=== PATIENT | female | born 1965 | race Two or more races ===

== ENCOUNTER 2020-09-11 08:49 | Outpatient (REF) | payer OTHER, SELFPAY ==
--- NOTE | 2020-09-11 | MM_ITS ---
EXAMINATION: MM SCREENING DIGITAL BREAST TOMOSYNTHESIS, BILATERAL CLINICAL INFORMATION: Screening. Asymptomatic. The lifetime risk of breast cancer based on the Tyrer-Cuzick Model is 7%. COMPARISON: Mammography: 02/10/2019, outside exam 04/12/2016 ([facility], [place]). TECHNIQUE: Digital breast tomosynthesis is performed in both the craniocaudal and mediolateral oblique views along with computer-aided detection (CAD). Synthesized 2D images are generated from the tomosynthesis. FINDINGS: There are scattered areas of fibroglandular density (ACR BI-RADS breast composition Category b). There are no significant masses, abnormal calcifications, or other abnormalities. The axilla and skin contours are unremarkable. No significant changes. IMPRESSION: No mammographic evidence of malignancy. ASSESSMENT: BI-RADS 1: Negative RECOMMENDATION: Routine annual mammography screening. This patient's information was entered into a reminder system with a target due date for their next mammogram.
== END 2020-09-11 08:50 | disposition home or self-care (01) ==
LOC: HO.MAMMO 08:49
PROVIDERS: Visit Provider Internal Medicine
DX: Z12.31 Encounter for screening mammogram for malignant neoplasm of breast (principal)
CPT/HCPCS: 77063; 77067

== ENCOUNTER 2020-11-06 10:36 | Outpatient (REF) | payer OTHER, SELFPAY ==
[2020-11-06 11:26] LABS: Alanine Aminotransferase 23 U/L (0-31); Anion Gap 11 (12-20); Aspartate Amino Transferase 25 U/L (5-31); Blood Urea Nitrogen 15 mg/dL (9-16); Calcium 9.8 mg/dL (8.4-10.2); Carbon Dioxide 29 mmol/L (22-29); Chloride 105 mmol/L (96-108); Cholesterol 184 mg/dL; Estimated Glomerular Filt Rate > 60; Glucose Fasting 88 mg/dL (60-99); HDL Cholesterol 39 mg/dL; LDL Cholesterol Calculated 108 mg/dl; Potassium 4.2 mmol/l (3.3-5.1); Sodium 141 mmol/L (135-145); Triglycerides 186 mg/dL
[2020-11-08 17:08] LABS: Calcium, Ionized 5.3 mg/dL (4.8-5.6)
== END 2020-11-06 10:37 | disposition home or self-care (01) ==
LOC: HO.LAB 10:36
PROVIDERS: PCP Internal Medicine; Visit Provider Internal Medicine
DX: E78.2 Mixed hyperlipidemia (principal); I10 Essential (primary) hypertension
CPT/HCPCS: 80048; 80061; 82330; 84450; 84460

== ENCOUNTER 2020-11-23 11:03 | Outpatient (REF) | payer OTHER, SELFPAY ==
--- NOTE | 2020-11-23 11:09 | XR_ITS ---
EXAMINATION: XR CHEST CLINICAL INFORMATION: Chest pain. COMPARISON: None TECHNIQUE: 2 views of the chest were obtained. FINDINGS: No significant abnormality is noted involving the heart, lungs, mediastinum, bony thorax or soft tissues. XR/XR chest 2V IMPRESSION: Unremarkable chest examination.
== END 2020-11-23 11:04 | disposition home or self-care (01) ==
LOC: HO.HMGCX 11:03
PROVIDERS: Visit Provider Nurse Practitioner Family
DX: R07.89 Other chest pain (principal)
CPT/HCPCS: 71046

== ENCOUNTER 2021-02-03 16:00 | Emergency (ER) | payer OTHER, SELFPAY ==
[2021-02-03 16:16] VITALS: BP 165/75; PULSE 73; RESP 18; TEMP 36.1; O2SAT 99; BMI 29.0
== END 2021-02-03 19:30 | disposition left against medical advice (07) ==
PROVIDERS: Emergency Provider Emergency Medicine
DX: K62.5 Hemorrhage of anus and rectum (principal)
CPT/HCPCS: 99282

== ENCOUNTER 2021-05-04 06:06 | Outpatient (REF) | payer OTHER, SELFPAY ==
[2021-05-04 12:15] LABS: Alanine Aminotransferase 20 U/L (0-31); Anion Gap 12 (12-20); Aspartate Amino Transferase 26 U/L (5-31); Blood Urea Nitrogen 13 mg/dL (9-16); Calcium 9.7 mg/dL (8.4-10.2); Carbon Dioxide 27 mmol/L (22-29); Chloride 106 mmol/L (96-108); Cholesterol 182 mg/dL; Estimated Glomerular Filt Rate > 60; Glucose Fasting 105 mg/dL (60-99); HDL Cholesterol 40 mg/dL; LDL Cholesterol Calculated 94 mg/dl; Potassium 4.3 mmol/L (3.3-5.1); Sodium 141 mmol/L (135-145); Triglycerides 244 mg/dL
== END 2021-05-04 06:07 | disposition home or self-care (01) ==
LOC: HO.HMGCLDS 06:06
PROVIDERS: PCP Internal Medicine; Visit Provider Internal Medicine
DX: E78.2 Mixed hyperlipidemia (principal); I10 Essential (primary) hypertension
CPT/HCPCS: 36415; 80048; 80061; 84450; 84460

== ENCOUNTER 2021-09-09 12:46 | Emergency (ER) | payer OTHER, SELFPAY ==
[2021-09-09 13:08] VITALS: BP 181/99; PULSE 63; RESP 18; TEMP 36.8; O2SAT 98; BMI 30.8
[2021-09-09 14:04] LABS: Carbon Monoxide POC 1.4 %
[2021-09-09 14:04] LABS: Carbon Monoxide Refer to POC result
--- NOTE | 2021-09-09 14:27 | ED.GENADULT ---
HPI - General Adult General Chief complaint: General Medical Stated complaint: exposure to carbon monoxide Time Seen by Provider: 09/09/21 13:54 Source: patient Mode of arrival: ambulatory History of Present Illness HPI narrative: 55-year-old female with a past medical history of carpal tunnel, hypertension, GERD, migraines, hyperlipidemia presenting to the ED complaining of exposure to carbon monoxide last night at home. There was a leak from a gas stove, fire department and gas company were at patient's home to check and was confirmed. Patient reports mild headache. Denies SOB, cough, fatigue/malaise, weakness. Patient is not a smoker Onset (ago): day(s) Related Data Home Medications Medication Instructions Recorded Confirmed ascorbic acid (vitamin C) 500 mg mg PO 11/08/20 11/08/20 capsule cholecalciferol (vitamin D3) 25 25 mcg PO DAILY 11/08/20 11/08/20 mcg (1,000 unit) capsule omega-3 fatty acids 1,000 mg 1,000 mg PO DAILY 11/08/20 11/08/20 capsule (Fish Oil Concentrate) oxybutynin chloride 5 mg 5 mg PO DAILY 11/08/20 11/08/20 tablet,extended release 24 hr zinc 50 mg tablet 50 mg PO DAILY 11/08/20 11/08/20 phenazopyridine 200 mg tablet 200 mg PO Q8H PRN 07/12/21 07/12/21 Previous Rx's Medication Instructions Recorded cetirizine 10 mg tablet 10 mg PO BEDTIME PRN #30 tab 09/20/20 lidocaine 5 % topical patch 1 patch TOPICAL DAILY #15 ea 11/23/20 diclofenac sodium 1 % topical gel 2 g TRANSDERMAL BID PRN #100 g 12/13/20 valacyclovir 500 mg tablet 500 mg PO DAILY #30 tab 06/24/21 lisinopril 10 mg tablet 10 mg PO DAILY #30 tab 06/27/21 rosuvastatin 5 mg tablet 5 mg PO DAILY #30 tab 07/12/21 pantoprazole 40 mg tablet,delayed 40 mg PO DAILY #30 tab 07/26/21 release Allergies Allergy/AdvReac Type Severity Reaction Status Date / Time ibuprofen AdvReac Unknown stomach Verified 09/09/21 13:08 upset Review of Systems Review of Systems: Constitutional: No Fever, No Chills, No Night Sweats, No Fatigue, No Malaise ENT/Mouth: No Ear Pain, No Nasal Congestion, No Sinus Pain, No Hoarseness, No sore throat, No Swallowing Difficulty Eyes: No Eye Pain, No Swelling, No Redness Cardiovascular: No Chest Pain, No SOB, No Palpitations Respiratory: No Cough, No Wheezing, +CO2 exposure, No Dyspnea Gastrointestinal: No Nausea, No Vomiting, No Diarrhea, No Abdominal pain Genitourinary:No Dysuria, No Urinary Frequency, No Hematuria Musculoskeletal: No joint pain, No Myalgias, No Joint Swelling Skin: No Skin Lesions, No rash Neuro: No Weakness, No Numbness, No Loss of Consciousness, No Dizziness, + Headache Yes all other systems are reviewed and are negative [facility] Past Medical History Attestation statement: The following information was validated with the patient. Medical History (Updated 09/09/21 @ 14:29 by KATERYNA Jeong) Carpal tunnel syndrome Essential hypertension GERD (gastroesophageal reflux disease) Impaired fasting glucose Migraine Mixed dyslipidemia Normal Pap smear Plantar fasciitis Stress incontinence of urine Surgical History Hx of cholecystectomy Family History Family History (Updated 07/12/21 @ 09:13 by Elinor Carrillo CMA) Father Bone cancer Mother History of hernia repair HTN (hypertension) Diabetes mellitus Brother Diabetes mellitus HTN (hypertension) Substance use disorder Maternal Grandfather Unknown family medical history Maternal Grandmother Unknown family medical history Paternal Grandfather Unknown family medical history Paternal Grandmother Unknown family medical history Sister No problems noted. Sister No problems noted. Daughter No problems noted. Daughter No problems noted. Son No problems noted. Brother No problems noted. Brother No problems noted. Brother No problems noted. Brother No problems noted. Social History Social History Housing: Apartment Alcohol intake: current Patient Tobacco Use Status: Former Tobacco user Years Smoked: 2 yrs e-Cigarette/Vaping Use: Never Used Second Hand Smoke Exposure: No Advance Directives: No Patient : No service: No Current occupational status: employed Physical Exam Vital Signs: Vital Signs: Last Vital Signs Temp 98.2 F 09/09/21 13:08 Pulse 63 09/09/21 13:08 Resp 18 09/09/21 13:08 BP 181/99 H 09/09/21 13:08 Pulse Ox 98 09/09/21 13:08 Body Mass Index 30.8 Const: General: cooperative and healthy appearing Orientation/consciousness: patient oriented x3 Limitations: no limitations HENMT: Head: Yes normal to inspection Ears: hearing grossly normal bilaterally General nose exam: Normal external nose present Face and sinus: Yes normal facial exam Eyes: General: appearance normal, both eyes and all related structures EOM: EOMs intact bilaterally Neck: Neck: Yes normal visual inspection Resp: Effort & Inspection: normal respiratory effort Auscultation: clear to auscultation bilaterally, no rales, no rhonchi and no wheezes Cardio: Rate: regular rate Heart sounds: S1 normal heart sound present and S2 normal heart sound present Skin: Rashes: no rashes Wounds: no wounds Neuro: General: patient oriented x3 Gait exam (Neuro): Normal gait present Extrem: General: Yes normal to inspection Course Course Course Narrative: -1428--carboxyhemoglobin negative Medical Decision Making [facility] Narrative Medical decision making narrative: 55-year-old female with a past medical history of carpal tunnel, hypertension, GERD, migraines, hyperlipidemia presenting to the ED complaining of exposure to carbon monoxide last night at home. On exam VSS, an 80/well-appearing, rule out carbon monoxide poisoning Plan: Will obtain, carboxyhemoglobin Lab Data Labs: Lab Results 09/09/21 Range/Units 13:59 Carboxyhemoglobin % 1.4 % Discharge Plan Discharge Clinical Impression: Accidental exposure to carbon monoxide Patient Disposition: Home, Self-Care Instructions: Carbon Monoxide Poisoning (ED) Additional Instructions: Your carbon monoxide level in the blood was normal It is important for you to ensure that your no longer be exposed to carbon monoxide If he develops any increasing fatigue, headaches, shortness of breath please return to the ED Please follow-up with your doctor Prescriptions: No Action cetirizine 10 mg tablet 10 mg PO BEDTIME PRN (Reason: for congestion) Qty: 30 RF: 2 diclofenac sodium 1 % gel 2 g transdermal BID PRN (Reason: for pain) Qty: 100 RF: 2 valacyclovir 500 mg tablet 500 mg PO DAILY Qty: 30 RF: 5 lisinopril 10 mg tablet 10 mg PO DAILY Qty: 30 RF: 5 pantoprazole 40 mg tablet,delayed release (DR/EC) 40 mg PO DAILY Qty: 30 RF: 2 phenazopyridine 200 mg tablet 200 mg PO Q8H PRNRF: 0 rosuvastatin 5 mg tablet 5 mg PO DAILY Qty: 30 RF: 5 oxybutynin chloride 5 mg tablet extended release 24hr 5 mg PO DAILY RF: 0 omega-3 fatty acids [Fish Oil Concentrate] 1,000 mg capsule 1,000 mg PO DAILY RF: 0 cholecalciferol (vitamin D3) 25 mcg (1,000 unit) capsule 25 mcg PO DAILY RF: 0 ascorbic acid (vitamin C) 500 mg capsule PO RF: 0 zinc 50 mg tablet 50 mg PO DAILY RF: 0 lidocaine 5 % adhesive patch,medicated 1 patch topical DAILY Qty: 15 RF: 0 Referrals: Felicitas Burkett MD [Primary Care Provider] - 2 days
== END 2021-09-09 14:44 | disposition home or self-care (01) ==
PROVIDERS: Emergency Provider Emergency Medicine Emergency Medical Services; PCP Internal Medicine
DX: T58.91XA Toxic effect of carbon monoxide from unspecified source, accidental (unintentional), initial encounter (principal); Y92.9 Unspecified place or not applicable; Z79.899 Other long term (current) drug therapy
CPT/HCPCS: 36415; 99283

== ENCOUNTER 2021-09-19 13:31 | Outpatient (REF) | payer OTHER, SELFPAY ==
--- NOTE | ~2021-09-19 | MM_ITS ---
EXAMINATION: MM SCREENING DIGITAL BREAST TOMOSYNTHESIS, BILATERAL CLINICAL INFORMATION: Screening. Asymptomatic. The lifetime risk of breast cancer based on the Tyrer-Cuzick Model is 8%. COMPARISON: Mammography: 09/11/2020, 02/10/2019, 04/12/2016 TECHNIQUE: Digital breast tomosynthesis is performed in both the craniocaudal and mediolateral oblique views along with computer-aided detection (CAD). Synthesized 2D images are generated from the tomosynthesis. FINDINGS: There are scattered areas of fibroglandular density (ACR BI-RADS breast composition Category b). There are no significant masses, abnormal calcifications, or other abnormalities. Parenchymal pattern is similar to prior exam. No developing density. No significant changes. MM/MM tomosynthesis screening BI IMPRESSION: No mammographic evidence of malignancy. ASSESSMENT: BI-RADS 1: Negative RECOMMENDATION: Routine annual mammography screening. This patient's information was entered into a reminder system with a target due date for their next mammogram.
== END 2021-09-19 13:32 | disposition home or self-care (01) ==
LOC: HO.MAMMO 13:31
PROVIDERS: Visit Provider Internal Medicine
DX: Z12.31 Encounter for screening mammogram for malignant neoplasm of breast (principal)
CPT/HCPCS: 77063; 77067

== ENCOUNTER 2022-01-17 13:51 | Outpatient (REF) | payer OTHER, SELFPAY ==
[2022-01-19 23:41] LABS: HPV mRNA E6/E7 rflx Not Detected (Not Detected)
== END 2022-01-17 13:52 | disposition home or self-care (01) ==
LOC: HO.LNP 13:51
PROVIDERS: Visit Provider Internal Medicine
DX: Z12.4 Encounter for screening for malignant neoplasm of cervix (principal); Z11.51 Encounter for screening for human papillomavirus (HPV)
CPT/HCPCS: 87624; 88142

== ENCOUNTER 2022-01-23 09:58 | Outpatient (REF) | payer OTHER, SELFPAY ==
[2022-01-23 11:47] LABS: Estimated Average Glucose 117 mg/dL; Hemoglobin A1c % 5.7 %
[2022-01-23 12:18] LABS: Vitamin D 25-OH Total 24.7 ng/mL (>30)
[2022-01-23 12:27] LABS: Alanine Aminotransferase 25 U/L (0-31); Anion Gap 11 (12-20); Aspartate Amino Transferase 26 U/L (5-31); Blood Urea Nitrogen 15 mg/dL (9-16); Calcium 9.9 mg/dL (8.4-10.2); Carbon Dioxide 28 mmol/L (22-29); Chloride 106 mmol/L (96-108); Cholesterol 176 mg/dL; Estimated Glomerular Filt Rate > 60; Glucose Fasting 98 mg/dL (60-99); HDL Cholesterol 37 mg/dL; LDL Cholesterol Calculated 88 mg/dl; Potassium 4.1 mmol/L (3.3-5.1); Sodium 141 mmol/L (135-145); Triglycerides 257 mg/dL
== END 2022-01-23 09:59 | disposition home or self-care (01) ==
LOC: HO.LAB 09:58
PROVIDERS: PCP Internal Medicine; Visit Provider Internal Medicine
DX: Z00.01 Encounter for general adult medical examination with abnormal findings (principal); E78.2 Mixed hyperlipidemia; I10 Essential (primary) hypertension; R73.01 Impaired fasting glucose; Z78.0 Asymptomatic menopausal state
CPT/HCPCS: 36415; 80048; 80061; 82306; 83036; 84450; 84460

== ENCOUNTER 2022-07-25 09:25 | Outpatient (REF) | payer OTHER, SELFPAY ==
[2022-07-25 12:35] LABS: Vitamin D 25-OH Total 42.5 ng/mL (>30)
[2022-07-25 12:46] LABS: Alanine Aminotransferase 26 U/L (0-31); Aspartate Amino Transferase 26 U/L (5-31); Cholesterol 197 mg/dL; HDL Cholesterol 42 mg/dL; LDL Cholesterol Calculated 98 mg/dl; Triglycerides 285 mg/dL
== END 2022-07-25 09:26 | disposition home or self-care (01) ==
LOC: HO.HMGCLDS 09:25
PROVIDERS: PCP Internal Medicine; Visit Provider Internal Medicine
DX: E55.9 Vitamin D deficiency, unspecified (principal); E78.2 Mixed hyperlipidemia
CPT/HCPCS: 36415; 80061; 82306; 84450; 84460

== ENCOUNTER 2022-08-01 07:48 | Outpatient (REF) | payer OTHER, SELFPAY ==
[2022-08-01 12:20] LABS: C Reactive Protein 0.32 mg/dL (< or = 0.50)
[2022-08-02 14:46] LABS: Immunoglobulin A 364 mg/dL (47-310)
[2022-08-03 08:17] LABS: Transglutaminase IgA <1.0 U/mL
== END 2022-08-01 07:49 | disposition home or self-care (01) ==
LOC: HO.HMGCLDS 07:48
PROVIDERS: PCP Internal Medicine; Referring Provider Internal Medicine; Visit Provider Internal Medicine
DX: R10.13 Epigastric pain (principal); R14.0 Abdominal distension (gaseous); R19.7 Diarrhea, unspecified
CPT/HCPCS: 36415; 82784; 86140; 86364; 99202

== ENCOUNTER 2022-08-14 13:06 | Outpatient (REF) | payer OTHER, SELFPAY | END 2022-08-14 13:07 | disposition home or self-care (01) | LOC: HO.LNP 13:06 | PROVIDERS: Visit Provider Internal Medicine | DX: R10.13 Epigastric pain (principal) | CPT/HCPCS: 87338 ==

== ENCOUNTER 2022-09-26 12:30 | Outpatient (REF) | payer OTHER, SELFPAY ==
--- NOTE | ~2022-09-26 | MM_ITS ---
EXAMINATION: MM SCREENING DIGITAL BREAST TOMOSYNTHESIS, BILATERAL CLINICAL INFORMATION: Screening. Asymptomatic. The lifetime risk of breast cancer based on the Tyrer-Cuzick Model is 3.6%. COMPARISON: Mammography: September 19, 2021 and studies dating back to April 25, 2012 TECHNIQUE: Digital breast tomosynthesis is performed in both the craniocaudal and mediolateral oblique views along with computer-aided detection (CAD). Synthesized 2D images are generated from the tomosynthesis. FINDINGS: There are scattered areas of fibroglandular density (ACR BI-RADS breast composition Category b). There are no significant masses, abnormal calcifications, or other abnormalities. MM/MM tomosynthesis screening BI IMPRESSION: No significant changes ASSESSMENT: BI-RADS 1: Negative RECOMMENDATION: Routine annual mammography screening. This patient's information was entered into a reminder system with a target due date for their next mammogram.
== END 2022-09-26 12:31 | disposition home or self-care (01) ==
LOC: HO.MAMMO 12:30
PROVIDERS: PCP Internal Medicine; Visit Provider Internal Medicine
DX: Z12.31 Encounter for screening mammogram for malignant neoplasm of breast (principal)
CPT/HCPCS: 77063; 77067

== ENCOUNTER 2022-12-12 10:51 | Outpatient (REF) | payer OTHER, SELFPAY ==
--- NOTE | ~2022-12-12 | XR_ITS ---
EXAMINATION: XR THORACIC SPINE CLINICAL INFORMATION: Thoracic spinal pain. COMPARISON: None TECHNIQUE: 3 views of the thoracic spine were obtained. FINDINGS: No fracture or bone destruction is seen, and the vertebral alignment is unremarkable. Mild multilevel disc degenerative change. No abnormality of the paraspinal soft tissues is appreciated. Status post cholecystectomy. XR/XR thoracic spine 3V IMPRESSION: Unremarkable examination.
== END 2022-12-12 10:52 | disposition home or self-care (01) ==
LOC: HO.HMGCX 10:51
PROVIDERS: PCP Internal Medicine; Visit Provider Internal Medicine
DX: M54.6 Pain in thoracic spine (principal); G89.29 Other chronic pain
CPT/HCPCS: 72072

== ENCOUNTER 2023-01-04 13:43 | Outpatient (RCR) | payer OTHER, SELFPAY ==
--- NOTE | 2023-01-08 12:47 | MHC.PT.EP ---
[facility] [place] Office [place] Office [place] Office [address] [phone] F: [phone] F: [phone] F: [phone] F: [phone] Physical Therapy Plan of Care Date of Evaluation: Date of Surgery: Diagnosis: thoracic pain Assessment: Patient is a 57 y.o. female who is referred to PT by Dr. Felicitas Burkett MD with Dx of thoracic pain. PT diagnosis is chronic thoracic pain from sprain/strain and poor postures. Patient impairments include pain, limited ROM, weakness. Patient current functional limitations are working, prolonged standing to clean dishes or cook, at times bathing with overhead reaching.Patient will benefit from skilled PT to address aforementioned impairments and functional limitations to meet established goals. Frequency and Duration: The patient will be seen 2x/week for 4 weeks Short Term Goals: 2 weeks Patient demonstrates consistency and independence with HEP to self manage symptoms. Patient presents with improved mid trap strength 4/5 to be able to sit without slouched posture. [place] Attendant Goals: 4 weeks Patient presents with incrased bilateral shoulder abduction 5/5 to be able to perform push/pull work tasks. Patient presents with full, painfree R AROM shoulder flexion 180 to reach overhead with bathing Treatment Plan: Modalities to reduce pain, spasms and effusion. Manual therapy to restore motion and function. Therapeutic exercise to improve strength and flexibility. Neuromuscular re-education for posture and balance. Therapeutic activities to return to functional activities of daily living. Electronically signed by: Kei Cartagena, PT, DPT Please sign and return to therapist. Thank you for your referral.
--- NOTE | 2023-02-22 17:49 | MHC.PT.DC ---
[facility] [place] Office [place] Office [place] Office [address] [phone] F: [phone] F: [phone] F: [phone] F: [phone] Physical Therapy Discharge Report Diagnosis: thoracic pain Date of Surgery: Date of Evaluation: 01/04/23 Date of Discharge: 02/22/23 Treatments to Date: 1 Cancellations to Date: No Shows to Date: 3 Discharge Status: Visit Non-compliance Discharge Summary: Patient did not show to any FUP appointments after initial evaluation. She is therefore discharged from PT at this time. Electronically signed by: Kei Cartagena, PT, DPT Please sign and return to therapist. Thank you for your referral.
== END 2023-02-22 17:49 | disposition home or self-care (01) ==
LOC: HO.PT 13:43
PROVIDERS: PCP Internal Medicine; Visit Provider Internal Medicine
DX: M54.6 Pain in thoracic spine (principal)
CPT/HCPCS: 97110; 97161

== ENCOUNTER 2023-07-02 10:09 | Outpatient (AMB) | payer SELFPAY ==
--- NOTE | 2023-07-02 11:11 | AM.OFFWIN_ITS ---
Intake Vital Signs 07/02/23 11:19 Height 5 ft 3 in BP 150/80 H Blood Pressure Location Lt brachial Position Sitting Pulse 84 Pulse Source Pulse Oximeter Temp 96.9 F Temp Source Temporal Artery Scan Pulse Oximetry (%) 99 Oxygen Delivery Method Room Air Intake Visit Reasons: EP big toe right foot swollen [phone] Intake Note: Pt is here c/o right big toe being swollen. Pt states she stepped on glass over the weekend and lost a lot of blood. Patient Tobacco Use Status: Former Tobacco user Allergies ibuprofen Adverse Reaction (Unknown, Verified 07/02/23 12:03) stomach upset Medication List - Last Reconciled 07/02/23 by Noble Negrete MD ascorbic acid (vitamin C) mg PO lisinopril 10 mg PO DAILY omega-3 fatty acids (Fish Oil Concentrate) 1,000 mg PO DAILY oxybutynin chloride ER 5 mg PO DAILY valacyclovir 500 mg PO DAILY Do you need a note to return to daycare/school/sports/work: No HPI EP big toe right foot swollen [phone] HPI Details 57-year-old female presents to the office for a sick visit. Patient is complaining of pain over the right great toe. Pain symptoms started a few days ago. Throbbing in nature. No similar symptoms of pain before. No fall or injury. [facility] Medical History (Updated 07/02/23 @ 11:55 by Noble Negrete MD) Annual visit for general adult medical examination with abnormal findings Carpal tunnel syndrome Cervical cancer screening Chronic thoracic back pain Epigastric abdominal pain Essential hypertension GERD (gastroesophageal reflux disease) Impaired fasting glucose Migraine Mixed dyslipidemia Muscle strain of upper back Normal Pap smear Plantar fasciitis Postprandial abdominal bloating Recurrent cold sores Stress incontinence of urine Vitamin D deficiency Surgical History Hx of cholecystectomy Family History Father Bone cancer Mother History of hernia repair HTN (hypertension) Diabetes mellitus Brother Diabetes mellitus HTN (hypertension) Substance use disorder Maternal Grandfather Unknown family medical history Maternal Grandmother Unknown family medical history Paternal Grandfather Unknown family medical history Paternal Grandmother Unknown family medical history Sister No problems noted. Sister No problems noted. Daughter No problems noted. Daughter No problems noted. Son No problems noted. Brother No problems noted. Brother No problems noted. Brother No problems noted. Brother No problems noted. Social History Housing: Apartment Alcohol intake: current Patient Tobacco Use Status: Former Tobacco user Years Smoked: 2 yrs e-Cigarette/Vaping Use: Never Used Second Hand Smoke Exposure: No service: No Current occupational status: employed Cognitive needs: No Hearing needs: No Vision needs: Yes (Glasses) Physical Exam Vital Signs: Last Vital Signs Temp 96.9 F 07/02/23 11:19 Pulse 84 07/02/23 11:19 BP 150/80 H 07/02/23 11:19 Pulse Ox 99 07/02/23 11:19 Oxygen Delivery Method Room Air 07/02/23 11:19 Extrem Other: Right foot: Great toe is slightly swollen. Pain on flexion and extension of t he toe. Assessment & Plan Assessment & Plan (1) Contusion of foot, right: Code(s): S90.31XA - Contusion of right foot, initial encounter Plan: X-ray images were personally reviewed by me. Most likely patient has gout. Treated empirically with prednisone. If symptoms do not improve to follow-up here. Orders: Orders XR foot RT min 3V 07/02/23 S90.31XA - Contusion of right foot, initial encounter Medications: New prednisone 60 mg (3 x 20 mg) PO DAILY 9 tabs 0RF Coding Level of Care Code Est Pt Level 4 (33429) Diagnoses Contusion of foot, right S90.31XA
[2023-07-02 11:19] VITALS: BP 150/80; PULSE 84; TEMP 36.1; O2SAT 99
== END 2023-07-02 13:38 | disposition home or self-care (01) ==
PROVIDERS: PCP Internal Medicine; Visit Provider Internal Medicine
DX: S90.31XA Contusion of right foot, initial encounter (principal)
CPT/HCPCS: 99214

== ENCOUNTER 2023-07-02 11:57 | Outpatient (REF) | payer OTHER, SELFPAY ==
--- NOTE | ~2023-07-02 | XR_ITS ---
EXAMINATION: XR FOOT, RIGHT CLINICAL INFORMATION: Right foot contusion. COMPARISON: None available. TECHNIQUE: AP, lateral, and oblique views of the right foot. FINDINGS: There is no acute fracture or dislocation. A coarse calcification is seen along the lateral margin of the first interphalangeal joint. The remainder the digits are intact. Tarsal bones are normally aligned. Small plantar and retrocalcaneal spurs are noted. The soft tissues are unremarkable. XR/XR foot RT min 3V IMPRESSION: 1. Coarse calcification along the lateral margin of the first interphalangeal joint does not appear acute and could be degenerative in nature or secondary to old injury. No acute fracture. 2. Small degenerative calcaneal spurs.
== END 2023-07-02 11:58 | disposition home or self-care (01) ==
LOC: HO.HMGCX 11:57
PROVIDERS: PCP Internal Medicine; Visit Provider Internal Medicine
DX: S90.31XA Contusion of right foot, initial encounter (principal)
CPT/HCPCS: 73630

== ENCOUNTER 2023-07-03 12:56 | Emergency (ER) | payer OTHER, SELFPAY ==
[2023-07-03 13:08] VITALS: BP 220/96; PULSE 98; RESP 16; TEMP 36.7; O2SAT 98; BMI 30.1
--- NOTE | 2023-07-03 13:10 | ED_ITS ---
HPI - Extremity Injury (Lower) General Chief Complaint: Extremity Problem Stated Complaint: R Toe Pain No Injury Time Seen by Provider: 07/03/23 15:40 Source: patient Mode of arrival: ambulatory Limitations: no limitations History of Present Illness HPI Narrative: 57 yo female presents to the ER for evaluation of right great toe pain, redness, and swelling for the last 6 days. She stepped on a piece of glass a week ago and sustained a cut to her middle toe but not the great toe. Pain in the great toe started 2 days later. Seen at Urgent Care yesterday, had negative x-rays and was started on prednisone. She reports no improvement with prednisone. She reports limited ROM of the toe and pain with walking. MD complaint: foot injury Onset (ago): week(s) (1) Injury: Right: toes Severity: severe Severity scale (1-10): 9 Relieving factors: immobilization and rest Exacerbating factors: weight bearing, movement and palpation Associated symptoms: able to partially bear weight Other symptoms: none Treatments prior to arrival: other (prednisone) Related Data Home Medications Medication Instructions Recorded Confirmed ascorbic acid (vitamin C) 500 mg mg PO 11/08/20 07/02/23 capsule omega-3 fatty acids 1,000 mg 1,000 mg PO DAILY 11/08/20 07/02/23 capsule (Fish Oil Concentrate) oxybutynin chloride 5 mg 5 mg PO DAILY 11/08/20 07/02/23 tablet,extended release 24 hr Previous Rx's Medication Instructions Recorded valacyclovir 500 mg tablet 500 mg PO DAILY #30 tabs 07/18/22 lisinopril 10 mg tablet 10 mg PO DAILY #90 tabs 10/04/22 prednisone 20 mg tablet 60 mg PO DAILY #9 tabs 07/02/23 amoxicillin 875 mg-potassium 1 tab PO BID #20 tabs 07/03/23 clavulanate 125 mg tablet tramadol 50 mg tablet 50 mg PO BID PRN severe pain 07/03/23 (scale score 7-10) #5 tabs Allergies Allergy/AdvReac Type Severity Reaction Status Date / Time ibuprofen AdvReac Unknown stomach Verified 07/02/23 12:03 upset Review of Systems Review of Systems: Yes all other systems are reviewed and are negative PMFSH Past Medical History Medical History (Updated 07/03/23 @ 15:41 by KATERYNA Avalos) Annual visit for general adult medical examination with abnormal findings Carpal tunnel syndrome Cervical cancer screening Chronic thoracic back pain Epigastric abdominal pain Essential hypertension GERD (gastroesophageal reflux disease) Impaired fasting glucose Migraine Mixed dyslipidemia Muscle strain of upper back Normal Pap smear Plantar fasciitis Postprandial abdominal bloating Recurrent cold sores Stress incontinence of urine Vitamin D deficiency Surgical History Hx of cholecystectomy Family History Family History Father Bone cancer Mother History of hernia repair HTN (hypertension) Diabetes mellitus Brother Diabetes mellitus HTN (hypertension) Substance use disorder Maternal Grandfather Unknown family medical history Maternal Grandmother Unknown family medical history Paternal Grandfather Unknown family medical history Paternal Grandmother Unknown family medical history Sister No problems noted. Sister No problems noted. Daughter No problems noted. Daughter No problems noted. Son No problems noted. Brother No problems noted. Brother No problems noted. Brother No problems noted. Brother No problems noted. Social History Social History Housing: Apartment Alcohol intake: current Patient Tobacco Use Status: Former Tobacco user Years Smoked: 2 yrs e-Cigarette/Vaping Use: Never Used Second Hand Smoke Exposure: No Advance Directives: No Advance Directives Information Provided: No service: No Current occupational status: employed Cognitive needs: No Hearing needs: No Vision needs: Yes (Glasses) Physical Exam Vital Signs: Vital Signs: Last Vital Signs Temp 98.9 F 07/03/23 16:07 Pulse 86 07/03/23 16:07 Resp 16 07/03/23 16:07 BP 196/93 H 07/03/23 16:07 Pulse Ox 98 07/03/23 16:07 O2 Del Method Room Air 07/03/23 16:07 BMI result Body Mass Index 30.1 Appearance: Alert. Oriented X3. No acute distress. HEENT: normal inspection CVS: Normal heart rate and rhythm. Pulses normal. Respiratory: No respiratory distress. Skin: Skin warm and dry. Normal skin color. Normal skin turgor. No rashes. Extremities: right great toe with redness, swelling and tenderness of the plantar aspect, limited ROM due to pain. no MCP tenderness. no overlying er ythema of anterior surface or of the foot. cap refill <3 sec. Neuro: Oriented X 3. No motor deficit. No sensory deficit. Medications Administered Discontinued Medications Generic Name Dose Route Start Last Admin Trade Name Abdirahman PRN Reason Stop Dose Admin Lisinopril 10 mg 07/03/23 13:12 07/03/23 15:30 Lisinopril 10 Mg Tablet PO 07/03/23 13:13 10 mg ONCE ONE Administration Protocol Medical Decision Making Medical Decision Making MDM Narrative: 57 yo female presenting for great toe pain for the last week or so after she stepped on glass. No FB or fracture on outpatient x-rays yesterday. Exam revealing for plantar aspect swelling, redness and tenderness. no palpable areas of fluctuance, no drainage. low suspicion for septic joint as it is more soft tissue that is warm and tender than the joint itself. Pt found to have BP 220/96 on arrival. did not take her lisinopril yet today. She is asymptomatic. Lisinopril given here with mild improvement in BP 196/93 shortly after administration. patient would like to go home. She remained symptom free. advised to monitor BP closely at home, adhere to medications and present back to the ER for new or worsening symptoms. Differential Diagnosis Differential Diagnoses: The differential diagnosis associated with the presentation includes cellulitis, abscess, retained FB, gout, septic joint Admission/Observation Consideration of admission/observation: Escalation of care including admission/observation considered poorly controlled BP, considered observation for HTN urgency External Record Review External record reviewed: Prior outpatient labs Tests considered The following testing was considered but not selected: labs considered Prescription Management I considered prescription management with: Pain Medication and Antibiotic Chronic Conditions Patient?s care impacted by: Hypertension Critical Care Time Critical Care Time Critical Care Time: No Discharge Plan Discharge Clinical Impression: Cellulitis of great toe Patient Disposition: Home, Self-Care Instructions: Cellulitis (DC) Additional Instructions: Take the prescribed antibiotics as directed, complete the entire course and do not miss any doses Soak your toe in warm soapy water or warm water with epsom salts 3 times per day Elevate the foot/toe when possible Take Tylenol 975 mg every 6-8 hours for pain Take the prescribed Tramadol as needed for severe pain only Follow up with your primary care doctor to ensure resolution Your blood pressure was very elevated in the ER today Make sure to take your meds every day as directed and monitor your BP at home If you develop new or worsening symptoms call 911 or come back to the ER for further evaluation. Prescriptions: New amoxicillin-pot clavulanate 875-125 mg tablet 1 tab PO BID Qty: 20 0RF tramadol 50 mg tablet 50 mg PO BID PRN (Reason: severe pain (scale score 7-10)) Qty: 5 0RF No Action lisinopril 10 mg tablet 10 mg PO DAILY Qty: 90 3RF oxybutynin chloride 5 mg tablet extended release 24hr 5 mg PO DAILY omega-3 fatty acids [Fish Oil Concentrate] 1,000 mg capsule 1,000 mg PO DAILY ascorbic acid (vitamin C) 500 mg capsule PO valacyclovir 500 mg tablet 500 mg PO DAILY Qty: 30 5RF prednisone 20 mg tablet 60 mg PO DAILY Qty: 9 0RF Stand Alone Forms: Work/School Release Interventions: ED Discharge Assessment Last Done: 07/03/23 16:12 Discharge Date/Time: 07/03/23 16:12
--- NOTE | 2023-07-03 15:28 | PC.NURSE ---
Pt brought back from waiting room, agreeable to take BP med, stating she forgot hers this morning
[2023-07-03 15:29] VITALS: BP 210/104; PULSE 95; O2SAT 96
[2023-07-03] MEDS: lisinopriL 10 MG TABLET PO (15:30)
--- NOTE | 2023-07-03 15:31 | PC.NURSE ---
pt medicated per MAR vitals updated
[2023-07-03 16:07] VITALS: BP 196/93; PULSE 86; RESP 16; TEMP 37.2; O2SAT 98
== END 2023-07-03 16:12 | disposition home or self-care (01) ==
PROVIDERS: Emergency Provider Emergency Medicine Emergency Medical Services; PCP Internal Medicine
DX: L03.031 Cellulitis of right toe (principal); Z79.899 Other long term (current) drug therapy
CPT/HCPCS: 99283; 99284

== ENCOUNTER 2023-07-07 11:20 | Emergency (ER) | payer OTHER, SELFPAY ==
--- NOTE | 2023-07-07 11:29 | ED_ITS ---
HPI - General Adult General Chief complaint: Extremity Problem Stated complaint: cut bottom of foot, swollen toe Time Seen by Provider: 07/07/23 12:37 Source: patient and old records reviewed Mode of arrival: ambulatory Limitations: no limitations History of Present Illness HPI narrative: 49-year-old female with a history of GERD, HTN who presents to the ER for evaluation of ongoing right great toe pain for the last several days. She was seen here for the same on 07/03 - diagnosed with cellulitis and started on Augmentin. Prior to that she was seen in the Urgent Care, had normal x-rays (stepped on glass prior), and was started on prednisone for possible gout. Patient reports she initially had some improvement with abx but after going to work yesterday and being on her feet all day the redness, pain and swelling worsened last night. No fevers at home. MD complaint: right great toe pain, swelling, redness Onset (ago): day(s) Location: right and lower extremity Radiation: proximal Severity: moderate Severity scale (1-10): 6 Quality: aching Pain Consistency: constant Relieving factors: rest Exacerbating factors: movement Associated symptoms: denies other symptoms Related Data Home Medications Medication Instructions Recorded Confirmed ascorbic acid (vitamin C) 500 mg mg PO 11/08/20 07/02/23 capsule omega-3 fatty acids 1,000 mg 1,000 mg PO DAILY 11/08/20 07/02/23 capsule (Fish Oil Concentrate) oxybutynin chloride 5 mg 5 mg PO DAILY 11/08/20 07/02/23 tablet,extended release 24 hr Previous Rx's Medication Instructions Recorded valacyclovir 500 mg tablet 500 mg PO DAILY #30 tabs 07/18/22 lisinopril 10 mg tablet 10 mg PO DAILY #90 tabs 10/04/22 prednisone 20 mg tablet 60 mg PO DAILY #9 tabs 07/02/23 amoxicillin 875 mg-potassium 1 tab PO BID #20 tabs 07/03/23 clavulanate 125 mg tablet tramadol 50 mg tablet 50 mg PO BID PRN severe pain 07/03/23 (scale score 7-10) #5 tabs cephalexin 500 mg capsule 500 mg PO QID 7 days #28 caps 07/07/23 doxycycline hyclate 100 mg tablet 100 mg PO BID #14 tabs 07/07/23 tramadol 50 mg tablet 50 mg PO Q8H PRN pain #8 tabs 07/07/23 Allergies Allergy/AdvReac Type Severity Reaction Status Date / Time ibuprofen AdvReac Unknown stomach Verified 07/07/23 11:30 upset Review of Systems Review of Systems: Yes all other systems are reviewed and are negative [facility] Past Medical History Medical History (Updated 07/08/23 @ 00:07 by Harsha Roche) Annual visit for general adult medical examination with abnormal findings Carpal tunnel syndrome Cervical cancer screening Chronic thoracic back pain Epigastric abdominal pain Essential hypertension GERD (gastroesophageal reflux disease) Impaired fasting glucose Migraine Mixed dyslipidemia Muscle strain of upper back Normal Pap smear Plantar fasciitis Postprandial abdominal bloating Recurrent cold sores Stress incontinence of urine Vitamin D deficiency Surgical History Hx of cholecystectomy Family History Family History Father Bone cancer Mother History of hernia repair HTN (hypertension) Diabetes mellitus Brother Diabetes mellitus HTN (hypertension) Substance use disorder Maternal Grandfather Unknown family medical history Maternal Grandmother Unknown family medical history Paternal Grandfather Unknown family medical history Paternal Grandmother Unknown family medical history Sister No problems noted. Sister No problems noted. Daughter No problems noted. Daughter No problems noted. Son No problems noted. Brother No problems noted. Brother No problems noted. Brother No problems noted. Brother No problems noted. Social History Social History Housing: Apartment Alcohol intake: current Patient Tobacco Use Status: Former Tobacco user Years Smoked: 2 yrs e-Cigarette/Vaping Use: Never Used Second Hand Smoke Exposure: No Advance Directives: No Advance Directives Information Provided: Yes service: No Current occupational status: employed Cognitive needs: No Hearing needs: No Vision needs: Yes (Glasses) Physical Exam ED Vital Signs: Vital Signs - 24 hr 07/07/23 11:30 07/07/23 12:00 Temperature 97.1 F 98.7 F Pulse Rate 90 74 Respiratory Rate 16 16 Blood Pressure 188/89 H 182/91 H Pulse Oximetry 98 100 Oxygen Delivery Method Room Air Room Air BMI result Body Mass Index 30.1 Appearance: Alert. Oriented X3. No acute distress. HEENT: normal inspection CVS: Normal heart rate and rhythm. Pulses normal. Respiratory: No respiratory distress. Skin: Skin warm and dry. Normal skin color. Normal skin turgor. No rashes. Extremities: Mild erythema, swelling, tenderness of the right great toe extending to the distal foot with associated tenderness. No significant tenderness with range of motion of the toe. Foot is warm and well perfused with 2+ DP and PT pulse. No induration or areas of fluctuance Neuro: Oriented X 3. No motor deficit. No sensory deficit. Course Course Course Narrative: 57-year-old female presents for evaluation pain to her right great toe. Patient reports that she suffered a laceration to the bottom of her right foot 2 weeks ago. She reports pain and swelling to the right great toe today. Significant erythema. There is mild edema. She was seen here 4 days ago and diagnosed with cellulitis of the right great toe. Patient had an x-ray 5 days ago that did not show any obvious foreign body Medical Decision Making Medical Decision Making MDM Narrative: 57-year-old female presents to the ER for evaluation of ongoing right foot and right great toe pain after stepping on glass 2 weeks ago. Seen at urgent care where x-rays were performed. Showed no foreign body. She has been on Augmentin for 4 days for possible cellulitis. She reported initial improvement with Augmentin however after going back to work and being on her feet all day yesterday she developed worsening pain and redness. Her vital signs are stable on arrival today. No tachycardia or fever. She appears well. She is not diabetic. On examination she has some redness and swelling of great toe. No induration or areas of fluctuance to suggest an abscess. No significant range of motion limitations to suggest a septic joint. She is able to ambulate. Will plan to broaden her antibiotics today to doxycycline and Keflex. Will start tramadol for pain control. She was advised to stay off of the foot, elevated when possible. She was instructed to observe the redness and swelling, follow-up with her primary care doctor and come back to the ER if anything were to get worse. Will hold off on labs today as management would not change. Patient is not septic. She is stable for discharge home with close outpatient follow Differential Diagnosis Differential Diagnoses: The differential diagnosis associated with the presentation includes Cellulitis, abscess, septic joint, gout, trauma External Record Review External record reviewed: Outpatient record Tests considered The following testing was considered but not selected: Imaging of the foot was considered however this was ready performed as an outpatient Lab workup was considered however this would not exchange operator Prescription Management I considered prescription management with: Pain Medication and Antibiotic Chronic Conditions Patient?s care impacted by: Hypertension Critical Care Time Critical Care Time Critical Care Time: No Discharge Plan Discharge Clinical Impression: Cellulitis Patient Disposition: Home, Self-Care Instructions: Cellulitis (DC) Additional Instructions: Take the prescribed antibiotics as directed, complete the entire course and do not miss any doses Use warm soaks 3 times per day Elevate your foot when possible Follow up with your doctor this week If you develop new or worsening symptoms call 911 or come back to the ER for further evaluation. Prescriptions: New doxycycline hyclate 100 mg tablet 100 mg PO BID Qty: 14 0RF cephalexin 500 mg capsule 500 mg PO QID 7 Days Qty: 28 0RF tramadol 50 mg tablet 50 mg PO Q8H PRN (Reason: pain) Qty: 8 0RF No Action lisinopril 10 mg tablet 10 mg PO DAILY Qty: 90 3RF amoxicillin-pot clavulanate 875-125 mg tablet 1 tab PO BID Qty: 20 0RF tramadol 50 mg tablet 50 mg PO BID PRN (Reason: severe pain (scale score 7-10)) Qty: 5 0RF oxybutynin chloride 5 mg tablet extended release 24hr 5 mg PO DAILY omega-3 fatty acids [Fish Oil Concentrate] 1,000 mg capsule 1,000 mg PO DAILY ascorbic acid (vitamin C) 500 mg capsule PO valacyclovir 500 mg tablet 500 mg PO DAILY Qty: 30 5RF prednisone 20 mg tablet 60 mg PO DAILY Qty: 9 0RF Referrals: Felicitas Burkett MD [Primary Care Provider] - Interventions: ED Discharge Assessment Last Done: 07/07/23 14:49 Discharge Date/Time: 07/07/23 14:50
[2023-07-07 11:30] VITALS: BP 188/89; PULSE 90; RESP 16; TEMP 36.2; O2SAT 98; BMI 30.1
[2023-07-07 12:00] VITALS: BP 182/91; PULSE 74; RESP 16; TEMP 37.1; O2SAT 100
--- NOTE | 2023-07-07 13:28 | MHC.EDTECH ---
Brought patient a warm blanket.
== END 2023-07-07 14:50 | disposition home or self-care (01) ==
PROVIDERS: Emergency Provider Emergency Medicine Emergency Medical Services; PCP Internal Medicine
DX: L03.031 Cellulitis of right toe (principal)
CPT/HCPCS: 99283

== ENCOUNTER 2023-09-05 09:42 | Outpatient (AMB) | payer OTHER, SELFPAY ==
[2023-09-05 09:50] VITALS: BP 130/70; PULSE 76; O2SAT 99; BMI 30.6
--- NOTE | 2023-09-05 09:50 | MHC.PC.OV ---
Vital Signs 09/05/23 09:50 Height 5 ft 3 in Weight 173 lb BMI 30.6 BP 130/70 Blood Pressure Location Rt brachial Position Sitting Pulse 76 Pulse Source Pulse Oximeter Pulse Oximetry (%) 99 Intake Visit Reasons: ED f/u Lt foot cellulitis, rescheduled from 07/12 Intake Note: patient id here today for ED f/u lt foot cellulitis Allergies ibuprofen Adverse Reaction (Unknown, Verified 09/05/23 10:16) stomach upset Medication List - Last Reconciled 09/05/23 by Felicitas Burkett MD ascorbic acid (vitamin C) mg PO lisinopril 10 mg PO DAILY omega-3 fatty acids (Fish Oil Concentrate) 1,000 mg PO DAILY oxybutynin chloride ER 5 mg PO DAILY valacyclovir 500 mg PO DAILY Tobacco use date assessed: 09/05/23 Dental Screening Dental Screen Date: 09/05/23 Did you have a dental visit in the last 12 months?: No Did you have a dental problem in the last 6 months where you did not have access to dental care?: No Was dental information given to patient?: Yes HPI ED f/u Lt foot cellulitis, rescheduled from 07/12 HPI Details 57-year-old lady with hypertension currently stable controlled on lisinopril, here today for follow-up after an ER visit last June 2023 complaining of pain swelling and redness in right foot started at is of her right big toe and extended over the dorsal aspect right foot. She was prescribed 2 antibiotics and placed on prednisone, which afforded improvement of symptoms. Patient however still complaining of intermittent episodes of pain at the base of her right big toe whenever she walks for prolonged periods of time. [facility] Medical History Chronic thoracic back pain Recurrent cold sores Vitamin D deficiency Postprandial abdominal bloating Epigastric abdominal pain Cervical cancer screening Annual visit for general adult medical examination with abnormal findings Muscle strain of upper back Impaired fasting glucose GERD (gastroesophageal reflux disease) Normal Pap smear Stress incontinence of urine Essential hypertension Carpal tunnel syndrome Plantar fasciitis Migraine Mixed dyslipidemia Surgical History Hx of cholecystectomy Family History Father Bone cancer Mother History of hernia repair HTN (hypertension) Diabetes mellitus Brother Diabetes mellitus HTN (hypertension) Substance use disorder Maternal Grandfather Unknown family medical history Maternal Grandmother Unknown family medical history Paternal Grandfather Unknown family medical history Paternal Grandmother Unknown family medical history Sister No problems noted. Sister No problems noted. Daughter No problems noted. Daughter No problems noted. Son No problems noted. Brother No problems noted. Brother No problems noted. Brother No problems noted. Brother No problems noted. Social History Housing: Apartment Alcohol intake: current Patient Tobacco Use Status: Former Tobacco user Years Smoked: 2 yrs e-Cigarette/Vaping Use: Never Used Second Hand Smoke Exposure: No service: No Current occupational status: employed Cognitive needs: No Hearing needs: No Vision needs: Yes (Glasses) Questionnaire Thrive Questionnaire Date Thrive assessed: 12/12/22 AUDIT C Alcohol Use Questionnaire (AUDIT-C) 1. How often do you have a drink containing alcohol?: Never Total Score: 0 DUY-7 AMB Questionnaire DUY-7 Date DUY - 7 assessed: 12/12/22 Source: Developed by Drs. Luis Fung, Elen Menon, Conrado Iyer and colleagues, with an educational rao from [employer]. Review of Systems Const All systems reviewed & are unremarkable except as noted in HPI and below Physical exam (Primary Care) Vital Signs: Last Vital Signs Pulse 76 09/05/23 09:50 BP 130/70 09/05/23 09:50 Pulse Ox 99 09/05/23 09:50 BMI result Body Mass Index 30.6 Tobacco/Smoking Status: Tobacco use Status Tobacco use date assessed 09/05/23 09/05/23 09:52 Patient Tobacco Use Status Former Tobacco user 09/05/23 09:52 e-Cigarette/Vaping Use Never Used 09/05/23 09:52 Thrive Assessment: Date of Thrive Assessment Date Thrive assessed 12/12/22 09/05/23 09:52 Const General: comfortable and no acute distress Nutritional Appearance: obese Orientation/consciousness: patient oriented x3 Skin General skin exam: no rashes or lesions noted Neuro General: patient oriented x3 Extrem Other: No gross bone deformity or joint swelling seen, mild pes planus noted bilateral Assessment and Plan Assessment & Plan (1) Soft tissue swelling of joint of toe: Code(s): M25.476 - Effusion, unspecified foot Plan: Will check for hyperuricemia, possible gout. Uric acid level ordered Orders: Orders Uric Acid Today M25.476 - Effusion, unspecified foot Coding Level of Care Code Est Pt Level 3 (31915) Diagnoses Soft tissue swelling of joint of toe M25.476
== END 2023-09-05 10:19 | disposition home or self-care (01) ==
PROVIDERS: PCP Internal Medicine; Visit Provider Internal Medicine
DX: M25.474 Effusion, right foot (principal)
CPT/HCPCS: 99213

== ENCOUNTER 2023-09-05 10:20 | Outpatient (REF) | payer OTHER, SELFPAY | END 2023-09-05 10:21 | disposition home or self-care (01) | LOC: HO.HMGCLDS 10:20 | PROVIDERS: PCP Internal Medicine; Visit Provider Internal Medicine | DX: M25.476 Effusion, unspecified foot (principal) | CPT/HCPCS: 36415; 84550 ==

== ENCOUNTER 2023-10-02 12:52 | Outpatient (REF) | payer OTHER, SELFPAY ==
--- NOTE | ~2023-10-02 | MM_ITS ---
EXAMINATION: MM SCREENING DIGITAL BREAST TOMOSYNTHESIS, BILATERAL CLINICAL INFORMATION: Screening. Asymptomatic. COMPARISON: Mammography: This study is compared with prior exams dating back to 2016. TECHNIQUE: Digital breast tomosynthesis is performed in both the craniocaudal and mediolateral oblique views along with computer-aided detection (CAD). Synthesized 2D images are generated from the tomosynthesis. FINDINGS: There are scattered areas of fibroglandular density (ACR BI-RADS breast composition Category b). There are no significant masses, abnormal calcifications, or other abnormalities. MM/MM tomosynthesis screening BI IMPRESSION: No mammographic evidence of malignancy. ASSESSMENT: BI-RADS BI-RADS 1 - Negative RECOMMENDATION: Routine annual mammography screening. 1 year F/U This examination should not preclude the clinical evaluation of a suspicious palpable abnormality. This patient's information was entered into a reminder system with a target due date for their next mammogram.
== END 2023-10-02 12:53 | disposition home or self-care (01) ==
LOC: HO.MAMMO 12:52
PROVIDERS: PCP Internal Medicine; Visit Provider Internal Medicine
DX: Z12.31 Encounter for screening mammogram for malignant neoplasm of breast (principal)
CPT/HCPCS: 77063; 77067

== ENCOUNTER → 2023-10-02 13:00 | Outpatient (BNV) | payer OTHER, SELFPAY | PROVIDERS: PCP Internal Medicine; Visit Provider Radiology Diagnostic Radiology | DX: Z12.31 Encounter for screening mammogram for malignant neoplasm of breast (principal) | CPT/HCPCS: 77063; 77067 ==

== ENCOUNTER 2023-12-25 08:11 | Outpatient (REF) | payer OTHER, SELFPAY ==
[2023-12-25 10:55] LABS: Alanine Aminotransferase 29 U/L (0-31); Anion Gap 10 (12-20); Aspartate Amino Transferase 27 U/L (5-31); Blood Urea Nitrogen 13 mg/dL (9-16); Calcium 9.9 mg/dL (8.4-10.2); Carbon Dioxide 28 mmol/L (22-29); Chloride 106 mmol/L (96-108); Cholesterol 258 mg/dL (<200); Estimated Glomerular Filt Rate > 60; Glucose Fasting 97 mg/dL (60-99); HDL Cholesterol 43 mg/dL (>40); LDL Cholesterol Calculated 146 mg/dL (<100); Potassium 3.7 mmol/L (3.3-5.1); Sodium 140 mmol/L (135-145); Triglycerides 346 mg/dL (<150)
== END 2023-12-25 08:12 | disposition home or self-care (01) ==
LOC: HO.HMGCLDS 08:11
PROVIDERS: PCP Internal Medicine; Visit Provider Internal Medicine
DX: E55.9 Vitamin D deficiency, unspecified (principal); R73.01 Impaired fasting glucose; I10 Essential (primary) hypertension; E78.2 Mixed hyperlipidemia
CPT/HCPCS: 36415; 80048; 80061; 82306; 84450; 84460

== ENCOUNTER 2024-02-13 08:27 | Outpatient (AMB) | payer OTHER, SELFPAY ==
[2024-02-13 08:41] VITALS: BP 130/80; PULSE 73; TEMP 36.6; O2SAT 98; BMI 31.2
--- NOTE | 2024-02-13 08:41 | AM.OFFWIN_ITS ---
Intake Vital Signs 02/13/24 08:41 Height 5 ft 3 in Weight 176 lb BMI 31.2 BP 130/80 Blood Pressure Location Lt brachial Position Sitting Pulse 73 Pulse Source Pulse Oximeter Temp 97.8 F Temp Source Temporal Artery Scan Pulse Oximetry (%) 98 Oxygen Delivery Method Room Air Intake Visit Reasons: EP cervical pain Intake Note: pt is here today for cervical pain started sunday Patient Tobacco Use Status: Former Tobacco user Allergies ibuprofen Adverse Reaction (Unknown, Verified 02/13/24 08:43) stomach upset Do you need a note to return to daycare/school/sports/work: Yes HPI HPI Comments History of Present Illness Details 58 y/o female patient who presents to [facility] in clinic with c/o right sided neck pain since Sunday. She works in the [employer] department ([employer]) and she does lots of heavy lifting. Denies any trauma to the neck. She has not taken any OTC pain relief. [facility] Medical History Chronic thoracic back pain Recurrent cold sores Vitamin D deficiency Postprandial abdominal bloating Epigastric abdominal pain Cervical cancer screening Annual visit for general adult medical examination with abnormal findings Muscle strain of upper back Impaired fasting glucose GERD (gastroesophageal reflux disease) Normal Pap smear Stress incontinence of urine Essential hypertension Carpal tunnel syndrome Plantar fasciitis Migraine Mixed dyslipidemia Surgical History Hx of cholecystectomy Family History Father Bone cancer Mother History of hernia repair HTN (hypertension) Diabetes mellitus Brother Diabetes mellitus HTN (hypertension) Substance use disorder Maternal Grandfather Unknown family medical history Maternal Grandmother Unknown family medical history Paternal Grandfather Unknown family medical history Paternal Grandmother Unknown family medical history Sister No problems noted. Sister No problems noted. Daughter No problems noted. Daughter No problems noted. Son No problems noted. Brother No problems noted. Brother No problems noted. Brother No problems noted. Brother No problems noted. Social History Housing: Apartment Alcohol intake: current Patient Tobacco Use Status: Former Tobacco user Years Smoked: 2 yrs e-Cigarette/Vaping Use: Never Used Second Hand Smoke Exposure: No service: No Current occupational status: employed Cognitive needs: No Hearing needs: No Vision needs: Yes (Glasses) Review of Systems Const All systems reviewed & are unremarkable except as noted in HPI and below Physical Exam Const General: comfortable and no acute distress Orientation/consciousness: patient oriented x3 Neck Neck: Yes normal visual inspection, Yes full ROM, Yes no lymphadenopathy, Yes trachea midline, Yes supple and Yes tender (Mild tenderness posterior Trapezius muscle) Neuro General: patient oriented x3 and moves all extremities Gait exam (Neuro): Normal gait present Motor exam (neuro): 5/5 motor strength present throughout Psych Speech and movement: Normal speech and movement present Assessment & Plan Assessment & Plan (1) Cervical strain, acute: Code(s): S16.1XXA - Strain of muscle, fascia and tendon at neck level, initial encounter Qualifiers: Encounter type: initial encounter Qualified Code(s): S16.1XXA - Strain of muscle, fascia and tendon at neck level, initial encounter Plan: - Ice Hot - Acetaminophen for pain relief - Rest - If not better Ref For PT Medications: New acetaminophen 1,000 mg (2 x 500 mg) PO Q6H PRN 30 caps 0RF fever S16.1XXA - Strain of muscle, fascia and tendon at neck level, initial encounter cyclobenzaprine 5 mg PO BEDTIME 14 tabs 0RF S16.1XXA - Strain of muscle, fascia and tendon at neck level, initial encounter Coding Level of Care Code Est Pt Level 3 (26264) Diagnoses Acute strain of neck muscle, initial encounter S16.1XXA Encounter type: initial encounter Time Spent (min) 15
== END 2024-02-13 09:58 | disposition home or self-care (01) ==
PROVIDERS: PCP Internal Medicine; Visit Provider Nurse Practitioner Family
DX: S16.1XXA Strain of muscle, fascia and tendon at neck level, initial encounter (principal)
CPT/HCPCS: 99213

== ENCOUNTER 2024-08-28 13:29 | Outpatient (AMB) | payer OTHER, SELFPAY ==
--- NOTE | 2024-08-28 13:44 | AM.OFFWIN_ITS ---
Intake Vital Signs 08/28/24 13:45 Height 5 ft 3 in Weight 172 lb BMI 30.5 BP 150/80 H Blood Pressure Location Rt brachial Position Sitting Pulse 73 Pulse Source Pulse Oximeter Pulse Oximetry (%) 98 Oxygen Delivery Method Room Air Intake Visit Reasons: EP-headaches, nose bleeding Intake Note: Patient here for worsening headache that has been present for about a month and has been having left nostril bleed. Patient Tobacco Use Status: Former Tobacco user Allergies ibuprofen Adverse Reaction (Unknown, Verified 08/28/24 13:46) stomach upset Do you need a note to return to daycare/school/sports/work: No HPI HPI Comments History of Present Illness Details Patient is a 58-year-old female complaining of months of headaches that she has not discussed with her primary care doctor. She states he has headaches there in the right side front of her head, she denies it being the worst headache of her life, any visual changes or hearing changes, nausea, vomiting, light sensitivity or sound sensitivity. She states she has been trying a 1000 mg of Tylenol with no improvement in her headaches. She is also complaining of left nostril bleeding on and off over the last week or so. She denies being on a blood thinner, she states she does not use a humidifier or any saline nasal sprays. [facility] Medical History Chronic thoracic back pain Recurrent cold sores Vitamin D deficiency Postprandial abdominal bloating Epigastric abdominal pain Cervical cancer screening Annual visit for general adult medical examination with abnormal findings Muscle strain of upper back Impaired fasting glucose GERD (gastroesophageal reflux disease) Normal Pap smear Stress incontinence of urine Essential hypertension Carpal tunnel syndrome Plantar fasciitis Migraine Mixed dyslipidemia Surgical History Hx of cholecystectomy Family History Father Bone cancer Mother History of hernia repair HTN (hypertension) Diabetes mellitus Brother Diabetes mellitus HTN (hypertension) Substance use disorder Maternal Grandfather Unknown family medical history Maternal Grandmother Unknown family medical history Paternal Grandfather Unknown family medical history Paternal Grandmother Unknown family medical history Sister No problems noted. Sister No problems noted. Daughter No problems noted. Daughter No problems noted. Son No problems noted. Brother No problems noted. Brother No problems noted. Brother No problems noted. Brother No problems noted. Social History Housing: Apartment Alcohol intake: current Patient Tobacco Use Status: Former Tobacco user Years Smoked: 2 yrs e-Cigarette/Vaping Use: Never Used Second Hand Smoke Exposure: No service: No Current occupational status: employed Cognitive needs: No Hearing needs: No Vision needs: Yes (Glasses) Review of Systems Const All systems reviewed & are unremarkable except as noted in HPI and below Physical Exam Vital Signs: Last Vital Signs Pulse 73 08/28/24 13:45 BP 150/80 H 08/28/24 13:45 Pulse Ox 98 08/28/24 13:45 Oxygen Delivery Method Room Air 08/28/24 13:45 BMI result Body Mass Index 30.5 Const General: cooperative, healthy appearing, comfortable, no acute distress and well developed Orientation/consciousness: patient oriented x3 Limitations: no limitations HEENT Head: Yes normal to inspection Ears: hearing grossly normal bilaterally General nose exam: Normal external nose present Face and sinus: Yes normal facial exam Eyes General: appearance normal, both eyes and all related structures Neck Neck: Yes normal visual inspection and Yes full ROM Resp Effort & Inspection: normal respiratory effort and able to speak in complete sentences Skin General skin exam: no rashes or lesions noted Neuro General: patient oriented x3 Extrem General: Yes normal to inspection Assessment & Plan Assessment & Plan (1) Frequent headaches: Code(s): R51.9 - Headache, unspecified Plan: Recommended she add ibuprofen to her regimen for her headaches as well as staying well hydrated and using caffeine. If no improvement in her symptoms, she should follow up with her primary care doctor. Gave her red flag warning signs and when to go to the emergency department for a CT scan. (2) Left-sided nosebleed: Code(s): R04.0 - Epistaxis Plan: Recommended she use a saline nasal spray or humidifier when she sleeps. Likely secondary to dry air. Plan See above Coding Level of Care Code Est Pt Level 3 (06578) Diagnoses Frequent headaches R51.9 Left-sided nosebleed R04.0
[2024-08-28 13:45] VITALS: BP 150/80; PULSE 73; O2SAT 98; BMI 30.5
== END 2024-08-28 14:37 | disposition home or self-care (01) ==
PROVIDERS: PCP Internal Medicine; Visit Provider Physician Assistant
DX: R51.9 Headache, unspecified (principal); R04.0 Epistaxis

== ENCOUNTER → 2024-08-28 13:29 | Outpatient (BNVA) | payer OTHER, SELFPAY | PROVIDERS: PCP Internal Medicine | DX: R51.9 Headache, unspecified (principal); R04.0 Epistaxis | CPT/HCPCS: 99212 ==

== ENCOUNTER 2024-10-07 10:01 | Outpatient (REF) | payer OTHER, SELFPAY ==
--- NOTE | ~2024-10-07 | MM_ITS ---
EXAMINATION: MM SCREENING DIGITAL BREAST TOMOSYNTHESIS, BILATERAL CLINICAL INFORMATION: Screening. Asymptomatic. COMPARISON: Mammography: Comparison is made with available priors TECHNIQUE: Digital breast mammography with tomosynthesis is performed in both the craniocaudal and mediolateral oblique views along with computer-aided detection (CAD). FINDINGS: There are scattered areas of fibroglandular density (ACR BI-RADS breast composition Category b). There are no significant masses, abnormal calcifications, or other abnormalities. MM/MM tomosynthesis screening BI IMPRESSION: No mammographic evidence of malignancy. ASSESSMENT: BI-RADS BI-RADS 1 - Negative RECOMMENDATION: Routine annual mammography screening. 1 year F/U This examination should not preclude the clinical evaluation of a suspicious palpable abnormality. This patient's information was entered into a reminder system with a target due date for their next mammogram. Electronically signed by: Tamia Guerrero DO 10/15/2024 12:28 PM [facility]
== END 2024-10-07 10:02 | disposition home or self-care (01) ==
LOC: HO.MAMMO 10:01
PROVIDERS: PCP Internal Medicine; Visit Provider Internal Medicine
DX: Z12.31 Encounter for screening mammogram for malignant neoplasm of breast (principal)
CPT/HCPCS: 77063; 77067

== ENCOUNTER → 2024-10-07 10:15 | Outpatient (BNV) | payer OTHER, SELFPAY | PROVIDERS: PCP Internal Medicine; Visit Provider Internal Medicine | DX: Z12.31 Encounter for screening mammogram for malignant neoplasm of breast (principal) | CPT/HCPCS: 77063; 77067 ==

== ENCOUNTER 2024-10-27 13:35 | Emergency (ER) | payer OTHER, SELFPAY ==
--- NOTE | ~2024-10-27 | CT_ITS ---
EXAMINATION: CT HEAD WITHOUT CONTRAST CLINICAL INFORMATION: Headache. Lungs remain COMPARISON: None available. TECHNIQUE: Contiguous axial imaging was performed from the skull base to vertex without intravenous administration of contrast. This CT examination was performed using dose optimization techniques as appropriate, variously including the following: *Automated exposure control *Adjustment of mA and/or kV according to patient size (this includes techniques or standardized protocols for targeted exams where dose is matched to indication/reason for exam; i.e. extremities or head) *Use of iterative reconstruction technique DLP: 6 mGy-cm FINDINGS: There is no mass hemorrhage or cerebral edema. The ventricles and basilar cisterns and sulci are proportionately. Baltazar-white differentiation is normal. No extra-axial fluid collections. Soft tissue scalp normal. Bone/calvarium normal. Sinuses and mastoid air cells clear. CT/CT head/brain wo IV con IMPRESSION: No acute intracranial pathology. Electronically signed by: George Araujo MD 10/27/2024 05:28 PM [facility]
[2024-10-27 13:48] VITALS: BP 182/83; PULSE 70; RESP 16; TEMP 36.4; O2SAT 99; BMI 30.9
--- NOTE | 2024-10-27 13:51 | ECG_ITS ---
Test Reason : HTN AND UMANA Blood Pressure : / mmHG Vent. Rate : 065 BPM Atrial Rate : 065 BPM P-R Int : 136 ms QRS Dur : 094 ms QT Int : 388 ms P-R-T Axes : 051 -09 046 degrees QTc Int : 403 ms Normal sinus rhythm Moderate voltage criteria for LVH, may be normal variant ( R in aVL , Jono product ) Borderline ECG No previous ECGs available Referred By: Chris Aldana Electronically Signed By:Chad Juan
--- NOTE | 2024-10-27 13:53 | ED_ITS ---
HPI - General Adult General Chief complaint: Headache Stated complaint: headache Time Seen by Provider: 10/28/24 01:07 Source: patient and family Mode of arrival: ambulatory Limitations: no limitations History of Present Illness ED Provider: Dr. Haley Zamora HPI narrative: Patient comes to the emergency room complaining of headache that started 1-1/2 months ago. Patient states that today the pain is about the same, constant, earlier today she had a nosebleed and high blood pressure and became scared. Patient denies taking any blood thinners. Patient takes 5 mg of lisinopril at home every day. At this time, patient complaining of mild headache and nausea. Related Data Home Medications ?Medication ?Instructions ?Recorded ?Confirmed ascorbic acid (vitamin C) 500 mg mg PO 11/08/20 09/05/23 capsule omega-3 fatty acids 1,000 mg 1,000 mg PO DAILY 11/08/20 09/05/23 capsule (Fish Oil Concentrate) oxybutynin chloride 5 mg 5 mg PO DAILY 11/08/20 09/05/23 tablet,extended release 24 hr Previous Rx's ?Medication ?Instructions ?Recorded valacyclovir 500 mg tablet 500 mg PO DAILY #30 tabs 11/09/23 acetaminophen 500 mg capsule 1,000 mg (2 x 500 mg) PO Q6H PRN 02/13/24 fever #30 caps cyclobenzaprine 5 mg tablet 5 mg PO BEDTIME #14 tabs 02/13/24 cetirizine 10 mg tablet 10 mg PO DAILY PRN allergy 10/06/24 symptoms #30 tabs lisinopril 10 mg tablet 10 mg PO DAILY #90 tabs 10/21/24 lisinopril 40 mg tablet 40 mg PO DAILY #90 tabs 10/28/24 Allergies Allergy/AdvReac Type Severity Reaction Status Date / Time ibuprofen AdvReac Unknown stomach Verified 10/27/24 13:49 upset Review of Systems 2 Review of Systems: Constitutional : No Weight loss, No Fever, No Chills, No Night Sweats, No Fatigue, No Malaise ENT/Mouth : complaining of nosebleed, No Hearing loss, No Ear Pain, No Nasal Congestion, No Sinus Pain, No Hoarseness, No sore throat, No Rhinorrhea, No Swallowing Difficulty Eyes: No Eye Pain, No Swelling, No Redness, No Foreign Body, No Discharge, No Vision Changes Cardiovascular : No Chest Pain, No SOB, No Dyspnea on Exertion, No Orthopnea, No Edema, No Palpitations Respiratory : No Cough, No Sputum, No Wheezing, No Smoke Exposure, No Dyspnea Gastrointestinal : No Nausea, No Vomiting, No Diarrhea, No Constipation, No abdominal Pain, No Hematochezia, No Melena Genitourinary : no irregular bleeding, No Dysuria, No Urinary Frequency, No Hematuria, No Urinary Incontinence, No Urgency, No Flank Pain, No Urinary Flow Changes, No Hesitancy Musculoskeletal : No joint pain, No Myalgias, No Joint Swelling Skin : No Skin Lesions, No rash Neuro : No Weakness, No Numbness, No Paresthesias, No Loss of Consciousness, No Dizziness, complaining of Headache Psych : No Anxiety/Panic, No Depression, No SI/HI/AH/VH, No Social Issues, Heme/Lymph: No Bruising, No Bleeding,No Lymphadenopathy Endocrine : No Polyuria, No Polydipsia, No Temperature Intolerance PMFSH Past Medical History Medical History Chronic thoracic back pain Recurrent cold sores Vitamin D deficiency Postprandial abdominal bloating Epigastric abdominal pain Cervical cancer screening Annual visit for general adult medical examination with abnormal findings Muscle strain of upper back Impaired fasting glucose GERD (gastroesophageal reflux disease) Normal Pap smear Stress incontinence of urine Essential hypertension Carpal tunnel syndrome Plantar fasciitis Migraine Mixed dyslipidemia Surgical History Hx of cholecystectomy Family History Family History Father Bone cancer Mother History of hernia repair HTN (hypertension) Diabetes mellitus Brother Diabetes mellitus HTN (hypertension) Substance use disorder Maternal Grandfather Unknown family medical history Maternal Grandmother Unknown family medical history Paternal Grandfather Unknown family medical history Paternal Grandmother Unknown family medical history Sister No problems noted. Sister No problems noted. Daughter No problems noted. Daughter No problems noted. Son No problems noted. Brother No problems noted. Brother No problems noted. Brother No problems noted. Brother No problems noted. Social History Social History Housing: Apartment Alcohol intake: current Alcohol intake frequency: does not drink Patient Tobacco Use Status: Former Tobacco user Years Smoked: 2 yrs Smoked in Last 30 Days: No e-Cigarette/Vaping Use: Never Used Second Hand Smoke Exposure: No Use of substances other than those prescribed or required for medical reasons: No Advance Directives: No Advance Directives Information Provided: Yes Do you have a plan to hurt others: No Plan service: No Current occupational status: employed Cognitive needs: No Hearing needs: No Vision needs: Yes (Glasses) Physical Exam ED Vital Signs: Vital Signs - 24 hr 10/27/24 21:48 10/27/24 23:09 10/28/24 01:17 Temperature 98.8 F 97.9 F Pulse Rate 63 63 Respiratory Rate 20 16 Blood Pressure 175/85 H 179/83 H 171/88 H Pulse Oximetry 98 100 Oxygen Delivery Method Room Air Room Air 10/28/24 01:40 10/28/24 02:12 10/28/24 02:45 Temperature 97.4 F 97.4 F Pulse Rate 58 59 Respiratory Rate 16 18 Blood Pressure 171/88 H 162/89 H 154/82 H Pulse Oximetry 98 99 Oxygen Delivery Method Room Air Room Air BMI result Body Mass Index 30.9 Const Other: Appearance: Alert. Oriented X3. No acute distress. well-appearing Eyes: Pupils equal, round and reactive to light. ENT: Pharynx normal. Neck: Normal inspection. Neck supple. No lymph nodes noted. No crepitus CVS: Normal heart rate and rhythm. Pulses normal. Normal S1 and S2 Respiratory: No respiratory distress. Breath sounds normal. No Wheezing. No rales Abdomen: Soft and nontender. No rigidity. No distention. Skin: Skin warm and dry. Normal skin color. Normal skin turgor. Extremities: No lower extremity edema. No Lacerations. No Rash Neuro: Oriented X 3. No motor deficit. No sensory deficit. Moving all extremities. No slurred speech. CN 2 through 12 grossly intact Psych: calm, cooperative, normal affect Course Course Course Narrative: RME: 58-year-old female presents to ED for multiple days of headache and last night having nosebleed with a headache. Patient denies any trauma, fever, chills, or night sweats. Patient states she took blood pressure med this morning. Labs EKG head CT ordered. Medications Administered Discontinued Medications Generic Name Dose Route Start Last Admin Trade Name Freq PRCleopatra Reason Stop Dose Admin Acetaminophen 975 mg 10/27/24 21:49 10/27/24 21:51 Acetaminophen 325 Mg Tablet PO 10/27/24 21:50 975 mg ONCE ONE Administration Famotidine 20 mg 10/27/24 23:10 10/27/24 23:14 Famotidine 20 Mg Tablet PO 10/27/24 23:11 20 mg ONCE ONE Administration Ketorolac Tromethamine 60 mg 10/27/24 23:09 10/27/24 23:14 Ketorolac Tromethamine 60 Mg/2 Ml Vial IM 10/27/24 23:10 60 mg ONCE ONE Administration Lisinopril 40 mg 10/28/24 01:17 10/28/24 01:40 Lisinopril 40 Mg Tablet PO 10/28/24 01:18 40 mg ONCE ONE Administration Protocol Metoclopramide HCl 5 mg 10/27/24 23:09 10/27/24 23:14 Metoclopramide Hcl 5 Mg Tablet PO 10/27/24 23:10 5 mg ONCE ONE Administration Medical Decision Making Medical Decision Making MDM Narrative: I reviewed patient's labs: Hematology, chemistry, PT INR within normal limits - unfortunately, patient has been in the waiting room for 10+ hours. At this time, 23:15, we do not have any beds available in the ED Patient was reassessed. States that the headache is still present despite taking p.o. acetaminophen. Patient agreeable to take IM ketorolac and p.o. Reglan. Patient's blood pressure remains in the 170s. Denies any blurred vision. Discussed with the patient that it is possible that once we address the headache, her blood pressure med started decreasing. At this time, we can not give her any medication for blood pressure since she is still out in the waiting room. - we will continue monitoring patient's blood pressure from triage - 01:15, patient is now in the main ED. Patient's blood pressure remains in the 170s, close to 180s. Patient states that her headache nearly resolved, has no nausea, no visual changes. - Patient was given p.o. lisinopril 40 mg. - patient's blood pressure improved to 162/89. Patient agreeable to increase her lisinopril to 40 mg daily, keep a log and follow-up with PCP Differential Diagnosis Differential Diagnoses: The differential diagnosis associated with the presentation includes ( chronic hypertension, hypertensive urgency, hypertensive emergency) Admission/Observation Consideration of admission/observation: Escalation of care including admission/observation considered Lab Data MDM Lab Attestation statement: I reviewed the patient's lab results. 10/27/24 14:19 10/27/24 14:19 Labs: Lab Results 10/27/24 Range/Units 14:19 WBC 7.3 (4.8-10.8) X10*3/uL RBC 5.00 (4.20-5.50) X10*6/uL Hgb 15.2 (12.0-16.0) g/dl Hct 44.4 (37.0-47.0) % MCV 88.8 (80.0-98.0) fL MCH 30.4 (27.0-33.0) pg MCHC 34.2 (31.0-35.0) g/dl RDW 13.3 (11.0-16.0) % Plt Count 291 (160-400) X10*3/uL MPV 9.0 L (9.4-12.3) fL Immature Gran % (Auto) 0.4 (0.0-0.4) % Neut % (Auto) 54.7 (45-73) % Lymph % (Auto) 30.7 (20-40) % Edmonson % (Auto) 9.8 (2-11) % Eos % (Auto) 3.7 (0-4) % Baso % (Auto) 0.7 (0-2) % Lymph # (Auto) 2.2 (1.2-4.9) X10*3/uL [place]on # (Auto) 0.7 (0.1-1.2) X10*3/uL Eos # (Auto) 0.3 (0.0-0.4) X10*3/uL Baso # (Auto) 0.1 (0.0-0.2) X10*3/uL Abs Immat Gran (auto) 0.03 (0.00-0.03) X10*3/uL Absolute Neuts (auto) 4.0 (2.0-8.3) x10*3/uL Absolute Nucleated RBC 0.000 (0.0-0.012) X10*3/uL Nucleated RBC % (auto) 0.0 (0.0-0.2) /100WBC PT 12.0 (10.9-12.4) SEC INR 1.0 (0.9-1.1) APTT 34.0 (26.0-36.8) SEC Sodium 138 (135-145) mmol/L Potassium 3.8 (3.3-5.1) mmol/L Chloride 105 (96-108) mmol/L Carbon Dioxide 28 (22-29) mmol/L Anion Gap 9 L (12-20) BUN 12 (9-16) mg/dL Creatinine 0.75 (0.5-1.4) mg/dL Estim Creat Clear Calc 83.5 Estimated GFR > 60 Random Glucose 87 (60-115) mg/dL Calcium 10.2 (8.4-10.2) mg/dL Total Bilirubin 0.4 (0.0-1.0) mg/dL AST 31 (5-31) U/L ALT 31 (0-31) U/L Alkaline Phosphatase 79 (39-117) U/L Troponin I High Sens 3.9 (<3.5-17.0) ng/L Total Protein 7.8 (6.5-8.0) g/dL Albumin 4.5 (3.5-5.0) g/dL Independent Interpretation I performed an independent interpretation of an: CT Scan Radiology Impression Discussion of test interpretation with radiology: I have reviewed the radiologist's reading. Radiologist Impression: There is no mass hemorrhage or cerebral edema. The ventricles and basilar cisterns and sulci are proportionately. Baltazar-white differentiation is normal. No extra-axial fluid collections. Soft tissue scalp normal. Bone/calvarium normal. Sinuses and mastoid air cells clear. CT/CT head/brain wo IV con IMPRESSION: No acute intracranial pathology. Independent Historian Clinical information obtained from an independent historian. History obtained from or confirmed by: Other ( daughter) Critical Care Time Critical Care Time Critical Care Time: Yes Total Critical Care Time: 60 Attestation: I have personally provided critical care time. Time includes review of lab data, radiology results, discussion with consultants, and monitoring for potential decompensation. Intervention performed as documented. Discharge Plan Discharge Clinical Impression: Hypertension, Headache Patient Disposition: Home, Self-Care Instructions: Acute Headache (ED), Chronic Hypertension (ED) Additional Instructions: Please follow-up with your primary care physician tomorrow. If you have any worsening or new symptoms, please return to the emergency room or call 911 Prescriptions: New lisinopril 40 mg tablet 40 mg PO DAILY Qty: 90 0RF No Action valacyclovir 500 mg tablet 500 mg PO DAILY Qty: 30 5RF cetirizine 10 mg tablet 10 mg PO DAILY PRN (Reason: allergy symptoms) Qty: 30 0RF lisinopril 10 mg tablet 10 mg PO DAILY Qty: 90 1RF oxybutynin chloride 5 mg tablet extended release 24hr 5 mg PO DAILY omega-3 fatty acids [Fish Oil Concentrate] 1,000 mg capsule 1,000 mg PO DAILY ascorbic acid (vitamin C) 500 mg capsule PO acetaminophen 500 mg capsule 1,000 mg PO Q6H PRN (Reason: fever) Qty: 30 0RF cyclobenzaprine 5 mg tablet 5 mg PO BEDTIME Qty: 14 0RF Interventions: ED Discharge Assessment Last Done: 10/28/24 02:45 Discharge Date/Time: 10/28/24 02:46 Print Language: Djiboutian
[2024-10-27 14:24] LABS: MANUAL DIFF FLAG NO
[2024-10-27 14:29] LABS: Basophils Absolute Auto 0.1 X10*3/uL (0.0-0.2); Basophils Percent Auto 0.7 % (0-2); Eosinophils Absolute Auto 0.3 X10*3/uL (0.0-0.4); Eosinophils Percent Auto 3.7 % (0-4); Hematocrit 44.4 % (37.0-47.0); Hemoglobin 15.2 g/dl (12.0-16.0); Imm Gran Abs Auto 0.03 X10*3/uL (0.00-0.03); Imm Gran Pct Auto 0.4 % (0.0-0.4); Lymphocytes Absolute Auto 2.2 X10*3/uL (1.2-4.9); Lymphocytes Percent Auto 30.7 % (20-40); Mean Corpuscular HGB Conc 34.2 g/dl (31.0-35.0); Mean Corpuscular Hemoglobin 30.4 pg (27.0-33.0); Mean Corpuscular Volume 88.8 fL (80.0-98.0); Monocytes Absolute Auto 0.7 X10*3/uL (0.1-1.2); Monocytes Percent Auto 9.8 % (2-11); Neutrophils Percent Auto 54.7 % (45-73); Platelet Count 291 X10*3/uL (160-400); Red Cell Distribution Width 13.3 % (11.0-16.0); White Blood Count 7.3 X10*3/uL (4.8-10.8)
[2024-10-27 14:48] LABS: Alanine Aminotransferase 31 U/L (0-31); Albumin Level 4.5 g/dL (3.5-5.0); Alkaline Phosphatase 79 U/L (39-117); Anion Gap 9 (12-20); Aspartate Amino Transferase 31 U/L (5-31); Bilirubin Total 0.4 mg/dL (0.0-1.0); Blood Urea Nitrogen 12 mg/dL (9-16); Calcium 10.2 mg/dL (8.4-10.2); Carbon Dioxide 28 mmol/L (22-29); Chloride 105 mmol/L (96-108); Creatinine Clr Calc Pharmacy 83.5; Estimated Glomerular Filt Rate > 60; Glucose Random 87 mg/dL (60-115); Potassium 3.8 mmol/L (3.3-5.1); Sodium 138 mmol/L (135-145); Total Protein 7.8 g/dL (6.5-8.0)
[2024-10-27 14:55] LABS: Troponin-I High Sensitivity 3.9 ng/L (<3.5-17.0)
[2024-10-27 21:48] VITALS: BP 175/85; PULSE 63; RESP 20; TEMP 37.1; O2SAT 98
[2024-10-27] MEDS: Acetaminophen 325 MG TABLET 975 MG PO (21:51)
[2024-10-27 23:09] VITALS: BP 179/83
[2024-10-27] MEDS: Ketorolac Tromethamine 60 MG/2 ML VIAL IM (23:14)
[2024-10-27] MEDS: Metoclopramide HCl 5 MG TABLET PO (23:14)
[2024-10-27] MEDS: Famotidine 20 MG TABLET PO (23:14)
--- NOTE | 2024-10-27 23:18 | PC.NURSE ---
pt called back into triage room, present, pt re assessed, pt medicated per jan.
[2024-10-28 01:17] VITALS: BP 171/88; PULSE 63; RESP 16; TEMP 36.6; O2SAT 100
[2024-10-28 01:40] VITALS: BP 171/88
[2024-10-28] MEDS: lisinopriL 40 MG TABLET PO (01:40)
--- NOTE | 2024-10-28 01:45 | PC.NURSE ---
Medicated per mar.
[2024-10-28 02:12] VITALS: BP 162/89; PULSE 58; RESP 16; TEMP 36.3; O2SAT 98
--- NOTE | 2024-10-28 02:44 | PC.NURSE ---
Bp improvement, reviewed discharge instruction with pt. pt verbalized understanding, no sign of distress upon discharge, pt had steady gait.
[2024-10-28 02:45] VITALS: BP 154/82; PULSE 59; RESP 18; TEMP 36.3; O2SAT 99
== END 2024-10-28 02:46 | disposition home or self-care (01) ==
PROVIDERS: Physician Assistant; Emergency Provider Emergency Medicine; PCP Internal Medicine
DX: R51.9 Headache, unspecified (principal); I10 Essential (primary) hypertension; Z79.899 Other long term (current) drug therapy; Z87.891 Personal history of nicotine dependence
CPT/HCPCS: 36415; 70450; 80053; 84484; 85025; 85610; 85730; 93005; 96372; 99284; 99285; J1885

== ENCOUNTER → 2024-10-27 13:51 | Outpatient (BNV) | payer OTHER, SELFPAY | PROVIDERS: Emergency Provider Emergency Medicine; PCP Internal Medicine; Visit Provider Internal Medicine Cardiovascular Disease | DX: I10 Essential (primary) hypertension (principal); R94.31 Abnormal electrocardiogram [ECG] [EKG]; R51.9 Headache, unspecified | CPT/HCPCS: 93010 ==

== ENCOUNTER 2024-11-03 10:27 | Outpatient (AMB) | payer OTHER, SELFPAY ==
--- NOTE | 2024-11-03 11:42 | A.OFFPC_ITS ---
Vital Signs 11/03/24 11:45 Height 5 ft 3 in Weight 176 lb BMI 31.2 BP 164/80 H Blood Pressure Location Rt brachial Position Sitting Pulse 72 Pulse Source Pulse Oximeter Pulse Oximetry (%) 98 Oxygen Delivery Method Room Air Intake Visit Reasons: HTN and H/A Intake Note: Pt is here today to f/u ER and elevated HTN Allergies ibuprofen Adverse Reaction (Unknown, Verified 11/03/24 12:03) stomach upset Medication List - Last Reconciled 11/03/24 by Felicitas Burkett MD acetaminophen 1,000 mg (2 x 500 mg) PO Q6H PRN ascorbic acid (vitamin C) mg PO cetirizine 10 mg PO DAILY PRN cyclobenzaprine 5 mg PO BEDTIME lisinopril 40 mg PO DAILY omega-3 fatty acids (Fish Oil Concentrate) 1,000 mg PO DAILY valacyclovir 500 mg PO DAILY Tobacco use date assessed: 11/03/24 Dental Screening Dental Screen Date: 11/03/24 Did you have a dental visit in the last 12 months?: No Did you have a dental problem in the last 6 months where you did not have access to dental care?: No Was dental information given to patient?: Patient declined HPI HTN and H/A HPI Details - The patient is a 58-year-old female pr esenting with hypertension management and reassessment. - The patient's blood pressure was previ ously sufficiently high to warrant an emergency room visit, seen and dose of lisinopril was increased to 40 mg daily - The patient describes a sensation of a rm pressure but denies current headaches or chest pain. - Recent travels to [place] coincide d with dietary changes, notably higher sodium intake, potentially contributing to elevated blood pressure. - Historical blood work in November 2023 indicated hypercholesterolemia. [facility] Medical History Chronic thoracic back pain Recurrent cold sores Vitamin D deficiency Postprandial abdominal bloating Epigastric abdominal pain Cervical cancer screening Annual visit for general adult medical examination with abnormal findings Muscle strain of upper back Impaired fasting glucose GERD (gastroesophageal reflux disease) Normal Pap smear Stress incontinence of urine Essential hypertension Carpal tunnel syndrome Plantar fasciitis Migraine Mixed dyslipidemia Surgical History Hx of cholecystectomy Family History Father Bone cancer Mother History of hernia repair HTN (hypertension) Diabetes mellitus Brother Diabetes mellitus HTN (hypertension) Substance use disorder Maternal Grandfather Unknown family medical history Maternal Grandmother Unknown family medical history Paternal Grandfather Unknown family medical history Paternal Grandmother Unknown family medical history Sister No problems noted. Sister No problems noted. Daughter No problems noted. Daughter No problems noted. Son No problems noted. Brother No problems noted. Brother No problems noted. Brother No problems noted. Brother No problems noted. Social History Housing: Apartment Alcohol intake: current Alcohol intake frequency: does not drink Patient Tobacco Use Status: Former Tobacco user Years Smoked: 2 yrs e-Cigarette/Vaping Use: Never Used Second Hand Smoke Exposure: No service: No Current occupational status: employed Cognitive needs: No Hearing needs: No Vision needs: Yes (Glasses) Questionnaire PHQ-9 Over the last 2 weeks, how often have you been bothered by any of the following problems? Depression Screening Interpretation: Negative Depression Screening Done: Yes Source: Developed by Drs. Luis Fung, Elen Menon, Conrado Iyer and colleagues, with an educational rao from [employer]. Thrive Questionnaire Date Thrive assessed: 11/03/24 I am a: Patient What is your living situation today?: I have a steady place to live Within the past 12 months, did the food you bought not last and you didn't have the money to get more?: Often true Within the past 12 months, did you worry whether your food would run out before you got money to buy more?: Often true Do you have trouble paying for medicines?: No Do you have trouble getting transportation to medical appointments?: No Do you have trouble paying your heating and electricity bill?: No Do you have trouble taking care of your child, family member or friend?: No Do you have trouble with day-to-day activities such as bathing, preparing meals, shopping, managing finances, etc.?: No Are you currently unemployed and looking for a job?: No Are you interested in more education?: No Please select the resources that you would like help with: None Currently or been in a relationship where the following occur: No concerns reported THRIVE Score: 2 DUY-7 AMB Questionnaire DUY-7 Date DUY - 7 assessed: 11/03/24 Source: Developed by Drs. Luis Fung, Elen Menon, Conrado Iyer and colleagues, with an educational rao from [employer]. DUY-7 Assessment Billing DUY-7 Assessment Tool: DUY-7 Assessment 01490 Review of Systems Const Denies body aches and Denies fever(s) Eyes Denies change in vision ENT Denies nasal congestion Card Denies chest pain, Denies lightheadedness and Denies dyspnea Resp Denies chest congestion, Denies cough, Denies dyspnea and Denies wheezing GI Denies change in bowel habits Denies urinary frequency, Denies dysuria and Denies urinary urgency Musc Reports no additional complaints Neuro Reports no additional complaints Endo Reports no additional complaints Arben/Lymph Reports no additional complaints Aller/Immun Denies wheezing Physical exam (Primary Care) Vital Signs: Last Vital Signs Pulse 72 11/03/24 11:45 BP 164/80 H 11/03/24 11:45 Pulse Ox 98 11/03/24 11:45 Oxygen Delivery Method Room Air 11/03/24 11:45 Care Plan Goal for BP management: Patient blood pressure is mildly elevated, likely due to pain. BMI result Body Mass Index 31.2 BMI Assessment/Plan discussion: High BMI High, discussed plan: lifestyle, weight reduction, dietary and physical activity Tobacco/Smoking Status: Tobacco use Status Tobacco use date assessed 11/03/24 11/03/24 11:50 Patient Tobacco Use Status Former Tobacco user 11/03/24 11:43 e-Cigarette/Vaping Use Never Used 11/03/24 11:43 Depression Screening Interpretation: Negative Thrive Assessment: Date of Thrive Assessment Date Thrive assessed 11/03/24 11/03/24 11:50 Currently or been in a relationship where the following occur: No concerns reported Const Other: Alert oriented x3, no acute cardiorespiratory distress noted ambulatory normal gait Nutritional Appearance: obese Orientation/consciousness: patient oriented x3 HENMT Mouth: Normal oral and palatal mucosa present, oropharynx normal and moist mucous membranes Neck Neck: Yes full ROM, Yes no lymphadenopathy and Yes supple Resp Effort & Inspection: normal respiratory effort Auscultation: clear to auscultation bilaterally Cardio Other: S1-S2 present regular rate and rhythm GI Palpation (GI): Soft to palpation, nontender, no guarding and no masses Skin General skin exam: no rashes or lesions noted Neuro General: patient oriented x3, gait normal, tone normal, moves all extremities, Normal light touch and pain sensation, no focal motor deficits and CN's II-XI intact bilaterally Extrem General: Yes full ROM, Yes no joint enlargement, Yes no clubbing, cyanosis or edema, Yes no calf tenderness and Yes normal gait Results Reviewed Results Reviewed: harman: Katherin Diallo Age/Sex: 58/F : 1965 Unit#: [id number] Attend Dr: Haley Zamora MD Re10/27/24 Status: DEP ER Location: [facility] Disch: SPEC : [id number] LANCE: 10/27/24 STATUS: COMP REQ : [id number] RECD: 10/27/24-[address]: Chris Aldana COMP: 10/27/24-1448 ENTERED: 10/27/24-[address]: Felicitas Burkett MD ORDERED: CMP Test Result Flag Reference Sodium 138 135-145 mmol/L Potassium 3.8 3.3-5.1 mmol/L CL 105 96-108 mmol/L CO2 28 22-29 mmol/L Gap 9 L 12-20 BUN 12 9-16 mg/dL Creat 0.75 0.5-1.4 mg/dL Estimated CrCl 83.5 Provided height and weight: 162.56 cm, 81.647 kg. eGFR (calculated from the MDRD study equation) and eCrCl (calculated from the Cockcroft-Gault equation) are based on different parameters and may not yield comparable results. If eCrCl result is absurd, please check patient's height/weight. eGFR > 60 Chronic Kidney Disease: Estimated GFR < 60 mL/min/1.73m2 Severe Kidney Disease: Estimated GFR < 15 mL/min/1.73m2 Glucose, Random 87 60-115 mg/dL CA 10.2 8.4-10.2 mg/dL Total Bili 0.4 0.0-1.0 mg/dL AST (GOT) 31 5-31 U/L ALT (GPT) 31 0-31 U/L Protein, Total 7.8 6.5-8.0 g/dL Alb 4.5 3.5-5.0 g/dL Alk Phos 79 39-117 U/L Coding Level of Care Code Est Pt Level 4 (84176) Complex EM visit Add On G2211 Diagnoses Mixed dyslipidemia E78.2 Essential hypertension I10 Additional Codes DUY-7 Assessment Billing - DUY-7 Assessment Tool: DUY-7 Assessment 46444 ([id number]) Assessment & Plan Assessment & Plan (1) Mixed dyslipidemia: Code(s): E78.2 - Mixed hyperlipidemia Category: Medical (2) Essential hypertension: Code(s): I10 - Essential (primary) hypertension Category: Medical Plan -blood pressure still not at goal, will add Amlodipine 5 mg at night in conjunction with Lisinopril 40 mg in the morning. - Follow-up for blood pressure check in two weeks to evaluate efficacy of the combined regimen and adjust accordingly. - Monitor for severe symptoms such as chest pain or intense headaches, advising immediate ER visit if they occur. - For Hypercholesterolemia, fasting lipid profile ordered; patient engagement in dietary modification and exercise recommended for long-term control. - Ensure continued normal function of the kidneys, liver, and governance of electrolytes through regular monitoring and patient compliance with medications/diet. Orders: Orders Lipid Panel 11/03/24 E55.9 - Vitamin D deficiency, unspecified, E78.2 - Mixed hyperlipidemia, I10 - Essential (primary) hypertension Alanine Aminotransferase 11/03/24 E55.9 - Vitamin D deficiency, unspecified, E78.2 - Mixed hyperlipidemia, I10 - Essential (primary) hypertension Aspartate Amino Transferase 11/03/24 E55.9 - Vitamin D deficiency, unspecified, E78.2 - Mixed hyperlipidemia, I10 - Essential (primary) hypertension Vitamin D 25-OH Total 11/03/24 E55.9 - Vitamin D deficiency, unspecified, E78.2 - Mixed hyperlipidemia, I10 - Essential (primary) hypertension Basic Metabolic Panel Fasting 11/03/24 E55.9 - Vitamin D deficiency, unspecifie d, E78.2 - Mixed hyperlipidemia, I10 - Essential (primary) hypertension Medications: New amlodipine 5 mg PO DAILY 30 tabs 1RF
[2024-11-03 11:45] VITALS: BP 164/80; PULSE 72; O2SAT 98; BMI 31.2
== END 2024-11-03 12:21 | disposition home or self-care (01) ==
PROVIDERS: PCP Internal Medicine; Visit Provider Internal Medicine
DX: E78.2 Mixed hyperlipidemia (principal); I10 Essential (primary) hypertension

== ENCOUNTER → 2024-11-03 10:27 | Outpatient (BNVA) | payer OTHER, SELFPAY | PROVIDERS: PCP Internal Medicine; Visit Provider Internal Medicine | DX: I10 Essential (primary) hypertension (principal); E78.2 Mixed hyperlipidemia | CPT/HCPCS: 96127; 99212 ==

== ENCOUNTER 2024-11-10 08:21 | Outpatient (REF) | payer OTHER, SELFPAY ==
[2024-11-10 10:44] LABS: Alanine Aminotransferase 29 U/L (0-31); Anion Gap 12 (12-20); Aspartate Amino Transferase 33 U/L (5-31); Blood Urea Nitrogen 14 mg/dL (9-16); Calcium 9.9 mg/dL (8.4-10.2); Carbon Dioxide 27 mmol/L (22-29); Chloride 106 mmol/L (96-108); Cholesterol 261 mg/dL (<200); Estimated Glomerular Filt Rate > 60; Glucose Fasting 100 mg/dL (60-99); HDL Cholesterol 41 mg/dL (>40); LDL Cholesterol Calculated 180 mg/dL (<100); Potassium 4.3 mmol/L (3.3-5.1); Sodium 141 mmol/L (135-145); Triglycerides 202 mg/dL (<150)
[2024-11-10 10:48] LABS: Vitamin D 25-OH Total 63.4 ng/mL (>30)
== END 2024-11-10 08:22 | disposition home or self-care (01) ==
LOC: HO.HMGCLDS 08:21
PROVIDERS: PCP Internal Medicine; Visit Provider Internal Medicine
DX: E55.9 Vitamin D deficiency, unspecified (principal); I10 Essential (primary) hypertension; E78.2 Mixed hyperlipidemia
CPT/HCPCS: 36415; 80048; 80061; 82306; 84450; 84460

== ENCOUNTER 2024-12-27 10:21 | Outpatient (AMB) | payer OTHER, SELFPAY ==
--- OUTSIDE RECORDS SUMMARY | 2024-12-27 10:24 | XMS_ITS | Data Portability ---
Author Organization [facility], , [facility] Address [address] [place] [address] Care Team Providers Care Crime Prevention Worker Name Role Phone SOFÍA BAKER Phys. Med. [facility] Rehab [phone] CARLA CHOPRA Primary Care Provider [phone] JANICE HOLLIDAY Primary Care Provider JUAN Hughes Urologist Assessment No assessment recorded. Plan of Treatment Reminders Order Date Submit Date Provider Last Modified By Organization Details Last Modified Time Details Appointments None recorded. Lab culture, urine 2016 017 [facility], [address] [place], [address], 7 22:01:03 Referral None recorded. Procedures None recorded. Surgeries None recorded. Imaging XR, thoracic spine - right sided mid back pain without trauma. r/o compressio n fracture, worsening arthritis 2016 017 [facility] (Imaging), [address] [place], [address], 7 15:07:55 bone density 2016 017 [facility] (Imaging), [address] [place], [address], 7 13:27:32 Medication Orders cyclobenza ashley 5 mg tablet 2016 017 [id number], [address] [place], [address], 7 09:08:42 tizanidine 4 mg tablet 2016 017 [id number], [address] [place], [address], 7 09:55:33 valacyclov ir 500 mg tablet 2016 017 [id number], [address] [place], [address], 7 08:49:26 Vitamin D3 25 mcg (1,000 unit) capsule 2016 017 [id number], [address] [place], [address], 7 08:49:25 famotidine 20 mg tablet 2016 017 [id number], [address] [place], [address], 7 08:49:25 Macrobid 100 mg capsule 2016 017 [id number], [address] [place], [address], 7 15:58:50 Patient TargetsNo targets recorded. Patient Instructions Encounter Date Encounter Id Patient Instructions Last Modified By Organization Details Last Modified Time 03/15/2017 [id number] Pt has appt already scheduled with PCP next month. [email or web address] Not available 03/15/2017 09:10:37 08/20/2017 [id number] -Push fluids -Make sure you're emptying your bladder when you need to go -Take medication twice daily for a week UNLESS we call you and tell you to stop taking it [email or web address] Not available 08/20/2017 15:58:47 10/05/2017 [id number] RX given for glasses Eyes are healthy and work well together. Return to office in 2 years or sooner as needed. [email or web address] Not available 10/05/2017 14:19:53 Reason for Referral None Reported. Results Created Date Observation Date Name Description Value Unit Range Abnormal Flag Note LastModifiedBy Organization Detail LastModifiedTime 08/20/20 17 08/20/2017 POC UA glu UA Negati ve Not Available [address], [address], 08/20/2017 15:58:07 08/20/20 17 08/20/2017 POC UA clarity UA Clear Not Available [address], [address], 08/20/2017 15:58:07 08/20/20 17 08/20/2017 POC UA uro UA 0.2000 Not Available [address], [address], 08/20/2017 15:58:07 08/20/20 17 08/20/2017 POC UA ket UA Negati ve Not Available [address], [address], 08/20/2017 15:58:07 08/20/20 17 08/20/2017 POC UA pro UA Negati ve Not Available [address], [address], 08/20/2017 15:58:07 08/20/20 17 08/20/2017 POC UA nit UA Negati ve Not Available [address], [address], 08/20/2017 15:58:07 08/20/20 17 08/20/2017 POC UA jesus UA Negati ve Not Available [address], [address], 08/20/2017 15:58:07 08/20/20 17 08/20/2017 POC UA pH UA 6.0000 Not Available [address], [address], 08/20/2017 15:58:07 08/20/20 17 08/20/2017 POC UA SG UA <=1.00 50 Not Available [address], [address], 08/20/2017 15:58:07 08/20/20 17 08/20/2017 POC UA color UA Yellow Not Available [address], [address], 08/20/2017 15:58:07 08/20/20 17 08/20/2017 POC UA blo UA Trace- lysed Not Available [address], [address], 08/20/2017 15:58:07 08/20/20 17 08/20/2017 POC UA kumar UA Negati ve Not Available [address], [address], 08/20/2017 15:58:07 08/20/20 17 08/21/2017 cultu re, urine culture, urine, routine CULTU RE, URINE , ROUTI NE MICRO NUMBE R: [id number] TEST STATU S: FINAL SPECI MEN SOURC E: URINE SPECI MEN QUALI TY: ADEQU ATE RESUL T: No Growt h Not Available [facility] [address] [place] [address] [address], [place], [address], 08/21/2017 22:01:03 03/15/20 17 03/15/2017 XR, thora cic spine OBSERV ATION: Thorac ic spine 3 views HISTOR Y: Worsen ing back pain, clinic al concer n compre ssion fractu re COMPAR LORRAINE: 2015 and 2014 Findin gs: Minera lizati on, the joint spaces , and alignm ent are normal . No signif icant degene rative change s or posttr aumati c abnorm alitie s are presen t. A few small margin al osteop hytes are seen not remark able for age there is no eviden ce of compre ssion fractu re. IMPRES JUSTINO: No signif icant radiog raphic abnorm alitie s. POS: [facility] Electr onical ly signed Readchemo jj Physic jack: Jermaine Diaz [email or web address] [facility] (Imaging) [address], [place], [address], 03/16/2017 16:34:43 05/20/20 17 05/17/2017 bone densi ty OBSERV ATION: Your patien t comple elton a bone minera l densit y test at our facili ty on 7. The indica tions were a family histor y of osteop orosis and postme nopaus e. There were no prior studie s availa ble for compar lorraine. e. There were no prior studie s availa ble for compar lorraine. Her AP lumbar spine T score averag e is -0.2. Degene rative change s may affect some of these readin gs. Her femora l neck T score mean is +0.5. At this time, your patien t has a normal bone minera l densit y. Her FRAX data shows a 10 year probab ility of major osteop orotic fractu re at 2.2%, and risk of hip fractu re at 0.0%. This is signif icantl y below the thresh old for consid eratio n of antire sorpti ve therap y. A repeat study at age 65 is likely reason able unless she develo ps other risk factor s. FRAX data shows a 10 year probab ility of major osteop orotic fractu re at 2.2%, and risk of hip fractu re at 0.0%. This is signif icantl y below the thresh old for consid eratio n of antire sorpti ve therap y. A repeat study at age 65 is likely reason able unless she develo ps other risk factor s. Electr onical ly signed Readin g Physic jack: Harsh Donovan MD [facility] (Imaging) [address], [place], [address], 06/06/2017 11:04:39 Result Notes None recorded. Problems Name Problem SNOMED Code Status Onset Date Resolution Date Notes Provider Name and Address Organization Details Recorded Time Mixed hyperlipid emia 134871853 Completed 200810/06/2016 Carla Chopra NP [address] [place] [address], [address] , [facility] 6 15:25:18 Urinary incontinen ce 045282669 Active 2008 KATERYNA Martin [address] [place] [address], [address] , [facility] 5 16:09:22 Carpal tunnel syndrome 66308862 Active 2008 KATERYNA Martin [address] [place] [address], [address] , [facility] 5 16:09:22 Gastroesop hageal reflux disease 623885719 Active 2008 KATERYNA Martin [address] [place] [address], [address] , [facility] 5 16:09:22 Lateral epicondyli tis 331703266 Completed 10/15/2013 KATERYNA Martin [address] [place] [address], [address] , [facility] 5 16:09:22 Lateral epicondyli tis 093377422 Completed 200603/03/2011 KATERYNA Martin [address] [place] [address], [address] , [facility] 5 16:09:22 Right lower quadrant pain 120533637 Completed 200703/03/2011 KATERYNA Martin [address] [place] [address], [address] , [facility] 5 16:09:22 Right upper quadrant pain 036170955 Completed 200703/03/2011 KATERYNA Martin [address] [place] [address], [address] , [facility] 5 16:09:22 Urinary tract infectious disease 88080704 Completed 200703/03/2011 KATERYNA Martin [address] [place] [address], [address] , [facility] 5 16:09:22 Benign essential hypertensi on 4264750 Active Carla Chopra NP [address] [place] [address], [address] , [facility] 6 06:15:28 Benign essential hypertensi on 0356441 Completed 200607/05/2012 KATERYNA Martin [address] [place] [address], [address] , [facility] 5 16:09:22 Other Completed 10/15/2013 KATERYNA Martin [address] [place] [address], [address] , [facility] 5 16:09:22 Plantar fasciitis 931854860 Active KATERYNA Martin [address] [place] [address], [address] , [facility] 5 16:09:22 Abdominal pain 16965060 Completed 200703/03/2011 KATERYNA Martin [address] [place] [address], [address] , [facility] 5 16:09:22 Mittelschm erz 21377079 Completed 200703/03/2011 KATERYNA Martin [address] [place] [address], [address] , [facility] 5 16:09:22 Low back pain 949028552 Active 2008 Sofía Baker , PT [address] [place], [address] , [facility] 5 15:19:28 Dysuria 51560357 Completed 200703/03/2011 KATERYNA Martin [address] [place] [address], [address] , [facility] 5 16:09:22 Pain in limb 13630622 Completed 200703/03/2011 KATERYNA Martin [address] [place] [address], [address] , [facility] 5 16:09:22 Malaise and fatigue 177851341 Completed 200703/03/2011 KATERYNA Martin [address] [place] [address], [address] , [facility] 5 16:09:22 External hordeolum 4688096 Completed 10/06/2016 Carla Chopra NP [address] [place], [address] , [facility] 6 15:25:27 Problem Notes None recorded. Procedures Surgical History Date Name Laterality Status Provider Name and Address Organization Details Recorded Time 08/20/20 17 POC Urinalysis Testing completed Chery Pack LPN [facility] 08/20/2017 15:41:16 11/10/20 16 POC Urinalysis Testing completed Tiff Guaman [facility] 11/10/2016 15:30:22 10/06/20 16 IUD Removal completed Carla Chopra NP [address] [place], [address], [facility] 10/06/2016 11:31:24 11/16/20 15 Refraction completed Demi Monge [facility] 11/16/2015 14:49:53 11/03/20 15 99974: PT Evaluation completed Soífa Baker, PT [address] [place], [address], [facility] 11/03/2015 15:19:30 03/24/20 14 Nebulizer Tx completed Brook Shetty LPN [facility] 03/24/2014 16:48:23 03/05/20 14 [address]64[address]: Therapeutic Exercise completed Sofía Baker, PT [address] [place], [address], [facility] 03/06/2014 07:26:23 12/30/19 14 Treatment and Advice completed Sofía Baker, PT [address] [place], [address], [facility] 12/30/2013 09:32:27 12/19/19 14 Treatment and Advice completed Sofía Baker, PT [address] [place], [address], [facility] 12/19/2013 14:07:27 12/12/19 14 Treatment and Advice completed Sofía Baker, PT [address] [place], [address], [facility] 12/12/2013 15:06:06 11/25/20 13 Treatment and Advice completed Sofía Baker, PT [address] [place], [address], [facility] 11/25/2013 07:25:48 10/17/20 13 Treatment and Advice completed Sofía Baker, PT [address] [place], [address], [facility] 10/17/2013 16:36:32 09/22/20 13 Treatment and Advice completed Sofía Baker, PT [address] [place], [address], [facility] 09/22/2013 11:05:52 09/18/20 13 Treatment and Advice completed Sofía Baker, PT [address] [place], [address], [facility] 09/18/2013 12:26:36 09/15/20 13 Treatment and Advice completed Sofía Baker, PT [address] [place], [address], [facility] 09/15/2013 12:05:17 03/26/20 13 Treatment and Advice completed Sofía Baker, PT [address] [place], [address], [facility] 03/26/2013 11:26:58 04/12/20 11 IUD Insertion completed Santhosh Copeland MD [address] [place], [address], [facility] 04/12/2011 17:43:17 04/12/20 11 IUD Removal completed Santhosh Copeland MD [address] [place], [address], [facility] 04/12/2011 17:43:17 08/05/20 09 Treatment and Advice completed Sofía Baker, PT [address] [place], [address], [facility] 08/05/2009 11:29:26 07/30/20 09 Treatment and Advice completed Sofía Baker, PT [address] [place], [address], [facility] 07/30/2009 12:05:14 04/05/20 09 Treatment and Advice completed Sofía Baker, PT [address] [place], [address], [facility] 04/05/2009 13:25:02 03/15/20 09 Treatment and Advice completed Sofía Baker, PT [address] [place], [address], [facility] 03/15/2009 14:33:48 03/10/20 09 Treatment and Advice completed Sofía Baker, PT [address] [place], [address], [facility] 03/10/2009 09:40:52 Cholecystectomy completed Not Available [facility] 10/12/2011 06:06:16 Imaging Results Imaging Date Name Status LastModified by Organiz ation Details LastModified Time 03/15/2017 XR, thoracic spine completed [address] (Imaging) [address], [place], [address], 03/16/2017 16:34:43 05/17/2017 bone density [facility] [address] [place], [address], 06/06/2017 11:04:39 Procedure Notes None recorded. Medical Equipment None Reported. Allergies Allergen ID Allergen Name Allergen Category Reaction Reaction Severity Criticality Documentation Date Start Date Code Code System Note Provider Name and Address Organization Details Recorded Time 47397 ibuprofen medicatio n nausea Not available Not available 01/23/2012 5640 RxNorm stoma ch upset Carla Chopra , MELINA [address] [facility] [place], [address], [facility] 5 15:46:47 Medications Name Sig Start Date Stop Date Status Note LastModified by Organization Details LastModified Time Prescripti on - Change 10/06 completed Not Available Not Available Not Available carisoprod ol 350 mg tablet Take 1 tablet 3 times a day by oral route as needed. 2008 active Not Available Not Available Not Avai lable cyclobenza ashley 10 mg tablet TK 1 T PO QHS 07/26 completed Not Available Not Available Not Available amoxicilli n 500 mg capsule TAKE ONE CAPSULE BY MOUTH EVERY 8 HOURS active Not Available Not Available No t Available lisinopril 20 mg-hydroch lorothiazi de 12.5 mg tablet TAKE 1 TABLET BY MOUTH EVERY DAY 04/12 completed Not Available Not Available Not Available ibuprofen 800 mg tablet Take 1 tablet 3 times a day by oral route for 14 days. 07/26 completed Not Available Not Available Not Available tizanidine 4 mg tablet TAKE 1 TABLET BY MOUTH EVERY 8 HOURS NEEDED active Not Available Not Available No t Available hydrocodon e 5 mg-acetami nophen 325 mg tablet Take 1-2 tablet(s ) EVERY 6 HOURS by oral route as needed for pain active Not Available Not Available No t Available ondansetro n HCl 4 mg tablet active Not Available Not Available Not Available Pyridium 200 mg tablet Take 1 tablet 3 times a day by oral route for 2 days. 11/28 completed Not Available Not Available Not Available Miconazole -3 200 mg vaginal suppositor y Insert 1 supposit ory every day by vaginal route for 3 days. 09/11 completed Not Available Not Available Not Available valacyclov ir 500 mg tablet TAKE 1 TABLET BY MOUTH EVERY DAY active Not Available Not Available No t Available sulfametho xazole 800 mg-trimeth oprim 160 mg tablet TAKE 1 TABLET BY MOUTH TWICE A DAY FOR 10 DAYS 11/10 completed Not Available Not Available Not Available meloxicam 7.5 mg tablet TAKE 1 TABLET BY MOUTH EVERY DAY 07/26 completed Not Available Not Available Not Available oxycodone- acetaminop hen 5 mg-325 mg tablet Take 2 tablets every 4-6 hours by oral route. active Not Available Not Available No t Available propranolo l 10 mg tablet Take 1 tablet(s ) every day as needed for elevated blood pressure . 07/26 completed Not Available Not Available Not Available propranolo l 40 mg tablet Take 1 tablet twice a day by oral route. 10/06 completed Not Available Not Available Not Available famotidine 20 mg tablet TAKE 1 TABLET TWICE A DAY FOR ACID REFLUX active Not Available Not Available No t Available phenazopyr idine 100 mg tablet active Not Available Not Available No t Available erythromyc in 5 mg/gram (0.5 %) eye ointment JIMBO TO OS QID FOR 5 DAYS active Not Available Not Available No t Available Cipro 500 mg tablet Take 1 tablet every 12 hours by oral route for 10 days. 06/14 completed Not Available Not Available Not Available lisinopril 10 mg tablet TAKE 1 TABLET(S ) EVERY DAY BY ORAL ROUTE FOR 90 DAYS. (THIS REPLACES 5 MG STRENGTH ) 07/26 completed dosing change Not Available Not Available Not Available omeprazole 20 mg capsule,de layed release Take 1 capsule every day by oral route in the morning. 11/28 completed takes one twice daily Not Available Not Available Not Available diclofenac sodium 75 mg tablet,del ayed release Take 1 tablet twice a day by oral route with meals for 10 days. 02/01 completed Not Available Not Available Not Available codeine 10 mg-guaifen esin 100 mg/5 mL oral liquid Take 10 mL every 4 hours by oral route as needed. 2014 active Not Available Not Available Not Avai lable lisinopril 5 mg tablet TAKE 1 TABLET BY MOUTH EVERY DAY active Not Available Not Available No t Available acyclovir 200 mg capsule take one 5 times daily for 10 days 07/26 completed Not Available Not Available Not Available hydrochlor othiazide 25 mg tablet TAKE 1 TABLET BY MOUTH EVERY DAY active Not Available Not Available No t Available gabapentin 100 mg capsule Take 3 capsules 3 times a day by oral route as needed. 07/26 completed Not Available Not Available Not Available Tylenol-Co deine #3 300 mg-30 mg tablet Take 1 tablet every 6 hours by oral route as needed. 2014 active 08/31/15 -ac Not Available Not Available Not Available lisinopril 10 mg-hydroch lorothiazi de 12.5 mg tablet TAKE 1 TABLET BY MOUTH EVERY DAY 2016 active pt aware needs office visit/o nly has one car @ the moment Not Available Not Available Not Available Cipro 250 mg tablet Take 1 tablet every 12 hours by oral route for 5 days. 11/28 completed Not Available Not Available Not Available loratadine 10 mg tablet TAKE 1 TABLET(S ) EVERY DAY BY ORAL ROUTE FOR 30 DAYS. 07/26 completed Not Available Not Available Not Available naproxen 500 mg tablet TAKE 1 TABLET(S ) TWICE A DAY BY ORAL ROUTE NEEDED. active Not Available Not Available No t Available oxycodone 5 mg tablet Take 1/2 - 1 tablet EVERY 8 HOURS by oral route as needed for pain active Not Available Not Available No t Available Vitamin D3 25 mcg (1,000 unit) capsule TAKE ONE CAPSULE EVERY DAY 2016 active Not Available Not Available Not Avai lable cyclobenza ashley 5 mg tablet Take 1 tablet 3 times a day by oral route as needed. 2016 active Not Available Not Available Not Avai lable Prilosec OTC 20 mg tablet,del ayed release TAKE 1 TABLET BY MOUTH EVERY DAY 06/26 completed Not Available Not Available Not Available nitrofuran toin monohydrat e/macrocry stals 100 mg capsule TAKE 1 CAPSULE( S) EVERY 12 HOURS BY ORAL ROUTE FOR 7 DAYS. active Not Available Not Available No t Available Pain Relief Extra Strength (acetamino phen) 500 mg tablet TAKE 1 TABLET (500MG) BY ORAL ROUTE EVERY 6 HOURS NEEDED active Not Available Not Available No t Available fenofibrat e 160 mg tablet Take 1 tablet every day by oral route for 30 days. active Not Available Not Available No t Available ProAir HFA 90 mcg/actuat ion aerosol inhaler INHALE 2 PUFFS EVERY 4 HOURS active Not Available Not Available No t Available loratadine 10 mg capsule 1 PO QD 2013 active Not Available Not Available Not Avai lable Aerochambe r Plus Flow-Vu USE DIRECTED WITH INHALER active Not Available Not Available No t Available Probiotic 20 billion cell capsule Take 1 capsule twice a day by oral route for 10 days. 11/28 completed Not Available Not Available Not Available Vitals Date Recorded Body height Body weight Body mass index (BMI) Provider Name and Address Organization Details Last Updated DateTime 03/15/2017 165.74 cm 42010.85 g 29.2 kg/m2 Desirae Ya MA [facility] 03/15/2017 08:37:44 Date Recorded Systolic blood pressure Diastolic blood pressure Provider Name and Address Organization Details Last Updated DateTime 03/15/2017 138 mm[Hg] 74 mm[Hg] Karin Vela NP [address] [place] [address], [address], [facility] 03/15/2017 08:54:38 Date Recorded Body height Body weight Body mass index (BMI) Systolic blood pressure Diastolic blood pressure Provider Name and Address Organization Details Last Updated DateTime 03/19/2017 165.74 cm 99182.44 g 29.4 kg/m2 128 mm[Hg] 80 mm[Hg] Tiff Guaman [facility] 7 09:45:44 Date Recorded Body height Body weight Body mass index (BMI) Heart rate Systolic blood pressure Diastolic blood pressure Provider Name and Address Organization Details Last Updated DateTime 7 165.74 cm 72796.2 5 g 29.3 kg/m2 66 /min 114 mm[Hg] 68 mm[Hg] Sonia Cobb MA [facility] 7 08:18:37 Date Recorded Body height Body mass index (BMI) Body weight Heart rate Systolic blood pressure Diastolic blood pressure Provider Name and Address Organization Details Last Updated DateTime 165.74 cm 29.4 kg/m2 35209.4 4 g 80 /min 120 mm[Hg] 80 mm[Hg] Chery Pack LPN [facility] 7 15:44:35 Social History Question Answer Notes LastModified by Organizat ion Details LastModified Time Tobacco Smoking Status Former Smoker quit @ age 18 occasional smoker. 1 yr 3 JACK Neil, [facility] 01/15/2013 13:58:47 Do You Have An Advance Directive? No [email or web address] Information not available 10/12/2011 What Is Your Level Of Alcohol Consumption? Occasional 1 Glass Of Wine Occasionally [email or web address] Information not available 04/21/2015 What Is Your Level Of Caffeine Consumption? None Decaf [email or web address] Information not available 02/02/2010 How Much Tobacco Do You Chew? None [email or web address] Information not available 10/12/2011 What Type Of Diet Are You Following? REGULAR [email or web address] Information not available 10/12/2011 Which Illicit Or Recreational Drugs Have You Used? 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 16+yearssincel mansi Information not available 08/18/2015 How Many Days In The Past Year Have You Had A Heavy Drinking Consumption (4+ Female, 5+ Male)? 0 [email or web address] Information not available 08/31/2015 Are There Any Guns Present In Your Home? No [email or web address] Information not available 10/12/2011 Live Alone Or With Others? With Others [email or web address] Information not available 10/12/2011 Does The Patient Have Difficulty Speaking Macedonian? No [email or web address] Information not available 10/12/2011 Does The Patient Have Difficulty Reading Macedonian? No [email or web address] Information not available 10/12/2011 Patient Has Health Care Proxy Signed And In Chart No [email or web address] Information not available 10/02/2014 Marital Status Re- nazia Anders n not available 09/24/2012 Mosquito Repellent Used Routinely Yes [email or web address] Information not available 10/12/2011 What Was The Date Of Your Most Recent Tobacco Screening? 08/20/2017 Information not available 06/18/2019 How Many Children Do You Have? 3 [email or web address] Information not available 10/12/2011 What Is Your Current Pack Years? [email or web address] Information not available 08/18/2015 Seat Belts Used Routinely Yes [email or web address] Information not available 10/12/2011 Smoke Alarm In Home Yes [email or web address] Information not available 10/12/2011 How Much Tobacco Do You Smoke? No [email or web address] Information not available 10/12/2011 General Stress Level Medium [email or web address] Information not available 10/06/2016 Do You Use Sunscreen Routinely? Yes [email or web address] Information not available 10/12/2011 Sex: Unknown Functional Status Question Answer Note LastModified by Organization D etails LastModified Time What is your exercise level? None [id number] Information n ot available 10/12/2011 Mental Status None recorded. Family History Nothing Reported Notes:Cardiovascular: Family history is remarkable for hypertension. Endocrine: Family history is remarkable for diabetes type 2. Medical History Condition Response Hyperlipidemia Y Kidney Stones Y Hypertension Y Gynecological HistoryNo gynecological history recorded. Obstetrics History GPAL:G 0 P 0 0 0 0 Immunizations Vaccine Type Date Status Note Provider Nam e and Address Organization Details Recorded Time Influenza, split virus, trivalent, preservative 2 completed Not Available [facility] 12/13/2019 02:18:31 influenza, seasonal, intradermal, preservative free 2 completed Not Available [facility] 12/13/2019 02:28:17 influenza, unspecified formulation 0 completed Not Available [facility] 10/11/2011 05:22:41 Influenza, split virus, trivalent, PF 3 completed Not Available [facility] 12/13/2019 02:27:10 Influenza, split virus, trivalent, preservative 4 completed Not Available [facility] 12/13/2019 02:36:27 Influenza, split virus, quadrivalent, PF 5 completed Not Available [facility] 12/13/2019 02:19:48 Influenza, split virus, trivalent, preservative 0 completed Not Available [facility] 12/13/2019 02:17:42 Novel [id number] 0 completed Not Available [facility] 12/13/2019 02:32:30 Influenza, split virus, quadrivalent, PF 6 completed Not Available [facility] 12/13/2019 02:33:42 Influenza, split virus, quadrivalent, PF 7 completed Not Available [facility] 12/13/2019 02:22:02 Tdap 1 completed Not Available [facility] 12/13/2019 02:15:39 Past Encounters Encounter ID Performer Location Encounter Start Date Encounter Closed Date Diagnosis/Indication Diagnosis SNOMED-CT Code Diagnosis ICD10 Code Diagnosis Note [id number] [facility], OFFICE [address] [place] [address] 10/24/2007 15:38:04 12/16/2008 02:02:29 [id number] [facility], OFFICE [address] [place] [address] 12/26/2007 14:44:03 12/16/2008 02:02:29 [id number] [facility] [address] [place] [address] 12/26/2007 15:29:44 12/26/2007 15:29:51 [id number] Radiology , DEC [address] [place] [address] 01/02/2008 10:54:15 01/03/2008 09:34:27 [id number] FP, DEC, OFFICE 70 JACK [id number] 6 04/30/2008 08:59:34 12/16/2008 02:02:29 [id number] Radiology , [facility] 70 JACK [id number] 6 04/30/2008 13:24:49 05/01/2008 09:23:22 [id number] LAB - [facility] 70 JACK [id number] 6 04/30/2008 09:44:23 04/30/2008 09:44:29 [id number] LAB - [facility] [address] [place] [address] 04/30/2008 00:00:00 12/16/2008 02:02:29 [id number] FP, [facility], OFFICE 70 JACK [id number] 6 06/08/2008 11:42:37 12/16/2008 02:02:29 [id number] FP, [facility], OFFICE [address] [place] [address] 09/07/2008 16:56:28 12/16/2008 02:02:29 [id number] LAB - [facility] JACK [id number] 6 09/08/2008 07:24:37 09/08/2008 07:24:44 [id number] FP, [facility], OFFICE 70 [facility] [address] 12/10/2008 08:55:51 12/16/2008 02:02:29 [id number] LAB - [facility] [address] [place] [address] 12/10/2008 09:28:55 12/10/2008 09:29:01 [id number] FP, [facility], OFFICE [address] [place] [address] 01/08/2009 15:45:36 01/11/2009 11:31:48 [id number] FP, [facility], OFFICE [address] [place] [address] 02/10/2009 14:10:43 02/12/2009 09:14:54 [id number] Radiology , [facility] [address] [place] [address] 02/19/2009 09:33:41 02/22/2009 15:31:21 [id number] [facility], OFFICE 70 JACK JIMENEZ146 6 03/04/2009 14:20:11 03/09/2009 08:39:36 [id number] Radiology , [facility] JACK [id number] 6 03/04/2009 14:47:16 03/08/2009 14:42:30 [id number] Physical Therapy, [facility] JACK Hawkins146 6 03/10/2009 08:59:23 03/11/2009 07:35:54 [id number] Physical [facility], [facility] JACK Hawkins146 6 03/15/2009 13:48:50 03/17/2009 08:30:03 [id number] Physical Therapy, [facility] JACK [id number] 6 03/19/2009 10:55:16 03/19/2009 14:42:57 [id number] Physical Therapy, [facility] JACK [id number] 6 03/26/2009 14:44:00 03/26/2009 16:03:19 [id number] Physical Therapy, [facility] JACK [id number] 6 04/05/2009 12:51:55 04/05/2009 15:07:57 [id number] Physical Therapy, [facility] JACK [id number] 6 04/21/2009 13:53:30 04/22/2009 08:42:55 [id number] [facility], OFFICE 70 JACK [id number] 6 07/16/2009 16:35:23 07/21/2009 13:55:02 [id number] Physical Therapy, [facility] JACK [id number] 6 07/26/2009 13:17:26 07/30/2009 09:10:41 [id number] Physical Therapy, [facility] JACK [id number] 6 07/30/2009 10:50:58 08/03/2009 10:31:54 [id number] Physical Therapy, [facility] JACK [id number] 6 08/05/2009 10:52:14 08/06/2009 09:34:36 [id number] Radiology , [facility] 70 [place] [address] 08/11/2009 11:29:04 08/16/2009 11:35:37 [id number] Physical [facility], [facility] 70 [facility] [address] 08/23/2009 12:49:34 08/23/2009 15:51:13 [id number] [facility], OFFICE 70 [facility] [place] [address] 09/17/2009 11:20:02 09/20/2009 10:25:51 [id number] Radiology , [address] [place] [address] 09/20/2009 10:08:11 09/22/2009 10:59:02 [id number] LAB - [facility] [place] [address] 02/10/2009 15:26:55 02/10/2009 15:27:26 [id number] LAB - [address] [place] [address] 09/09/2009 07:59:23 09/09/2009 08:00:02 [id number] LAB - [address] [place] [address] 09/17/2009 11:50:50 09/17/2009 11:51:11 [id number] [facility], OFFICE [address] [place] [address] 11/04/2009 11:24:54 11/05/2009 12:06:07 [id number] [facility], OFFICE [address] [facility] [place] [address] 11/22/2009 11:25:24 11/24/2009 14:08:20 [id number] [facility], OFFICE [address] [place] [address] 02/02/2010 10:46:29 02/04/2010 10:39:00 [id number] [facility], OFFICE [address] [place] [address] 07/28/2010 16:17:03 07/29/2010 10:10:58 [id number] [facility], OFFICE [address] [place] [address] 11/01/2010 16:15:36 11/02/2010 11:59:24 [id number] Physical Therapy, [facility] 70 [place] [address] 11/08/2010 13:53:01 11/08/2010 16:05:50 [id number] Physical Therapy, [facility] [place] [address] 11/22/2010 15:43:19 11/23/2010 08:50:23 [id number] FP, [facility], OFFICE 70 [facility] [place] [address] 12/15/2010 14:28:26 12/16/2010 13:00:08 [id number] FP, [facility], OFFICE 70 [place] [address] 02/09/2011 14:37:52 02/13/2011 14:42:40 [id number] , [facility], OFFICE 70 [facility] [place] [address] 02/13/2011 10:36:53 02/13/2011 17:33:22 [id number] Radiology , [facility] 70 [place] [address] 02/16/2011 16:25:28 02/17/2011 13:30:35 [id number] , [facility], OFFICE [address] [place] [address] 03/21/2011 13:45:34 03/23/2011 08:42:24 [id number] , [facility], OFFICE [address] [place] [address] 04/04/2011 09:42:37 04/07/2011 08:35:46 [id number] FP, [facility], OFFICE [address] [place] [address] 04/12/2011 13:46:14 04/14/2011 11:10:28 [id number] FP, DEC, [address] [place] [address] 04/21/2011 10:47:16 04/25/2011 08:32:56 [id number] FP, [facility], OFFICE [address] [place] [address] 06/27/2011 11:40:27 06/27/2011 16:23:49 [id number] Radiology , [facility] 70 [place] [address] 06/30/2011 14:58:35 07/10/2011 14:00:07 [id number] FP, DEC, OFF[address] [place] [address] 07/27/2011 13:18:23 07/27/2011 14:31:24 [id number] , [facility], OFFICE [address] [place] [address] 01/23/2012 16:01:40 01/23/2012 16:41:49 [id number] Physical [facility], [facility] 70 [place] [address] 01/30/2012 15:50:36 01/31/2012 07:53:16 [id number] Radiology , [facility] [address] [place] [address] 6 04/25/2012 13:00:54 04/26/2012 09:45:44 [id number] , [facility], OFFICE [address] [place] [address] 6 06/07/2012 09:26:43 06/07/2012 10:51:43 [id number] , [facility], OFFICE [address] [place] [address] 07/05/2012 11:15:57 07/05/2012 12:18:44 [id number] Amber Lou NP , [facility], OFFICE [address] [place] [address] 6 08/12/2012 13:42:01 08/12/2012 14:21:43 [id number] [facility]. RN , [facility], OFFICE [address] [place] [address] 09/03/2012 06:33:37 09/03/2012 16:06:16 [id number] Zafar Kelley MD , [facility], OFFICE [address] [place] [address] 10/04/2012 11:07:27 10/04/2012 12:14:27 [id number] Santhosh Copeland MD , [facility], OFFICE [address] [place] [address] 6 10/22/2012 14:51:43 10/22/2012 15:37:56 [id number] Julianna Panchal Physical Therapy, [address] [address] 10/29/2012 14:43:10 10/30/2012 12:26:47 [id number] Sue Fierro, OT Physical Therapy, [address] [address] 11/05/2012 16:01:44 11/06/2012 07:55:33 [id number] Sue Fierro, OT Physical Therapy, [facility] 70 [place] [address] 12/10/2012 15:30:52 12/10/2012 16:14:57 [id number] Carla Chopra, MELINA FP, [facility], OFFICE [address] [place] [address] 12/20/2012 11:50:24 12/20/2012 13:17:24 [id number] ZELDA Miranda-BC PARTH, [facility], OFFICE [address] [place] [address] 01/06/2013 16:01:37 01/07/2013 10:46:30 [id number] Liliane ALBA, [facility], OFFICE [address] [place] [address] 01/15/2013 13:46:17 01/15/2013 14:11:50 [id number] DHARA MirandaBC PARTH, [facility], OFFICE [address] [place] [address] 6 03/24/2013 13:39:47 03/24/2013 14:25:20 [id number] Sofía Baker , PT Physical Therapy, [address] [address] 03/26/2013 10:49:34 03/27/2013 15:19:00 [id number] ZELDA Miranda-BC PARTH, [facility], OFFICE [address] [place] [address] 6 04/08/2013 09:18:15 04/08/2013 14:15:03 [id number] ZELDA Miranda-BC PARTH, [facility], OFFICE [address] [place] [address] 6 05/06/2013 15:32:00 05/07/2013 10:24:47 [id number] Ruchi [place] [facility] -[address] [address] 06/24/2013 08:35:29 06/30/2013 12:09:37 [id number] Ruchi [facility] -[address] [address] 6 08/05/2013 15:38:47 08/06/2013 15:45:58 Mixed hyperlipidemia [id number] Karena Pearson FP, [facility], OFFICE [address] [place] [address] 08/06/2013 06:16:46 08/08/2013 12:08:54 Influenza vaccine needed [id number] , [facility], OFFICE [address] [place] [address] 09/03/2013 09:22:09 09/05/2013 13:23:35 Carpal tunnel syndrome [id number] pt with known carpal tunnel and now upper extremity arm pain since starting work. no focal findings on exam. likely mild tendonitis . will refer to OT for assessment /exercised . pt reports pain relief with acetaminop hen. [id number] Carla Chopra NP , [facility], OFFICE [address] [place] [address] 09/10/2013 11:45:26 09/10/2013 12:44:15 Acute low back pain [id number] pt with musculoske letal strain in setting of new job and lifting. no red flags. medicaiton s rest and PT referral given. pt given note for work for the rest of the week. [id number] Wander Hatch [facility], [address] [address] 09/15/2013 11:21:39 09/16/2013 09:36:44 Low back pain [id number] Wander Hatch Physical [facility], [address] [address] 09/18/2013 11:58:59 09/19/2013 07:56:44 Low back pain [id number] [id number] Wander Hatch [facility], OFFICE [address] [place] [address] 09/19/2013 11:50:45 09/19/2013 13:09:36 Acute low back pain 858835263 pt with musculoske letal strain in setting of new job and lifting. no red flags. continue with pt. will await clearance from pt for return to work. [id number] Wander Hatch Physical [facility], [address] [address] 09/22/2013 10:29:53 09/22/2013 11:54:37 Low back pain 835865531 [id number] Wander Hatch Physical [facility], [address] [address] 10/01/2013 10:46:59 10/01/2013 11:54:18 Low back pain 808346421 [id number] Quita Dawson, Ms, Rdn, Ldn, CDE [facility] -[address] [address] 10/08/2013 10:27:05 10/08/2013 11:13:23 Mixed hyperlipidemia 047093719 [id number] Wander Hatch Physical [facility], [address] [address] 10/08/2013 17:24:33 10/09/2013 07:25:18 Low back pain 458369909 [id number] Wander Hatch Physical [facility], [address] [address] 10/17/2013 15:52:07 10/20/2013 08:24:58 Low back pain 114641382 [id number] , [facility], OFFICE [address] [place] [address] 6 10/21/2013 10:39:31 10/21/2013 13:48:57 Benign essential hypertension 5175661 Blood pressure at goal with current regimen. Adult heal th examination 801983127 see Risk Assessment and Lifestyle Change Counseling section above. overall healthy 47 year old woman. hypertensi on at goal. Counseling [id number] Hypertriglyceridemia 550858914 discussed calculated risk. 10.04% risk with framingham calculator , 8% risk with AHA calculator . pt is motivated to focus on diet and exercise. will recheck in 6 months. [id number] Wander Hatch Physical [facility], [address] [address] 11/04/2013 07:00:11 11/04/2013 09:35:34 Low back pain 577259444 [id number] Wander Hatch Physical [facility], [address] [address] 11/11/2013 10:21:21 11/11/2013 11:28:42 Low back pain 148230790 [id number] Ruchi Ha [facility] -[address] [address] 11/12/2013 11:19:11 11/14/2013 15:14:18 Mixed hyperlipidemia [id number] Karena Pearson Physical Therapy, [address] [place] [address] 11/25/2013 06:53:03 11/25/2013 09:26:11 Low back pain 376655853 [id number] Carla Chopra NP FP, [facility], OFFICE [address] [place] [address] 12/02/2013 15:49:59 12/03/2013 08:50:23 Backache 326334182 tenderness right lower side. consistent with musclar spasm and sciatica. will trial muscle relaxor which pt has benefited from in the past. disucssed importance of continuing with PT. [id number] Sofía Baker PT Physical Therapy, [address] [address] 12/12/2013 14:02:51 12/12/2013 15:26:12 Low back pain 939532373 [id number] Karena Pearson Physical Therapy, [address] [address] 6 12/19/2013 13:20:11 12/22/2013 07:23:01 Low back pain 551839742 [id number] Sofía Baker PT Physical Therapy, [address] [address] 12/30/2013 09:04:17 12/30/2013 10:39:29 Low back pain [id number] [id number] JACK Núñez, [facility], OFFICE [address] [place] [address] 01/13/2014 10:27:45 01/13/2014 13:47:51 Benign essential hypertension 0510343 Blood pressure at goal . continue with current regimen. Hyperlipidemia 92887318 ASCVD risk < 5%. not in statin benefit group per guidelines . [id number] Sofía Baker PT Physical Therapy, [address] [address] 02/02/2014 15:39:27 02/04/2014 09:10:11 Low back pain 774271403 [id number] Sofía Baker , PT Physical Therapy, [address] [address] 02/13/2014 12:25:36 02/13/2014 13:09:48 Low back pain 546589750 [id number] Sofía Baker , PT Physical Therapy, [facility] [address] [place] [address] 03/05/2014 07:59:45 03/06/2014 07:29:53 Low back pain 111535288 [id number] Nikole Akhtar MA , [facility], OFFICE [address] [place] [address] 03/24/2014 16:16:21 03/30/2014 14:42:30 Acute upper respiratory infection 64146145 Educated patient that URI is a viral illness of the upper airways. It is not bacterial and does not benefit from antibiotic s. Average duration of URI is 7-10 days but in a recent trial, treatment at 7-10 days of illness with antibiotic s, intranasal steroids, or placebo did not alter natural history at 3 weeks. Recommende d symptomati c treatments including NSAIDS, semi-uprig ht sleep position, antihistam jessica at HS, limited course of nasal sympathomi metics and/or cough syrups, and nasal saline rinses with soft squeeze bottle or Neti pot. Return for fevers > 101 for 3 days, worsening sinus pain, or failure to resolve in 2-4 weeks. given wheeze and improvemen t with albuterol. rx for albuterol given for home. [id number] Aline Boyer , [facility], OFFICE [address] [place] [address] 05/18/2014 10:43:41 05/19/2014 09:09:52 Suprapubic pain 528770731 Patient with mild suprapubic tenderness . No clinical evidence of acute abdomen. Urine dipstick negative other than microscopi c hematuria. Spun urine negative for casts. Ample hydration recommende d. Denies VB. Denies BRBPR/orestes na. Will monitor for any worsening symptoms. Microscopic hematuria 945272065 Microscopi c hematuria. States she was previously told to have microscopi c hematuria as well. Never followed up for this. No known history of nephrolith iasis. Intermitte nt periods since her IUD insertion. [id number] JACK Narvaez, [facility], OFFICE [address] [place] [address] 06/01/2014 17:27:04 06/03/2014 11:37:33 Urinary tract infectious disease 69841862 Push fluids f/u if no improvemen t in 72 hours or for fever or back pain. discussed follow up with urology for persistent hematuria. pt verbalized willingnes s to follow up as instructed . Dysuria 04831803 Patient instructed to push fluids, follow-up for worsening symptoms, back pain or fever. Urine culture sent. [id number] JACK Narvaez, [facility], OFFICE [address] [place] [address] 06/04/2014 08:43:49 06/04/2014 12:44:31 Acute urinary tract infection 669622848 cannot r/o pyelo although exam is reassuring . treat with 10d cipro, probiotics , fluids ,rest. urology apt tomorrow - to ER with inc pain, inability to pass urine. Senna for constipati on. note: ER note said urine culture showed Bactrim resistance and they advised Augmentin - pt advised to take the Cipro instead -likely better tolerated - probiotics , rtc prn [id number] JACK Narvaez, [facility], OFFICE [address] [place] [address] 08/28/2014 07:58:31 08/28/2014 08:28:02 Influenza vaccine needed [id number] 106 Backache 242996094 Pt wi th flare of thoracic area back pain [id number] Nikole Akhtar MA , [facility], OFFICE [address] [place] [address] 09/08/2014 07:57:24 09/08/2014 08:45:48 Vaginitis 32996607 sx care reviewed suggest avoiding scented products rtc prn [id number] Naeem More MD , [facility], OFFICE [address] [place] [address] 10/02/2014 16:56:52 10/02/2014 17:32:57 Benign essential hypertension 9617935 [id number] JACK Aguilar, [facility], OFF[address] [place] [address] 10/16/2014 15:04:19 10/20/2014 09:05:14 Benign essential hypertension 9921189 Blood pressure NOT at goal. Med changes made RTC 1 month - sooner prn Gastroesop hageal reflux disease 086400780 stable with med [id number] Carla Chopra NP , [facility], OFFICE [address] [place] [address] 11/27/2014 09:57:11 11/30/2014 12:20:49 Backache 018645957 Patient presents to Urgent Care with acute on chronic right-side d mid-back pain. Likely due to myofascial /muscular origin. Previously had MRI and Physiatry evaluation . X-ray showed spondylosi s only. Previous MRI of T-spine showed mild anterior wedging of T7 and T8 (may be physiologi c). No evidence of compressio n fracture. Physiatry impression was muscle strain related to her repetitive bending and twisting activities . Supportive care recommende d with a considerat ion of facet injection if worsening pain. Also recommende d PT and topical pain creams. Reviewed rehabilita tive stretching exercises. Rx for Hydrocodon e/Acetamin ophen prescribed . UA without evidence for infection. Microscopi c hematuria likely due to her current period. [id number] Deborah Vallejo MA , [facility], OFFICE [address] [place] [address] 12/15/2014 08:18:40 12/15/2014 09:35:08 Cough 36408437 viral illness work release note sx and supportive care reviewed rtc prn sx persist or increase [id number] Karena cervantes [facility], OFFICE [address] [place] [address] 12/21/2014 07:40:38 12/23/2014 12:22:23 Cough 66365669 [id number] KATERYNA Martin , [facility], OFF[address] [place] [address] 03/22/2015 14:32:48 03/22/2015 15:20:17 External hordeolum 0938103 without site of pointing. Encourage warm compresses qid or more today and tomorrow. Expect poss. of drainage. F/u if not continuing to improve, if redness extends beyond this current area. [id number] [facility], OFFICE [address] [place] [address] 03/23/2015 14:32:41 03/23/2015 15:56:30 Adult health examination 551247997 see Risk Assessment and Lifestyle Change Counseling section above TC to container finisher group to see when IUD placed and date of last Pap Counseling 026752077 Backache [id number] ERGON OMICS , POSTURE, HEAT EXERCISES GIVEN [id number] Carla Lee MA , [facility], OFF[address] [place] [address] 04/21/2015 13:58:19 04/22/2015 11:56:33 Urinary tract infectious disease 02241460 pt presents with inconclusi ve UA, but symptoms feel like previous UTIs, will treat pending culture, risks of abx overuse reviewed. Push fluids f/u if no improvemen t in 72 hours or for fever or back pain. [id number] JACK Narvaez, [facility], OFFICE [address] [place] [address] 05/05/2015 08:09:09 05/06/2015 08:41:26 Urinary tract infectious disease 21780748 Urine dipstick findings suggestive of UTI. Will send out UCx. Antibiotic treatment. Strategies in preventing future UTI discussed including ample oral hydration, frequent voiding, post-coita l voiding and avoidance of douching. Patient with pain, not responding to Acetaminop hen. Requesting pain management . Will prescribe Oxycodone prn. Advised to use sparingly. Short-term use discussed. Advised to contact the clinic if worsening symptoms. [id number] Julia jaime MA , [facility], OFF[address] [place] [address] 06/15/2015 15:27:02 06/15/2015 15:53:37 Toothache 24111266 saline mouth rinses, codeine, rest work release note f/u with dentist [id number] Hazel Moore [facility], OFF[address] [place] [address] 08/18/2015 12:06:50 08/19/2015 09:49:15 Lifestyle 198659417 Screening mammography [id number] Labile ess ential hypertension 040943854 when pt is stressed, endorses elevated blood pressure readings with associated headache. no other cardiac symptoms and the symptoms resolve when situation passes. situation is occurring rarely (<1 x monthly) and bp is generally at goal. will trial propranolo l when symptoms occur. follow up with pcp after usage. [id number] Amara ALBA, [facility], OFF[address] [place] [address] 08/31/2015 12:15:05 09/01/2015 08:25:15 Influenza vaccine needed 0816693216 106 Z28.3 Backache 483463955 M54.9 tenderness right lower side. consistent with musclar spasm and sciatica. will trial muscle relaxer which pt has benefited from in the past. discussed importance of continuing with PT. [id number] KATERYNA Martin , [facility], OFFICE [address] [place] [address] 11/01/2015 15:52:37 11/01/2015 17:06:20 Low back pain 096824254 M54.5 Screening for malignant neoplasm of breast 388010648 Z12.39 [id number] Sofía Baker , PT Physical Therapy, [facility] 70 [place] [address] 11/03/2015 12:19:15 11/03/2015 15:28:11 Low back pain 318379917 M54.5 [id number] Ronal Plasencia, OD [facility], [facility] [address] [place] [address] 11/16/2015 14:10:37 11/16/2015 16:03:57 Ophthalmic examination and evaluation 87444306 Z01.00 Hypermetropia 98648004 H 52.03 Astigmatism 55559791 H52 .223 Presbyopia 86002849 H52. 4 [id number] Amara Pantoja , [facility], [address] [place] [address] 12/14/2015 11:51:01 12/15/2015 11:05:20 Right upper quadrant pain 686896419 R10.11 pt reports pain similar to gallstone pain previously , colicky, denies s/s of infection, denies urinary symptoms. pain persisting not worsening. labs and images as ordered below. [id number] Carla Chopra NP FP, [facility], [address] [place] [address] 03/24/2016 13:07:18 03/24/2016 14:01:29 Screening mammography 82877172 Z12.31 Mixed hyperlipidemia 267 742660 E78.2 due for labs-remin ded Benign ess ential hypertension 9091038 I10 Blood pressure at goal Backache 485426493 M54.9 ERGONOMICS , POSTURE, HEAT TRIAL OF MELOXICAM QD 2WK, CYCLOBENZA ASHLEY PRN RTC PRN [id number] Naeem More MD , [facility], [address] [place] [address] 06/26/2016 14:59:02 06/26/2016 16:15:37 Nonulcer dyspepsia 9079620 K30 [id number] Carla Chopra NP , [facility], [address] [place] [address] 07/26/2016 14:19:55 07/26/2016 15:25:14 Active or passive immunization 366693631 Z23 Benign ess ential hypertension 0148562 I10 Blood pressure at goalconsol idate med to single pill Gastroesop hageal reflux disease 012362587 K21.9 did not tolerate famotidine change to omeprazole , GERD precaution s Herpes simplex 41049490 B00.9 change to qd prophylaxi s dosing Migraine 27991962 G43.90 9 discussed optiosn for migraine prevention pt chooses to change propranolo l dosertc 2mos -call sooner with side effects or concerns [id number] Carla Chopra NP , [facility], [address] [place] [address] 10/06/2016 10:37:09 10/10/2016 09:01:55 Benign essential hypertension 2341910 I10 Blood pressure at goal Adult heal th examination 693517907 Z00.00 see Risk Assessment and Lifestyle Change Counseling section above Counseling 187405934 Z71 .9 Gastroesop hageal reflux disease 635603215 K21.9 stable Screening for malignant neoplasm of cervix 914982507 Z12.4 Low back pain 273699995 M54.5 [id number] RAMO Miranda , [facility], [address] [place] [address] 10/18/2016 16:26:59 10/23/2016 11:40:37 Vaginitis 54756801 N76.0 per report pt was treated for vaginal infection in ER, notes not available for review. mirena was removed 2 months ago. symptoms improving, tolerating abx. no s/e. abdominal exam reassuring . continue treatment per ER visit. [id number] RAMO Miranda , [facility], [address] [place] [address] 11/10/2016 15:02:20 11/14/2016 10:35:06 Urinary tract infectious disease 67969965 N39.0 pt recently treated for pyelo diagnosed clinically at ER.reports compliance with abx, 2 days ago reoccurren ce of bladder discomfort , fullness, frequency and similar pain, UA inconclusi ve, treat with cipro while culture pending. [id number] RAMO Miranda , [facility], [address] [place] [address] 2016 13:27:43 11/30/2016 12:39:29 Increased blood pressure 23894541 R03.0 pt with multiple reading of BP above goal, associated headache. no underlying etiology to explain elevation. ekg reassuring , increase lisinopril , cont to monitor bp outside of office, labs as ordered below. [id number] RAMO Miranda , [facility], [address] [place] [address] 03/05/2017 15:30:46 03/05/2017 15:54:52 Diarrhea 91065017 R19.7 1 day of non bloody diarrhea.n o fever or painsuppor tive measures reviewed.c all for worsening symptoms or failure. to improve [id number] Karin Vela NP , [facility], [address] [place] [address] 03/15/2017 08:22:24 03/15/2017 09:06:35 Thoracic back pain 392458482 M54.6 Right sided for 4 days without trauma. Negative exam. Old MRI and xrays reviewed. Inst to apply heat or ice PRN. Continue with naprosyn BID. [id number] RAMO Miranda , [facility], [address] [place] [address] 03/19/2017 09:37:18 03/20/2017 09:51:41 Spasm of back muscles 194151193 M62.830 paraspinal spasm, advised massage, water, continue tylenol and alleve.enc ouraged ROM but not weight bearingupd ate if pain does not improvewor k note for today - wed given. [id number] Carla Chopra NP , [facility], [address] [place] [address] 04/12/2017 07:57:14 04/13/2017 12:54:07 Benign essential hypertension 0250384 I10 Blood pressure at goal Osteopenia 810624711 M85 .9 Gastroesop hageal reflux disease 900870911 K21.9 stable Genital he rpes simplex 80771737 A60.9 Deficiency of vitamin D3 427614503 E55.9 Low back pain 758576352 M54.5 reviewed stretches for her to do daily. Aim for regular walks outside. PT if needed. [id number] Jennifer Alfonso CMA , [facility], [address] [place] [address] 08/20/2017 15:10:08 08/20/2017 16:25:02 Urinary tract infectious disease 75498706 N39.0 Patient instructed to push fluids, to follow up for persistent or worsening symptoms or fever or back pain. 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 4 Health Concerns Section Related Observation LastModified by Organization Detai ls LastModified Time None Recorded Concern Status LastModified by Organization Details LastModified Time None Recorded Advance Directives Directive N: Payers Encounter Date Sequence Insurance Name Policy Number Policy Spear Covered Member ID Spear Member ID Guarantor Name 03/15/2017 1 [place] Katherin Diallo [id number] Katherin Diallo 03/19/2017 1 [place] Katherin Diallo [id number] Katherin Diallo 04/12/2017 1 [place] Katherin Diallo [id number] Katherin Diallo 08/20/2017 1 [place] Katherin Diallo [id number] Katherin Diallo 10/05/2017 1 [place] Katherin Diallo [id number] Katherin Diallo Notes Date Note Type Note Provider Name and Address Organization Details Recorded Time 03/15/2017 text/html c/o right sided thoracic pain. No trauma or twisting. Worse to lie down on back, sit down, some different movements. No urinary symptoms. Going on for 4 days. No radicular symptoms. NO rash. Some increased pain on deep breathe. Initially pt denied ever having pain here before, but chart notes and testing say differently. 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 pt points to right side of shoulder, inbetween spineno unusual popping or clickingmassage helps. pt taking tylenol did not take alleve.still bothered pt. breath is painful. Janice Holliday, [facility] [address] [place], [address], [facility] 03/19/2017 10:03:34 04/12/2017 text/html Katherin reports ongoing back pain. WHen seen at [facility], it was recommended she have a BMD. SHe continues to work at strenuous job. Takes naproxen and flexeril as needed, not daily. No GI sx.BP in good control, nonsmoker. States takes meds as directed.Needs some med refills. Carla Chopra NP [address] [place], [address], [facility] 04/13/2017 07:30:47 08/20/2017 text/html a [facility] Dysuria ur inary symptomsReported bypatient.Duration:Sy mptoms began 1 days ago Severity:Symptoms are moderate Associated Symptoms:Burning on urination;Urinary frequency; Chills, no fever, some mild nausea Context:Symptoms similar to previous UTI's TIFFANIE Maharaj, [facility] 08/22/2017 09:26:52 10/05/2017 text/html Comprehensive Ey e ExamReported bypatient.Quality:2 year exam;blurred vision near with glasses Location:bilateral Context:currently wears glasses Modifying factors:wears glasses for distance and near Associated Symptoms:no redness; no itching; no floaters; no dryness C/O Blurry near vision Parker Luna, OD [address] [place] [address], [phone], [facility] 10/05/2017 14:20:18 OBGyn Episode No OBEpisode recorded.
--- NOTE | 2024-12-27 10:31 | AM.OFFWIN_ITS ---
Intake Vital Signs 12/27/24 10:32 Height 5 ft 3 in Weight 176 lb BMI 31.2 BP 120/72 Blood Pressure Location Lt brachial Position Sitting Pulse 78 Pulse Source Pulse Oximeter Temp 98.9 F Temp Source Oral Pulse Oximetry (%) 98 Oxygen Delivery Method Room Air Intake Visit Reasons: EP- Painful urination Intake Note: pt is here for dysuria Patient Tobacco Use Status: Former Tobacco user Allergies ibuprofen Adverse Reaction (Unknown, Verified 12/27/24 10:43) stomach upset Medication List - Last Reconciled 12/27/24 by BRANDON House[facility]- acetaminophen 1,000 mg (2 x 500 mg) PO Q6H PRN amlodipine 5 mg PO DAILY ascorbic acid (vitamin C) mg PO cetirizine 10 mg PO DAILY PRN lisinopril 40 mg PO DAILY omega-3 fatty acids (Fish Oil Concentrate) 1,000 mg PO DAILY valacyclovir 500 mg PO DAILY Do you need a note to return to daycare/school/sports/work: No HPI HPI Comments History of Present Illness Details History of Present Illness The patient is a 59-year-old female presenting with concerns of a urinary tract infection. She reports experiencing pain and burning during urination that began two days prior to the visit and has progressively worsened. The patient has a past history of urinary tract infections, with the last instance occurring many years ago. She denies any vaginal discharge, bleeding, or symptoms suggestive of a sexually transmitted disease. There is no accompanying back pain or vomiting noted. The patient attempted to alleviate her symptoms by taking cuwv-lqe-zevdyca medication resulting in orange discoloration of her urine. There are no noted inciting events, and the symptoms are currently persistent and bothersome. She has HTN and is well controlled on current meds. Physical Exam General: Awake, alert. No apparent distress Eyes: Sclera and conjunctiva clear bilaterally Cardiovascular: Regular rate and rhythm Respiratory: speaking in full sentences Back: No CVAT bilat Abd: soft, pressure over suprapubic area w/ palpation Results - Urinalysis: Presence of leukocytes and blood. Discussion Notes I explained to the patient that her symptoms and urinalysis findings are consistent with a urinary tract infection. We discussed the treatment options, and I recommended initiating antibiotic therapy with cephalexin, which is generally well-tolerated and effective for such infections. The patient has an allergy to ibuprofen, so care was taken in prescribing this antibiotic. I informed her that a urine culture will be done to ensure the antibiotic is effective against the specific bacteria, and she may be contacted to change her medication if necessary. We discussed preventative measures such as proper h ygiene and fluid intake. The patient is advised to await the results of the urine culture, and to maintain follow-up as necessary to monitor her response to the treatment and resolution of symptoms. Patient Instructions - Take cephalexin as directed: one table t twice a day for three days. - Continue taking nhqi-bhc-khxqpsl medic ation if it provides relief. - Increase fluid intake and consider dri nking cranberry juice. - Maintain proper hygiene by wiping fron t to back. - Expect a follow-up phone call if the u rine culture indicates a different antibiotic is needed. Plan - Prescribe and commence treatment with cephalexin for suspected urinary tract infection. - Obtain a urine culture to confirm the presence of specific bacteria and verify sensitivity to prescribed antibiotic. - Advise on continuing current safe self -care measures, including hydration and hygiene practices. - Monitor for any adverse reactions to t he new antibiotic given the history of medication allergy. Patient was informed and verbally consented to the use of an ambient scribe for clinic note documentation during this visit. [facility] (Updated 12/27/24 @ 10:47 by Monique Ford, [facility]) Annual visit for general adult medical examination with abnormal findings Carpal tunnel syndrome Cervical cancer screening Chronic thoracic back pain Epigastric abdominal pain Essential hypertension GERD (gastroesophageal reflux disease) Impaired fasting glucose Migraine Mixed dyslipidemia Muscle strain of upper back Normal Pap smear Plantar fasciitis Postprandial abdominal bloating Recurrent cold sores Stress incontinence of urine Vitamin D deficiency Surgical History Hx of cholecystectomy Family History Father Bone cancer Mother History of hernia repair HTN (hypertension) Diabetes mellitus Brother Diabetes mellitus HTN (hypertension) Substance use disorder Maternal Grandfather Unknown family medical history Maternal Grandmother Unknown family medical history Paternal Grandfather Unknown family medical history Paternal Grandmother Unknown family medical history Sister No problems noted. Sister No problems noted. Daughter No problems noted. Daughter No problems noted. Son No problems noted. Brother No problems noted. Brother No problems noted. Brother No problems noted. Brother No problems noted. Social History Housing: Apartment Alcohol intake: current Alcohol intake frequency: does not drink Patient Tobacco Use Status: Former Tobacco user Years Smoked: 2 yrs e-Cigarette/Vaping Use: Never Used Second Hand Smoke Exposure: No service: No Current occupational status: employed Cognitive needs: No Hearing needs: No Vision needs: Yes (Glasses) Physical Exam Vital Signs: Last Vital Signs Temp 98.9 F 12/27/24 10:32 Pulse 78 12/27/24 10:32 BP 120/72 12/27/24 10:32 Pulse Ox 98 12/27/24 10:32 Oxygen Delivery Method Room Air 12/27/24 10:32 BMI result Body Mass Index 31.2 Assessment & Plan Assessment & Plan (1) Dysuria: Code(s): R30.0 - Dysuria (2) UTI symptoms: Code(s): R39.9 - Unspecified symptoms and signs involving the genitourinary system (3) Essential hypertension: Code(s): I10 - Essential (primary) hypertension Plan . Orders: Orders AMB Urinalysis Automated Today Z13.9 - Encounter for screening, unspecified Urine Culture Today R30.0 - Dysuria, R39.9 - Unspecified symptoms and signs involving the genitourinary system Medications: New cephalexin 500 mg PO Q12H 6 caps 0RF 3 days Coding Level of Care Code Est Pt Level 4 (81764) Diagnoses Dysuria R30.0 UTI symptoms R39.9 Essential hypertension I10 Time Spent (min) 30
[2024-12-27 10:32] VITALS: BP 120/72; PULSE 78; TEMP 37.2; O2SAT 98; BMI 31.2
== END 2024-12-27 11:05 | disposition home or self-care (01) ==
PROVIDERS: PCP Internal Medicine; Visit Provider Nurse Practitioner Family
DX: R30.0 Dysuria (principal); R39.9 Unspecified symptoms and signs involving the genitourinary system; I10 Essential (primary) hypertension; Z13.9 Encounter for screening, unspecified

== ENCOUNTER 2024-12-27 10:21 | Outpatient (REF) | payer OTHER, SELFPAY | END 2024-12-27 10:22 | disposition home or self-care (01) | LOC: HO.LNP 10:21 | PROVIDERS: PCP Internal Medicine; Visit Provider Nurse Practitioner Family | DX: R30.0 Dysuria (principal); R39.9 Unspecified symptoms and signs involving the genitourinary system; I10 Essential (primary) hypertension | CPT/HCPCS: 81003; 87086; 87186; 99212 ==

== ENCOUNTER 2024-12-28 14:26 | Emergency (ER) | payer OTHER, SELFPAY ==
--- NOTE | ~2024-12-28 | CT_ITS ---
CLINICAL HISTORY: left shoulder pain CT left shoulder without contrast Comparison: None Findings: No fractures or dislocations. Mild degenerative change of the AC joint. No radiopaque foreign body. Normal visualized left chest. Impression: No acute findings This document has been electronically signed by: Akhil Krueger MD on 12/28/2024 16:23:12
[2024-12-28 14:51] VITALS: BP 188/92; PULSE 65; RESP 16; TEMP 36.7; O2SAT 100; BMI 29.7
--- NOTE | 2024-12-28 14:54 | ECG_ITS ---
Test Reason : SHOULDER PAIN Blood Pressure : */* mmHG Vent. Rate : 71 BPM Atrial Rate : 71 BPM P-R Int : 158 ms QRS Dur : 92 ms QT Int : 376 ms P-R-T Axes : 60 -6 66 degrees QTcB Int : 408 ms Normal sinus rhythm Moderate voltage criteria for LVH, may be normal variant ( R in aVL , Jono product ) Septal infarct , age undetermined Abnormal ECG When compared with ECG of 27-Oct-2024 14:05, No significant change was found Referred By: Chris Aldana Electronically Signed By: Chad Juan
--- NOTE | 2024-12-28 14:54 | ED.EXTPRO ---
HPI - Extremity Problem General Chief complaint: Extremity Injury, Upper Stated complaint: upper shoulder pain Time Seen by Provider: 12/28/24 19:18 Source: patient Mode of arrival: ambulatory Limitations: no limitations History of Present Illness ED Provider: Zafar Wilson DO HPI Narrative: 59-year-old female with past medical history of hypertension and current antibiotic for cystitis presents to the ED for atraumatic left shoulder pain that she locates focally over the junction of the sternum and left clavicle. She states the pain is specifically worsened with certain movements of her left shoulder. She is right-hand dominant. She denies numbness or weakness of her arm. She denies chest discomfort or difficulty breathing. She denies recent illnesses. She states the pain occurred shortly after eating breakfast at around 11:00 this morning with no clear etiology. She denies any surgeries to this shoulder in the past. She denies any recent falls. Related Data Home Medications ?Medication ?Instructions ?Recorded ?Confirmed ascorbic acid (vitamin C) 500 mg mg PO 11/08/20 12/27/24 capsule omega-3 fatty acids 1,000 mg 1,000 mg PO DAILY 11/08/20 12/27/24 capsule (Fish Oil Concentrate) Previous Rx's ?Medication ?Instructions ?Recorded acetaminophen 500 mg capsule 1,000 mg (2 x 500 mg) PO Q6H PRN 02/13/24 fever #30 caps lisinopril 40 mg tablet 40 mg PO DAILY #90 tabs 10/28/24 amlodipine 5 mg tablet 5 mg PO DAILY #30 tabs 11/03/24 valacyclovir 500 mg tablet 500 mg PO DAILY #30 tabs 11/14/24 cetirizine 10 mg tablet 10 mg PO DAILY PRN allergy 11/24/24 symptoms #30 tabs cephalexin 500 mg capsule 500 mg PO Q12H 3 days #6 caps 12/27/24 cyclobenzaprine 10 mg tablet 10 mg PO TID #30 tabs 12/28/24 Allergies Allergy/AdvReac Type Severity Reaction Status Date / Time ibuprofen AdvReac Unknown stomach Verified 12/28/24 14:53 upset Review of Systems Review of Systems: Yes all other systems are reviewed and are negative PMFSH Past Medical History Medical History (Updated 12/28/24 @ 19:40 by Zafar Wilson DO) Chronic thoracic back pain Recurrent cold sores Vitamin D deficiency Postprandial abdominal bloating Epigastric abdominal pain Cervical cancer screening Annual visit for general adult medical examination with abnormal findings Muscle strain of upper back Impaired fasting glucose GERD (gastroesophageal reflux disease) Normal Pap smear Stress incontinence of urine Essential hypertension Carpal tunnel syndrome Plantar fasciitis Migraine Mixed dyslipidemia Surgical History Hx of cholecystectomy Family History Family History Father Bone cancer Mother History of hernia repair HTN (hypertension) Diabetes mellitus Brother Diabetes mellitus HTN (hypertension) Substance use disorder Maternal Grandfather Unknown family medical history Maternal Grandmother Unknown family medical history Paternal Grandfather Unknown family medical history Paternal Grandmother Unknown family medical history Sister No problems noted. Sister No problems noted. Daughter No problems noted. Daughter No problems noted. Son No problems noted. Brother No problems noted. Brother No problems noted. Brother No problems noted. Brother No problems noted. Social History Social History Housing: Apartment Alcohol intake: current Alcohol intake frequency: does not drink Patient Tobacco Use Status: Former Tobacco user Years Smoked: 2 yrs e-Cigarette/Vaping Use: Never Used Second Hand Smoke Exposure: No Advance Directives: No Advance Directives Information Provided: No Do you have a plan to hurt others: No Plan service: No Current occupational status: employed Cognitive needs: No Hearing needs: No Vision needs: Yes (Glasses) Physical Exam Vital Signs: Vital Signs: Last Vital Signs Temp 98.1 F 12/28/24 19:54 Pulse 72 12/28/24 19:54 Resp 20 12/28/24 19:54 BP 137/71 12/28/24 19:54 Pulse Ox 98 12/28/24 19:54 O2 Del Method Room Air 12/28/24 19:54 BMI result Body Mass Index 29.7 Constitutional: ?In acute pain distress. Alert, oriented, speaking in full sentences HEENT: ?Normocephalic, atraumatic. Eyes: ?PERRL, EOMI Neck: ?Supple, nontender Chest: ?Focal tenderness over the junction of the left clavicle and sternum. Respiratory: no increased work of breathing Cardio: 2+ radial and DP pulses symmetrically Back: ?Normal range of motion, nontender Skin: ?No rash, no lesions Neuro: ?Alert and oriented to person, place and time, moves all 4 extremities, no focal deficits, 5/5 strength and full sensation intact of the bilateral upper extremities Extremities: ?No swelling or tenderness over the anterior or posterior left shoulder including the scapula and middle and distal 3rd of the clavicle., full active and passive range of motion of the left shoulder. No pain of the biceps tendon. No pain over the rotator cuff. There is tenderness focally over the proximal clavicle on the left side. Psych: ?Calm, alert and cooperative, appropriate behavior Course Course Course Narrative: RME: 59-year-old female presents to ED for left shoulder pain that began at 11:00 without any trauma. Patient states pain on range of motion. Positive for shoulder tenderness on palpation. EKG labs shoulder x-ray ordered. Medications Administered Discontinued Medications Generic Name Dose Route Start Last Admin Trade Name Freq PRN Reason Stop Dose Admin Acetaminophen 975 mg 12/28/24 19:30 12/28/24 19:41 Acetaminophen 325 Mg Tablet PO 12/28/24 19:31 975 mg ONCE ONE Administration Cyclobenzaprine HCl 10 mg 12/28/24 19:30 12/28/24 19:41 Cyclobenzaprine Hcl 10 Mg Tablet PO 12/28/24 19:31 10 mg ONCE ONE Administration Lidocaine 1 patch 12/28/24 19:30 12/28/24 19:39 Lidocaine 4 % Patch Adh..Patch TRANSDERMA 12/28/24 19:31 1 patch ONCE ONE Administration Protocol Medical Decision Making Medical Decision Making [facility] Narrative: Patient presenting with left atraumatic shoulder pain without neurovascular symptoms or concerning exam findings. I do not suspect ACS as the pain is specifically located over the junction of the left clavicle and sternum and the patient has no chest pain or dyspnea. Two troponins here unremarkable. Possible costochondritis. CT imaging of the left shoulder is unremarkable. The patient's pain will be addressed with acetaminophen, Lidoderm patch and cyclobenzaprine. She states she is unable to take NSAIDs due to stomach irritation. Patient reports significant improvement after medications and sling placement. We will provide referral for Orthopedic surgery if her symptoms do not improve, otherwise follow up with primary care provider. Admission/Observation Consideration of admission/observation: Escalation of care including admission/observation considered Lab Data MDM Lab Attestation statement: I reviewed the patient's lab results. CBC unremarkable. Coags unremarkable. BMP unremarkable. Chronic mild elevation of calcium. Grossly unremarkable liver function tests. 12/28/24 15:05 12/28/24 15:05 Labs: Lab Results 12/28/24 12/28/24 Range/Units 15:05 18:40 WBC 9.0 (4.8-10.8) X10*3/uL RBC 4.91 (4.20-5.50) X10*6/uL Hgb 14.7 (12.0-16.0) g/dl Hct 43.9 (37.0-47.0) % MCV 89.4 (80.0-98.0) fL MCH 29.9 (27.0-33.0) pg MCHC 33.5 (31.0-35.0) g/dl RDW 13.6 (11.0-16.0) % Plt Count 287 (160-400) X10*3/uL MPV 9.4 (9.4-12.3) fL Immature Gran % (Auto) 0.2 (0.0-0.4) % Neut % (Auto) 68.2 (45-73) % Lymph % (Auto) 21.8 (20-40) % Russell % (Auto) 8.0 (2-11) % Eos % (Auto) 1.4 (0-4) % Baso % (Auto) 0.4 (0-2) % Lymph # (Auto) 2.0 (1.2-4.9) X10*3/uL Russell # (Auto) 0.7 (0.1-1.2) X10*3/uL Eos # (Auto) 0.1 (0.0-0.4) X10*3/uL Baso # (Auto) 0.0 (0.0-0.2) X10*3/uL Abs Immat Gran (auto) 0.02 (0.00-0.03) X10*3/uL Absolute Neuts (auto) 6.1 (2.0-8.3) x10*3/uL Absolute Nucleated RBC 0.000 (0.0-0.012) X10*3/uL Nucleated RBC % (auto) 0.0 (0.0-0.2) /100WBC PT 12.0 (10.9-12.4) SEC INR 1.0 (0.9-1.1) APTT 28.2 (26.0-36.8) SEC Sodium 142 (135-145) mmol/L Potassium 4.6 (3.3-5.1) mmol/L Chloride 109 H (96-108) mmol/L Carbon Dioxide 23 (22-29) mmol/L Anion Gap 15 (12-20) BUN 10 (9-16) mg/dL Creatinine 0.66 (0.5-1.4) mg/dL Estim Creat Clear Calc 88.5 Estimated GFR > 60 Random Glucose 92 (60-115) mg/dL Calcium 10.5 H D (8.4-10.2) mg/dL Total Bilirubin 0.4 (0.0-1.0) mg/dL AST 34 H (5-31) U/L ALT 24 (0-31) U/L Alkaline Phosphatase 78 (39-117) U/L Troponin I High Sens < 2.7 2.8 (<3.5-17.0) ng/L Total Protein 8.7 H (6.5-8.0) g/dL Albumin 4.7 (3.5-5.0) g/dL Independent Interpretation I performed an independent interpretation of an: EKG Interpretation: Normal sinus rhythm at 71 beats per minute, borderline left axis deviation, unremarkable intervals, no diagnostic ST or T-wave abnormalities, criteria met for LVH, when compared to prior dated 10/27/2024 there are no significant changes. Radiology Impression Discussion of test interpretation with radiology: I have reviewed the radiologist's reading. Discharge Plan Discharge Clinical Impression: Clavicle pain Patient Disposition: Home, Self-Care Instructions: Shoulder Pain (ED) Additional Instructions: You were evaluated for left shoulder pain. On exam it appears that you have pain over the left collarbone. This might be an inflammatory reaction. Your electrocardiogram and CT imaging was unremarkable. Your labs are also unremarkable. We treated you with pain medications and a Lidoderm patch. We prescribed a course of the Lidoderm patch to take as needed for significant pain. Do not drive with this as it will make you drowsy. Please return if you have any difficulty moving your arm secondary to severe pain, fevers over 100.4 degrees F, or development of any other symptoms. Otherwise, you can use a sling at home as needed for comfort for the next 2 weeks but after that you should move your shoulder more often so you avoid frozen shoulder. Please follow-up with your primary care provider. You may have to see an orthopedic surgeon if your symptoms do not improve. Prescriptions: New cyclobenzaprine 10 mg tablet 10 mg PO TID Qty: 30 0RF No Action valacyclovir 500 mg tablet 500 mg PO DAILY Qty: 30 5RF cetirizine 10 mg tablet 10 mg PO DAILY PRN (Reason: allergy symptoms) Qty: 30 3RF lisinopril 40 mg tablet 40 mg PO DAILY Qty: 90 0RF omega-3 fatty acids [Fish Oil Concentrate] 1,000 mg capsule 1,000 mg PO DAILY ascorbic acid (vitamin C) 500 mg capsule PO acetaminophen 500 mg capsule 1,000 mg PO Q6H PRN (Reason: fever) Qty: 30 0RF amlodipine 5 mg tablet 5 mg PO DAILY Qty: 30 1RF cephalexin 500 mg capsule 500 mg PO Q12H 3 Days Qty: 6 0RF Referrals: Delroy Lacy MD [Physician] - (Atraumatic left clavicular pain, possible costochondritis, follow up if no improvement in a couple of weeks) Stand Alone Forms: Work/School Release Print Language: Bulgarian
[2024-12-28 15:08] LABS: MANUAL DIFF FLAG NO
[2024-12-28 15:11] LABS: Basophils Percent Auto 0.4 % (0-2); Eosinophils Absolute Auto 0.1 X10*3/uL (0.0-0.4); Eosinophils Percent Auto 1.4 % (0-4); Hematocrit 43.9 % (37.0-47.0); Hemoglobin 14.7 g/dl (12.0-16.0); Imm Gran Abs Auto 0.02 X10*3/uL (0.00-0.03); Imm Gran Pct Auto 0.2 % (0.0-0.4); Lymphocytes Percent Auto 21.8 % (20-40); Mean Corpuscular HGB Conc 33.5 g/dl (31.0-35.0); Mean Corpuscular Hemoglobin 29.9 pg (27.0-33.0); Mean Corpuscular Volume 89.4 fL (80.0-98.0); Mean Platelet Volume 9.4 fL (9.4-12.3); Monocytes Absolute Auto 0.7 X10*3/uL (0.1-1.2); Neutrophils Absolute Auto 6.1 x10*3/uL (2.0-8.3); Neutrophils Percent Auto 68.2 % (45-73); Platelet Count 287 X10*3/uL (160-400); Red Blood Count 4.91 X10*6/uL (4.20-5.50); Red Cell Distribution Width 13.6 % (11.0-16.0)
[2024-12-28 15:24] LABS: Partial Thromboplastin Time 28.2 SEC (26.0-36.8)
[2024-12-28 15:56] LABS: Troponin-I High Sensitivity < 2.7 ng/L (<3.5-17.0)
[2024-12-28 15:58] LABS: Alanine Aminotransferase 24 U/L (0-31); Albumin Level 4.7 g/dL (3.5-5.0); Anion Gap 15 (12-20); Aspartate Amino Transferase 34 U/L (5-31); Bilirubin Total 0.4 mg/dL (0.0-1.0); Blood Urea Nitrogen 10 mg/dL (9-16); Calcium 10.5 mg/dL (8.4-10.2); Carbon Dioxide 23 mmol/L (22-29); Chloride 109 mmol/L (96-108); Creatinine Clr Calc Pharmacy 88.5; Estimated Glomerular Filt Rate > 60; Glucose Random 92 mg/dL (60-115); Potassium 4.6 mmol/L (3.3-5.1); Sodium 142 mmol/L (135-145); Total Protein 8.7 g/dL (6.5-8.0)
[2024-12-28 16:51] LABS: Alkaline Phosphatase 78 U/L (39-117)
[2024-12-28 19:12] LABS: Troponin-I High Sensitivity 2.8 ng/L (<3.5-17.0)
[2024-12-28] MEDS: Lidocaine 4 % Patch ADH..PATCH 1 PATCH TRANSDERMA (19:39)
[2024-12-28] MEDS: Acetaminophen 325 MG TABLET 975 MG PO (19:41)
[2024-12-28] MEDS: Cyclobenzaprine HCl 10 MG TABLET PO (19:41)
[2024-12-28 19:54] VITALS: BP 137/71; PULSE 72; RESP 20; TEMP 36.7; O2SAT 98
[2024-12-28 20:50] VITALS: BP 137/71; PULSE 72; RESP 20; TEMP 36.7; O2SAT 98
== END 2024-12-28 20:50 | disposition home or self-care (01) ==
PROVIDERS: Physician Assistant; Emergency Provider Emergency Medicine; PCP Internal Medicine
DX: M25.512 Pain in left shoulder (principal); R94.31 Abnormal electrocardiogram [ECG] [EKG]; Z79.899 Other long term (current) drug therapy; Z87.891 Personal history of nicotine dependence
CPT/HCPCS: 36415; 73200; 80053; 84484; 85025; 85610; 85730; 93005; 99284

== ENCOUNTER → 2024-12-28 14:54 | Outpatient (BNV) | payer OTHER, SELFPAY | PROVIDERS: Emergency Provider Emergency Medicine; PCP Internal Medicine; Visit Provider Internal Medicine Cardiovascular Disease | DX: R94.31 Abnormal electrocardiogram [ECG] [EKG] (principal); M25.519 Pain in unspecified shoulder | CPT/HCPCS: 93010 ==

== ENCOUNTER → 2024-12-28 14:54 | Outpatient (BNV) | payer OTHER, SELFPAY | PROVIDERS: PCP Internal Medicine; Visit Provider Nuclear Medicine | DX: M25.512 Pain in left shoulder (principal) | CPT/HCPCS: 73200 ==

== ENCOUNTER 2025-01-05 11:10 | Outpatient (AMB) | payer OTHER, SELFPAY ==
[2025-01-05 11:26] VITALS: BP 120/72; PULSE 82; RESP 16; TEMP 36.8; O2SAT 98; BMI 29.9
--- NOTE | 2025-01-05 11:26 | A.OFFPC_ITS ---
Vital Signs 01/05/25 11:26 Height 5 ft 3 in Weight 169 lb BMI 29.9 BP 120/72 Blood Pressure Location Rt brachial Position Sitting Respiration 16 Pulse 82 Pulse Source Pulse Oximeter Temp 98.3 F Temp Source Oral Pulse Oximetry (%) 98 Oxygen Delivery Method Room Air Intake Visit Reasons: ED f/u Left shoulder pain Intake Note: Pt is here today to f/u ER [facility] for Lt shoulder pain, no improvement Allergies ibuprofen Adverse Reaction (Unknown, Verified 01/05/25 11:44) stomach upset Medication List - Last Reconciled 01/05/25 by Felicitas Burkett MD acetaminophen 1,000 mg (2 x 500 mg) PO Q6H PRN amlodipine 5 mg PO DAILY ascorbic acid (vitamin C) mg PO cetirizine 10 mg PO DAILY PRN cyclobenzaprine 10 mg PO TID lisinopril 40 mg PO DAILY omega-3 fatty acids (Fish Oil Concentrate) 1,000 mg PO DAILY valacyclovir 500 mg PO DAILY Tobacco use date assessed: 01/05/25 Dental Screening Dental Screen Date: 01/05/25 Did you have a dental visit in the last 12 months?: Yes Did you have a dental problem in the last 6 months where you did not have access to dental care?: No Was dental information given to patient?: Patient has dentist HPI ED f/u Left shoulder pain HPI Details 59 year old lady here today for follow-u p after recent ER visit complaining of left s atraumatic shoulder pain without neurovascular symptoms. - - Her symptoms began after engaging in w eekend activities such as cooking, which involved significant use of her right hand. - Pain was described as severe, localize d across the chest from the middle to the left side, without associated shortness of breath or palpitations. - Emergency room evaluation included an EKG and a CAT scan; all tests were normal, leading to a diagnosis of musculoskeletal pain due to muscle strain or ligament stretching. - Treatment provided included a sling fo r the shoulder, pain management with Tylenol, due to previous complications with Aleve and hypertension, and advice on using heat patches and muscle relaxant medication. - There was a discussion of possibly see ing an correctional treatment specialist if symptoms do not improve. Pain is specifically located over the junction of the left clavicle and sternum and the patient has no chest pain or dyspnea. Two troponins here unremarkable. Possible costochondritis. CT imaging of the left shoulder is unremarkable. The patient's pain will be addressed with acetaminophen, Lidoderm patch and cyclobenzaprine. She states she is unable to take NSAIDs due to stomach irritation. Patient reports significant improvement after medications and sling placement [facility] Medical History Chronic thoracic back pain Recurrent cold sores Vitamin D deficiency Postprandial abdominal bloating Epigastric abdominal pain Cervical cancer screening Annual visit for general adult medical examination with abnormal findings Muscle strain of upper back Impaired fasting glucose GERD (gastroesophageal reflux disease) Normal Pap smear Stress incontinence of urine Essential hypertension Carpal tunnel syndrome Plantar fasciitis Migraine Mixed dyslipidemia Surgical History Hx of cholecystectomy Family History Father Bone cancer Mother History of hernia repair HTN (hypertension) Diabetes mellitus Brother Diabetes mellitus HTN (hypertension) Substance use disorder Maternal Grandfather Unknown family medical history Maternal Grandmother Unknown family medical history Paternal Grandfather Unknown family medical history Paternal Grandmother Unknown family medical history Sister No problems noted. Sister No problems noted. Daughter No problems noted. Daughter No problems noted. Son No problems noted. Brother No problems noted. Brother No problems noted. Brother No problems noted. Brother No problems noted. Social History Housing: Apartment Alcohol intake: current Alcohol intake frequency: does not drink Patient Tobacco Use Status: Former Tobacco user Years Smoked: 2 yrs e-Cigarette/Vaping Use: Never Used Second Hand Smoke Exposure: No service: No Current occupational status: employed Cognitive needs: No Hearing needs: No Vision needs: Yes (Glasses) Questionnaire PHQ-9 Over the last 2 weeks, how often have you been bothered by any of the following problems? Depression Screening Interpretation: Negative Depression Screening Done: Yes Source: Developed by Drs. Luis Fung, Elen Menon, Conrado Iyer and colleagues, with an educational rao from [employer]. Thrive Questionnaire Date Thrive assessed: 01/05/25 Currently or been in a relationship where the following occur: No concerns reported THRIVE Score: 0 DUY-7 AMB Questionnaire DUY-7 Date DUY - 7 assessed: 11/03/24 Source: Developed by Drs. Luis Fung, Elen Menon, Conrado Iyer and colleagues, with an educational rao from [employer]. Review of Systems Const All systems reviewed & are unremarkable except as noted in HPI and below Physical exam (Primary Care) Vital Signs: Last Vital Signs Temp 98.3 F 01/05/25 11:26 Pulse 82 01/05/25 11:26 Resp 16 01/05/25 11:26 BP 120/72 01/05/25 11:26 Pulse Ox 98 01/05/25 11:26 Oxygen Delivery Method Room Air 01/05/25 11:26 BMI result Body Mass Index 29.9 BMI Assessment/Plan discussion: High BMI High, discussed plan: lifestyle, weight reduction, dietary and physical activity Tobacco/Smoking Status: Tobacco use Status Tobacco use date assessed 01/05/25 01/05/25 11:28 Patient Tobacco Use Status Former Tobacco user 01/05/25 11:28 e-Cigarette/Vaping Use Never Used 01/05/25 11:28 Depression Screening Interpretation: Negative Thrive Assessment: Date of Thrive Assessment Date Thrive assessed 01/05/25 01/05/25 11:28 Currently or been in a relationship where the following occur: No concerns reported Const Other: Alert oriented x3, no acute cardiorespiratory distress noted ambulatory normal gait Nutritional Appearance: obese Orientation/consciousness: patient oriented x3 Neck Neck: Yes full ROM, Yes no lymphadenopathy and Yes supple Resp Effort & Inspection: normal respiratory effort Auscultation: clear to auscultation bilaterally Cardio Other: S1-S2 present regular rate and rhythm Skin General skin exam: no rashes or lesions noted Neuro General: patient oriented x3, gait normal, tone normal, moves all extremities, Normal light touch and pain sensation, no focal motor deficits and CN's II-XI intact bilaterally Extrem General: Yes full ROM, Yes no joint enlargement, Yes no clubbing, cyanosis or edema, Yes no calf tenderness and Yes normal gait Coding Level of Care Code Est Pt Level 3 (19758) Diagnoses Sprain of left shoulder S43.402A Acute chest wall pain R07.89 Assessment & Plan Assessment & Plan (1) Sprain of left shoulder: Code(s): S43.402A - Unspecified sprain of left shoulder joint, initial encounter (2) Acute chest wall pain: Code(s): R07.89 - Other chest pain Plan Management of musculoskeletal chest pain includes continuous use of the sling, heat patches, and muscle relaxants, with Tylenol for pain management and careful use of Aleve due to hypertension. Follow-up involves adherence to advised rest rictions on physical activity. Referral to orthopedics is suggested if conservative measures fail. Work adjustments are also provided to facilitate gradual return to normal activities. Patient was informed and verbally consented to the use of an ambient scribe for clinic note documentation during this visit.
--- OUTSIDE RECORDS SUMMARY | 2025-01-05 12:22 | XMS_ITS | Data Portability ---
Author Organization KATERYNA Ace [facility] [address] Address [address] [place] [address] Assessment No assessment recorded. Plan of Treatment Reminders Order Date Submit Date Provider Last Modified By Organization Details Last Modified Time Details Appointments None recorded. Lab None recorded. Referral None recorded. Procedures None recorded. Surgeries None recorded. Imaging None recorded. Medication Orders prednisone 10 mg tablet 2022 023 [facility] #[id number], [address] [facility], [place], [address], 19:46:29 Patient TargetsNo targets recorded. Patient Instructions Encounter Date Encounter Id Patient Instructions Last Modified By Organization Details Last Modified Time 12/28/2022 [id number] meralgia paresthetica: care instructions [email or web address] Not available 12/28/2022 19:46:26 hip flexor strai n: rehab exercises [email or web address] Not available 12/28/2022 19:46:26 You have been diagnosed with a meralgia parethetica. Start Physical Therapy. You were prescribed Prednisone - Here is some general Information regarding this medication. 1. Make sure you take with Food 2. Do not take right before bedtime -this should be taken during the day because it may make you a little more wired. May keep you from sleeping. 3. Prednisone will increase glucose -so if you are a diabetic then you will need to monitor your glucose closely. Please d/c if glucose goes above 300. 4. Do not take this medication with Ibuprofen The following are my recommendation to help you with your discomfort. 1. Stretch in the AM and PM - especially when you first wake up. 2. Heating pad to the lower back. 3. No heavy lift and no sports until you are feeling a little better. 4. OK to take Tylenol to help supplement with the pain unless you have an allergy. 5. Stop Smoking if you smoke this can increased lower back pain - this has been proven in studies. If any of the following symptoms develop - you should be seen in the ER. 1. Numbness in your groin 2. Bowel or Bladder incontinence 3. Worsening Pain 4. Blood in urine or stool 5. Fever or vomiting. Thank you for using [facility], please call if you have any questions or concerns. [email or web address] Not available 12/28/2022 19:46:25 Reason for Referral None Reported. Problems Name Problem SNOMED Code Status Onset Date Resolution Date Notes Provider Name and Address Organization Details Recorded Time Essential hypertension 21059038 Active 2022 DALE scott [place] - [facility] 3 18:57:27 Problem Notes None recorded. Medical Equipment None Reported. Allergies No known drug allergies Medications Name Sig Start Date Stop Date Status Note LastModified by Organization Details LastModified Time prednisone 10 mg tablet 4 pills po qd x 3 days, 3 pills po qd x 3 days, 2 pills po qd x 2 days, 1 pills po qd x 2 days 023 active Not Available Not Available Not Avai lable Vitals Date Recorded Body height Body mass index (BMI) Body weight Body temperature Respiratory rate Heart rate Oxygen saturation Oxygen saturation in Arterial blood by Pulse oximetry Systolic blood pressure Diastolic blood pressure Provider Name and Address Organization Details Last Updated DateTime 3 162.56 cm 30.2 kg/m2 91162.2 6 g 97.6 [degF] 18 /min 74 /min 97 % 97 % 148 mm[Hg] 88 mm[Hg] DALE AVENDAÑO - [facility] 3 18:59:22 Social History Question Answer Notes LastModified by Viewexat ion Details LastModified Time Tobacco Smoking Status Never Smoker DALE scott [place] 12/28/2022 18:58:00 What Is Your Level Of Alcohol Consumption? None Information not available 12/28/2022 What Is Your Water Source? City Information not available 12/28/2022 What Is Your Heat Source? Gas Information not available 12/28/2022 Have You Had Direct Contact, Or Contact During Intimacy, With Monkeypox Rash, Scabs, Or Body Fluids From A Person With Monkeypox? No Information not available 12/28/2022 Do You Use Any Illicit Or Recreational Drugs? No Information not available 12/28/2022 Have You Recently Traveled Abroad? No Information not available 12/28/2022 Do You Or Have You Ever Used Any Other Forms Of Tobacco Or Nicotine? No Information not available 12/28/2022 Sex: Unknown Functional Status None recorded. Mental Status None recorded. Family History Relationship Description Onset Age of this Age Resolved Age Notes LastModified by Organization Details LastModified Time Father No current problems or disability Not available 18:57:53 Mother No current problems or disability Not available 18:57:53 Medical History No medical history recorded. Gynecological HistoryNo gynecological history recorded. Obstetrics History GPAL:G 0 P 0 0 0 0 Past Encounters Encounter ID Performer Location Encounter Start Date Encounter Closed Date Diagnosis/Indication Diagnosis SNOMED-CT Code Diagnosis ICD10 Code Diagnosis Note [id number] [facility] [address] [place] [id number] 03/29/2021 08:07:49 03/29/2021 09:01:21 [id number] [facility] [address] [place] [id number] 11/02/2019 14:08:05 11/02/2019 15:06:01 [id number] KATERYNA MOY [facility] [address] [place] [address] 12/28/2022 17:09:20 12/28/2022 19:48:45 Essential hypertension 53960356 I10 Blood pressure was mildly elevated- most likely due to the pain. follow up with your PCP if still elevated. Meralgia p aresthetica of right leg [id number] 57231 G57.11 Physical Therapy Advised - Script Written Health Concerns Section Related Observation LastModified by Organization Detai ls LastModified Time None Recorded Concern Status LastModified by Organization Details LastModified Time None Recorded Advance Directives Directive None Recorded Payers Encounter Date Sequence Insurance Name Policy Number Policy Spear Covered Member ID Spear Member ID Guarantor Name 11/02/2019 1 [facility] (HMO) BETZY Diallo [id number] Katherin Diaz 03/29/2021 1 [facility] (HMO) BETZY Diallo [id number] Katherin Diaz 12/28/2022 1 [facility] NET PLAN (MEDICAID HMO) BETZY Pandey Diallo [id number] Katherin Yoel Notes Date Note Type Note Provider Name and Address Organization Details Recorded Time 3 text/html Thigh / HipReported bypatient.source of patient informationInformation obtained from patient; Patient arrived at Urgent Care ambulatory Location:right; lateral; deep Quality:aching; sharp Severity:moderate Duration:1 weeks Timing:acute Alleviating Factors:NSAIDs Aggravating Factors:standing; walking; twisting Associated Symptoms:no weakness; no numbness; no tingling; no swelling; no redness; no warmth; no ecchymosis; no instabilityNotes:The patient reports pain in the lateral thigh and it shoots down the lateral side of the leg. Feels like sharp pain. It becomes severe and leg feels like it is aching. Denies claudication or swelling of the calf. The patient doesn't have any pain in the back. She has had PT in the past for what sounds like sciatica. No bowel or bladder incontinance. [facility] [place] [address] [place] - [facility] 12/28/2022 23:04:28 OBGyn Episode No OBEpisode recorded.
--- OUTSIDE RECORDS SUMMARY | 2025-01-05 12:23 | XMS_ITS | Data Portability ---
Author Organization [facility], , [facility] Address [address] [place] [address] Care Team Providers Care Citrix Consultant Name Role Phone SOFÍA BAKER Phys. [facility] [phone] CARLA CHOPRA Primary Care Provider IMANI HOLLIDAY Primary Care Provider JUAN Hughes Urologist Assessment No assessment recorded. Plan of Treatment Reminders Order Date Submit Date Provider Last Modified By Organization Details Last Modified Time Details Appointments None recorded. Lab culture, urine 2016 017 [facility], [address] [place], [address], 7 22:01:03 Referral None recorded. Procedures None recorded. Surgeries None recorded. Imaging XR, thoracic spine - right sided mid back pain without trauma. r/o compressio n fracture, worsening arthritis 2016 017 [facility] (Imaging), [address] [place], [address], 7 15:07:55 bone density 2016 017 [facility] (Imaging), [address] [place], [address], 7 13:27:32 Medication Orders cyclobenza elzbieta 5 mg tablet 2016 017 [id number], [address] [place], [address], 7 09:08:42 tizanidine 4 mg tablet 2016 017 [id number], [address] [place], [address], 7 09:55:33 valacyclov ir 500 mg tablet 2016 017 [facility], [address] [place], [address], 7 08:49:26 Vitamin D3 25 mcg (1,000 unit) capsule 2016 017 [facility], [address] [place], [address], 7 08:49:25 famotidine 20 mg tablet 2016 017 [facility], [address] [place], [address], 7 08:49:25 Macrobid 100 mg capsule 2016 017 [facility], [address] [place], [address], 7 15:58:50 Patient TargetsNo targets recorded. Patient Instructions Encounter Date Encounter Id Patient Instructions Last Modified By Organization Details Last Modified Time 03/15/2017 [id number] Pt has appt already scheduled with PCP next month. [email or web address] Not available 03/15/2017 09:10:37 08/20/2017 [id number] -Push fluids -Make sure you're emptying your bladder when you need to go -Take medication twice daily for a week UNLESS we call you and tell you to stop taking it [email or web address] Not available 08/20/2017 15:58:47 10/05/2017 [id number] RX given for glasses Eyes are healthy and work well together. Return to office in 2 years or sooner as needed. [email or web address] Not available 10/05/2017 14:19:53 Reason for Referral None Reported. Results Created Date Observation Date Name Description Value Unit Range Abnormal Flag Note LastModifiedBy Organization Detail LastModifiedTime 08/20/20 17 08/20/2017 POC UA glu UA Negati ve Not Available [address], [address], 08/20/2017 15:58:07 08/20/20 17 08/20/2017 POC UA clarity UA Clear Not Available [address], [address], 08/20/2017 15:58:07 08/20/20 17 08/20/2017 POC UA uro UA 0.2000 Not Available [address], [address], 08/20/2017 15:58:07 08/20/20 17 08/20/2017 POC UA ket UA Negati ve Not Available [address], [address], 08/20/2017 15:58:07 08/20/20 17 08/20/2017 POC UA pro UA Negati ve Not Available [address], [address], 08/20/2017 15:58:07 08/20/20 17 08/20/2017 POC UA nit UA Negati ve Not Available [address], [address], 08/20/2017 15:58:07 08/20/20 17 08/20/2017 POC UA jesus UA Negati ve Not Available [address], [address], 08/20/2017 15:58:07 08/20/20 17 08/20/2017 POC UA pH UA 6.0000 Not Available [address], [address], 08/20/2017 15:58:07 08/20/20 17 08/20/2017 POC UA SG UA <=1.00 50 Not Available [address], [address], 08/20/2017 15:58:07 08/20/20 17 08/20/2017 POC UA color UA Yellow Not Available [address], [address], 08/20/2017 15:58:07 08/20/20 17 08/20/2017 POC UA blo UA Trace- lysed Not Available [address], [address], 08/20/2017 15:58:07 08/20/20 17 08/20/2017 POC UA kumar UA Negati ve Not Available [address], [address], 08/20/2017 15:58:07 08/20/20 17 08/21/2017 cultu re, urine culture, urine, routine CULTU RE, URINE , ROUTI NE MICRO NUMBE R: [id number] TEST STATU S: FINAL SPECI MEN SOURC E: URINE SPECI MEN QUALI TY: ADEQU ATE RESUL T: No Growt h Not Available [facility] [address] [place] [address] [address], [place], [address], 08/21/2017 22:01:03 03/15/20 17 03/15/2017 XR, thora cic spine OBSERV ATION: Thorac ic spine 3 views HISTOR Y: Worsen ing back pain, clinic al concer n compre ssion fractu re COMPAR TAMI: 2015 and 2014 Findin gs: Minera lizati [...] Readchemo jj Physic jack: Jermaine Diaz [email or web address] [facility] (Imaging) [address], [place], [address], 03/16/2017 16:34:43 05/20/20 17 05/17/2017 bone densi ty OBSERV ATION: Your patien t comple elton a bone minera l densit y test at our facili ty on 7. The indica tions were a family histor y of osteop orosis and postme nopaus e. There were no prior studie s availa ble for compar tami. e. There were no prior studie s availa ble for compar tami. Her AP lumbar spine T score averag [...] Readin g Physic jack: Harsh Donovan MD [facility] (Imaging) [address], [place], [address], 06/06/2017 11:04:39 Result Notes None recorded. Problems Name Problem SNOMED Code Status Onset Date Resolution Date Notes Provider Name and Address Organization Details Recorded Time Mixed hyperlipid emia 021734802 Completed 200810/06/2016 Carla Chopra NP [address] [place] [address], [address] , [facility] 15:25:18 Urinary incontinen ce 139760013 Active 2008 KATERYNA Martin [address] [place] [address], [address] , [facility] 16:09:22 Carpal tunnel syndrome 18255786 Active 2008 KATERYNA Martin [address] [place] [address], [address] , [facility] 16:09:22 Gastroesop hageal reflux disease 840320883 Active 2008 KATERYNA Martin [address] [place] [address], [address] , [facility] 16:09:22 Lateral epicondyli tis 804184568 Completed 10/15/2013 KATERYNA Martin [address] [place] [address], [address] , [facility] 16:09:22 Lateral epicondyli tis 360765221 Completed 200603/03/2011 KATERYNA Martin [address] [place] [address], [address] , [facility] 16:09:22 Right lower quadrant pain 628172623 Completed 200703/03/2011 KATERYNA Martin [address] [place] [address], [address] , [facility] 16:09:22 Right upper quadrant pain 146051723 Completed 200703/03/2011 KATERYNA Martin [address] [place] [address], [address] , [facility] 16:09:22 Urinary tract infectious disease 88111745 Completed 200703/03/2011 KATERYNA Martin [address] [place] [address], [address] , [facility] 5 16:09:22 Benign essential hypertensi on 6887834 Active Carla Chopra NP [address] [place] [address], [address] , [facility] 6 06:15:28 Benign essential hypertensi on 1738308 Completed 200607/05/2012 KATERYNA Martin [address] [place] [address], [address] , [facility] 16:09:22 Other Completed 10/15/2013 KATERYNA Martin [address] [place] [address], [address] , [facility] 16:09:22 Plantar fasciitis 364809801 Active KATERYNA Martin [address] [place] [address], [address] , [facility] 16:09:22 Abdominal pain 00357743 Completed 200703/03/2011 KATERYNA Martin [address] [place] [address], [address] , [facility] 16:09:22 Mittelschm erz 63987930 Completed 200703/03/2011 KATERYNA Martin [address] [place] [address], [address] , [facility] 16:09:22 Low back pain 193558222 Active 2008 Sofía Baker , PT [address] [place], [address] , [facility] 15:19:28 Dysuria 90038557 Completed 200703/03/2011 KATERYNA Martin [address] [place] [address], [address] , [facility] 16:09:22 Pain in limb 33574825 Completed 200703/03/2011 KATERYNA Martin [address] [place] [address], [address] , [facility] 16:09:22 Malaise and fatigue 991482891 Completed 200703/03/2011 KATERYNA Martin [address] [place] [address], [address] , [facility] 16:09:22 External hordeolum 5433000 Completed 10/06/2016 Carla Chopra NP [address] [place], [address] , [facility] 15:25:27 Problem Notes None recorded. Procedures Surgical History Date Name Laterality Status Provider Name and Address Organization Details Recorded Time 08/20/20 17 POC Urinalysis Testing completed Chery Pack LPN [facility] 08/20/2017 15:41:16 11/10/20 16 POC Urinalysis Testing completed Tiff Guaman [facility] 11/10/2016 15:30:22 10/06/20 16 IUD Removal completed Carla Chopra NP [address] [place], [address], [facility] 10/06/2016 11:31:24 11/16/20 15 Refraction completed Demi Monge [facility] 11/16/2015 14:49:53 11/03/20 15 39140: PT Evaluation completed Sofía Baker, PT [address] [place], [address], [facility] 11/03/2015 15:19:30 03/24/20 14 Nebulizer Tx completed Brook Shetty LPN [facility] 03/24/2014 16:48:23 03/05/20 14 51947: Therapeutic Exercise completed Sofía Baker, PT [address] [place], [address], [facility] 03/06/2014 07:26:23 12/30/19 14 Treatment and Advice completed Sofía Baker, PT [address] [place], [address], [facility] 12/30/2013 09:32:27 12/19/19 14 Treatment and Advice completed Sofía Baker, PT [address] [place], [address], [facility] 12/19/2013 14:07:27 12/12/19 14 Treatment and Advice completed Sofía Bakre, PT [address] [place], [address], [facility] 12/12/2013 15:06:06 11/25/20 13 Treatment and Advice completed Sofía Baker, PT [address] [place], [address], [facility] 11/25/2013 07:25:48 10/17/20 13 Treatment and Advice completed Sofía Baker, PT [address] [place], [address], [facility] 10/17/2013 16:36:32 09/22/20 13 Treatment and Advice completed Sofía Baker, PT [address] [place], [address], [facility] 09/22/2013 11:05:52 09/18/20 13 Treatment and Advice completed Sofía Baker, PT [address] [place], [address], [facility] 09/18/2013 12:26:36 09/15/20 13 Treatment and Advice completed Sofía Baker, PT [address] [place], [address], [facility] 09/15/2013 12:05:17 03/26/20 13 Treatment and Advice completed Sofía Baker, PT [address] [place], [address], [facility] 03/26/2013 11:26:58 04/12/20 11 IUD Insertion completed Santhosh Copeland MD [address] [place], [address], [facility] 04/12/2011 17:43:17 04/12/20 11 IUD Removal completed Santhosh Copeland MD [address] [place], [address], [facility] 04/12/2011 17:43:17 08/05/20 09 Treatment and Advice completed Sofía Baker, PT [address] [place], [address], [facility] 08/05/2009 11:29:26 07/30/20 09 Treatment and Advice completed Sofía Baker, PT [address] [place], [address], [facility] 07/30/2009 12:05:14 04/05/20 09 Treatment and Advice completed Sofía Baker, PT [address] [place], [address], [facility] 04/05/2009 13:25:02 03/15/20 09 Treatment and Advice completed Sofía Baker, PT [address] [place], [address], [facility] 03/15/2009 14:33:48 03/10/20 09 Treatment and Advice completed Sofía Baker, PT [address] [place], [address], [facility] 03/10/2009 09:40:52 Cholecystectomy completed Not Available [facility] 10/12/2011 06:06:16 Imaging Results Imaging Date Name Status LastModified by Organiz ation Details LastModified Time 03/15/2017 XR, thoracic spine completed [address] (Imaging) [address], [place], [address], 03/16/2017 16:34:43 05/17/2017 bone density completed [facility] (Imaging) [address] [place], [address], 06/06/2017 11:04:39 Procedure Notes None recorded. Medical Equipment None Reported. Allergies Allergen ID Allergen Name Allergen Category Reaction Reaction Severity Criticality Documentation Date Start Date Code Code System Note Provider Name and Address Organization Details Recorded Time 48535 ibuprofen medicatio n nausea Not available Not available 01/23/2012 5640 RxNorm stoma ch upset Carla Chopra , MELINA [address] [place], [address], [facility] 15:46:47 Medications Name Sig Start Date Stop Date Status Note LastModified by Organization Details LastModified Time Prescripti on - Change 10/06 completed Not Available Not Available Not Available carisoprod ol 350 mg tablet Take 1 tablet 3 times a day by oral route as needed. 2008 active Not Available Not Available Not Avai lable cyclobenza elzbieta 10 mg tablet TK 1 T PO [...] Available Not Available Not Avai lable cyclobenza elzbieta 5 mg tablet Take 1 tablet 3 [...] Details Last Updated DateTime 03/15/2017 165.74 cm 95664.85 g 29.2 kg/m2 Desirae Ya MA [facility] 03/15/2017 08:37:44 Date Recorded Systolic blood pressure Diastolic blood pressure Provider Name and Address Organization Details Last Updated DateTime 03/15/2017 138 mm[Hg] 74 mm[Hg] Karin Vela NP [address] [place] [address], [address], [facility] 03/15/2017 08:54:38 Date Recorded Body height Body weight Body mass index (BMI) Systolic blood pressure Diastolic blood pressure Provider Name and Address Organization Details Last Updated DateTime 03/19/2017 165.74 cm 90126.44 g 29.4 kg/m2 128 mm[Hg] 80 mm[Hg] Tiff Guaman [facility] 7 09:45:44 Date Recorded Body height Body weight Body mass index (BMI) Heart rate Systolic blood pressure Diastolic blood pressure Provider Name and Address Organization Details Last Updated DateTime 7 165.74 cm 02985.2 5 g 29.3 kg/m2 66 /min 114 mm[Hg] 68 mm[Hg] Sonia Cobb MA [facility] 7 08:18:37 Date Recorded Body height Body mass index (BMI) Body weight Heart rate Systolic blood pressure Diastolic blood pressure Provider Name and Address Organization Details Last Updated DateTime 165.74 cm 29.4 kg/m2 46203.4 4 g 80 /min 120 mm[Hg] 80 mm[Hg] Chery Pack LPN [facility] 7 15:44:35 Social History Question Answer Notes LastModified by Organizat ion Details LastModified Time Tobacco Smoking Status Former Smoker quit @ age 18 occasional smoker. 1 yr 3 JACK Neil, [facility] 01/15/2013 13:58:47 Do You Have An Advance [...] Others [email or web address] Information not available 10/12/2011 Patient Has Health Care Proxy Signed And In Chart No lriel Information not available 10/02/2014 Marital Status Re- [facility] Informati n not available 09/24/2012 Mosquito Repellent Used Routinely Yes [email or web address] Information not available 10/12/2011 What Was The Date Of Your Most Recent Tobacco Screening? 08/20/2017 Information not available 06/18/2019 How Many Children Do You Have? 3 [email or web address] Information not available 10/12/2011 What Is Your Current Pack Years? [email or web address] Information not available 08/18/2015 Seat Belts Used [...] diabetes type 2. Medical History Condition Response Kidney Stones Y Hyperlipidemia Y Hypertension Y Gynecological HistoryNo gynecological history recorded. Obstetrics History GPAL:G 0 P 0 0 0 0 Immunizations Vaccine Type Date Status Note Provider Nam e and Address Organization Details Recorded Time Influenza, split virus, trivalent, preservative 2 completed Not Available [facility] 12/13/2019 02:18:31 influenza, seasonal, intradermal, preservative free 2 completed Not Available [facility] 12/13/2019 02:28:17 influenza, unspecified formulation 0 completed Not Available [facility] 10/11/2011 05:22:41 Influenza, split virus, trivalent, PF 3 completed Not Available [facility] 12/13/2019 02:27:10 Influenza, split virus, trivalent, preservative 4 completed Not Available [facility] 12/13/2019 02:36:27 Influenza, split virus, quadrivalent, PF 5 completed Not Available [facility] 12/13/2019 02:19:48 Influenza, split virus, trivalent, preservative 0 completed Not Available [facility] 12/13/2019 02:17:42 Novel [id number] 0 completed Not Available [facility] 12/13/2019 02:32:30 Influenza, split virus, quadrivalent, PF 6 completed Not Available [facility] 12/13/2019 02:33:42 Influenza, split virus, quadrivalent, PF 7 completed Not Available [facility] 12/13/2019 02:22:02 Tdap 1 completed Not Available [facility] 12/13/2019 02:15:39 Past Encounters Encounter ID Performer Location Encounter Start Date Encounter Closed Date Diagnosis/Indication Diagnosis SNOMED-CT Code Diagnosis ICD10 Code Diagnosis Note [id number] [facility], OFFICE [address] [place] [address] 10/24/2007 15:38:04 12/16/2008 02:02:29 [id number] [facility], OFFICE [address] [place] [address] 12/26/2007 14:44:03 12/16/2008 02:02:29 [id number] LAB - [facility] [address] [place] [address] 12/26/2007 15:29:44 12/26/2007 15:29:51 [id number] Radiology , [facility] [address] [place] [address] 01/02/2008 10:54:15 01/03/2008 09:34:27 [id number] [facility], OFFICE [address] [facility] [place] [address] 04/30/2008 08:59:34 12/16/2008 02:02:29 [id number] Radiology , [facility] [address] [id number] 04/30/2008 13:24:49 05/01/2008 09:23:22 [id number] LAB - [facility] [address] [id number] 04/30/2008 09:44:23 04/30/2008 09:44:29 [id number] LAB - [facility] [address] [place] [address] 04/30/2008 00:00:00 12/16/2008 02:02:29 [id number] [facility], OFFICE [address] [facility] [id number] 06/08/2008 11:42:37 12/16/2008 02:02:29 [id number] [facility], OFFICE [address] [facility] [place] [address] 09/07/2008 16:56:28 12/16/2008 02:02:29 [id number] LAB - [facility] 70 [facility] [place] [address] 09/08/2008 07:24:37 09/08/2008 07:24:44 [id number] [facility], OFFICE [address] [facility] [place] [address] 12/10/2008 08:55:51 12/16/2008 02:02:29 [id number] LAB - [facility] [address] [facility] [place] [address] 12/10/2008 09:28:55 12/10/2008 09:29:01 [id number] [facility], OFFICE [address] [facility] [place] [address] 01/08/2009 15:45:36 01/11/2009 11:31:48 [id number] [facility], OFFICE [address] [facility] [place] [address] 02/10/2009 14:10:43 02/12/2009 09:14:54 [id number] Radiology , [facility] [address] [place] [address] 02/19/2009 09:33:41 02/22/2009 15:31:21 [id number] [facility], OFFICE [address] [facility] [place] [address] 03/04/2009 14:20:11 03/09/2009 08:39:36 [id number] Radiology , [facility] JACK [id number] 03/04/2009 14:47:16 03/08/2009 14:42:30 [id number] Physical Therapy, [facility] JACK [id number] 03/10/2009 08:59:23 03/11/2009 07:35:54 [id number] Physical Therapy, [address] [id number] 03/15/2009 13:48:50 03/17/2009 08:30:03 [id number] Physical Therapy, [address] [id number] 03/19/2009 10:55:16 03/19/2009 14:42:57 [id number] Physical [facility], [address] [id number] 03/26/2009 14:44:00 03/26/2009 16:03:19 [id number] Physical [facility], [address] [place] [address] 04/05/2009 12:51:55 04/05/2009 15:07:57 [id number] Physical [facility], [address] [place] [address] 04/21/2009 13:53:30 04/22/2009 08:42:55 [id number] , [facility], [address] [place] [address] 07/16/2009 16:35:23 07/21/2009 13:55:02 [id number] Physical [facility], [address] [place] [address] 07/26/2009 13:17:26 07/30/2009 09:10:41 [id number] Physical [facility], [address] [place] [address] 07/30/2009 10:50:58 08/03/2009 10:31:54 [id number] Physical [facility], [address] [address] 08/05/2009 10:52:14 08/06/2009 09:34:36 [id number] Radiology , [address] [address] 08/11/2009 11:29:04 08/16/2009 11:35:37 [id number] Physical [facility], [facility] [place] [address] 08/23/2009 12:49:34 08/23/2009 15:51:13 [id number] [facility], OFFICE [address] [place] [address] 09/17/2009 11:20:02 09/20/2009 10:25:51 [id number] Radiology , [facility] [address] [place] [address] 09/20/2009 10:08:11 09/22/2009 10:59:02 [id number] LAB - [facility] [place] [address] 02/10/2009 15:26:55 02/10/2009 15:27:26 [id number] LAB - [facility] [place] [address] 09/09/2009 07:59:23 09/09/2009 08:00:02 [id number] LAB - [facility] [place] [address] 09/17/2009 11:50:50 09/17/2009 11:51:11 [id number] [facility], OFFICE [address] [place] [address] 11/04/2009 11:24:54 11/05/2009 12:06:07 [id number] [facility], OFFICE [address] [place] [address] 11/22/2009 11:25:24 11/24/2009 14:08:20 [id number] [facility], OFFICE [address] [place] [address] 02/02/2010 10:46:29 02/04/2010 10:39:00 [id number] [facility], OFFICE [address] [place] [address] 07/28/2010 16:17:03 07/29/2010 10:10:58 [id number] [facility], OFFICE [address] [place] [address] 11/01/2010 16:15:36 11/02/2010 11:59:24 [id number] Physical [facility], [address] [address] 11/08/2010 13:53:01 11/08/2010 16:05:50 [id number] Physical [facility], [address] [address] 11/22/2010 15:43:19 11/23/2010 08:50:23 [id number] FP, [facility], OFFICE [address] [facility] [id number] 12/15/2010 14:28:26 12/16/2010 13:00:08 [id number] FP, [facility], OFFICE [address] [facility] [address] [place], JACK Eric[address] 02/09/2011 14:37:52 02/13/2011 14:42:40 [id number] FP, [facility], OFFICE [address] [facility] [address] [place], JACK [id number] 02/13/2011 10:36:53 02/13/2011 17:33:22 [id number] Radiology , [facility] [address] [facility] JACK [id number] 02/16/2011 16:25:28 02/17/2011 13:30:35 [id number] FP, [facility], OFFICE [address] [facility] J[place] [id number] 03/21/2011 13:45:34 03/23/2011 08:42:24 [id number] FP, [facility], OFFICE 70 [facility] JACK [id number] 04/04/2011 09:42:37 04/07/2011 08:35:46 [id number] FP, [facility], OFFICE [address] [facility] J[place] [id number] 6 04/12/2011 13:46:14 04/14/2011 11:10:28 [id number] FP, [facility], OFFICE [address] [facility] JACK Eric26922-427 6 04/21/2011 10:47:16 04/25/2011 08:32:56 [id number] FP, [facility], OFFICE 70 [facility] JACK [address] 6 06/27/2011 11:40:27 06/27/2011 16:23:49 [id number] Radiology , [facility] 70 [facility] JACK Simon [address] 6 06/30/2011 14:58:35 07/10/2011 14:00:07 [id number] FP, [facility], OFFICE [address] [facility] JACK [id number] 6 07/27/2011 13:18:23 07/27/2011 14:31:24 [id number] FP, [facility], OFFICE 70 [facility] JACK [id number] 6 01/23/2012 16:01:40 01/23/2012 16:41:49 [id number] Physical [facility], [address] [address] 6 01/30/2012 15:50:36 01/31/2012 07:53:16 [id number] Radiology , [facility] [address] [place] [address] 6 04/25/2012 13:00:54 04/26/2012 09:45:44 [id number] , [facility], OFFICE [address] [place] [id number] 6 06/07/2012 09:26:43 06/07/2012 10:51:43 [id number] , [facility], OFFICE [address] [place] [id number] 6 07/05/2012 11:15:57 07/05/2012 12:18:44 [id number] Amber Lou NP , [facility], OFFICE [address] [place] [id number] 6 08/12/2012 13:42:01 08/12/2012 14:21:43 [id number] [facility] , [facility], OFFICE [address] [place] [address] 6 09/03/2012 06:33:37 09/03/2012 16:06:16 [id number] Zafar Kelley MD , [facility], OFFICE [address] [place] [address] 6 10/04/2012 11:07:27 10/04/2012 12:14:27 [id number] Santhosh Copeland MD , [facility], OFFICE [address] [place] [address] 6 10/22/2012 14:51:43 10/22/2012 15:37:56 [id number] Julianna Panchal Physical Therapy, [address] [address] 6 10/29/2012 14:43:10 10/30/2012 12:26:47 [id number] Sue Fierro, OT Physical Therapy, [address] [address] 6 11/05/2012 16:01:44 11/06/2012 07:55:33 [id number] Sue Fierro, OT Physical Therapy, [address] [address] 6 12/10/2012 15:30:52 12/10/2012 16:14:57 [id number] Carla Chopra NP , [facility], OFFICE [address] [place] [address] 6 12/20/2012 11:50:24 12/20/2012 13:17:24 [id number] Imani Summer Holliday, LACE FINISHER-BC FP, [facility], OFFICE [address] [place] [address] 01/06/2013 16:01:37 01/07/2013 10:46:30 [id number] Liliane Drummond , [facility], OFFICE [address] [place] [address] 6 01/15/2013 13:46:17 01/15/2013 14:11:50 [id number] ImaniZELDA Marie-BC , [facility], OFFICE [address] [place] [address] 6 03/24/2013 13:39:47 03/24/2013 14:25:20 [id number] Sofía Baker , PT Physical Therapy, [facility] [address] [place] [address] 6 03/26/2013 10:49:34 03/27/2013 15:19:00 [id number] Imani RosenthalBRANDON BirdP-BC , [facility], OFFICE [address] [place] [address] 6 04/08/2013 09:18:15 04/08/2013 14:15:03 [id number] Imani Wheelerkeisha Holliday LACE FINISHER-BC [place], [facility], OFFICE [address] [place] [address] 6 05/06/2013 15:32:00 05/07/2013 10:24:47 [id number] Ruchi [place] [facility] -[facility] [address] [place] [address] 6 06/24/2013 08:35:29 06/30/2013 12:09:37 [id number] Ruchi [place] [facility] -[facility] [address] [place] [address] 6 08/05/2013 15:38:47 08/06/2013 15:45:58 Mixed hyperlipidemia [id number] Karena Pearson , [facility], OFFICE [address] [place] [address] 6 08/06/2013 06:16:46 08/08/2013 12:08:54 Influenza vaccine needed [id number] [facility], OFFICE [address] [place] [address] 6 09/03/2013 09:22:09 09/05/2013 13:23:35 Carpal tunnel syndrome 72483970 pt with known carpal tunnel and now upper extremity arm pain since starting work. no focal findings on exam. likely mild tendonitis . will refer to OT for assessment /exercised . pt reports pain relief with acetaminop hen. [id number] Carla Chopra NP , [facility], OFFICE [address] [place] [address] 6 09/10/2013 11:45:26 09/10/2013 12:44:15 Acute low back pain 831043211 pt with musculoske letal strain in setting of new job and lifting. no red flags. medicaiton s rest and PT referral given. pt given note for work for the rest of the week. [id number] Wander Hatch [facility], [address] [address] 6 09/15/2013 11:21:39 09/16/2013 09:36:44 Low back pain 843204669 [id number] Wander Hatch Physical [facility], [address] [address] 6 09/18/2013 11:58:59 09/19/2013 07:56:44 Low back pain 622701957 [id number] Wander Hatch , [facility], OFFICE [address] [place] [address] 6 09/19/2013 11:50:45 09/19/2013 13:09:36 Acute low back pain 232220358 pt with musculoske letal strain in setting of new job and lifting. no red flags. continue with pt. will await clearance from pt for return to work. [id number] [facility], [address] [address] 6 09/22/2013 10:29:53 09/22/2013 11:54:37 Low back pain 312160443 [id number] Wander Hatch Physical [facility], [address] [address] 6 10/01/2013 10:46:59 10/01/2013 11:54:18 Low back pain 668342767 [id number] Quita Dawson, Ms, Rdn, Ldn, CDE Nutrition -[address] [address] 6 10/08/2013 10:27:05 10/08/2013 11:13:23 Mixed hyperlipidemia 331359561 [id number] Wander Holden Physical [facility], [address] [address] 6 10/08/2013 17:24:33 10/09/2013 07:25:18 Low back pain 095356931 [id number] Wander Hatch Physical [facility], [address] [address] 6 10/17/2013 15:52:07 10/20/2013 08:24:58 Low back pain 514525904 [id number] [place], [facility], OFFICE [address] [place] [address] 6 10/21/2013 10:39:31 10/21/2013 13:48:57 Benign essential hypertension 9226860 Blood pressure at goal with current regimen. Adult heal th examination 634592455 see Risk Assessment and Lifestyle Change Counseling section above. overall healthy 47 year old woman. hypertensi on at goal. Counseling [id number] Hypertriglyceridemia 145301952 discussed calculated risk. 10.04% risk with framingham calculator , 8% risk with AHA calculator . pt is motivated to focus on diet and exercise. will recheck in 6 months. [id number] Wander Hatch Physical [address] [address] 11/04/2013 07:00:11 11/04/2013 09:35:34 Low back pain 057489464 [id number] Wander Hatch Physical [facility], [address] [address] 6 11/11/2013 10:21:21 11/11/2013 11:28:42 Low back pain 464131574 [id number] Ruchi [place] Nutrition -[address] [address] 6 11/12/2013 11:19:11 11/14/2013 15:14:18 Mixed hyperlipidemia 710338286 [id number] Karena Pearson Physical [facility], [address] [address] 6 11/25/2013 06:53:03 11/25/2013 09:26:11 Low back pain 848913626 [id number] Carla Chopra NP FP, [facility], OFFICE [address] [place] [address] 6 12/02/2013 15:49:59 12/03/2013 08:50:23 Backache 127104342 tenderness right lower side. consistent with musclar spasm and sciatica. will trial muscle relaxor which pt has benefited from in the past. disucssed importance of continuing with PT. [id number] Sofía Baker PT Physical Therapy, [facility] [address] [place] [address] 6 12/12/2013 14:02:51 12/12/2013 15:26:12 Low back pain 834590233 [id number] Karena Pearson Physical [facility], [address] [address] 6 12/19/2013 13:20:11 12/22/2013 07:23:01 Low back pain 424676437 [id number] Sofía Baker PT Physical [facility], [address] [address] 6 12/30/2013 09:04:17 12/30/2013 10:39:29 Low back pain 916525930 [id number] Faye Perez MA , [facility], OFFICE [address] [place] [address] 01/13/2014 10:27:45 01/13/2014 13:47:51 Benign essential hypertension 4972635 Blood pressure at goal . continue with current regimen. Hyperlipidemia 11969546 ASCVD risk < 5%. not in statin benefit group per guidelines . [id number] Sofía Baker PT Physical [facility], [address] [address] 02/02/2014 15:39:27 02/04/2014 09:10:11 Low back pain 392419938 [id number] Sofía Baker PT Physical [facility], [address] [address] 6 02/13/2014 12:25:36 02/13/2014 13:09:48 Low back pain 618226740 [id number] Sofía Baker PT Physical Therapy, [address] [address] 6 03/05/2014 07:59:45 03/06/2014 07:29:53 Low back pain 109860954 [id number] Nikole Akhtar MA , [facility], OFFICE [address] [place] [address] 03/24/2014 16:16:21 03/30/2014 14:42:30 Acute upper respiratory infection 22689970 Educated patient that URI is a viral [...] albuterol. rx for albuterol given for home. [id number] Aline Boyer , [facility], OFFICE [address] [place] [address] 6 05/18/2014 10:43:41 05/19/2014 09:09:52 Suprapubic pain 442199456 Patient with mild suprapubic tenderness . No clinical evidence of acute abdomen. Urine dipstick negative other than microscopi c hematuria. Spun urine negative for casts. Ample hydration recommende d. Denies VB. Denies BRBPR/orestes na. Will monitor for any worsening symptoms. Microscopic hematuria 493285081 Microscopi c hematuria. States she was previously told to have microscopi c hematuria as well. Never followed up for this. No known history of nephrolith iasis. Intermitte nt periods since her IUD insertion. [id number] Sonia Cobb MA , [facility], OFF[address] [place] [address] 06/01/2014 17:27:04 06/03/2014 11:37:33 Urinary tract infectious disease 34235811 Push fluids f/u if no improvemen t in 72 hours or for fever or back pain. discussed follow up with urology for persistent hematuria. pt verbalized willingnes s to follow up as instructed . Dysuria 39617434 Patient instructed to push fluids, follow-up for worsening symptoms, back pain or fever. Urine culture sent. [id number] JACK Narvaez, [facility], OFFICE [address] [place] [address] 06/04/2014 08:43:49 06/04/2014 12:44:31 Acute urinary tract infection 101662574 cannot r/o pyelo although exam is reassuring . treat with 10d cipro, probiotics , fluids ,rest. urology apt tomorrow - to ER with inc pain, inability to pass urine. Senna for constipati on. note: ER note said urine culture showed Bactrim resistance and they advised Augmentin - pt advised to take the Cipro instead -likely better tolerated - probiotics , rtc prn [id number] JACK Narvaez, [facility], OFFICE [address] [place] [address] 6 08/28/2014 07:58:31 08/28/2014 08:28:02 Influenza vaccine needed [id number] 106 Backache 171679865 Pt wi th flare of thoracic area back pain [id number] Nikole Akhtar MA , [facility], OFF[address] [place] [address] 6 09/08/2014 07:57:24 09/08/2014 08:45:48 Vaginitis 83998742 sx care reviewed suggest avoiding scented products rtc prn [id number] Naeem More MD , [facility], OFF[address] [place] [address] 10/02/2014 16:56:52 10/02/2014 17:32:57 Benign essential hypertension 1327893 [id number] Nikole Akhtar MA , [facility], OFF[address] [place] [address] 6 10/16/2014 15:04:19 10/20/2014 09:05:14 Benign essential hypertension 6751437 Blood pressure NOT at goal. Med changes made RTC 1 month - sooner prn Gastroesop hageal reflux disease 358438271 stable with med [id number] Carla Chopra NP , [facility], OFF[address] [place] [address] 11/27/2014 09:57:11 11/30/2014 12:20:49 Backache 183235236 Patient presents to Urgent Care with acute [...] hematuria likely due to her current period. [id number] Deborah Vallejo MA , [facility], [address] [place] [address] 12/15/2014 08:18:40 12/15/2014 09:35:08 Cough 55739774 viral illness work release note sx and supportive care reviewed rtc prn sx persist or increase [id number] Karena cervantes [facility], OFFICE [address] [place] [address] 12/21/2014 07:40:38 12/23/2014 12:22:23 Cough 05088239 [id number] KATERYNA Martin , [facility], OFF[address] [place] [address] 6 03/22/2015 14:32:48 03/22/2015 15:20:17 External hordeolum 7820562 without site of pointing. Encourage warm compresses qid or more today and tomorrow. Expect poss. of drainage. F/u if not continuing to improve, if redness extends beyond this current area. [id number] [facility], OFFICE [address] [place] [address] 03/23/2015 14:32:41 03/23/2015 15:56:30 Adult health examination 417264165 see Risk Assessment and Lifestyle Change Counseling section above TC to policy writer typist group to see when IUD placed and date of last Pap Counseling 905470751 Backache 145988246 ERGON OMICS , POSTURE, HEAT EXERCISES GIVEN [id number] Carla Lee MA , [facility], [address] [place] [address] 04/21/2015 13:58:19 04/22/2015 11:56:33 Urinary tract infectious disease 45239668 pt presents with inconclusi ve UA, but symptoms feel like previous UTIs, will treat pending culture, risks of abx overuse reviewed. Push fluids f/u if no improvemen t in 72 hours or for fever or back pain. [id number] Sonia Cobb MA , [facility], [address] [place] [address] 05/05/2015 08:09:09 05/06/2015 08:41:26 Urinary tract infectious disease 11777497 Urine dipstick findings suggestive of UTI. Will send out UCx. Antibiotic treatment. Strategies in preventing future UTI discussed including ample oral hydration, frequent voiding, post-coita l voiding and avoidance of douching. Patient with pain, not responding to Acetaminop hen. Requesting pain management . Will prescribe Oxycodone prn. Advised to use sparingly. Short-term use discussed. Advised to contact the clinic if worsening symptoms. [id number] Julia jaime MA , [facility], [address] [place] [address] 06/15/2015 15:27:02 06/15/2015 15:53:37 Toothache 49604209 saline mouth rinses, codeine, rest work release note f/u with dentist [id number] Hazel ALBA, [facility], [address] [place] [address] 08/18/2015 12:06:50 08/19/2015 09:49:15 Lifestyle 629166407 Screening mammography 60158224 Labile ess ential hypertension 255997280 when pt is stressed, endorses elevated blood pressure readings with associated headache. no other cardiac symptoms and the symptoms resolve when situation passes. situation is occurring rarely (<1 x monthly) and bp is generally at goal. will trial propranolo l when symptoms occur. follow up with pcp after usage. [id number] Amara ALBA, [facility], [address] [place] [address] 08/31/2015 12:15:05 09/01/2015 08:25:15 Influenza vaccine needed 2072335963 106 Z28.3 Backache 800657231 M54.9 tenderness right lower side. consistent with musclar spasm and sciatica. will trial muscle relaxer which pt has benefited from in the past. discussed importance of continuing with PT. [id number] KATERYNA Martin , [facility], OFF[address] [place] [address] 11/01/2015 15:52:37 11/01/2015 17:06:20 Low back pain 639140126 M54.5 Screening for malignant neoplasm of breast 786107562 Z12.39 [id number] Sofía Baker , PT Physical Therapy, [facility] [address] [place] [address] 11/03/2015 12:19:15 11/03/2015 15:28:11 Low back pain 591125129 M54.5 [id number] Ronal Plasencia, OD [facility], [address] [address] 11/16/2015 14:10:37 11/16/2015 16:03:57 Ophthalmic examination and evaluation 96858102 Z01.00 Hypermetropia 29844104 H 52.03 Astigmatism 42529421 H52 .223 Presbyopia 72950489 H52. 4 [id number] mAara Pantoja , [facility], OFF[address] [place] [address] 12/14/2015 11:51:01 12/15/2015 11:05:20 Right upper quadrant pain 649747891 R10.11 pt reports pain similar to gallstone pain previously , colicky, denies s/s of infection, denies urinary symptoms. pain persisting not worsening. labs and images as ordered below. [id number] Carla Chopra NP , [facility], [address] [place] [address] 03/24/2016 13:07:18 03/24/2016 14:01:29 Screening mammography 41561204 Z12.31 Mixed hyperlipidemia 267 227121 E78.2 due for labs-remin ded Benign ess ential hypertension 2542485 I10 Blood pressure at goal Backache 846657420 M54.9 ERGONOMICS , POSTURE, HEAT TRIAL OF MELOXICAM QD 2WK, CYCLOBENZA ELZBIETA PRN RTC PRN [id number] Naeem More MD , [facility], OFF[address] [place] [address] 06/26/2016 14:59:02 06/26/2016 16:15:37 Nonulcer dyspepsia 1756491 K30 [id number] MELINA Bojorquez, [facility], [address] [place] [address] 07/26/2016 14:19:55 07/26/2016 15:25:14 Active or passive immunization 627345866 Z23 Benign ess ential hypertension 4677586 I10 Blood pressure at goalconsol idate med to single pill Gastroesop hageal reflux disease 542107341 K21.9 did not tolerate famotidine change to omeprazole , GERD precaution s Herpes simplex 75092752 B00.9 change to qd prophylaxi s dosing Migraine 18715155 G43.90 9 discussed optiosn for migraine prevention pt chooses to change propranolo l dosertc 2mos -call sooner with side effects or concerns [id number] MELINA Bojorquez, [facility], [address] [place] [address] 10/06/2016 10:37:09 10/10/2016 09:01:55 Benign essential hypertension 0451585 I10 Blood pressure at goal Adult heal th examination 895201471 Z00.00 see Risk Assessment and Lifestyle Change Counseling section above Counseling 230725593 Z71 .9 Gastroesop hageal reflux disease 739961362 K21.9 stable Screening for malignant neoplasm of cervix 247345927 Z12.4 Low back pain 644255236 M54.5 [id number] RAMO Miranda, [facility], [address] [place] [address] 10/18/2016 16:26:59 10/23/2016 11:40:37 Vaginitis 79028715 N76.0 per report pt was treated for vaginal infection in ER, notes not available for review. mirena was removed 2 months ago. symptoms improving, tolerating abx. no s/e. abdominal exam reassuring . continue treatment per ER visit. [id number] RAMO Miranda, [facility], [address] [place] [address] 11/10/2016 15:02:20 11/14/2016 10:35:06 Urinary tract infectious disease 89029516 N39.0 pt recently treated for pyelo diagnosed clinically at ER.reports compliance with abx, 2 days ago reoccurren ce of bladder discomfort , fullness, frequency and similar pain, UA inconclusi ve, treat with cipro while culture pending. [id number] RAMO Miranda , [facility], [address] [place] [address] 2016 13:27:43 11/30/2016 12:39:29 Increased blood pressure 69246715 R03.0 pt with multiple reading of BP above goal, associated headache. no underlying etiology to explain elevation. ekg reassuring , increase lisinopril , cont to monitor bp outside of office, labs as ordered below. [id number] RAMO Miranda, [facility], [address] [place] [address] 03/05/2017 15:30:46 03/05/2017 15:54:52 Diarrhea 62417415 R19.7 1 day of non bloody diarrhea.n o fever or painsuppor tive measures reviewed.c all for worsening symptoms or failure. to improve [id number] Karin Vela NP , [facility], [address] [place] [address] 03/15/2017 08:22:24 03/15/2017 09:06:35 Thoracic back pain 779877490 M54.6 Right sided for 4 days without trauma. Negative exam. Old MRI and xrays reviewed. Inst to apply heat or ice PRN. Continue with naprosyn BID. [id number] RAMO Miranda , [facility], [address] [place] [address] 03/19/2017 09:37:18 03/20/2017 09:51:41 Spasm of back muscles 370805890 M62.830 paraspinal spasm, advised massage, water, continue tylenol and alleve.enc ouraged ROM but not weight bearingupd ate if pain does not improvewor k note for today - wed given. [id number] MELINA Bojorquze, 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 Aim for regular walks outside. PT if needed. [id number] Jennifer Alfonso CMA , [facility], [address] [place] [address] 08/20/2017 15:10:08 08/20/2017 16:25:02 Urinary tract infectious disease 97043790 N39.0 Patient instructed to push fluids, to follow up for persistent or worsening symptoms or fever or back pain. Active or passive immunization 359014914 Z23 [id number] Parker Luna OD [facility], [facility] [address] [place] [address] 10/05/2017 13:08:20 10/05/2017 14:41:08 Regular astigmatism 18033606 H52.223 Presbyopia 44271063 H52. 4 Health Concerns Section Related Observation LastModified by Organization Detai ls LastModified Time None Recorded Concern Status LastModified by Organization Details LastModified Time None Recorded Advance Directives Directive N: Payers Encounter Date Sequence Insurance Name Policy Number Policy Spear Covered Member ID Spear Member ID Guarantor Name 03/15/2017 1 [place] Katherin Diallo [id number] Katherin Diallo 03/19/2017 1 [place] Katherin Diallo [id number] Katherin Diallo 04/12/2017 1 [place] Katherin Diallo [id number] Katherin Diallo 08/20/2017 1 [place] Katherin Diallo [id number] Katherin Diallo 10/05/2017 1 [place] Katherin Diallo [id number] Katherin Diallo Notes Date Note Type Note [...] a little bit of benefit.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 Lots of twisting motion Karin Vela, MELINA [address] [place], [address], [facility]/15/2017 09:12:16 03/19/2017 text/html pt presents with pain in lung bothers pt when breathes, cannot sleep,has to sleep sitting up. pt points to right side of shoulder, inbetween spineno unusual popping or clickingmassage helps. pt taking tylenol did not take alleve.still bothered pt. breath is painful. Imani Holliday, [facility] [address] [place], [address], [facility] [place] 03/19/2017 10:03:34 04/12/2017 text/html Katherin reports ongoing back pain. WHen seen at [facility], it was recommended she have a BMD. SHe continues to work at strenuous job. Takes naproxen and flexeril as needed, not daily. No GI sx.BP in good control, nonsmoker. States takes meds as directed.Needs some med refills. Carla Chopra NP [address] [place], [address], [facility] [place] 04/13/2017 07:30:47 08/20/2017 text/html a VMG Dysuria ur inary symptomsReported bypatient.Duration:Sy mptoms began 1 days ago Severity:Symptoms are moderate Associated Symptoms:Burning on urination;Urinary frequency; Chills, no fever, some mild nausea Context:Symptoms similar to previous UTI's TIFFANIE Maharaj, [facility] 08/22/2017 09:26:52 10/05/2017 text/html Comprehensive Ey e ExamReported bypatient.Quality:2 year exam;blurred vision near with glasses Location:bilateral Context:currently wears glasses Modifying factors:wears glasses for distance and near Associated Symptoms:no redness; no itching; no floaters; no dryness C/O Blurry near vision Parker Luna, OD [address] [place] [address], [phone], [facility] [place] 14:20:18 OBGyn Episode No OBEpisode recorded.
== END 2025-01-05 12:07 | disposition home or self-care (01) ==
PROVIDERS: PCP Internal Medicine; Visit Provider Internal Medicine
DX: S43.402A Unspecified sprain of left shoulder joint, initial encounter (principal); R07.89 Other chest pain

== ENCOUNTER → 2025-01-05 11:10 | Outpatient (BNVA) | payer OTHER, SELFPAY | PROVIDERS: PCP Internal Medicine; Visit Provider Internal Medicine | DX: R07.89 Other chest pain (principal); S43.402A Unspecified sprain of left shoulder joint, initial encounter | CPT/HCPCS: 99212 ==

== ENCOUNTER 2025-01-20 11:39 | Outpatient (AMB) | payer OTHER, SELFPAY ==
[2025-01-20 12:27] VITALS: BP 136/78; PULSE 68; RESP 15; TEMP 36.7; O2SAT 96; BMI 29.9
--- NOTE | 2025-01-20 12:28 | MHC.PC.OV ---
Vital Signs 01/20/25 12:27 Height 5 ft 3 in Weight 169 lb BMI 29.9 BP 136/78 Blood Pressure Location Lt brachial Position Sitting Respiration 15 Pulse 68 Pulse Source Pulse Oximeter Temp 98.0 F Temp Source Oral Pulse Oximetry (%) 96 Oxygen Delivery Method Room Air Comment Only taking lisinopril but not taking her amlodipine prescription Intake Visit Reasons: Hypertension Intake Note: Pt is here today for her f/u HTN Allergies ibuprofen Adverse Reaction (Unknown, Verified 01/20/25 12:25) stomach upset Medication List - Last Reconciled 01/20/25 by Felicitas Burkett MD acetaminophen 1,000 mg (2 x 500 mg) PO Q6H PRN ascorbic acid (vitamin C) mg PO cetirizine 10 mg PO DAILY PRN cyclobenzaprine 10 mg PO TID lisinopril 40 mg PO DAILY omega-3 fatty acids (Fish Oil Concentrate) 1,000 mg PO DAILY valacyclovir 500 mg PO DAILY Tobacco use date assessed: 01/20/25 Dental Screening Dental Screen Date: 01/20/25 Did you have a dental visit in the last 12 months?: Yes Did you have a dental problem in the last 6 months where you did not have access to dental care?: No Was dental information given to patient?: Patient has dentist HPI Hypertension HPI Details 59-year-old lady with past medical history for hypertension, and dyslipidemia, here today for follow-up. Patient states that she has only been taking lisinopril 40 mg daily, but has been out of her amlodipine now for almost a year. She also states that she has not been on rosuvastatin now for more than a year. Last fasting lipids showed markedly elevated lipid levels in 10/15/2024. Denies any chest pain but has been complaining of heaviness in the head and bounding pulses in her neck, worse when she is lying down. Denies any palpitations, no shortness of breath. No lightheadedness. She has been trying to follo a low-ashley diet , but has not been getting any regular exercise.. [facility] Medical History Chronic thoracic back pain Recurrent cold sores Vitamin D deficiency Postprandial abdominal bloating Epigastric abdominal pain Cervical cancer screening Annual visit for general adult medical examination with abnormal findings Muscle strain of upper back Impaired fasting glucose GERD (gastroesophageal reflux disease) Normal Pap smear Stress incontinence of urine Essential hypertension Carpal tunnel syndrome Plantar fasciitis Migraine Mixed dyslipidemia Surgical History Hx of cholecystectomy Family History Father Bone cancer Mother History of hernia repair HTN (hypertension) Diabetes mellitus Brother Diabetes mellitus HTN (hypertension) Substance use disorder Maternal Grandfather Unknown family medical history Maternal Grandmother Unknown family medical history Paternal Grandfather Unknown family medical history Paternal Grandmother Unknown family medical history Sister No problems noted. Sister No problems noted. Daughter No problems noted. Daughter No problems noted. Son No problems noted. Brother No problems noted. Brother No problems noted. Brother No problems noted. Brother No problems noted. Social History Housing: Apartment Alcohol intake: current Alcohol intake frequency: does not drink Patient Tobacco Use Status: Former Tobacco user Years Smoked: 2 yrs e-Cigarette/Vaping Use: Never Used Second Hand Smoke Exposure: No service: No Current occupational status: employed Cognitive needs: No Hearing needs: No Vision needs: Yes (Glasses) Questionnaire PHQ-9 Over the last 2 weeks, how often have you been bothered by any of the following problems? 1. Little interest or pleasure in doing things: not at all 2. Feeling down, depressed, or hopeless: not at all 3. Trouble falling or staying asleep, or sleeping too much: not at all 4. Feeling tired or having little energy: not at all 5. Poor appetite or overeating: not at all 6. Feeling bad about yourself - or that you are a failure or have let yourself or your family down: not at all 7. Trouble concentrating on things, such as reading the newspaper or watching television: not at all 8. Moving or speaking so slowly that other people could have noticed. Or the opposite - being so fidgety or restless that you have been moving around a lot more than usual: not at all 9. Thoughts that you would be better off or of hurting yourself in some way: not at all Total score: 0 Depression Screening Interpretation: Negative Depression Screening Done: Yes 78193 - PHQ-9 Billing: Yes Source: Developed by Drs. Luis Fung, Elen Menon, Conrado Iyer and colleagues, with an educational rao from Let. Thrive Questionnaire Date Thrive assessed: 01/13/25 I am a: Patient What is your living situation today?: I have a steady place to live Within the past 12 months, did the food you bought not last and you didn't have the money to get more?: Sometimes True Within the past 12 months, did you worry whether your food would run out before you got money to buy more?: Sometimes True Do you have trouble paying for medicines?: No Do you have trouble getting transportation to medical appointments?: No Do you have trouble paying your heating and electricity bill?: No Do you have trouble taking care of your child, family member or friend?: No Do you have trouble with day-to-day activities such as bathing, preparing meals, shopping, managing finances, etc.?: No Are you currently unemployed and looking for a job?: No Are you interested in more education?: No Please select the resources that you would like help with: Housing/Penitentiary and Utilities Currently or been in a relationship where the following occur: I choose not to answer THRIVE Score: 2 AUDIT C Alcohol Use Questionnaire (AUDIT-C) 1. How often do you have a drink containing alcohol?: Never 3. How often do you have six or more drinks on one occasion?: Never Total Score: 0 DUY-7 AMB Questionnaire DUY-7 Date DUY - 7 assessed: 11/03/24 Feeling nervous, anxious, or on edge: 0 = Not at all Not being able to stop or control worryin = Not at all Worrying too much about different things: 0 = Not at all Trouble relaxin = Not at all Being so restless that it is hard to sit still: 0 = Not at all Becoming easily annoyed or irritable: 0 = Not at all Feeling afraid as if something awful might happen: 0 = Not at all Total DUY-7 score (0-4 normal; 5-9 mild; 10-14 moderate; 15-21 severe): 0 Source: Developed by Elen Smith B.W. Sinan, Conrado Iyer and colleagues, with an educational rao from Let. DUY-7 Assessment Billing DUY-7 Assessment Tool: DUY-7 Assessment 09187 Review of Systems Const Denies body aches ENT Denies nasal congestion Card Denies chest pain, Denies lightheadedness and Denies dyspnea Resp Denies chest congestion, Denies cough, Denies dyspnea and Denies wheezing GI Denies change in bowel habits Denies urinary frequency, Denies dysuria and Denies urinary urgency Musc Reports no additional complaints Neuro Reports no additional complaints Psych Reports no additional complaints Endo Reports no additional complaints Arben/Lymph Reports no additional complaints Aller/Immun Denies wheezing Physical exam (Primary Care) Vital Signs: Last Vital Signs Temp 98.0 F 01/20/25 12:27 Pulse 68 01/20/25 12:27 Resp 15 01/20/25 12:27 BP 136/78 01/20/25 12:27 Pulse Ox 96 01/20/25 12:27 Oxygen Delivery Method Room Air 01/20/25 12:27 BMI result Body Mass Index 29.9 BMI Assessment/Plan discussion: High BMI High, discussed plan: lifestyle, weight reduction, dietary and physical activity Tobacco/Smoking Status: Tobacco use Status Tobacco use date assessed 01/20/25 01/20/25 12:29 Patient Tobacco Use Status Former Tobacco user 01/20/25 12:29 e-Cigarette/Vaping Use Never Used 01/20/25 12:29 PHQ-9: PHQ-9 Score PHQ-9: Total score 0 01/20/25 12:48 Depression Screening Interpretation: Negative Thrive Assessment: Date of Thrive Assessment Date Thrive assessed 01/13/25 01/20/25 12:29 Currently or been in a relationship where the following occur: I choose not to answer Const Other: Alert oriented x3, no acute cardiorespiratory distress noted ambulatory normal gait Nutritional Appearance: obese Orientation/consciousness: patient oriented x3 HENMT Face and sinus: Yes face symmetric Neck Neck: Yes full ROM, Yes no lymphadenopathy and Yes supple Resp Effort & Inspection: normal respiratory effort Auscultation: clear to auscultation bilaterally Cardio Other: S1-S2 present regular rate and rhythm Bruits: no abdominal aortic bruits and no carotid bruits GI Palpation (GI): No Abdominal aortic bruit present Skin General skin exam: no rashes or lesions noted Neuro General: patient oriented x3, gait normal, tone normal, moves all extremities, Normal light touch and pain sensation, no focal motor deficits and CN's II-XI intact bilaterally Extrem General: Yes full ROM, Yes no joint enlargement, Yes no clubbing, cyanosis or edema, Yes no calf tenderness and Yes normal gait Results Reviewed Results Reviewed: Name: Katherin Diallo Age/Sex: 59/F : 1965 Unit#: [id number] Attend Dr: Zafar Wilson DO Re12/28/24 [facility]: [facility] SPEC : [id number] LANCE: 12/28/24 STATUS: COMP REQ : [id number] RECD: 12/28/[address]: Chris Aldana COMP: 12/28/24 ENTERED: 12/28/[address]: Felicitas Burkett MD ORDERED: CBC Auto Diff Test Result Flag Reference WBC 9.0 4.8-10.8 X10*3/uL RBC 4.91 4.20-5.50 X10*6/uL HGB 14.7 12.0-16.0 g/dl HCT 43.9 37.0-47.0 % MCV 89.4 80.0-98.0 fL MCH 29.9 27.0-33.0 pg MCHC 33.5 31.0-35.0 g/dl RDW 13.6 11.0-16.0 % PLT 287 160-400 X10*3/uL MPV 9.4 9.4-12.3 fL Neut Pct Auto 68.2 45-73 % ImGran Pct Auto 0.2 0.0-0.4 % Lymp Pct Auto 21.8 20-40 % [place] Pct Auto 8.0 2-11 % Eos Pct Auto 1.4 0-4 % Baso Pct Auto 0.4 0-2 % NRBC Pct Auto 0.0 0.0-0.2 /100WBC ANC Neut Abs # 6.1 2.0-8.3 x10*3/uL ImGran Abs Auto 0.02 0.00-0.03 X10*3/uL Lymph Abs Auto 2.0 1.2-4.9 X10*3/uL [place] Abs Auto 0.7 0.1-1.2 X10*3/uL Eos Abs Auto 0.1 0.0-0.4 X10*3/uL Baso Abs Auto 0.0 0.0-0.2 X10*3/uL NRBC Abs Auto 0.000 0.0-0.012 X10*3/uL Name: Katherin Diallo Age/Sex: 59/F : 1965 Unit#: [id number] Attend Dr: Zafar Wilson DO Re12/28/24 Status: [facility] SPEC : [id number] LANCE: 12/28/24 STATUS: COMP REQ : [id number] RECD: 12/28/[address]: Chris Aldana COMP: 12/28/24 ENTERED: 12/28/[address]: Felicitas Burkett MD ORDERED: CMP Test Result Flag Reference Sodium 142 135-145 mmol/L Potassium 4.6 3.3-5.1 mmol/L Slight Hemolysis.Interpret result with caution. CL 109 H 96-108 mmol/L CO2 23 22-29 mmol/L Gap 15 12-20 BUN 10 9-16 mg/dL Creat 0.66 0.5-1.4 mg/dL Estimated CrCl 88.5 Provided height and weight: 160.02 cm, 76 kg. eGFR (calculated from the MDRD study equation) and eCrCl (calculated from the Cockcroft-Gault equation) are based on different parameters and may not yield comparable results. If eCrCl result is absurd, please check patient's height/weight. eGFR > 60 Chronic Kidney Disease: Estimated GFR < 60 mL/min/1.73m2 Severe Kidney Disease: Estimated GFR < 15 mL/min/1.73m2 Glucose, Random 92 60-115 mg/dL CA 10.5 # H 8.4-10.2 mg/dL Total Bili 0.4 0.0-1.0 mg/dL AST (GOT) 34 H 5-31 U/L Slight Hemolysis.Interpret result with caution. ALT (GPT) 24 0-31 U/L Protein, Total 8.7 H 6.5-8.0 g/dL Alb 4.7 3.5-5.0 g/dL Alk Phos 78 39-117 U/L Name: Katherin Diallo Age/Sex: 59/F : 1965 Unit#: [id number] Attend Dr: Zafar Wilson DO Re12/28/24 Status: DEP ER Location: [facility] Disch: SPEC : [id number] LANCE: 12/28/24 STATUS: COMP REQ : [id number] RECD: 12/28/[address]: Chris Aldana COMP: 12/28/24 ENTERED: 12/28/24-[address]: Felicitas Burkett MD ORDERED: CMP Test Result Flag Reference Sodium 142 135-145 mmol/L Potassium 4.6 3.3-5.1 mmol/L Slight Hemolysis.Interpret result with caution. CL 109 H 96-108 mmol/L CO2 23 22-29 mmol/L Gap 15 12-20 BUN 10 9-16 mg/dL Creat 0.66 0.5-1.4 mg/dL Estimated CrCl 88.5 Provided height and weight: 160.02 cm, 76 kg. eGFR (calculated from the MDRD study equation) and eCrCl (calculated from the Cockcroft-Gault equation) are based on different parameters and may not yield comparable results. If eCrCl result is absurd, please check patient's height/weight. eGFR > 60 Chronic Kidney Disease: Estimated GFR < 60 mL/min/1.73m2 Severe Kidney Disease: Estimated GFR < 15 mL/min/1.73m2 Glucose, Random 92 60-115 mg/dL CA 10.5 # H 8.4-10.2 mg/dL Name: Katherin Diallo Age/Sex: 58/F : 1965 Unit#: [id number] Attend Dr: Felicitas Burkett MD Re11/10/24 Status: DEP REF Location: [facility] Disch: SPEC : [id number] LANCE: 11/10/24 STATUS: COMP REQ : [id number] RECD: 11/10/[address]: Felicitas Burkett MD COMP: 11/10/24 ENTERED: 11/10/24 [facility] DR: ORDERED: Met Prof Fast, AST, ALT, Lipid Panel, Vitamin D 25-OH Test Result Flag Reference Sodium 141 135-145 mmol/L Potassium 4.3 3.3-5.1 mmol/L CL 106 96-108 mmol/L CO2 27 22-29 mmol/L Gap 12 12-20 BUN 14 9-16 mg/dL Creat 0.74 0.5-1.4 mg/dL eGFR > 60 Chronic Kidney Disease: Estimated GFR < 60 mL/min/1.73m2 Severe Kidney Disease: Estimated GFR < 15 mL/min/1.73m2 FBS 100 H 60-99 mg/dL A fasting glucose from 100-125 mg/dl is considered impaired (pre-diabetes). CA 9.9 8.4-10.2 mg/dL AST (GOT) 33 H 5-31 U/L ALT (GPT) 29 0-31 U/L Triglyceride 202 H <150 mg/dL Desirable Triglyceride: less than 150 mg/dL Borderline High Triglyceride 150-199 mg/dL High Triglyceride: 200-499 mg/dL Very High Triglyceride: greater than or equal to 5OO mg/dL Cholesterol 261 H <200 mg/dL Desirable Cholesterol: less than 200 mg/dL Borderline High Cholesterol: 200-239 mg/dL High Cholesterol: greater than 239 mg/dL LDL Calculated 180 H <100 mg/dL Desirable LDL: less than 100 mg/dL Near Optimal/Above Optimal LDL: 110-129 mg/dL Borderline High LDL: 130-159 mg/dL High LDL: 160-189 mg/dL Very High LDL: greater than or equal to 190 mg/dL HDL 41 >40 mg/dL Desirable HDL: greater than 40 mg/dL Note: This HDL assay may give artificially low results in patients with liver disease. Vit D 25-OH Tot 63.4 >30 ng/mL Health Based Reference Values* < 20 ng/mL Deficient 20-30 ng/mL Insufficient > 30 ng/mL Sufficient Total Bili 0.4 0.0-1.0 mg/dL AST (GOT) 34 H 5-31 U/L Slight Hemolysis.Interpret result with caution. ALT (GPT) 24 0-31 U/L Protein, Total 8.7 H 6.5-8.0 g/dL Alb 4.7 3.5-5.0 g/dL Alk Phos 78 39-117 U/L Coding Level of Care Code Est Pt Level 4 (39142) Diagnoses Mixed dyslipidemia E78.2 Essential hypertension I10 Additional Codes PHQ-9 - 14795 - PHQ-9 Billing: Yes ([id number]) DUY-7 Assessment Billing - DUY-7 Assessment Tool: DUY-7 Assessment 25853 ([id number]) Assessment & Plan Assessment & Plan (1) Mixed dyslipidemia: Code(s): E78.2 - Mixed hyperlipidemia Category: Medical Plan: Restarted back on rosuvastatin 5 mg per tablet taken once a day. Reinforced importance of following a low-cholesterol diet and getting regular exercise repeat fasting lipids in 05/2025 (2) Essential hypertension: Code(s): I10 - Essential (primary) hypertension Category: Medical Plan: Blood pressure not at goal of less than 130/80. Continue with lisinopril 40 mg daily in a.m. and restarted back on amlodipine 5 mg once a day at supper time.. Reinforced importance of following a low sodium diet, getting regular exercise, and lowering stress levels[place] [address] after fasting labs done Medications: Refilled rosuvastatin 5 mg PO DAILY 30 tabs 5RF amlodipine 5 mg PO DAILY 30 tabs 5RF
--- OUTSIDE RECORDS SUMMARY | 2025-01-20 14:18 | XMS_ITS | Data Portability ---
Author Organization [facility] [address] Address [address] [place] [address] Assessment No assessment recorded. Plan of Treatment Reminders Order Date Submit Date Provider Last Modified By Organization Details Last Modified Time Details Appointments None recorded. Lab None recorded. Referral None recorded. Procedures None recorded. Surgeries None recorded. Imaging None recorded. Medication Orders prednisone 10 mg tablet 2022 023 [id number], [address] [facility], [place], [address], 19:46:29 Patient TargetsNo targets recorded. Patient Instructions Encounter Date Encounter Id Patient Instructions Last Modified By Organization Details Last Modified Time 12/28/2022 [id number] meralgia paresthetica: care instructions [email or web address] Not available 12/28/2022 19:46:26 hip flexor strai n: rehab exercises [email or web address] Not available 12/28/2022 19:46:26 You have been [...] Fever or vomiting. Thank you for using [facility], please call if you have any questions or concerns. [email or web address] Not available 12/28/2022 19:46:25 Reason for Referral None Reported. Problems Name Problem SNOMED Code Status Onset Date Resolution Date Notes Provider Name and Address Organization Details Recorded Time Essential hypertension 90343064 Active 2022 DALE [place]ott [place] - [facility] [...] Updated DateTime 3 162.56 cm 30.2 kg/m2 67946.2 6 g 97.6 [degF] 18 /min 74 /min 97 % 97 % 148 mm[Hg] 88 mm[Hg] DALE AVENDAÑO - [facility] 3 18:59:22 Social History Question Answer Notes LastModified by [employer] ion Details LastModified Time Tobacco Smoking Status [...] SNOMED-CT Code Diagnosis ICD10 Code Diagnosis Note [id number] [facility] [address] [place] [id number] 03/29/2021 08:07:49 03/29/2021 09:01:21 [id number] [facility] [address] [place] [phone] 11/02/2019 14:08:05 11/02/2019 15:06:01 [id number] [facility] [address] [place] [phone] 12/28/2022 17:09:20 12/28/2022 19:48:45 Essential hypertension 67393044 I10 Blood pressure was mildly elevated- most likely due to the pain. follow up with your PCP if still elevated. Meralgia p aresthetica of right leg [id number] 62568 G57.11 Physical Therapy Advised - Script Written Health Concerns Section Related Observation LastModified by Organization Detai ls LastModified Time None Recorded Concern Status LastModified by Organization Details LastModified Time None Recorded Advance Directives Directive None Recorded Payers Encounter Date Sequence Insurance Name Policy Number Policy Spear Covered Member ID Spear Member ID Guarantor Name 11/02/2019 1 [facility] [employer] (HMO) BETZY iDallo [id number] Katherin Diaz 03/29/2021 1 [facility] [employer] (HMO) BETZY Diallo [id number] Katherin Diaz 12/28/2022 1 [facility] NET PLAN (MEDICAID HMO) BETZY Pandey Diallo [id number] Katherin Yoel Notes Date Note Type Note [...] No bowel or bladder incontinance. KATERYNA MOY [facility] [place], [address], [place] - [facility] 12/28/2022 23:04:28 OBGyn Episode No OBEpisode recorded.
--- OUTSIDE RECORDS SUMMARY | 2025-01-20 14:19 | XMS_ITS | Data Portability ---
Author Organization [facility], , [facility] Address [address] [place] [address] Care Team Providers Care Catalogue Illustrator Name Role Phone SOFÍA BAKER Phys. Med. & Rehab [phone] CARLA CHOPRA Primary Care Provider [phone] IMANI HOLLIDAY Primary Care Provider JUAN Hughes Urologist Assessment No assessment recorded. Plan of Treatment Reminders Order Date Submit Date Provider Last Modified By Organization Details Last Modified Time Details Appointments None recorded. Lab culture, urine 2016 017 [facility], [address] [place], [address], 7 22:01:03 Referral None recorded. Procedures None recorded. Surgeries None recorded. Imaging bone density 2016 017 [facility] (Imaging), [address], [place], [address], 7 13:27:32 XR, thoracic spine - right sided mid back pain without trauma. r/o compressio n fracture, worsening arthritis 2016 017 [facility] (Imaging), [address] [place], [address], 7 15:07:55 Medication Orders Macrobid 100 mg capsule 2016 017 [id number], [address] [facility], [place], [address], 7 15:58:50 valacyclov ir 500 mg tablet 2016 017 INTERFACE [facility], [address] [place], [address], 7 08:49:26 Vitamin D3 25 mcg (1,000 unit) capsule 2016 017 INTERFACE [facility], [address] [place], [address], 7 08:49:25 famotidine 20 mg tablet 2016 017 INTERFACE [facility], [address] [place], [address], 7 08:49:25 tizanidine 4 mg tablet 2016 017 INTERFACE [facility], [address] [place], [address], 7 09:55:33 cyclobenza elzbieta 5 mg tablet 2016 [facility] [address] [place], [address], 7 09:08:42 Patient TargetsNo targets recorded. Patient Instructions Encounter Date Encounter Id Patient Instructions Last Modified By Organization Details Last Modified Time 03/15/2017 [id number] Pt has appt already scheduled with PCP next month. [email or web address] Not available 03/15/2017 09:10:37 08/20/2017 [id number] -Push fluids -Make sure you're emptying your bladder when you need to go -Take medication twice daily for a week UNLESS we call you and tell you to stop taking it [email or web address] Not available 08/20/2017 15:58:47 10/05/2017 [id number] RX given for glasses Eyes are healthy and work well together. Return to office in 2 years or sooner as needed. [email or web address] Not available 10/05/2017 14:19:53 Reason for Referral None Reported. Results Created Date Observation Date Name Description Value Unit Range Abnormal Flag Note LastModifiedBy Organization Detail LastModifiedTime 08/20/20 17 08/20/2017 POC UA glu UA Negati ve Not Available [address], [address], 08/20/2017 15:58:07 08/20/20 17 08/20/2017 POC UA clarity UA Clear Not Available [address], [address], 08/20/2017 15:58:07 08/20/20 17 08/20/2017 POC UA uro UA 0.2000 Not Available [address], [address], 08/20/2017 15:58:07 08/20/20 17 08/20/2017 POC UA ket UA Negati ve Not Available [address], [address], 08/20/2017 15:58:07 08/20/20 17 08/20/2017 POC UA pro UA Negati ve Not Available [address], [address], 08/20/2017 15:58:07 08/20/20 17 08/20/2017 POC UA nit UA Negati ve Not Available [address], [address], 08/20/2017 15:58:07 08/20/20 17 08/20/2017 POC UA jesus UA Negati ve Not Available [address], [address], 08/20/2017 15:58:07 08/20/20 17 08/20/2017 POC UA pH UA 6.0000 Not Available [address], [address], 08/20/2017 15:58:07 08/20/20 17 08/20/2017 POC UA SG UA <=1.00 50 Not Available [address], [address], 08/20/2017 15:58:07 08/20/20 17 08/20/2017 POC UA color UA Yellow Not Available [address], [address], 08/20/2017 15:58:07 08/20/20 17 08/20/2017 POC UA blo UA Trace- lysed Not Available [address], [address], 08/20/2017 15:58:07 08/20/20 17 08/20/2017 POC UA kumar UA Negati ve Not Available [address], [address], 08/20/2017 15:58:07 08/20/20 17 08/21/2017 cultu re, urine culture, urine, routine CULTU RE, URINE , ROUTI NE MICRO NUMBE R: [id number] TEST STATU S: FINAL SPECI MEN SOURC E: URINE SPECI MEN QUALI TY: ADEQU ATE RESUL T: No Growt h Not Available [facility] [address] [place] [address] [address], [place], [address], 08/21/2017 22:01:03 03/15/20 17 03/15/2017 XR, thora [...] Readchemo jj Physic jack: Jermaine Diaz [email or web address] [facility] (Imaging) [address], [place], [address], 03/16/2017 16:34:43 05/20/20 17 05/17/2017 bone densi [...] Readin g Physic jack: Harsh Donovan MD [facility] (Imaging) [address], [place], [address], 06/06/2017 11:04:39 Result Notes None recorded. Problems Name Problem SNOMED Code Status Onset Date Resolution Date Notes Provider Name and Address Organization Details Recorded Time Mixed hyperlipid emia 534052955 Completed 200810/06/2016 Carla Chopra NP [address] [place] [address], [address] , [facility] 6 15:25:18 Urinary incontinen ce 890347304 Active 2008 KATERYNA Martin [address] [place] [address], [address] , [facility] 5 16:09:22 Carpal tunnel syndrome 89154198 Active 2008 KATERYNA Martin [address] [place] [address], [address] , [facility] 5 16:09:22 Gastroesop hageal reflux disease 988529636 Active 2008 KATERYNA Martin [address] [place] [address], [address] , [facility] 5 16:09:22 Lateral epicondyli tis 901841691 Completed 10/15/2013 KATERYNA Martin [address] [place] [address], [address] , [facility] 5 16:09:22 Lateral epicondyli tis 200357167 Completed 200603/03/2011 KATERYNA Martin [address] [place] [address], [address] , [facility] 5 16:09:22 Right lower quadrant pain 031931153 Completed 200703/03/2011 KATERYNA Martin [address] [place] [address], [address] , [facility] 5 16:09:22 Right upper quadrant pain 090659879 Completed 200703/03/2011 KATERYNA Martin [address] [place] [address], [address] , [facility] 5 16:09:22 Urinary tract infectious disease 86054861 Completed 200703/03/2011 KATERYNA Martin [address] [place] [address], [address] , [facility] 5 16:09:22 Benign essential hypertensi on 3590669 Active Carla Chopra NP [address] [place] [address], [address] , [facility] 6 06:15:28 Benign essential hypertensi on 3368951 Completed 200607/05/2012 KATERYNA Martin [address] [place] [address], [address] , [facility] 5 16:09:22 Other Completed 10/15/2013 KATERYNA Martin [address] [place] [address], [address] , [facility] 5 16:09:22 Plantar fasciitis 264217709 Active KATERYNA Martin [address] [place] [address], [address] , [facility] 5 16:09:22 Abdominal pain 72048331 Completed 200703/03/2011 KATERYNA Martin [address] [place] [address], [address] , [facility] 5 16:09:22 Mittelschm erz 69946943 Completed 200703/03/2011 KATERYNA Martin [address] [place] [address], [address] , [facility] 5 16:09:22 Low back pain 458375775 Active 2008 Sofía Baker , PT [address] [place], [address] , [facility] 5 15:19:28 Dysuria 95505680 Completed 200703/03/2011 KATERYNA Martin [address] [place] [address], [address] , [facility] 5 16:09:22 Pain in limb 55127016 Completed 200703/03/2011 KATERYNA Martin [address] [place] [address], [address] , [facility] 5 16:09:22 Malaise and fatigue 333288944 Completed 200703/03/2011 KATERYNA Martin [address] [place] [address], [address] , [facility] 5 16:09:22 External hordeolum 9118199 Completed 10/06/2016 Carla Chopra NP [address] [place], [address] , [facility] 6 15:25:27 Problem Notes None recorded. Procedures Surgical History Date Name Laterality Status Provider Name and Address Organization Details Recorded Time 08/20/20 17 POC Urinalysis Testing completed Chery Pack LPN [facility] 08/20/2017 15:41:16 11/10/20 16 POC Urinalysis Testing completed Tiff Guaman [facility] 11/10/2016 15:30:22 10/06/20 16 IUD Removal completed Carla Chopra NP [address] [place], [address], [facility] 10/06/2016 11:31:24 11/16/20 15 Refraction completed Demi Monge [facility] 11/16/2015 14:49:53 11/03/20 15 85690: PT Evaluation completed Sofía Baker, PT [address] [place], [address], [facility] 11/03/2015 15:19:30 03/24/20 14 Nebulizer Tx completed Brook Shetty LPN [facility] 03/24/2014 16:48:23 03/05/20 14 25746: Therapeutic Exercise completed Sofía Baker, PT [address] [place], [address], [facility] 03/06/2014 07:26:23 12/30/19 14 Treatment and Advice completed Sofía Baker, PT [address] [place], [address], [facility] 12/30/2013 09:32:27 12/19/19 14 Treatment and Advice completed Sofía Baker, PT [address] [place], [address], [facility] 12/19/2013 14:07:27 12/12/19 14 Treatment and Advice completed Sofía Baker, PT [address] [place], [address], [facility] 12/12/2013 15:06:06 11/25/20 13 Treatment and Advice completed Sofía Baker, PT [address] [place], [address], [facility] 11/25/2013 07:25:48 10/17/20 13 Treatment and Advice completed Sofía Baker, PT [address] [place], [address], [facility] 10/17/2013 16:36:32 09/22/20 13 Treatment and Advice completed Sofía Baker, PT [address] [place], [address], [facility] 09/22/2013 11:05:52 09/18/20 13 Treatment and Advice completed Sofía Baker, PT [address] [place], [address], [facility] 09/18/2013 12:26:36 09/15/20 13 Treatment and Advice completed Sofía Baker, PT [address] [place], [address], [facility] 09/15/2013 12:05:17 03/26/20 13 Treatment and Advice completed Sofía Baker, PT [address] [place], [address], [facility] 03/26/2013 11:26:58 04/12/20 11 IUD Insertion completed Santhosh Copeland MD [address] [place], [address], [facility] 04/12/2011 17:43:17 04/12/20 11 IUD Removal completed Santhosh Copeland MD [address] [place], [address], [facility] 04/12/2011 17:43:17 08/05/20 09 Treatment and Advice completed Sofía Baker, PT [address] [place], [address], [facility] 08/05/2009 11:29:26 07/30/20 09 Treatment and Advice completed Sofía Baker, PT [address] [place], [address], [facility] 07/30/2009 12:05:14 04/05/20 09 Treatment and Advice completed Sofía Baker, PT [address] [place], [address], [facility] 04/05/2009 13:25:02 03/15/20 09 Treatment and Advice completed Sofía Baker, PT [address] [place], [address], [facility] 03/15/2009 14:33:48 03/10/20 09 Treatment and Advice completed Sofía Baker, PT [address] [place], [address], [facility] 03/10/2009 09:40:52 Cholecystectomy completed Not Available [facility] 10/12/2011 06:06:16 Imaging Results Imaging Date Name Status LastModified by Organiz ation Details LastModified Time 03/15/2017 XR, thoracic spine completed [address] (Imaging) [address], [place], [address], 03/16/2017 16:34:43 05/17/2017 bone density completed [facility] [place] [facility] (Imaging) [address] [place], [address], 06/06/2017 11:04:39 Procedure Notes None recorded. Medical Equipment None Reported. Allergies Allergen ID Allergen Name Allergen Category Reaction Reaction Severity Criticality Documentation Date Start Date Code Code System Note Provider Name and Address Organization Details Recorded Time 69096 ibuprofen medicatio n nausea Not available Not available 01/23/2012 5640 RxNorm stoma ch upset Carla Chopra , MELINA [address] [place], [address], [facility] 5 15:46:47 Medications Name Sig Start Date [...] Details Last Updated DateTime 03/15/2017 165.74 cm 98212.85 g 29.2 kg/m2 Desirae Ya MA [facility] 03/15/2017 08:37:44 Date Recorded Systolic blood pressure Diastolic blood pressure Provider Name and Address Organization Details Last Updated DateTime 03/15/2017 138 mm[Hg] 74 mm[Hg] Karin Vela NP [address] [place] [address], [address], [facility] 03/15/2017 08:54:38 Date Recorded Body height Body weight Body mass index (BMI) Systolic blood pressure Diastolic blood pressure Provider Name and Address Organization Details Last Updated DateTime 03/19/2017 165.74 cm 13911.44 g 29.4 kg/m2 128 mm[Hg] 80 mm[Hg] Tiff Guaman [facility] 7 09:45:44 Date Recorded Body height Body weight Body mass index (BMI) Heart rate Systolic blood pressure Diastolic blood pressure Provider Name and Address Organization Details Last Updated DateTime 7 165.74 cm 24027.2 5 g 29.3 kg/m2 66 /min 114 mm[Hg] 68 mm[Hg] Sonia Cobb MA [facility] 7 08:18:37 Date Recorded Body height Body mass index (BMI) Body weight Heart rate Systolic blood pressure Diastolic blood pressure Provider Name and Address Organization Details Last Updated DateTime 165.74 cm 29.4 kg/m2 63418.4 4 g 80 /min 120 mm[Hg] 80 mm[Hg] Chery Pack LPN [facility] 7 15:44:35 Social History Question Answer Notes LastModified by Organizat ion Details LastModified Time Tobacco Smoking Status Former Smoker quit @ age 18 occasional smoker. 1 yr 3 [address] Neil, [facility] 01/15/2013 13:58:47 Do You Have An [...] Information not available 10/02/2014 Marital Status Re- [facility] Informati n not available 09/24/2012 Mosquito [...] virus, trivalent, preservative 2 completed Not Available [facility] 12/13/2019 02:18:31 influenza, seasonal, intradermal, preservative free 2 completed Not Available [facility] 12/13/2019 02:28:17 influenza, unspecified formulation 0 completed Not Available [facility] 10/11/2011 05:22:41 Influenza, split virus, trivalent, PF 3 completed Not Available [facility] 12/13/2019 02:27:10 Influenza, split virus, trivalent, preservative 4 completed Not Available [facility] 12/13/2019 02:36:27 Influenza, split virus, quadrivalent, PF 5 completed Not Available [facility] 12/13/2019 02:19:48 Influenza, split virus, trivalent, preservative 0 completed Not Available [facility] 12/13/2019 02:17:42 Novel [id number] 0 completed Not Available [facility] 12/13/2019 02:32:30 Influenza, split virus, quadrivalent, PF 6 completed Not Available [facility] 12/13/2019 02:33:42 Influenza, split virus, quadrivalent, PF 7 completed Not Available [facility] 12/13/2019 02:22:02 Tdap 1 completed Not Available [facility] 12/13/2019 02:15:39 Past Encounters Encounter ID Performer Location Encounter Start Date Encounter Closed Date Diagnosis/Indication Diagnosis SNOMED-CT Code Diagnosis ICD10 Code Diagnosis Note [id number] [facility], OFFICE [address] [place] [address] 10/24/2007 15:38:04 12/16/2008 02:02:29 [id number] [facility], OFFICE [address] [place] [address] 12/26/2007 14:44:03 12/16/2008 02:02:29 [id number] LAB - [facility] [address] [place] [address] 12/26/2007 15:29:44 12/26/2007 15:29:51 [id number] Radiology , [facility] [address] [place] [address] 01/02/2008 10:54:15 01/03/2008 09:34:27 [id number] [facility], OFFICE [address] [facility] [place] [address] 04/30/2008 08:59:34 12/16/2008 02:02:29 [id number] Radiology , [facility] [address] [place] 04/30/2008 13:24:49 05/01/2008 09:23:22 [id number] LAB - [facility] [address] [place]62[address] 04/30/2008 09:44:23 04/30/2008 09:44:29 [id number] LAB - [facility] [address] [place] [address] 04/30/2008 00:00:00 12/16/2008 02:02:29 [id number] [facility], OFFICE [address] [facility] JACK [id number] 06/08/2008 11:42:37 12/16/2008 02:02:29 [id number] [facility], OFFICE [address] [facility] [place] [address] 09/07/2008 16:56:28 12/16/2008 02:02:29 [id number] LAB - [facility] [address] [facility] [place] [address] 09/08/2008 07:24:37 09/08/2008 07:24:44 [id number] [facility], OFFICE [address] [facility] [place] [address] 12/10/2008 08:55:51 12/16/2008 02:02:29 [id number] LAB - [facility] [address] [facility] [place] [address] 12/10/2008 09:28:55 12/10/2008 09:29:01 [id number] [facility], OFFICE [address] [facility] [place] [address] 01/08/2009 15:45:36 01/11/2009 11:31:48 [id number] [facility], OFFICE [address] [facility] [place] [address] 02/10/2009 14:10:43 02/12/2009 09:14:54 [id number] Radiology , [facility] [address] [place] [address] 02/19/2009 09:33:41 02/22/2009 15:31:21 [id number] [facility], OFFICE [address] [facility] [place] [address] 03/04/2009 14:20:11 03/09/2009 08:39:36 [id number] Radiology , [facility] Y[facility]asta [facility] JACK [id number] 03/04/2009 14:47:16 03/08/2009 14:42:30 [id number] Physical Therapy, [facility] JACK [id number] 03/10/2009 08:59:23 03/11/2009 07:35:54 [id number] Physical Therapy, [address] J[place] Simon[address] 03/15/2009 13:48:50 03/17/2009 08:30:03 [id number] Physical Therapy, [address] JACK Simon[address] 03/19/2009 10:55:16 03/19/2009 14:42:57 [id number] Physical [facility], [address] J[place] Simon[address] 03/26/2009 14:44:00 03/26/2009 16:03:19 [id number] Physical [facility], [address] [place] [address] 04/05/2009 12:51:55 04/05/2009 15:07:57 [id number] Physical [facility], [address] [place] [address] 04/21/2009 13:53:30 04/22/2009 08:42:55 [id number] , [facility], [address] [place] [address] 07/16/2009 16:35:23 07/21/2009 13:55:02 [id number] Physical [facility], [address] [place] [address] 07/26/2009 13:17:26 07/30/2009 09:10:41 [id number] Physical [facility], [address] [place] [address] 07/30/2009 10:50:58 08/03/2009 10:31:54 [id number] Physical [facility], [address] [address] 08/05/2009 10:52:14 08/06/2009 09:34:36 [id number] Radiology , [address] [address] 08/11/2009 11:29:04 08/16/2009 11:35:37 [id number] Physical [facility], [facility] [address] 08/23/2009 12:49:34 08/23/2009 15:51:13 [id number] [facility], OFFICE [address] [place] [address] 09/17/2009 11:20:02 09/20/2009 10:25:51 [id number] Radiology , [facility] [address] [place] [address] 09/20/2009 10:08:11 09/22/2009 10:59:02 [id number] LAB - [facility] [place] [address] 02/10/2009 15:26:55 02/10/2009 15:27:26 [id number] LAB - [facility] [place] [address] 09/09/2009 07:59:23 09/09/2009 08:00:02 [id number] LAB - [facility] [place] [address] 09/17/2009 11:50:50 09/17/2009 11:51:11 [id number] [facility], OFFICE [address] [place] [address] 11/04/2009 11:24:54 11/05/2009 12:06:07 [id number] [facility], OFFICE [address] [place] [address] 11/22/2009 11:25:24 11/24/2009 14:08:20 [id number] [facility], OFFICE [address] [place] [address] 02/02/2010 10:46:29 02/04/2010 10:39:00 [id number] [facility], OFFICE [address] [place] [address] 07/28/2010 16:17:03 07/29/2010 10:10:58 [id number] [facility], OFFICE [address] [place] [address] 11/01/2010 16:15:36 11/02/2010 11:59:24 [id number] Physical [facility], [address] [address] 11/08/2010 13:53:01 11/08/2010 16:05:50 [id number] Physical [facility], [address] [address] 11/22/2010 15:43:19 11/23/2010 08:50:23 [id number] FP, [facility], OFFICE 70 [facility] JACK [id number] 12/15/2010 14:28:26 12/16/2010 13:00:08 [id number] FP, [facility], OFFICE [address] [facility] [address] [place], JCAK [id number] 02/09/2011 14:37:52 02/13/2011 14:42:40 [id number] FP, [facility], OFFICE [address] [facility] [address] [place], JACK [id number] 02/13/2011 10:36:53 02/13/2011 17:33:22 [id number] Radiology , [facility] 70 [facility] JACK Simon62[address] 02/16/2011 16:25:28 02/17/2011 13:30:35 [id number] FP, [facility], OFFICE 70 [facility] JACK [id number] 6 03/21/2011 13:45:34 03/23/2011 08:42:24 [id number] FP, [facility], OFFICE 70 [facility] [place] JACK [id number] 04/04/2011 09:42:37 04/07/2011 08:35:46 [id number] FP, [facility], OFFICE 70 [facility] JACK [id number] 6 04/12/2011 13:46:14 04/14/2011 11:10:28 [id number] FP, [facility], OFFICE 70 [facility] [place] JACK [id number] 04/21/2011 10:47:16 04/25/2011 08:32:56 [id number] FP, [facility], OFFICE 70 [facility] JACK [address] 06/27/2011 11:40:27 06/27/2011 16:23:49 [id number] Radiology , [facility] [address] [facility] JACK Simon [address] 06/30/2011 14:58:35 07/10/2011 14:00:07 [id number] FP, [facility], OFFICE [address] [facility] [address] [place] JACK [id number] 07/27/2011 13:18:23 07/27/2011 14:31:24 [id number] FP, [facility], OFFICE 70 [facility] JACK [id number] 01/23/2012 16:01:40 01/23/2012 16:41:49 [id number] Physical [facility], [address] [address] 01/30/2012 15:50:36 01/31/2012 07:53:16 [id number] Radiology , [facility] [address] [place] [address] 04/25/2012 13:00:54 04/26/2012 09:45:44 [id number] , [facility], OFFICE [address] [place] [address] 06/07/2012 09:26:43 06/07/2012 10:51:43 [id number] , [facility], OFFICE [address] [place] [address] 07/05/2012 11:15:57 07/05/2012 12:18:44 [id number] Amber Lou NP , [facility], OFFICE [address] [place] [address] 08/12/2012 13:42:01 08/12/2012 14:21:43 [id number] [facility] , [facility], OFFICE [address] [place] [address] 09/03/2012 06:33:37 09/03/2012 16:06:16 [id number] Zafar Kelley MD , [facility], OFFICE [address] [place] [address] 10/04/2012 11:07:27 10/04/2012 12:14:27 [id number] Santhosh Copeland MD , [facility], OFFICE [address] [place] [address] 10/22/2012 14:51:43 10/22/2012 15:37:56 [id number] Julianna Panchal Physical Therapy, [address] [address] 10/29/2012 14:43:10 10/30/2012 12:26:47 [id number] Sue Fierro, OT Physical Therapy, [address] [address] 11/05/2012 16:01:44 11/06/2012 07:55:33 [id number] Sue Fierro, OT Physical Therapy, [address] [address] 12/10/2012 15:30:52 12/10/2012 16:14:57 [id number] Carla Chopra NP , [facility], OFFICE [address] [place] [address] 12/20/2012 11:50:24 12/20/2012 13:17:24 [id number] Imani Summer Holliday, [employer] FP, [facility], OFFICE [address] [place] [address] 01/06/2013 16:01:37 01/07/2013 10:46:30 [id number] Liliane Drummond , [facility], OFFICE [address] [place] [address] 01/15/2013 13:46:17 01/15/2013 14:11:50 [id number] ImaniZELDA Marie-BC , [facility], OFFICE [address] [place] [address] 03/24/2013 13:39:47 03/24/2013 14:25:20 [id number] Sofía Baker , PT Physical Therapy, [facility] [address] [place] [address] 03/26/2013 10:49:34 03/27/2013 15:19:00 [id number] Imani RosenthalBRANDON BirdP-BC , [facility], [address] [place] [address] 04/08/2013 09:18:15 04/08/2013 14:15:03 [id number] Imani Wheelerkeisha Holliday [employer] [facility], [facility], [address] [place] [address] 05/06/2013 15:32:00 05/07/2013 10:24:47 [id number] Ruchi Spicer Nutrition -[facility] [address] [place] [address] 06/24/2013 08:35:29 06/30/2013 12:09:37 [id number] Ruchi Spicer Nutrition -[facility] [address] [place] [address] 08/05/2013 15:38:47 08/06/2013 15:45:58 Mixed hyperlipidemia 120331856 [id number] Karena Pearson , [facility], [address] [place] [address] 08/06/2013 06:16:46 08/08/2013 12:08:54 Influenza vaccine needed [id number] [facility], OFFICE [address] [place] [address] 09/03/2013 09:22:09 09/05/2013 13:23:35 Carpal tunnel syndrome 18528410 pt with known carpal tunnel and now upper extremity arm pain since starting work. no focal findings on exam. likely mild tendonitis . will refer to OT for assessment /exercised . pt reports pain relief with acetaminop hen. [id number] Carla Chopra NP , [facility], [address] [place] [address] 09/10/2013 11:45:26 09/10/2013 12:44:15 Acute low back pain 546952230 pt with musculoske letal strain in setting of new job and lifting. no red flags. medicaiton s rest and PT referral given. pt given note for work for the rest of the week. [id number] [facility], [address] [address] 09/15/2013 11:21:39 09/16/2013 09:36:44 Low back pain 782345238 [id number] [facility] Hatch Physical [facility], [address] [address] 09/18/2013 11:58:59 09/19/2013 07:56:44 Low back pain 585670150 [id number] Wander Hatch , [facility], [address] [place] [address] 09/19/2013 11:50:45 09/19/2013 13:09:36 Acute low back pain 374371051 pt with musculoske letal strain in setting of new job and lifting. no red flags. continue with pt. will await clearance from pt for return to work. [id number] [facility], [address] [address] 09/22/2013 10:29:53 09/22/2013 11:54:37 Low back pain 174824694 [id number] [facility], [address] [address] 10/01/2013 10:46:59 10/01/2013 11:54:18 Low back pain 837075897 [id number] Quita Dawson, Ms, Rdn, Ldn, CDE Nutrition -[address] [address] 10/08/2013 10:27:05 10/08/2013 11:13:23 Mixed hyperlipidemia 232239779 [id number] Wander Holden Physical [facility], [address] [address] 10/08/2013 17:24:33 10/09/2013 07:25:18 Low back pain 824641549 [id number] [facility], [address] [address] 10/17/2013 15:52:07 10/20/2013 08:24:58 Low back pain 136631599 [id number] [facility], [facility], OFFICE [address] [place] [address] 10/21/2013 10:39:31 10/21/2013 13:48:57 Benign essential hypertension 7168272 Blood pressure at goal with current regimen. Adult heal th examination 363901504 see Risk Assessment and Lifestyle Change Counseling section above. overall healthy 47 year old woman. hypertensi on at goal. Counseling 105022091 Hypertriglyceridemia 819337455 discussed calculated risk. 10.04% risk with framingham calculator , 8% risk with AHA calculator . pt is motivated to focus on diet and exercise. will recheck in 6 months. [id number] [facility] [address] [address] 11/04/2013 07:00:11 11/04/2013 09:35:34 Low back pain 348990457 [id number] [facility], [address] [address] 11/11/2013 10:21:21 11/11/2013 11:28:42 Low back pain 191921313 [id number] Ruchi Spicer Nutrition -[address] [address] 11/12/2013 11:19:11 11/14/2013 15:14:18 Mixed hyperlipidemia 155311178 [id number] Karena Pearson Physical [facility], [address] [address] 11/25/2013 06:53:03 11/25/2013 09:26:11 Low back pain 320354066 [id number] Carla Chopra NP FP, [facility], [address] [place] [address] 12/02/2013 15:49:59 12/03/2013 08:50:23 Backache 857672530 tenderness right lower side. consistent with musclar spasm and sciatica. will trial muscle relaxor which pt has benefited from in the past. disucssed importance of continuing with PT. [id number] Sofía Baker PT Physical Therapy, [facility] [address] [place] [address] 12/12/2013 14:02:51 12/12/2013 15:26:12 Low back pain 499372496 [id number] Karena Pearson Physical [facility], [address] [address] 12/19/2013 13:20:11 12/22/2013 07:23:01 Low back pain 226177353 [id number] Sofía Baker PT Physical [facility], [address] [address] 12/30/2013 09:04:17 12/30/2013 10:39:29 Low back pain 219502189 [id number] Faye Perez MA , [facility], [address] [place] [address] 01/13/2014 10:27:45 01/13/2014 13:47:51 Benign essential hypertension 3588096 Blood pressure at goal . continue with current regimen. Hyperlipidemia 73845634 ASCVD risk < 5%. not in statin benefit group per guidelines . [id number] Sofía Baker PT Physical [facility], [address] [address] 02/02/2014 15:39:27 02/04/2014 09:10:11 Low back pain 440784659 [id number] Sofía Baker PT Physical [facility], [address] [address] 02/13/2014 12:25:36 02/13/2014 13:09:48 Low back pain 780128277 [id number] Sofía Baker PT Physical Therapy, [address] [address] 03/05/2014 07:59:45 03/06/2014 07:29:53 Low back pain 353503505 [id number] Nikole Akhtar MA , [facility], [address] [place] [address] 03/24/2014 16:16:21 03/30/2014 14:42:30 Acute upper respiratory infection 36640045 Educated patient that URI is a viral [...] albuterol. rx for albuterol given for home. [id number] Aline Boyer , [facility], [address] [place] [address] 05/18/2014 10:43:41 05/19/2014 09:09:52 Suprapubic pain 804347713 Patient with mild suprapubic tenderness . No clinical evidence of acute abdomen. Urine dipstick negative other than microscopi c hematuria. Spun urine negative for casts. Ample hydration recommende d. Denies VB. Denies BRBPR/orestes na. Will monitor for any worsening symptoms. Microscopic hematuria 630223187 Microscopi c hematuria. States she was previously told to have microscopi c hematuria as well. Never followed up for this. No known history of nephrolith iasis. Intermitte nt periods since her IUD insertion. [id number] Sonia Cobb MA , [facility], [address] [place] [address] 06/01/2014 17:27:04 06/03/2014 11:37:33 Urinary tract infectious disease 85226010 Push fluids f/u if no improvemen t in 72 hours or for fever or back pain. discussed follow up with urology for persistent hematuria. pt verbalized willingnes s to follow up as instructed . Dysuria 24632978 Patient instructed to push fluids, follow-up for worsening symptoms, back pain or fever. Urine culture sent. [id number] JACK Narvaez, [facility], [address] [place] [address] 06/04/2014 08:43:49 06/04/2014 12:44:31 Acute urinary tract infection 624592471 cannot r/o pyelo although exam is reassuring . treat with 10d cipro, probiotics , fluids ,rest. urology apt tomorrow - to ER with inc pain, inability to pass urine. Senna for constipati on. note: ER note said urine culture showed Bactrim resistance and they advised Augmentin - pt advised to take the Cipro instead -likely better tolerated - probiotics , rtc prn [id number] JACK Narvaez, [facility], [address] [place] [address] 08/28/2014 07:58:31 08/28/2014 08:28:02 Influenza vaccine needed 7042526575 106 Backache 768586590 Pt wi th flare of thoracic area back pain [id number] Nikole Akhtar MA , [facility], [address] [place] [address] 09/08/2014 07:57:24 09/08/2014 08:45:48 Vaginitis 88476289 sx care reviewed suggest avoiding scented products rtc prn [id number] Naeem More MD , [facility], [address] [place] [address] 10/02/2014 16:56:52 10/02/2014 17:32:57 Benign essential hypertension 8694552 [id number] Nikole Akhtar MA , [facility], [address] [place] [address] 10/16/2014 15:04:19 10/20/2014 09:05:14 Benign essential hypertension 8509355 Blood pressure NOT at goal. Med changes made RTC 1 month - sooner prn Gastroesop hageal reflux disease 162667163 stable with med [id number] Carla Chopra NP , [facility], [address] [place] [address] 11/27/2014 09:57:11 11/30/2014 12:20:49 Backache 555324319 Patient presents to Urgent Care with acute [...] hematuria likely due to her current period. [id number] Deborah Vallejo MA , [facility], [address] [place] [address] 12/15/2014 08:18:40 12/15/2014 09:35:08 Cough 96032939 viral illness work release note sx and supportive care reviewed rtc prn sx persist or increase [id number] Karena cervantes [facility], [address] [place] [address] 12/21/2014 07:40:38 12/23/2014 12:22:23 Cough 38259928 [id number] KATERYNA Martin , [facility], [address] [place] [address] 03/22/2015 14:32:48 03/22/2015 15:20:17 External hordeolum 8790999 without site of pointing. Encourage warm compresses qid or more today and tomorrow. Expect poss. of drainage. F/u if not continuing to improve, if redness extends beyond this current area. [id number] [facility], [address] [place] [address] 03/23/2015 14:32:41 03/23/2015 15:56:30 Adult health examination 414552254 see Risk Assessment and Lifestyle Change Counseling section above TC to voip network engineer group to see when IUD placed and date of last Pap Counseling 500512696 Backache 685609137 ERGON OMICS , POSTURE, HEAT EXERCISES GIVEN [id number] Carla Lee MA , [facility], [address] [place] [address] 04/21/2015 13:58:19 04/22/2015 11:56:33 Urinary tract infectious disease 25408547 pt presents with inconclusi ve UA, but symptoms feel like previous UTIs, will treat pending culture, risks of abx overuse reviewed. Push fluids f/u if no improvemen t in 72 hours or for fever or back pain. [id number] Sonia Cobb MA , [facility], [address] [place] [address] 05/05/2015 08:09:09 05/06/2015 08:41:26 Urinary tract infectious disease 80077411 Urine dipstick findings suggestive of UTI. Will send out UCx. Antibiotic treatment. Strategies in preventing future UTI discussed including ample oral hydration, frequent voiding, post-coita l voiding and avoidance of douching. Patient with pain, not responding to Acetaminop hen. Requesting pain management . Will prescribe Oxycodone prn. Advised to use sparingly. Short-term use discussed. Advised to contact the clinic if worsening symptoms. [id number] Julia jaime MA , [facility], [address] [place] [address] 06/15/2015 15:27:02 06/15/2015 15:53:37 Toothache 60283271 saline mouth rinses, codeine, rest work release note f/u with dentist [id number] Hazel ALBA, [facility], [address] [place] [address] 08/18/2015 12:06:50 08/19/2015 09:49:15 Lifestyle 536321826 Screening mammography 12847294 Labile ess ential hypertension 513309118 when pt is stressed, endorses elevated blood pressure readings with associated headache. no other cardiac symptoms and the symptoms resolve when situation passes. situation is occurring rarely (<1 x monthly) and bp is generally at goal. will trial propranolo l when symptoms occur. follow up with pcp after usage. [id number] Amara ALBA, [facility], [address] [place] [address] 08/31/2015 12:15:05 09/01/2015 08:25:15 Influenza vaccine needed 3174989668 106 Z28.3 Backache 787174173 M54.9 tenderness right lower side. consistent with musclar spasm and sciatica. will trial muscle relaxer which pt has benefited from in the past. discussed importance of continuing with PT. [id number] KATERYNA Martin , [facility], [address] [place] [address] 11/01/2015 15:52:37 11/01/2015 17:06:20 Low back pain 011568122 M54.5 Screening for malignant neoplasm of breast 874935204 Z12.39 [id number] Sofía Baker , PT Physical Therapy, [facility] [address] [place] [address] 11/03/2015 12:19:15 11/03/2015 15:28:11 Low back pain 709040501 M54.5 [id number] Ronal Plasencia, OD [facility], [address] [address] 11/16/2015 14:10:37 11/16/2015 16:03:57 Ophthalmic examination and evaluation 89094096 Z01.00 Hypermetropia 09535589 H 52.03 Astigmatism 29224114 H52 .223 Presbyopia 75780485 H52. 4 [id number] Amara Pantoja , [facility], [address] [place] [address] 12/14/2015 11:51:01 12/15/2015 11:05:20 Right upper quadrant pain 403415840 R10.11 pt reports pain similar to gallstone pain previously , colicky, denies s/s of infection, denies urinary symptoms. pain persisting not worsening. labs and images as ordered below. [id number] Carla Chopra NP , [facility], [address] [place] [address] 03/24/2016 13:07:18 03/24/2016 14:01:29 Screening mammography 00637724 Z12.31 Mixed hyperlipidemia 267 689833 E78.2 due for labs-remin ded Benign ess ential hypertension 3447127 I10 Blood pressure at goal Backache 813205002 M54.9 ERGONOMICS , POSTURE, HEAT TRIAL OF MELOXICAM QD 2WK, CYCLOBENZA ELZBIETA PRN RTC PRN [id number] Naeem More MD , [facility], [address] [place] [address] 06/26/2016 14:59:02 06/26/2016 16:15:37 Nonulcer dyspepsia 1889125 K30 [id number] MELINA Bojorquez, [facility], [address] [place] [address] 07/26/2016 14:19:55 07/26/2016 15:25:14 Active or passive immunization 080941850 Z23 Benign ess ential hypertension 5157425 I10 Blood pressure at goalconsol idate med to single pill Gastroesop hageal reflux disease 497977252 K21.9 did not tolerate famotidine change to omeprazole , GERD precaution s Herpes simplex 24370937 B00.9 change to qd prophylaxi s dosing Migraine 76303103 G43.90 9 discussed optiosn for migraine prevention pt chooses to change propranolo l dosertc 2mos -call sooner with side effects or concerns [id number] MELINA Bojorquez, [facility], [address] [place] [address] 10/06/2016 10:37:09 10/10/2016 09:01:55 Benign essential hypertension 7937176 I10 Blood pressure at goal Adult heal th examination 184621272 Z00.00 see Risk Assessment and Lifestyle Change Counseling section above Counseling 250600695 Z71 .9 Gastroesop hageal reflux disease 992848820 K21.9 stable Screening for malignant neoplasm of cervix 149565163 Z12.4 Low back pain 625932761 M54.5 [id number] ARMO Miranda, [facility], [address] [place] [address] 10/18/2016 16:26:59 10/23/2016 11:40:37 Vaginitis 93577454 N76.0 per report pt was treated for vaginal infection in ER, notes not available for review. mirena was removed 2 months ago. symptoms improving, tolerating abx. no s/e. abdominal exam reassuring . continue treatment per ER visit. [id number] RAMO Miranda, [facility], [address] [place] [address] 11/10/2016 15:02:20 11/14/2016 10:35:06 Urinary tract infectious disease 64283890 N39.0 pt recently treated for pyelo diagnosed clinically at ER.reports compliance with abx, 2 days ago reoccurren ce of bladder discomfort , fullness, frequency and similar pain, UA inconclusi ve, treat with cipro while culture pending. [id number] RAMO Miranda , [facility], [address] [place] [address] 2016 13:27:43 11/30/2016 12:39:29 Increased blood pressure 88305545 R03.0 pt with multiple reading of BP above goal, associated headache. no underlying etiology to explain elevation. ekg reassuring , increase lisinopril , cont to monitor bp outside of office, labs as ordered below. [id number] RAMO Miranda, [facility], [address] [place] [address] 03/05/2017 15:30:46 03/05/2017 15:54:52 Diarrhea 95348345 R19.7 1 day of non bloody diarrhea.n o fever or painsuppor tive measures reviewed.c all for worsening symptoms or failure. to improve [id number] Karin Vela NP , [facility], [address] [place] [address] 03/15/2017 08:22:24 03/15/2017 09:06:35 Thoracic back pain 638637362 M54.6 Right sided for 4 days without trauma. Negative exam. Old MRI and xrays reviewed. Inst to apply heat or ice PRN. Continue with naprosyn BID. [id number] RAMO Miranda , [facility], [address] [place] [address] 03/19/2017 09:37:18 03/20/2017 09:51:41 Spasm of back muscles 758100987 M62.830 paraspinal spasm, advised massage, water, continue tylenol and alleve.enc ouraged ROM but not weight bearingupd ate if pain does not improvewor k note for today - wed given. [id number] MELINA Bojorquez, [facility], [address] [place] [address] 04/12/2017 07:57:14 04/13/2017 12:54:07 Benign essential hypertension 8589429 I10 Blood pressure at goal Osteopenia 123332206 M85 .9 Gastroesop hageal reflux disease 068699810 K21.9 stable Genital he rpes simplex 40547468 A60.9 Deficiency of vitamin D3 015182749 E55.9 Low back pain 236474343 M54.5 reviewed stretches for her to do daily. Aim for regular walks outside. PT if needed. [id number] Jennifer Alfonso CMA , [facility], [address] [place] [address] 08/20/2017 15:10:08 08/20/2017 16:25:02 Urinary tract infectious disease 99066313 N39.0 Patient instructed to push fluids, to follow up for persistent or worsening symptoms or fever or back pain. Active or passive immunization 315995117 Z23 [id number] Parker Luna OD [facility], [facility] [address] [place] [address] 10/05/2017 13:08:20 10/05/2017 14:41:08 Regular astigmatism 00067519 H52.223 Presbyopia 55451529 H52. 4 Health Concerns Section Related Observation LastModified by Organization Detai ls LastModified Time None Recorded Concern Status LastModified by Organization Details LastModified Time None Recorded Advance Directives Directive N: Payers Encounter Date Sequence Insurance Name Policy Number Policy Spear Covered Member ID Spear Member ID Guarantor Name 03/15/2017 1 [place] Katherin Diallo [id number] Katherin Diallo 03/19/2017 1 [place] Katherin Diallo [id number] Katherin Diallo 04/12/2017 1 [place] Katherin Diallo [id number] Katherin Diallo 08/20/2017 1 [place] Katherin Diallo [id number] Katherin Diallo 10/05/2017 1 [place] Katherin Diallo [id number] Katherin Diallo Notes Date Note Type Note [...] a little bit of benefit.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 Lots of twisting motion Karin Vela, MELINA [address] [place], [address], [facility] 03/15/2017 09:12:16 03/19/2017 text/html pt presents with pain in lung bothers pt when breathes, cannot sleep,has to sleep sitting up. pt points to right side of shoulder, inbetween spineno unusual popping or clickingmassage helps. pt taking tylenol did not take alleve.still bothered pt. breath is painful. Imani Holliday, [facility] [address] [place], [address], [facility] 03/19/2017 10:03:34 04/12/2017 text/html Katherin reports ongoing back pain. WHen seen at [facility], it was recommended she have a BMD. SHe continues to work at strenuous job. Takes naproxen and flexeril as needed, not daily. No GI sx.BP in good control, nonsmoker. States takes meds as directed.Needs some med refills. Carla Chopra NP [address] [place], [address], [facility] 04/13/2017 07:30:47 08/20/2017 text/html a VMG Dysuria ur inary symptomsReported bypatient.Duration:Sy mptoms began 1 days ago Severity:Symptoms are moderate Associated Symptoms:Burning on urination;Urinary frequency; Chills, no fever, some mild nausea Context:Symptoms similar to previous UTI's TIFFANIE Maharaj, [facility] 08/22/2017 09:26:52 10/05/2017 text/html Comprehensive Ey e ExamReported bypatient.Quality:2 year exam;blurred vision near with glasses Location:bilateral Context:currently wears glasses Modifying factors:wears glasses for distance and near Associated Symptoms:no redness; no itching; no floaters; no dryness C/O Blurry near vision Parker Luna, OD [address] [place] [address], [address], [facility] 10/05/2017 14:20:18 OBGyn Episode No OBEpisode recorded.
== END 2025-01-20 12:58 | disposition home or self-care (01) ==
PROVIDERS: PCP Internal Medicine; Visit Provider Internal Medicine
DX: E78.2 Mixed hyperlipidemia (principal); I10 Essential (primary) hypertension

== ENCOUNTER → 2025-01-20 11:39 | Outpatient (BNVA) | payer OTHER, SELFPAY | PROVIDERS: PCP Internal Medicine; Visit Provider Internal Medicine | DX: E78.2 Mixed hyperlipidemia (principal); I10 Essential (primary) hypertension | CPT/HCPCS: 96127; 99212 ==

== ENCOUNTER 2025-01-28 10:08 | Outpatient (AMB) | payer OTHER, SELFPAY ==
--- NOTE | 2025-01-28 10:09 | MHC.OFFWIV ---
Intake Vital Signs 01/28/25 10:14 Weight 170 lb BP 140/84 H Blood Pressure Location Rt brachial Position Sitting Pulse 80 Pulse Source Pulse Oximeter Pulse Oximetry (%) 99 Oxygen Delivery Method Room Air Intake Visit Reasons: EP lower back pain, pain down legs Intake Note: Patient here for lower back pain and radiating pain down legs, she states she was unplugging an extension cord from below on sunday and pain started. she has a pre existing issue and this made it more painful. Patient Tobacco Use Status: Former Tobacco user Allergies ibuprofen Adverse Reaction (Unknown, Verified 01/28/25 10:13) stomach upset Do you need a note to return to daycare/school/sports/work: No HPI HPI Comments History of Present Illness Details History of Present Illness - The patient is a 59-year-old female here with her son today presenting with low back pain with radiation to the leg. - The patient reports the onset of low back pain on Sunday following an incident where she bent over, leading to a pulling sensation. - Pain patterns indicate radicular symptoms, notably in the right leg, with patient history confirming prior sciatica episodes. - Symptom alleviation attempted with Tylenol, and willingness to try ibuprofen or naproxen noted. - Denies loss of control of bladder or bowels, denies saddle parasthesias, denies trauma. - The previous imaging has shown arthritis, with no advanced imaging studies completed to date. - Episodes are recurring. Physical Exam General: Cooperative, healthy appearing, appears uncomfortable, and well developed Orientation: Patient oriented x3 Head: Normal to inspection Ears: Hearing grossly normal bilaterally Nose: Normal external nose present Face and sinus: Normal facial exam Eyes: Appearance normal, both eyes and all related structures Neck: Normal visual inspection and Yes full ROM Respiratory: Normal respiratory effort and able to speak in complete sentences. Skin: No rashes or lesions noted Neuro: Patient oriented x3 Extremities: Normal to inspection, + straight leg at 30 degrees on right side [facility] Medical History Chronic thoracic back pain Recurrent cold sores Vitamin D deficiency Postprandial abdominal bloating Epigastric abdominal pain Cervical cancer screening Annual visit for general adult medical examination with abnormal findings Muscle strain of upper back Impaired fasting glucose GERD (gastroesophageal reflux disease) Normal Pap smear Stress incontinence of urine Essential hypertension Carpal tunnel syndrome Plantar fasciitis Migraine Mixed dyslipidemia Surgical History Hx of cholecystectomy Family History Father Bone cancer Mother History of hernia repair HTN (hypertension) Diabetes mellitus Brother Diabetes mellitus HTN (hypertension) Substance use disorder Maternal Grandfather Unknown family medical history Maternal Grandmother Unknown family medical history Paternal Grandfather Unknown family medical history Paternal Grandmother Unknown family medical history Sister No problems noted. Sister No problems noted. Daughter No problems noted. Daughter No problems noted. Son No problems noted. Brother No problems noted. Brother No problems noted. Brother No problems noted. Brother No problems noted. Social History Housing: Apartment Alcohol intake: current Alcohol intake frequency: does not drink Patient Tobacco Use Status: Former Tobacco user Years Smoked: 2 yrs e-Cigarette/Vaping Use: Never Used Second Hand Smoke Exposure: No service: No Current occupational status: employed Cognitive needs: No Hearing needs: No Vision needs: Yes (Glasses) Review of Systems Const All systems reviewed & are unremarkable except as noted in HPI and below Physical Exam Vital Signs: Last Vital Signs Pulse 80 01/28/25 10:14 BP 140/84 H 01/28/25 10:14 Pulse Ox 99 01/28/25 10:14 Oxygen Delivery Method Room Air 01/28/25 10:14 Assessment & Plan Assessment & Plan (1) Sciatica: Code(s): M54.30 - Sciatica, unspecified side Qualifiers: Laterality: right Qualified Code(s): M54.31 - Sciatica, right side Plan: Management of the patient's low back pain includes initiating prednisone 50 mg daily x5 days to reduce inflammation, with the advisement to take Tylenol currently and naproxen after the prednisone course to manage pain and inflammation. The plan includes eventual physical therapy to address recurrent sciatica after acute symptoms ease, focusing on exercises and prevention strategies. Potential further imaging may be pursued through specialist consultation if symptoms persist or worsen. The patient will remain off work to aid in recovery, with necessary documentation provided to support absence. Patient was informed and verbally consented to the use of an ambient scribe for clinic note documentation during this visit. Orders: Orders PT Evaluation and Treatment Today M54.30 - Sciatica, unspecified side Medications: New prednisone 50 mg PO QAM 5 tabs 0RF naproxen 500 mg PO Q12H PRN 20 tabs 0RF pain Coding Level of Care Code Est Pt Level 4 (67995) Diagnoses Sciatica of right side M54.31 Laterality: right
[2025-01-28 10:14] VITALS: BP 140/84; PULSE 80; O2SAT 99
--- OUTSIDE RECORDS SUMMARY | 2025-01-28 11:52 | XMS_ITS | Data Portability ---
Author Organization [facility], [id number] Address [address] [place] [address] Assessment No assessment recorded. Plan of Treatment Reminders Order Date Submit Date Provider Last Modified By Organization Details Last Modified Time Details Appointments None recorded. Lab None recorded. Referral None recorded. Procedures None recorded. Surgeries None recorded. Imaging None recorded. Medication Orders prednisone 10 mg tablet 2022 023 [id number], [address], [place], [address], 19:46:29 Patient TargetsNo targets recorded. Patient Instructions Encounter Date Encounter Id Patient Instructions Last Modified By Organization Details Last Modified Time 12/28/2022 [id number] meralgia paresthetica: care instructions [email or web address] Not available 12/28/2022 19:46:26 hip flexor strai n: rehab exercises [email or web address] Not available 12/28/2022 19:46:26 You have been [...] Fever or vomiting. Thank you for using [facility], please call if you have any questions or concerns. [email or web address] Not available 12/28/2022 19:46:25 Reason for Referral None Reported. Problems Name Problem SNOMED Code Status Onset Date Resolution Date Notes Provider Name and Address Organization Details Recorded Time Essential hypertension 54476908 Active 2022 DALE scott [place] - [facility] [...] Updated DateTime 3 162.56 cm 30.2 kg/m2 43268.2 6 g 97.6 [degF] 18 /min 74 /min 97 % 97 % 148 mm[Hg] 88 mm[Hg] DALE AVENDAÑO - [facility] 3 18:59:22 Social History Question Answer Notes LastModified by PushToTestat ion Details LastModified Time Tobacco Smoking Status [...] SNOMED-CT Code Diagnosis ICD10 Code Diagnosis Note [id number] [address] [place] [id number] 03/29/2021 08:07:49 03/29/2021 09:01:21 [id number] [facility] [address] [place] [phone] 11/02/2019 14:08:05 11/02/2019 15:06:01 [id number] [facility] [address] [place] [address] 12/28/2022 17:09:20 12/28/2022 19:48:45 Essential hypertension 26530245 I10 Blood pressure was mildly elevated- most likely due to the pain. follow up with your PCP if still elevated. Meralgia p aresthetica of right leg [id number] 05164 G57.11 Physical Therapy Advised - Script Written Health Concerns Section Related Observation LastModified by Organization Detai ls LastModified Time None Recorded Concern Status LastModified by Organization Details LastModified Time None Recorded Advance Directives Directive None Recorded Payers Encounter Date Sequence Insurance Name Policy Number Policy Spear Covered Member ID Spear Member ID Guarantor Name 11/02/2019 1 [facility] (HMO) BETZY Diallo [id number] Katherin Diaz 03/29/2021 1 [facility] (HMO) BETZY Diallo [id number] Katherin Diaz 12/28/2022 1 [facility] NET PLAN (MEDICAID HMO) BETZY Pandey Diallo [id number] Katherin Yoel Notes Date Note Type Note [...] or bladder incontinance. KATERYNA MOY [facility] [place], [address], [place] - [facility] 12/28/2022 23:04:28 OBGyn Episode No OBEpisode recorded.
--- OUTSIDE RECORDS SUMMARY | 2025-01-28 11:53 | XMS_ITS | Data Portability ---
Author Organization [facility], , [facility] Address [address] [place] [address] Care Team Providers Care Geospatial Imagery Intelligence Analyst Name Role Phone SOFÍA BAKER [facility] [phone] CARLA CHOPRA Primary Care Provider IMANI HOLLIDAY Primary Care Provider JUAN Hughes Urologist Assessment No assessment recorded. Plan of Treatment Reminders Order Date Submit Date Provider Last Modified By Organization Details Last Modified Time Details Appointments None recorded. Lab culture, urine 2016 017 [facility], [address] [place], [address], 7 22:01:03 Referral None recorded. Procedures None recorded. Surgeries None recorded. Imaging bone density 2016 017 [facility] (Imaging), [address], [place], [address], 7 13:27:32 XR, thoracic spine - right sided mid back pain without trauma. r/o compressio n fracture, worsening arthritis 2016 017 [facility] (Imaging), [address] [place], [address], 7 15:07:55 Medication Orders Macrobid 100 mg capsule 2016 017 [id number], [address] [facility], [place], [address], 7 15:58:50 valacyclov ir 500 mg tablet 2016 017 INTERFACE [facility], [address] [place], [address], 7 08:49:26 Vitamin D3 25 mcg (1,000 unit) capsule 2016 017 INTERFACE [facility], [address] [place], [address], 7 08:49:25 famotidine 20 mg tablet 2016 017 INTERFACE [facility], [address] [place], [address], 7 08:49:25 tizanidine 4 mg tablet 2016 017 INTERFACE [facility], [address] [place], [address], 7 09:55:33 cyclobenza elzbieta 5 mg tablet 2016 017 [facility], [address] [place], [address], 7 09:08:42 Patient TargetsNo targets recorded. Patient Instructions Encounter Date Encounter Id Patient Instructions Last Modified By Organization Details Last Modified Time 03/15/2017 [id number] Pt has appt already scheduled with PCP next month. [email or web address] Not available 03/15/2017 09:10:37 08/20/2017 [id number] -Push fluids -Make sure you're emptying your bladder when you need to go -Take medication twice daily for a week UNLESS we call you and tell you to stop taking it [email or web address] Not available 08/20/2017 15:58:47 10/05/2017 [id number] RX given for glasses Eyes are healthy and work well together. Return to office in 2 years or sooner as needed. [email or web address] Not available 10/05/2017 14:19:53 Reason for Referral None Reported. Results Created Date Observation Date Name Description Value Unit Range Abnormal Flag Note LastModifiedBy Organization Detail LastModifiedTime 08/20/20 17 08/20/2017 POC UA glu UA Negati ve Not Available [address], [address], 08/20/2017 15:58:07 08/20/20 17 08/20/2017 POC UA clarity UA Clear Not Available [address], [address], 08/20/2017 15:58:07 08/20/20 17 08/20/2017 POC UA uro UA 0.2000 Not Available [address], [address], 08/20/2017 15:58:07 08/20/20 17 08/20/2017 POC UA ket UA Negati ve Not Available [address], [address], 08/20/2017 15:58:07 08/20/20 17 08/20/2017 POC UA pro UA Negati ve Not Available [address], [address], 08/20/2017 15:58:07 08/20/20 17 08/20/2017 POC UA nit UA Negati ve Not Available [address], [address], 08/20/2017 15:58:07 08/20/20 17 08/20/2017 POC UA jesus UA Negati ve Not Available [address], [address], 08/20/2017 15:58:07 08/20/20 17 08/20/2017 POC UA pH UA 6.0000 Not Available [address], [address], 08/20/2017 15:58:07 08/20/20 17 08/20/2017 POC UA SG UA <=1.00 50 Not Available [address], [address], 08/20/2017 15:58:07 08/20/20 17 08/20/2017 POC UA color UA Yellow Not Available [address], [address], 08/20/2017 15:58:07 08/20/20 17 08/20/2017 POC UA blo UA Trace- lysed Not Available [address], [address], 08/20/2017 15:58:07 08/20/20 17 08/20/2017 POC UA kumar UA Negati ve Not Available [address], [address], 08/20/2017 15:58:07 08/20/20 17 08/21/2017 cultu re, urine culture, urine, routine CULTU RE, URINE , ROUTI NE MICRO NUMBE R: [id number] TEST STATU S: FINAL SPECI MEN SOURC E: URINE SPECI MEN QUALI TY: ADEQU ATE RESUL T: No Growt h Not Available [facility] [address] [place] [address] [address], [place], [address], 08/21/2017 22:01:03 03/15/20 17 03/15/2017 XR, thora [...] Readchemo jj Physic jack: Jermaine Diaz [email or web address] [facility] (Imaging) [address], [place], [address], 03/16/2017 16:34:43 05/20/20 17 05/17/2017 bone densi [...] Readin g Physic jack: Harsh Donovan MD [facility] [place] [place] (Imaging) [address], [place], [address], 06/06/2017 11:04:39 Result Notes None recorded. Problems Name Problem SNOMED Code Status Onset Date Resolution Date Notes Provider Name and Address Organization Details Recorded Time Mixed hyperlipid emia 610176222 Completed 200810/06/2016 Carla Chopra NP [address] [place] [address], [address] , [facility] 6 15:25:18 Urinary incontinen ce 548751781 Active 2008 KATERYNA Martin [address] [place] [address], [address] , [facility] 5 16:09:22 Carpal tunnel syndrome 75727480 Active 2008 KATERYNA Martin [address] [place] [address], [address] , [facility] 5 16:09:22 Gastroesop hageal reflux disease 510826626 Active 2008 KATERYNA Martin [address] [place] [address], [address] , [facility] 5 16:09:22 Lateral epicondyli tis 514203592 Completed 10/15/2013 KATERYNA Martin [address] [place] [address], [address] , [facility] 5 16:09:22 Lateral epicondyli tis 814398606 Completed 200603/03/2011 KATERYNA Martin [address] [place] [address], [address] , [facility] 5 16:09:22 Right lower quadrant pain 790640687 Completed 200703/03/2011 KATERYNA Martin [address] [place] [address], [address] , [facility] 5 16:09:22 Right upper quadrant pain 148669043 Completed 200703/03/2011 KATERYNA Martin [address] [place] [address], [address] , [facility] 5 16:09:22 Urinary tract infectious disease 51142988 Completed 200703/03/2011 KATERYNA Martin [address] [place] [address], [address] , [facility] 5 16:09:22 Benign essential hypertensi on 5298222 Active Carla Chopra NP [address] [place] [address], [address] , [facility] 6 06:15:28 Benign essential hypertensi on 3144143 Completed 200607/05/2012 KATERYNA Martin [address] [place] [address], [address] , [facility] 5 16:09:22 Other Completed 10/15/2013 KATERYNA Martin [address] [place] [address], [address] , [facility] 5 16:09:22 Plantar fasciitis 614356175 Active KATERYNA Martin [address] [place] [address], [address] , [facility] 5 16:09:22 Abdominal pain 51506113 Completed 200703/03/2011 KATERYNA Martin [address] [place] [address], [address] , [facility] 5 16:09:22 Mittelschm erz 24969428 Completed 200703/03/2011 KATERYNA Martin [address] [place] [address], [address] , [facility] 5 16:09:22 Low back pain 142058914 Active 2008 Sofía Baker , PT [address] [place], [address] , [facility] 5 15:19:28 Dysuria 04800639 Completed 200703/03/2011 KATERYNA Martin [address] [place] [address], [address] , [facility] 5 16:09:22 Pain in limb 89491520 Completed 200703/03/2011 KATERYNA Martin [address] [place] [address], [address] , [facility] 5 16:09:22 Malaise and fatigue 451203650 Completed 200703/03/2011 KATERYNA Martin [address] [place] [address], [address] , [facility] 5 16:09:22 External hordeolum 8210558 Completed 10/06/2016 Carla Chopra NP [address] [place], [address] , [facility] 6 15:25:27 Problem Notes None recorded. Procedures Surgical History Date Name Laterality Status Provider Name and Address Organization Details Recorded Time 08/20/20 17 POC Urinalysis Testing completed Chery Pack LPN [facility] 08/20/2017 15:41:16 11/10/20 16 POC Urinalysis Testing completed Tiff Guaman [facility] 11/10/2016 15:30:22 10/06/20 16 IUD Removal completed Carla Chopra NP [address] [place], [address], [facility] 10/06/2016 11:31:24 11/16/20 15 Refraction completed Demi Monge [facility] 11/16/2015 14:49:53 11/03/20 15 41763: PT Evaluation completed Sofía Baker, PT [address] [place], [address], [facility] 11/03/2015 15:19:30 03/24/20 14 Nebulizer Tx completed Brook Shetty LPN [facility] 03/24/2014 16:48:23 03/05/20 14 69197: Therapeutic Exercise completed Sofía Baker, PT [address] [place], [address], [facility] 03/06/2014 07:26:23 12/30/19 14 Treatment and Advice completed Sofía Baker, PT [address] [place], [address], [facility] 12/30/2013 09:32:27 12/19/19 14 Treatment and Advice completed Sofía Baker, PT [address] [place], [address], [facility] 12/19/2013 14:07:27 12/12/19 14 Treatment and Advice completed Sofía Baker, PT [address] [place], [address], [facility] 12/12/2013 15:06:06 11/25/20 13 Treatment and Advice completed Sofía Baker, PT [address] [place], [address], [facility] 11/25/2013 07:25:48 10/17/20 13 Treatment and Advice completed Sofía Baker, PT [address] [place], [address], [facility] 10/17/2013 16:36:32 09/22/20 13 Treatment and Advice completed Sofía Baker, PT [address] [place], [address], [facility] 09/22/2013 11:05:52 09/18/20 13 Treatment and Advice completed Sofía Baker, PT [address] [place], [address], [facility] 09/18/2013 12:26:36 09/15/20 13 Treatment and Advice completed Sofía Baker, PT [address] [place], [address], [facility] 09/15/2013 12:05:17 03/26/20 13 Treatment and Advice completed Sofía Baker, PT [address] [place], [address], [facility] 03/26/2013 11:26:58 04/12/20 11 IUD Insertion completed Santhosh Copeland MD [address] [place], [address], [facility] 04/12/2011 17:43:17 04/12/20 11 IUD Removal completed Santhosh Copeland MD [address] [place], [address], [facility] 04/12/2011 17:43:17 08/05/20 09 Treatment and Advice completed Sofía Baker, PT [address] [place], [address], [facility] 08/05/2009 11:29:26 07/30/20 09 Treatment and Advice completed Sofía Baker, PT [address] [place], [address], [facility] 07/30/2009 12:05:14 04/05/20 09 Treatment and Advice completed Sofía Baker, PT [address] [place], [address], [facility] 04/05/2009 13:25:02 03/15/20 09 Treatment and Advice completed Sofía Baker, PT [address] [place], [address], [facility] 03/15/2009 14:33:48 03/10/20 09 Treatment and Advice completed Sofía Baker, PT [address] [place], [address], [facility] 03/10/2009 09:40:52 Cholecystectomy completed Not Available [facility] 10/12/2011 06:06:16 Imaging Results Imaging Date Name Status LastModified by Organiz ation Details LastModified Time 03/15/2017 XR, thoracic spine completed [address] (Imaging) [address], [place], [address], 03/16/2017 16:34:43 05/17/2017 bone density completed [facility] (Imaging) [address] [place], [address], 06/06/2017 11:04:39 Procedure Notes None recorded. Medical Equipment None Reported. Allergies Allergen ID Allergen Name Allergen Category Reaction Reaction Severity Criticality Documentation Date Start Date Code Code System Note Provider Name and Address Organization Details Recorded Time 94561 ibuprofen medicatio n nausea Not available Not available 01/23/2012 5640 RxNorm stoma ch upset Carla Chopra , MELINA [address] [facility] [place], [address], [facility] 5 15:46:47 Medications Name Sig Start Date [...] Details Last Updated DateTime 03/15/2017 165.74 cm 65415.85 g 29.2 kg/m2 Desirae Ya MA [facility] 03/15/2017 08:37:44 Date Recorded Systolic blood pressure Diastolic blood pressure Provider Name and Address Organization Details Last Updated DateTime 03/15/2017 138 mm[Hg] 74 mm[Hg] Karin Vela NP [address] [place] [address], [address], [facility] 03/15/2017 08:54:38 Date Recorded Body height Body weight Body mass index (BMI) Systolic blood pressure Diastolic blood pressure Provider Name and Address Organization Details Last Updated DateTime 03/19/2017 165.74 cm 23575.44 g 29.4 kg/m2 128 mm[Hg] 80 mm[Hg] Tiff Guaman [facility] 7 09:45:44 Date Recorded Body height Body weight Body mass index (BMI) Heart rate Systolic blood pressure Diastolic blood pressure Provider Name and Address Organization Details Last Updated DateTime 7 165.74 cm 71211.2 5 g 29.3 kg/m2 66 /min 114 mm[Hg] 68 mm[Hg] Sonia Cobb MA [facility] 7 08:18:37 Date Recorded Body height Body mass index (BMI) Body weight Heart rate Systolic blood pressure Diastolic blood pressure Provider Name and Address Organization Details Last Updated DateTime 165.74 cm 29.4 kg/m2 04033.4 4 g 80 /min 120 mm[Hg] 80 mm[Hg] Chery Pack LPN [facility] 7 15:44:35 Social History Question Answer Notes LastModified by Organizat ion Details LastModified Time Tobacco Smoking Status Former Smoker quit @ age 18 occasional smoker. 1 yr 3 JACK Neil, [facility] 01/15/2013 13:58:47 Do You Have An [...] Information not available 10/02/2014 Marital Status Re- [facility] Informati n not available 09/24/2012 Mosquito Repellent [...] virus, trivalent, preservative 2 completed Not Available [facility] 12/13/2019 02:18:31 influenza, seasonal, intradermal, preservative free 2 completed Not Available [facility] 12/13/2019 02:28:17 influenza, unspecified formulation 0 completed Not Available [facility] 10/11/2011 05:22:41 Influenza, split virus, trivalent, PF 3 completed Not Available [facility] 12/13/2019 02:27:10 Influenza, split virus, trivalent, preservative 4 completed Not Available [facility] 12/13/2019 02:36:27 Influenza, split virus, quadrivalent, PF 5 completed Not Available [facility] 12/13/2019 02:19:48 Influenza, split virus, trivalent, preservative 0 completed Not Available [facility] 12/13/2019 02:17:42 Novel [id number] 0 completed Not Available [facility] 12/13/2019 02:32:30 Influenza, split virus, quadrivalent, PF 6 completed Not Available [facility] 12/13/2019 02:33:42 Influenza, split virus, quadrivalent, PF 7 completed Not Available [facility] 12/13/2019 02:22:02 Tdap 1 completed Not Available [facility] 12/13/2019 02:15:39 Past Encounters Encounter ID Performer Location Encounter Start Date Encounter Closed Date Diagnosis/Indication Diagnosis SNOMED-CT Code Diagnosis ICD10 Code Diagnosis Note [id number] [facility], OFFICE [address] [place] [address] 10/24/2007 15:38:04 12/16/2008 02:02:29 [id number] [facility], OFFICE [address] [place] [address] 12/26/2007 14:44:03 12/16/2008 02:02:29 [id number] LAB - [facility] [address] [place] [address] 12/26/2007 15:29:44 12/26/2007 15:29:51 [id number] Radiology , [facility] [address] [place] [address] 01/02/2008 10:54:15 01/03/2008 09:34:27 [id number] [facility], OFFICE [address] [place] [address] 04/30/2008 08:59:34 12/16/2008 02:02:29 [id number] Radiology , [facility] [address] [id number] 04/30/2008 13:24:49 05/01/2008 09:23:22 [id number] LAB - [facility] [address] [id number] 04/30/2008 09:44:23 04/30/2008 09:44:29 [id number] LAB - [facility] [address] [place] [address] 04/30/2008 00:00:00 12/16/2008 02:02:29 [id number] [facility], OFFICE [address] [facility] [place] [id number] 06/08/2008 11:42:37 12/16/2008 02:02:29 [id number] [facility], OFFICE [address] [place] [address] 09/07/2008 16:56:28 12/16/2008 02:02:29 [id number] LAB - [facility] 70 [facility] [place] [address] 09/08/2008 07:24:37 09/08/2008 07:24:44 [id number] [facility], OFFICE [address] [place] [address] 12/10/2008 08:55:51 12/16/2008 02:02:29 [id number] LAB - [facility] [address] [facility] [place] [address] 12/10/2008 09:28:55 12/10/2008 09:29:01 [id number] [facility], OFFICE [address] [place] [address] 01/08/2009 15:45:36 01/11/2009 11:31:48 [id number] [facility], OFFICE [address] [place] [address] 02/10/2009 14:10:43 02/12/2009 09:14:54 [id number] Radiology , [facility] [address] [place] [address] 02/19/2009 09:33:41 02/22/2009 15:31:21 [id number] [facility], OFFICE [address] [place] [address] 03/04/2009 14:20:11 03/09/2009 08:39:36 [id number] Radiology , [facility] J[id number] 03/04/2009 14:47:16 03/08/2009 14:42:30 [id number] Physical Therapy, [facility] J[id number] 03/10/2009 08:59:23 03/11/2009 07:35:54 [id number] Physical Therapy, [address] [id number] 03/15/2009 13:48:50 03/17/2009 08:30:03 [id number] Physical Therapy, [address] J[place] [id number] 03/19/2009 10:55:16 03/19/2009 14:42:57 [id number] Physical [facility], [address] J[place] [id number] 03/26/2009 14:44:00 03/26/2009 16:03:19 [id number] Physical [facility], [address] [place] [address] 04/05/2009 12:51:55 04/05/2009 15:07:57 [id number] Physical [facility], [address] [place] [address] 04/21/2009 13:53:30 04/22/2009 08:42:55 [id number] , [facility], [address] [place] [address] 07/16/2009 16:35:23 07/21/2009 13:55:02 [id number] Physical [facility], [address] [place] [address] 07/26/2009 13:17:26 07/30/2009 09:10:41 [id number] Physical [facility], [address] [place] [address] 07/30/2009 10:50:58 08/03/2009 10:31:54 [id number] Physical [facility], [address] [address] 08/05/2009 10:52:14 08/06/2009 09:34:36 [id number] Radiology , [address] [address] 08/11/2009 11:29:04 08/16/2009 11:35:37 [id number] Physical [facility], [facility] [place] [address] 08/23/2009 12:49:34 08/23/2009 15:51:13 [id number] [facility], OFFICE [address] [facility] [place] [address] 09/17/2009 11:20:02 09/20/2009 10:25:51 [id number] Radiology , [facility] [address] [facility] [address] 09/20/2009 10:08:11 09/22/2009 10:59:02 [id number] LAB - [facility] [place] [address] 02/10/2009 15:26:55 02/10/2009 15:27:26 [id number] LAB - [facility] [place] [address] 09/09/2009 07:59:23 09/09/2009 08:00:02 [id number] LAB - [facility] [place] [place] [address] 09/17/2009 11:50:50 09/17/2009 11:51:11 [id number] [facility], OFFICE [address] [place] [address] 11/04/2009 11:24:54 11/05/2009 12:06:07 [id number] [facility], OFFICE [address] [place] [address] 11/22/2009 11:25:24 11/24/2009 14:08:20 [id number] [facility], OFFICE [address] [place] [address] 02/02/2010 10:46:29 02/04/2010 10:39:00 [id number] [facility], OFFICE [address] [place] [address] 07/28/2010 16:17:03 07/29/2010 10:10:58 [id number] [facility], OFFICE [address] [place] [address] 11/01/2010 16:15:36 11/02/2010 11:59:24 [id number] Physical [facility], [address] [address] 11/08/2010 13:53:01 11/08/2010 16:05:50 [id number] Physical [facility], [address] [address] 11/22/2010 15:43:19 11/23/2010 08:50:23 [id number] FP, [facility], OFFICE [address] [facility] J[place] [id number] 12/15/2010 14:28:26 12/16/2010 13:00:08 [id number] FP, [facility], OFFICE [address] [facility] [address] [place], J[place] [id number] 02/09/2011 14:37:52 02/13/2011 14:42:40 [id number] FP, [facility], OFFICE [address] [facility] [address] [place], J[place] [id number] 02/13/2011 10:36:53 02/13/2011 17:33:22 [id number] Radiology , [facility] 70 [facility] JACK [id number] 02/16/2011 16:25:28 02/17/2011 13:30:35 [id number] FP, [facility], OFFICE [address] [facility] J[place] [id number] 03/21/2011 13:45:34 03/23/2011 08:42:24 [id number] FP, [facility], OFFICE 70 [facility] [place] JACK [id number] 04/04/2011 09:42:37 04/07/2011 08:35:46 [id number] FP, [facility], OFFICE [address] [facility] J[place] [id number] 04/12/2011 13:46:14 04/14/2011 11:10:28 [id number] FP, [facility], OFFICE 70 [facility] [place] JACK [id number] 04/21/2011 10:47:16 04/25/2011 08:32:56 [id number] FP, [facility], OFFICE 70 [facility] [place] JACK [id number] 06/27/2011 11:40:27 06/27/2011 16:23:49 [id number] Radiology , [facility] 70 [facility] J[place] [address] 06/30/2011 14:58:35 07/10/2011 14:00:07 [id number] FP, [facility], OFFICE [address] [facility] [address] [place] JACK [id number] 07/27/2011 13:18:23 07/27/2011 14:31:24 [id number] FP, [facility], OFFICE 70 [facility] [place] JACK [id number] 01/23/2012 16:01:40 01/23/2012 16:41:49 [id number] Physical [facility], [address] [address] 01/30/2012 15:50:36 01/31/2012 07:53:16 [id number] Radiology , [facility] [address] [place] [address] 04/25/2012 13:00:54 04/26/2012 09:45:44 [id number] , [facility], OFFICE [address] [place] [id number] 06/07/2012 09:26:43 06/07/2012 10:51:43 [id number] , [facility], OFFICE [address] [place] [id number] 07/05/2012 11:15:57 07/05/2012 12:18:44 [id number] Amber Lou NP , [facility], OFFICE [address] [place] [id number] 08/12/2012 13:42:01 08/12/2012 14:21:43 [id number] [facility] , [facility], OFFICE [address] [place] [address] 09/03/2012 06:33:37 09/03/2012 16:06:16 [id number] Zafar Kelley MD , [facility], OFFICE [address] [place] [address] 10/04/2012 11:07:27 10/04/2012 12:14:27 [id number] Santhosh Copeland MD , [facility], OFFICE [address] [place] [address] 10/22/2012 14:51:43 10/22/2012 15:37:56 [id number] Julianna Panchal Physical Therapy, [address] [address] 10/29/2012 14:43:10 10/30/2012 12:26:47 [id number] Sue Fierro, OT Physical Therapy, [address] [address] 11/05/2012 16:01:44 11/06/2012 07:55:33 [id number] Sue Fierro, OT Physical Therapy, [address] [address] 12/10/2012 15:30:52 12/10/2012 16:14:57 [id number] Carla Chopra NP , [facility], OFFICE [address] [place] [address] 12/20/2012 11:50:24 12/20/2012 13:17:24 [id number] Imani Summer Holldiay, ACCOUNTING MACHINE OPERATOR-BC FP, [facility], OFFICE [address] [place] [address] 01/06/2013 16:01:37 01/07/2013 10:46:30 [id number] Liliane Drummond , [facility], OFFICE [address] [place] [address] 01/15/2013 13:46:17 01/15/2013 14:11:50 [id number] ImaniZELDA Marie-BC , [facility], OFFICE [address] [place] [address] 03/24/2013 13:39:47 03/24/2013 14:25:20 [id number] Sofía Baker , PT Physical Therapy, [facility] [address] [place] [address] 03/26/2013 10:49:34 03/27/2013 15:19:00 [id number] Imani RosenthalBRANDON BirdP-BC , [facility], [address] [place] [address] 04/08/2013 09:18:15 04/08/2013 14:15:03 [id number] Imani Wheelerkeisha Holliday ACCOUNTING MACHINE OPERATOR-BC [facility], [facility], [address] [place] [address] 05/06/2013 15:32:00 05/07/2013 10:24:47 [id number] Ruchi Vidalia Nutrition -[facility] [address] [place] [address] 06/24/2013 08:35:29 06/30/2013 12:09:37 [id number] Ruchi Vidalia Nutrition -[facility] [address] [place] [address] 08/05/2013 15:38:47 08/06/2013 15:45:58 Mixed hyperlipidemia [id number] Karena Pearson , [facility], [address] [place] [address] 08/06/2013 06:16:46 08/08/2013 12:08:54 Influenza vaccine needed [id number] [facility], [address] [place] [address] 09/03/2013 09:22:09 09/05/2013 13:23:35 Carpal tunnel syndrome 13546922 pt with known carpal tunnel and now upper extremity arm pain since starting work. no focal findings on exam. likely mild tendonitis . will refer to OT for assessment /exercised . pt reports pain relief with acetaminop hen. [id number] Carla Chopra NP , [facility], [address] [place] [address] 09/10/2013 11:45:26 09/10/2013 12:44:15 Acute low back pain 757376790 pt with musculoske letal strain in setting of new job and lifting. no red flags. medicaiton s rest and PT referral given. pt given note for work for the rest of the week. [id number] [facility], [address] [address] 09/15/2013 11:21:39 09/16/2013 09:36:44 Low back pain 622727301 [id number] Wander Hatch Physical [facility], [address] [address] 09/18/2013 11:58:59 09/19/2013 07:56:44 Low back pain 950244190 [id number] Wander Hatch , [facility], [address] [place] [address] 09/19/2013 11:50:45 09/19/2013 13:09:36 Acute low back pain 447242379 pt with musculoske letal strain in setting of new job and lifting. no red flags. continue with pt. will await clearance from pt for return to work. [id number] [facility], [address] [address] 09/22/2013 10:29:53 09/22/2013 11:54:37 Low back pain 793326829 [id number] [facility], [address] [address] 10/01/2013 10:46:59 10/01/2013 11:54:18 Low back pain 808438927 [id number] Quita Dawson, Ms, Rdn, Ldn, CDE Nutrition -[address] [address] 10/08/2013 10:27:05 10/08/2013 11:13:23 Mixed hyperlipidemia 582680985 [id number] Wander Holden Physical [facility], [address] [address] 10/08/2013 17:24:33 10/09/2013 07:25:18 Low back pain 355277315 [id number] W[facility], [address] [address] 10/17/2013 15:52:07 10/20/2013 08:24:58 Low back pain 504415955 [id number] [facility], [facility], OFFICE [address] [place] [address] 10/21/2013 10:39:31 10/21/2013 13:48:57 Benign essential hypertension 7250657 Blood pressure at goal with current regimen. Adult heal th examination 547395943 see Risk Assessment and Lifestyle Change Counseling section above. overall healthy 47 year old woman. hypertensi on at goal. Counseling [id number] Hypertriglyceridemia 975379849 discussed calculated risk. 10.04% risk with framingham calculator , 8% risk with AHA calculator . pt is motivated to focus on diet and exercise. will recheck in 6 months. [id number] [facility] [address] [address] 11/04/2013 07:00:11 11/04/2013 09:35:34 Low back pain 370545424 [id number] [facility]atch [facility], [address] [address] 11/11/2013 10:21:21 11/11/2013 11:28:42 Low back pain 461161491 [id number] Ruchi Vidalia Nutrition -[address] [address] 11/12/2013 11:19:11 11/14/2013 15:14:18 Mixed hyperlipidemia 841566066 [id number] Karena Pearson Physical [facility], [address] [address] 11/25/2013 06:53:03 11/25/2013 09:26:11 Low back pain 467301725 [id number] Carla Chopra NP FP, [facility], [address] [place] [address] 12/02/2013 15:49:59 12/03/2013 08:50:23 Backache 554828886 tenderness right lower side. consistent with musclar spasm and sciatica. will trial muscle relaxor which pt has benefited from in the past. disucssed importance of continuing with PT. [id number] Sofía Baker PT Physical Therapy, [facility] [address] [place] [address] 12/12/2013 14:02:51 12/12/2013 15:26:12 Low back pain 252947259 [id number] Karena Pearson Physical [facility], [address] [address] 12/19/2013 13:20:11 12/22/2013 07:23:01 Low back pain 835463725 [id number] Sofía Baker PT Physical [facility], [address] [address] 12/30/2013 09:04:17 12/30/2013 10:39:29 Low back pain 536954155 [id number] Faye Perez MA , [facility], [address] [place] [address] 01/13/2014 10:27:45 01/13/2014 13:47:51 Benign essential hypertension 6479348 Blood pressure at goal . continue with current regimen. Hyperlipidemia 12301791 ASCVD risk < 5%. not in statin benefit group per guidelines . [id number] Sofía Baker PT Physical [facility], [address] [address] 02/02/2014 15:39:27 02/04/2014 09:10:11 Low back pain 387069995 [id number] Sofía Baker PT Physical [facility], [address] [address] 02/13/2014 12:25:36 02/13/2014 13:09:48 Low back pain 621976631 [id number] Sofía Baker PT Physical Therapy, [address] [address] 03/05/2014 07:59:45 03/06/2014 07:29:53 Low back pain 038128041 [id number] Nikole Akhtar MA , [facility], [address] [place] [address] 03/24/2014 16:16:21 03/30/2014 14:42:30 Acute upper respiratory infection 20116333 Educated patient that URI is a viral [...] albuterol. rx for albuterol given for home. [id number] Aline Boyer , [facility], [address] [place] [address] 05/18/2014 10:43:41 05/19/2014 09:09:52 Suprapubic pain 269385276 Patient with mild suprapubic tenderness . No clinical evidence of acute abdomen. Urine dipstick negative other than microscopi c hematuria. Spun urine negative for casts. Ample hydration recommende d. Denies VB. Denies BRBPR/orestes na. Will monitor for any worsening symptoms. Microscopic hematuria 066827659 Microscopi c hematuria. States she was previously told to have microscopi c hematuria as well. Never followed up for this. No known history of nephrolith iasis. Intermitte nt periods since her IUD insertion. [id number] Sonia Cobb MA , [facility], [address] [place] [address] 06/01/2014 17:27:04 06/03/2014 11:37:33 Urinary tract infectious disease 93403870 Push fluids f/u if no improvemen t in 72 hours or for fever or back pain. discussed follow up with urology for persistent hematuria. pt verbalized willingnes s to follow up as instructed . Dysuria 29387533 Patient instructed to push fluids, follow-up for worsening symptoms, back pain or fever. Urine culture sent. [id number] JACK Narvaez, [facility], [address] [place] [address] 06/04/2014 08:43:49 06/04/2014 12:44:31 Acute urinary tract infection 357561994 cannot r/o pyelo although exam is reassuring . treat with 10d cipro, probiotics , fluids ,rest. urology apt tomorrow - to ER with inc pain, inability to pass urine. Senna for constipati on. note: ER note said urine culture showed Bactrim resistance and they advised Augmentin - pt advised to take the Cipro instead -likely better tolerated - probiotics , rtc prn [id number] JACK Narvaez, [facility], [address] [place] [address] 08/28/2014 07:58:31 08/28/2014 08:28:02 Influenza vaccine needed [id number] 106 Backache 103928361 Pt wi th flare of thoracic area back pain [id number] Nikole Akhtar MA , [facility], [address] [place] [address] 09/08/2014 07:57:24 09/08/2014 08:45:48 Vaginitis 03673522 sx care reviewed suggest avoiding scented products rtc prn [id number] Naeem More MD , [facility], [address] [place] [address] 10/02/2014 16:56:52 10/02/2014 17:32:57 Benign essential hypertension 5505229 [id number] Nikole Akhtar MA , [facility], [address] [place] [address] 10/16/2014 15:04:19 10/20/2014 09:05:14 Benign essential hypertension 7352088 Blood pressure NOT at goal. Med changes made RTC 1 month - sooner prn Gastroesop hageal reflux disease 812237091 stable with med [id number] Carla Chopra NP , [facility], [address] [place] [address] 11/27/2014 09:57:11 11/30/2014 12:20:49 Backache 454809836 Patient presents to Urgent Care with acute [...] hematuria likely due to her current period. [id number] Deborah Vallejo MA , [facility], [address] [place] [address] 12/15/2014 08:18:40 12/15/2014 09:35:08 Cough 15462487 viral illness work release note sx and supportive care reviewed rtc prn sx persist or increase [id number] Karena cervantes [facility], [address] [place] [address] 12/21/2014 07:40:38 12/23/2014 12:22:23 Cough 47393914 [id number] KATERYNA Martin , [facility], [address] [place] [address] 03/22/2015 14:32:48 03/22/2015 15:20:17 External hordeolum 3832679 without site of pointing. Encourage warm compresses qid or more today and tomorrow. Expect poss. of drainage. F/u if not continuing to improve, if redness extends beyond this current area. [id number] [facility], [address] [place] [address] 03/23/2015 14:32:41 03/23/2015 15:56:30 Adult health examination 022454108 see Risk Assessment and Lifestyle Change Counseling section above TC to supervisor plasma group to see when IUD placed and date of last Pap Counseling [id number] Backache 522156095 ERGON OMICS , POSTURE, HEAT EXERCISES GIVEN [id number] Carla Lee MA , [facility], [address] [place] [address] 04/21/2015 13:58:19 04/22/2015 11:56:33 Urinary tract infectious disease 36096337 pt presents with inconclusi ve UA, but symptoms feel like previous UTIs, will treat pending culture, risks of abx overuse reviewed. Push fluids f/u if no improvemen t in 72 hours or for fever or back pain. [id number] Soina Cobb MA , [facility], [address] [place] [address] 05/05/2015 08:09:09 05/06/2015 08:41:26 Urinary tract infectious disease 54587720 Urine dipstick findings suggestive of UTI. Will send out UCx. Antibiotic treatment. Strategies in preventing future UTI discussed including ample oral hydration, frequent voiding, post-coita l voiding and avoidance of douching. Patient with pain, not responding to Acetaminop hen. Requesting pain management . Will prescribe Oxycodone prn. Advised to use sparingly. Short-term use discussed. Advised to contact the clinic if worsening symptoms. [id number] Julia jaime MA , [facility], [address] [place] [address] 06/15/2015 15:27:02 06/15/2015 15:53:37 Toothache 32667468 saline mouth rinses, codeine, rest work release note f/u with dentist [id number] Hazel ALBA, [facility], [address] [place] [address] 08/18/2015 12:06:50 08/19/2015 09:49:15 Lifestyle 818406315 Screening mammography 31983212 Labile ess ential hypertension 618178492 when pt is stressed, endorses elevated blood pressure readings with associated headache. no other cardiac symptoms and the symptoms resolve when situation passes. situation is occurring rarely (<1 x monthly) and bp is generally at goal. will trial propranolo l when symptoms occur. follow up with pcp after usage. [id number] Amara ALBA, [facility], [address] [place] [address] 08/31/2015 12:15:05 09/01/2015 08:25:15 Influenza vaccine needed 9362644266 106 Z28.3 Backache 252589436 M54.9 tenderness right lower side. consistent with musclar spasm and sciatica. will trial muscle relaxer which pt has benefited from in the past. discussed importance of continuing with PT. [id number] KATERYNA Martin , [facility], [address] [place] [address] 11/01/2015 15:52:37 11/01/2015 17:06:20 Low back pain 605502306 M54.5 Screening for malignant neoplasm of breast 542483379 Z12.39 [id number] Sofía Baker , PT Physical Therapy, [facility] [address] [place] [address] 11/03/2015 12:19:15 11/03/2015 15:28:11 Low back pain 877914076 M54.5 [id number] Ronal Plasencia, OD [facility], [address] [address] 11/16/2015 14:10:37 11/16/2015 16:03:57 Ophthalmic examination and evaluation 45212195 Z01.00 Hypermetropia 36156120 H 52.03 Astigmatism 18421331 H52 .223 Presbyopia 25683368 H52. 4 [id number] Amara Pantoja , [facility], [address] [place] [address] 12/14/2015 11:51:01 12/15/2015 11:05:20 Right upper quadrant pain 277442325 R10.11 pt reports pain similar to gallstone pain previously , colicky, denies s/s of infection, denies urinary symptoms. pain persisting not worsening. labs and images as ordered below. [id number] Carla Chopra NP , [facility], [address] [place] [address] 03/24/2016 13:07:18 03/24/2016 14:01:29 Screening mammography 22104010 Z12.31 Mixed hyperlipidemia 267 837030 E78.2 due for labs-remin ded Benign ess ential hypertension 1060013 I10 Blood pressure at goal Backache 608426513 M54.9 ERGONOMICS , POSTURE, HEAT TRIAL OF MELOXICAM QD 2WK, CYCLOBENZA ELZBIETA PRN RTC PRN [id number] Naeem More MD , [facility], [address] [place] [address] 06/26/2016 14:59:02 06/26/2016 16:15:37 Nonulcer dyspepsia 6951356 K30 [id number] MELINA Bojorquez, [facility], [address] [place] [address] 07/26/2016 14:19:55 07/26/2016 15:25:14 Active or passive immunization 461513425 Z23 Benign ess ential hypertension 8345625 I10 Blood pressure at goalconsol idate med to single pill Gastroesop hageal reflux disease 525947131 K21.9 did not tolerate famotidine change to omeprazole , GERD precaution s Herpes simplex 56911854 B00.9 change to qd prophylaxi s dosing Migraine 64280555 G43.90 9 discussed optiosn for migraine prevention pt chooses to change propranolo l dosertc 2mos -call sooner with side effects or concerns [id number] MELINA Bojorquez, [facility], [address] [place] [address] 10/06/2016 10:37:09 10/10/2016 09:01:55 Benign essential hypertension 2687936 I10 Blood pressure at goal Adult heal th examination 908108452 Z00.00 see Risk Assessment and Lifestyle Change Counseling section above Counseling 660713938 Z71 .9 Gastroesop hageal reflux disease 465236102 K21.9 stable Screening for malignant neoplasm of cervix 120739493 Z12.4 Low back pain 514946165 M54.5 [id number] RAMO Miranda, [facility], [address] [place] [address] 10/18/2016 16:26:59 10/23/2016 11:40:37 Vaginitis 86923522 N76.0 per report pt was treated for vaginal infection in ER, notes not available for review. mirena was removed 2 months ago. symptoms improving, tolerating abx. no s/e. abdominal exam reassuring . continue treatment per ER visit. [id number] RAMO Miranda, [facility], [address] [place] [address] 11/10/2016 15:02:20 11/14/2016 10:35:06 Urinary tract infectious disease 59561366 N39.0 pt recently treated for pyelo diagnosed clinically at ER.reports compliance with abx, 2 days ago reoccurren ce of bladder discomfort , fullness, frequency and similar pain, UA inconclusi ve, treat with cipro while culture pending. [id number] RAMO Miranda , [facility], [address] [place] [address] 2016 13:27:43 11/30/2016 12:39:29 Increased blood pressure 19826225 R03.0 pt with multiple reading of BP above goal, associated headache. no underlying etiology to explain elevation. ekg reassuring , increase lisinopril , cont to monitor bp outside of office, labs as ordered below. [id number] RAMO Miranda, [facility], [address] [place] [address] 03/05/2017 15:30:46 03/05/2017 15:54:52 Diarrhea 71938443 R19.7 1 day of non bloody diarrhea.n o fever or painsuppor tive measures reviewed.c all for worsening symptoms or failure. to improve [id number] Karin Vela NP , [facility], [address] [place] [address] 03/15/2017 08:22:24 03/15/2017 09:06:35 Thoracic back pain 545057521 M54.6 Right sided for 4 days without trauma. Negative exam. Old MRI and xrays reviewed. Inst to apply heat or ice PRN. Continue with naprosyn BID. [id number] RAMO Miranda , [facility], [address] [place] [address] 03/19/2017 09:37:18 03/20/2017 09:51:41 Spasm of back muscles 197910260 M62.830 paraspinal spasm, advised massage, water, continue tylenol and alleve.enc ouraged ROM but not weight bearingupd ate if pain does not improvewor k note for today - wed given. [id number] MELINA Bojorquez, [facility], [address] [place] [address] 04/12/2017 07:57:14 04/13/2017 12:54:07 Benign essential hypertension 6305082 I10 Blood pressure at goal Osteopenia 341871410 M85 .9 Gastroesop hageal reflux disease 819660868 K21.9 stable Genital he rpes simplex 05094273 A60.9 Deficiency of vitamin D3 920871775 E55.9 Low back pain 202038197 M54.5 reviewed stretches for her to do daily. Aim for regular walks outside. PT if needed. [id number] Jennifer Alfonso CMA , [facility], [address] [place] [address] 08/20/2017 15:10:08 08/20/2017 16:25:02 Urinary tract infectious disease 36373843 N39.0 Patient instructed to push fluids, to follow up for persistent or worsening symptoms or fever or back pain. Active or passive immunization 171355599 Z23 [id number] Parker Luna OD [facility], [facility] [address] [place] [address] 10/05/2017 13:08:20 10/05/2017 14:41:08 Regular astigmatism 88510761 H52.223 Presbyopia 15525879 H52. 4 Health Concerns Section Related Observation LastModified by Organization Detai ls LastModified Time None Recorded Concern Status LastModified by Organization Details LastModified Time None Recorded Advance Directives Directive N: Payers Encounter Date Sequence Insurance Name Policy Number Policy Spear Covered Member ID Spear Member ID Guarantor Name 03/15/2017 1 [place] Katherin Diallo [id number] Katherin Diallo 03/19/2017 1 [place] Katherin Diallo [id number] Katherin Diallo 04/12/2017 1 [place] Katherin Diallo [id number] Katherin Diallo 08/20/2017 1 [place] Katherin Diallo [id number] Katherin Diallo 10/05/2017 1 [place] Katherin Diallo [id number] Katherin Diallo Notes Date Note Type Note [...] a little bit of benefit.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 Lots of twisting motion Karin Vela, MELINA [address] [place], [address], [facility] 03/15/2017 09:12:16 03/19/2017 text/html pt presents with pain in lung bothers pt when breathes, cannot sleep,has to sleep sitting up. pt points to right side of shoulder, inbetween spineno unusual popping or clickingmassage helps. pt taking tylenol did not take alleve.still bothered pt. breath is painful. Imani Holliday, [facility] [address] [place], [address], [facility] 03/19/2017 10:03:34 04/12/2017 text/html Aktherin reports ongoing back pain. WHen seen at [facility], it was recommended she have a BMD. SHe continues to work at strenuous job. Takes naproxen and flexeril as needed, not daily. No GI sx.BP in good control, nonsmoker. States takes meds as directed.Needs some med refills. Carla Chopra NP [address] [place], [address], [facility] 04/13/2017 07:30:47 08/20/2017 text/html a VMG Dysuria ur inary symptomsReported bypatient.Duration:Sy mptoms began 1 days ago Severity:Symptoms are moderate Associated Symptoms:Burning on urination;Urinary frequency; Chills, no fever, some mild nausea Context:Symptoms similar to previous UTI's TIFFANIE Maharaj, [facility] 08/22/2017 09:26:52 10/05/2017 text/html Comprehensive Ey e ExamReported bypatient.Quality:2 year exam;blurred vision near with glasses Location:bilateral Context:currently wears glasses Modifying factors:wears glasses for distance and near Associated Symptoms:no redness; no itching; no floaters; no dryness C/O Blurry near vision Parker Luna, OD [address] [place] [address], [phone], [facility] 10/05/2017 14:20:18 OBGyn Episode No OBEpisode recorded.
== END 2025-01-28 10:36 | disposition home or self-care (01) ==
LOC: HO.HMCWIC 10:08
PROVIDERS: PCP Internal Medicine; Visit Provider Physician Assistant
DX: M54.31 Sciatica, right side (principal)

== ENCOUNTER → 2025-01-28 10:08 | Outpatient (BNVA) | payer OTHER, SELFPAY | PROVIDERS: PCP Internal Medicine; Visit Provider Physician Assistant | DX: M54.31 Sciatica, right side (principal) | CPT/HCPCS: 99212 ==

== ENCOUNTER 2025-02-25 12:46 | Outpatient (AMB) | payer OTHER, SELFPAY ==
--- NOTE | 2025-02-25 13:30 | A.OFFPC_ITS ---
Vital Signs 02/25/25 13:31 02/25/25 13:43 Height 5 ft 3 in Weight 170 lb BMI 30.1 BP 144/90 H 125/75 Blood Pressure Location Lt brachial Lt brachial Position Sitting Sitting Pulse 90 Pulse Source Pulse Oximeter Pulse Oximetry (%) 98 Oxygen Delivery Method Room Air Intake Visit Reasons: f/u walkin sciatica no improvement Desktop Support Manager Required: No Accompanied by: Self / Same As Patient Allergies ibuprofen Adverse Reaction (Unknown, Verified 03/02/25 00:44) stomach upset Medication List - Last Reconciled 03/02/25 by Felicitas Burkett MD acetaminophen 1,000 mg (2 x 500 mg) PO Q6H PRN amlodipine 5 mg PO DAILY ascorbic acid (vitamin C) mg PO cetirizine 10 mg PO DAILY PRN cyclobenzaprine 10 mg PO TID lisinopril 40 mg PO DAILY naproxen 500 mg PO Q12H PRN omega-3 fatty acids (Fish Oil Concentrate) 1,000 mg PO DAILY rosuvastatin 5 mg PO DAILY valacyclovir 500 mg PO DAILY Tobacco use date assessed: 01/20/25 Dental Screening Dental Screen Date: 01/20/25 HPI f/u walkin sciatica no improvement HPI Details 59-year-old lady here today for follow-u p after recent walk-in visit, where she was diagnosed to have acute sciatica and placed on naproxen and prednisone. Patient states that she started feeling better once she started taking the medication but now that it has been completed patient's has started feeling the pain again in her right lower back, occasionally shooting down her buttock and thigh. No accompanying urinary frequency or urgency, incontinence of bowels and bladder reported. Patient stated hurts to get up from a sitting to standing position or when walking for extended periods of time. She also has been complaining of some pain in slight swelling no did over left AC joint. Does not interfere with the range of motion in left arm. [facility] Medical History Chronic thoracic back pain Recurrent cold sores Vitamin D deficiency Postprandial abdominal bloating Epigastric abdominal pain Cervical cancer screening Annual visit for general adult medical examination with abnormal findings Muscle strain of upper back Impaired fasting glucose GERD (gastroesophageal reflux disease) Normal Pap smear Stress incontinence of urine Essential hypertension Carpal tunnel syndrome Plantar fasciitis Migraine Mixed dyslipidemia Surgical History Hx of cholecystectomy Family History Father Bone cancer Mother History of hernia repair HTN (hypertension) Diabetes mellitus Brother Diabetes mellitus HTN (hypertension) Substance use disorder Maternal Grandfather Unknown family medical history Maternal Grandmother Unknown family medical history Paternal Grandfather Unknown family medical history Paternal Grandmother Unknown family medical history Sister No problems noted. Sister No problems noted. Daughter No problems noted. Daughter No problems noted. Son No problems noted. Brother No problems noted. Brother No problems noted. Brother No problems noted. Brother No problems noted. Social History Housing: Apartment Alcohol intake: current Alcohol intake frequency: does not drink Patient Tobacco Use Status: Former Tobacco user Years Smoked: 2 yrs e-Cigarette/Vaping Use: Never Used Second Hand Smoke Exposure: No service: No Current occupational status: employed Cognitive needs: No Hearing needs: No Vision needs: Yes (Glasses) Questionnaire PHQ-9 Over the last 2 weeks, how often have you been bothered by any of the following problems? 1. Little interest or pleasure in doing things: not at all 2. Feeling down, depressed, or hopeless: not at all 3. Trouble falling or staying asleep, or sleeping too much: not at all 4. Feeling tired or having little energy: not at all 5. Poor appetite or overeating: not at all 6. Feeling bad about yourself - or that you are a failure or have let yourself or your family down: not at all 7. Trouble concentrating on things, such as reading the newspaper or watching television: not at all 8. Moving or speaking so slowly that other people could have noticed. Or the opposite - being so fidgety or restless that you have been moving around a lot more than usual: not at all 9. Thoughts that you would be better off or of hurting yourself in some way: not at all Total score: 0 Depression Screening Interpretation: Negative Depression Screening Done: Yes 09853 - PHQ-9 Billing: Yes Source: Developed by Drs. Luis Fung, Elen Menon, Conrado Iyer and colleagues, with an educational rao from [employer]. Thrive Questionnaire Date Thrive assessed: 01/13/25 I am a: Patient What is your living situation today?: I have a steady place to live Within the past 12 months, did the food you bought not last and you didn't have the money to get more?: Sometimes True Within the past 12 months, did you worry whether your food would run out before you got money to buy more?: Sometimes True Do you have trouble paying for medicines?: No Do you have trouble getting transportation to medical appointments?: No Do you have trouble paying your heating and electricity bill?: No Do you have trouble taking care of your child, family member or friend?: No Do you have trouble with day-to-day activities such as bathing, preparing meals, shopping, managing finances, etc.?: No Are you currently unemployed and looking for a job?: No Are you interested in more education?: No Currently or been in a relationship where the following occur: I choose not to answer THRIVE Score: 2 DUY-7 AMB Questionnaire DUY-7 Date DUY - 7 assessed: 02/25/25 Feeling nervous, anxious, or on edge: 0 = Not at all Not being able to stop or control worryin = Not at all Worrying too much about different things: 0 = Not at all Trouble relaxin = Not at all Being so restless that it is hard to sit still: 0 = Not at all Becoming easily annoyed or irritable: 0 = Not at all Feeling afraid as if something awful might happen: 0 = Not at all Total DUY-7 score (0-4 normal; 5-9 mild; 10-14 moderate; 15-21 severe): 0 Source: Developed by Drs. Luis Fung, Elen Menon, Conrado Iyer and colleagues, with an educational rao from [employer]. DUY-7 Assessment Billing DUY-7 Assessment Tool: DUY-7 Assessment 37334 Review of Systems Const All systems reviewed & are unremarkable except as noted in HPI and below Physical exam (Primary Care) Vital Signs: Last Vital Signs Pulse 90 02/25/25 13:31 BP 125/75 02/25/25 13:43 Pulse Ox 98 04/02/25 13:31 Oxygen Delivery Method Room Air 02/25/25 13:31 BMI result Body Mass Index 30.1 Tobacco/Smoking Status: Tobacco use Status Tobacco use date assessed 01/20/25 02/25/25 13:32 Patient Tobacco Use Status Former Tobacco user 02/25/25 13:32 e-Cigarette/Vaping Use Never Used 02/25/25 13:32 PHQ-9: PHQ-9 Score PHQ-9: Total score 0 02/25/25 13:59 Depression Screening Interpretation: Negative Thrive Assessment: Date of Thrive Assessment Date Thrive assessed 01/13/25 02/25/25 13:32 Currently or been in a relationship where the following occur: I choose not to answer Const Other: Alert oriented x3, no acute distress noted, slight antalgic gait favoring right leg Neck Neck: Yes full ROM, Yes no lymphadenopathy and Yes supple Chest Other: Slight tenderness and fullness overlying left AC joint Resp Auscultation: clear to auscultation bilaterally Cardio Other: S1-S2 present regular rate and rhythm Back/Spine/Pelvis Other: Tenderness on palpation over right sacroiliac area, negative straight leg raising sign bilaterally Coding Level of Care Code Est Pt Level 4 (13082) Diagnoses Sprain of left acromioclavicular joint, sequela S43.52XS Sacroiliac joint dysfunction of right side M53.3 Additional Codes DUY-7 Assessment Billing - DUY-7 Assessment Tool: DUY-7 Assessment 43796 ([id number]) PHQ-9 - 84985 - PHQ-9 Billing: Yes ([id number]) Assessment & Plan Assessment & Plan (1) Sprain of left acromioclavicular joint, sequela: Code(s): S43.52XS - Sprain of left acromioclavicular joint, sequela Plan: Naproxen 500 mg 1 tablet twice a day as needed for pain control (2) Sacroiliac joint dysfunction of right side: Code(s): M53.3 - Sacrococcygeal disorders, not elsewhere classified Plan: Advised to continue taking naproxen 500 mg to take 1 every 12 hours with food as needed for pain controlled. May also apply Salonpas patch with lidocaine to affected area in lower back twice a day as needed.
[2025-02-25 13:31] VITALS: BP 144/90; PULSE 90; O2SAT 98; BMI 30.1
[2025-02-25 13:43] VITALS: BP 125/75
--- OUTSIDE RECORDS SUMMARY | 2025-02-25 15:19 | XMS_ITS | Data Portability ---
Author Organization [facility], [address] Address [address] [place] [address] Assessment No assessment recorded. Plan of Treatment Reminders Order Date Submit Date Provider Last Modified By Organization Details Last Modified Time Details Appointments None recorded. Lab None recorded. Referral None recorded. Procedures None recorded. Surgeries None recorded. Imaging None recorded. Medication Orders prednisone 10 mg tablet 2022 023 [id number], [address], [place], [address], 19:46:29 Patient TargetsNo targets recorded. Patient Instructions Encounter Date Encounter Id Patient Instructions Last Modified By Organization Details Last Modified Time 12/28/2022 [id number] meralgia paresthetica: care instructions [email or web address] Not available 12/28/2022 19:46:26 hip flexor strai n: rehab exercises [email or web address] Not available 12/28/2022 19:46:26 You have been [...] Fever or vomiting. Thank you for using [facility], please call if you have any questions or concerns. [email or web address] Not available 12/28/2022 19:46:25 Reason for Referral None Reported. Problems Name Problem SNOMED Code Status Onset Date Resolution Date Notes Provider Name and Address Organization Details Recorded Time Essential hypertension 93162744 Active 2022 DALE scott [place] - [facility] [...] Updated DateTime 3 162.56 cm 30.2 kg/m2 94888.2 6 g 97.6 [degF] 18 /min 74 /min 97 % 97 % 148 mm[Hg] 88 mm[Hg] DALE AVENDAÑO - [facility] 3 18:59:22 Social History Question Answer Notes LastModified by [facility] ion Details LastModified Time Tobacco Smoking Status [...] SNOMED-CT Code Diagnosis ICD10 Code Diagnosis Note [id number] [facility] [address] [place] [id number] 03/29/2021 08:07:49 03/29/2021 09:01:21 [id number] [facility] [address] [place] [phone] 0 11/02/2019 14:08:05 11/02/2019 15:06:01 [id number] [facility] [address] [place] [address] 12/28/2022 17:09:20 12/28/2022 19:48:45 Essential hypertension 81757617 I10 Blood pressure was mildly elevated- most likely due to the pain. follow up with your PCP if still elevated. Meralgia p aresthetica of right leg [id number] 08306 G57.11 Physical Therapy Advised - Script Written Health Concerns Section Related Observation LastModified by Organization Detai ls LastModified Time None Recorded Concern Status LastModified by Organization Details LastModified Time None Recorded Advance Directives Directive None Recorded Payers Encounter Date Sequence Insurance Name Policy Number Policy Spear Covered Member ID Spear Member ID Guarantor Name 11/02/2019 1 [facility] (HMO) BETZY Diallo [id number] Katherin Diallo 03/29/2021 1 [facility] [employer]AR[facility] (HMO) BETZY Pandey Diallo [id number] Katherin Diallo 12/28/2022 1 [facility] NET PLAN (MEDICAID HMO) BETZY Pandey Diallo [id number] Katherin Diallo Notes Date Note Type Note [...] No bowel or bladder incontinance. KATERYNA MOY [address] [place], [address], [place] - [facility] 12/28/2022 23:04:28 OBGyn Episode No OBEpisode recorded.
--- OUTSIDE RECORDS SUMMARY | 2025-02-25 15:19 | XMS_ITS | Data Portability ---
Author Organization [facility], , [facility] Address [address] [place] [address] Care Team Providers Care Assembler Brazer Name Role Phone SOFÍA BAKER Phys. Med. & Rehab CARLA CHOPRA Primary Care Provider [phone] IMANI HOLLIDAY Primary Care Provider JUAN Hughes Urologist [phone] Assessment No assessment recorded. Plan of Treatment Reminders Order Date Submit Date Provider Last Modified By Organization Details Last Modified Time Details Appointments None recorded. Lab culture, urine 2016 017 [facility], [address] [place], [address], 7 22:01:03 Referral None recorded. Procedures None recorded. Surgeries None recorded. Imaging bone density 2016 017 [facility] (Imaging), [address], [place], [address], 7 13:27:32 XR, thoracic spine - right sided mid back pain without trauma. r/o compressio n fracture, worsening arthritis 2016 017 [facility] (Imaging), [address] [place], [address], 7 15:07:55 Medication Orders Macrobid 100 mg capsule 2016 017 [facility]FACE [facility], [address] [facility], [place], [address], 7 15:58:50 valacyclov ir 500 mg tablet 2016 017 INTERFACE [facility], [address] [place], [address], 7 08:49:26 Vitamin D3 25 mcg (1,000 unit) capsule 2016 017 INTERFACE [facility], [address] [place], [address], 7 08:49:25 famotidine 20 mg tablet 2016 017 INTERFACE [facility], [address] [place], [address], 7 08:49:25 tizanidine 4 mg tablet 2016 017 INTERFACE [facility], [address] [place], [address], 7 09:55:33 cyclobenza elzbieta 5 mg tablet 2016 [facility]17 [facility], [address] [place], [address], 7 09:08:42 Patient TargetsNo targets recorded. Patient Instructions Encounter Date Encounter Id Patient Instructions Last Modified By Organization Details Last Modified Time 03/15/2017 [id number] Pt has appt already scheduled with PCP next month. [email or web address] Not available 03/15/2017 09:10:37 08/20/2017 [id number] -Push fluids -Make sure you're emptying your bladder when you need to go -Take medication twice daily for a week UNLESS we call you and tell you to stop taking it [email or web address] Not available 08/20/2017 15:58:47 10/05/2017 [id number] RX given for glasses Eyes are healthy and work well together. Return to office in 2 years or sooner as needed. [email or web address] Not available 10/05/2017 14:19:53 Reason for Referral None Reported. Results Created Date Observation Date Name Description Value Unit Range Abnormal Flag Note LastModifiedBy Organization Detail LastModifiedTime 08/20/20 17 08/20/2017 POC UA glu UA Negati ve Not Available [address], [address], 08/20/2017 15:58:07 08/20/20 17 08/20/2017 POC UA clarity UA Clear Not Available [address], [address], 08/20/2017 15:58:07 08/20/20 17 08/20/2017 POC UA uro UA 0.2000 Not Available [address], [address], 08/20/2017 15:58:07 08/20/20 17 08/20/2017 POC UA ket UA Negati ve Not Available [address], [address], 08/20/2017 15:58:07 08/20/20 17 08/20/2017 POC UA pro UA Negati ve Not Available [address], [address], 08/20/2017 15:58:07 08/20/20 17 08/20/2017 POC UA nit UA Negati ve Not Available [address], [address], 08/20/2017 15:58:07 08/20/20 17 08/20/2017 POC UA jesus UA Negati ve Not Available [address], [address], 08/20/2017 15:58:07 08/20/20 17 08/20/2017 POC UA pH UA 6.0000 Not Available [address], [address], 08/20/2017 15:58:07 08/20/20 17 08/20/2017 POC UA SG UA <=1.00 50 Not Available [address], [address], 08/20/2017 15:58:07 08/20/20 17 08/20/2017 POC UA color UA Yellow Not Available [address], [address], 08/20/2017 15:58:07 08/20/20 17 08/20/2017 POC UA blo UA Trace- lysed Not Available [address], [address], 08/20/2017 15:58:07 08/20/20 17 08/20/2017 POC UA kumar UA Negati ve Not Available [address], [address], 08/20/2017 15:58:07 08/20/20 17 08/21/2017 cultu re, urine culture, urine, routine CULTU RE, URINE , ROUTI NE MICRO NUMBE R: [id number] TEST STATU S: FINAL SPECI MEN SOURC E: URINE SPECI MEN QUALI TY: ADEQU ATE RESUL T: No Growt h Not Available [facility] [address] [place] [address] [address], [place], [address], 08/21/2017 22:01:03 03/15/20 17 03/15/2017 XR, thora [...] Readchemo jj Physic jack: Jermaine Diaz [email or web address] [facility] (Imaging) [address], [place], [address], 03/16/2017 16:34:43 05/20/20 17 05/17/2017 bone densi [...] Readin g Physic jack: Harsh Donovan MD [facility] (Imaging) [address], [place], [address], 06/06/2017 11:04:39 Result Notes None recorded. Problems Name Problem SNOMED Code Status Onset Date Resolution Date Notes Provider Name and Address Organization Details Recorded Time Mixed hyperlipid emia 469869480 Completed 200810/06/2016 Carla Chopra NP [address] [place] [address], [address] , [facility] 6 15:25:18 Urinary incontinen ce 175776921 Active 2008 KATERYNA Martin [address] [place] [address], [address] , [facility] 5 16:09:22 Carpal tunnel syndrome 02700157 Active 2008 KATERYNA Martin [address] [place] [address], [address] , [facility] 5 16:09:22 Gastroesop hageal reflux disease 135388417 Active 2008 KATERYNA Martin [address] [place] [address], [address] , [facility] 5 16:09:22 Lateral epicondyli tis 073194782 Completed 10/15/2013 KATERYNA Martin [address] [place] [address], [address] , [facility] 5 16:09:22 Lateral epicondyli tis 597346545 Completed 200603/03/2011 KATERYNA Martin [address] [place] [address], [address] , [facility] 5 16:09:22 Right lower quadrant pain 619576672 Completed 200703/03/2011 KATERYNA Martin [address] [place] [address], [address] , [facility] 5 16:09:22 Right upper quadrant pain 649092055 Completed 200703/03/2011 KATERYNA Martin [address] [place] [address], [address] , [facility] 5 16:09:22 Urinary tract infectious disease 85330333 Completed 200703/03/2011 KATERYNA Martin [address] [place] [address], [address] , [facility] 5 16:09:22 Benign essential hypertensi on 9452621 Active Carla Chopra NP [address] [place] [address], [address] , [facility] 6 06:15:28 Benign essential hypertensi on 0994049 Completed 200607/05/2012 KATERYNA Martin [address] [place] [address], [address] , [facility] 5 16:09:22 Other Completed 10/15/2013 KATERYNA Martin [address] [place] [address], [address] , [facility] 5 16:09:22 Plantar fasciitis 941845644 Active KATERYNA Martin [address] [place] [address], [address] , [facility] 5 16:09:22 Abdominal pain 91702192 Completed 200703/03/2011 KATERYNA Martin [address] [place] [address], [address] , [facility] 5 16:09:22 Mittelschm erz 51825690 Completed 200703/03/2011 KATERYNA Martin [address] [place] [address], [address] , [facility] 5 16:09:22 Low back pain 137660140 Active 2008 Sofía Baker , PT [address] [place], [address] , [facility] 5 15:19:28 Dysuria 33477659 Completed 200703/03/2011 KATERYNA Martin [address] [place] [address], [address] , [facility] 5 16:09:22 Pain in limb 25795595 Completed 200703/03/2011 KATERYNA Martin [address] [place] [address], [address] , [facility] 5 16:09:22 Malaise and fatigue 232312144 Completed 200703/03/2011 KATERYNA Martin [address] [place] [address], [address] , [facility] 5 16:09:22 External hordeolum 6240728 Completed 10/06/2016 Carla Chopra NP [address] [place], [address] , [facility] 6 15:25:27 Problem Notes None recorded. Procedures Surgical History Date Name Laterality Status Provider Name and Address Organization Details Recorded Time 08/20/20 17 POC Urinalysis Testing completed Chery Pack LPN [facility] 08/20/2017 15:41:16 11/10/20 16 POC Urinalysis Testing completed Tiff Guaman [facility] 11/10/2016 15:30:22 10/06/20 16 IUD Removal completed Carla Chopra NP [address] [place], [address], [facility] 10/06/2016 11:31:24 11/16/20 15 Refraction completed Demi Monge [facility] 11/16/2015 14:49:53 11/03/20 15 21257: PT Evaluation completed Sofía Baker, PT [address] [place], [address], [facility] 11/03/2015 15:19:30 03/24/20 14 Nebulizer Tx completed Brook Shetty LPN [facility] 03/24/2014 16:48:23 03/05/20 14 76289: Therapeutic Exercise completed Sofía Baker, PT [address] [place], [address], [facility] 03/06/2014 07:26:23 12/30/19 14 Treatment and Advice completed Sofía Baker, PT [address] [place], [address], [facility] 12/30/2013 09:32:27 12/19/19 14 Treatment and Advice completed Sofía Baker, PT [address] [place], [address], [facility] 12/19/2013 14:07:27 12/12/19 14 Treatment and Advice completed Sofía Baker, PT [address] [place], [address], [facility] 12/12/2013 15:06:06 11/25/20 13 Treatment and Advice completed Sofía Baker, PT [address] [place], [address], [facility] 11/25/2013 07:25:48 10/17/20 13 Treatment and Advice completed Sofía Baker, PT [address] [place], [address], [facility] 10/17/2013 16:36:32 09/22/20 13 Treatment and Advice completed Sofía Baker, PT [address] [place], [address], [facility] 09/22/2013 11:05:52 09/18/20 13 Treatment and Advice completed Sofía Baker, PT [address] [place], [address], [facility] 09/18/2013 12:26:36 09/15/20 13 Treatment and Advice completed Sofía Baker, PT [address] [place], [address], [facility] 09/15/2013 12:05:17 03/26/20 13 Treatment and Advice completed Sofía Baker, PT [address] [place], [address], [facility] 03/26/2013 11:26:58 04/12/20 11 IUD Insertion completed Santhosh Copeland MD [address] [place], [address], [facility] 04/12/2011 17:43:17 04/12/20 11 IUD Removal completed Santhosh Copeland MD [address] [place], [address], [facility] 04/12/2011 17:43:17 08/05/20 09 Treatment and Advice completed Sofía Baker, PT [address] [place], [address], [facility] 08/05/2009 11:29:26 07/30/20 09 Treatment and Advice completed Sofía Baker, PT [address] [place], [address], [facility] 07/30/2009 12:05:14 04/05/20 09 Treatment and Advice completed Sofía Baker, PT [address] [place], [address], [facility] 04/05/2009 13:25:02 03/15/20 09 Treatment and Advice completed Sofía Baker, PT [address] [place], [address], [facility] 03/15/2009 14:33:48 03/10/20 09 Treatment and Advice completed Sofía Baker, PT [address] [place], [address], [facility] 03/10/2009 09:40:52 Cholecystectomy completed Not Available [facility] 10/12/2011 06:06:16 Imaging Results Imaging Date Name Status LastModified by Organiz ation Details LastModified Time 03/15/2017 XR, thoracic spine completed [address] (Imaging) [address], [place], [address], 03/16/2017 16:34:43 05/17/2017 bone density completed [facility] [address] [place], [address], 06/06/2017 11:04:39 Procedure Notes None recorded. Medical Equipment None Reported. Allergies Allergen ID Allergen Name Allergen Category Reaction Reaction Severity Criticality Documentation Date Start Date Code Code System Note Provider Name and Address Organization Details Recorded Time 59008 ibuprofen medicatio n nausea Not available Not available 01/23/2012 5640 RxNorm stoma ch upset Carla Chopra , MELINA [address] [place], [address], [facility] 5 15:46:47 Medications Name Sig [...] Details Last Updated DateTime 03/15/2017 165.74 cm 38907.85 g 29.2 kg/m2 Desirae Ya MA [facility] 03/15/2017 08:37:44 Date Recorded Systolic blood pressure Diastolic blood pressure Provider Name and Address Organization Details Last Updated DateTime 03/15/2017 138 mm[Hg] 74 mm[Hg] Karin Vela NP [address] [place] [address], [address], [facility] 03/15/2017 08:54:38 Date Recorded Body height Body weight Body mass index (BMI) Systolic blood pressure Diastolic blood pressure Provider Name and Address Organization Details Last Updated DateTime 03/19/2017 165.74 cm 97840.44 g 29.4 kg/m2 128 mm[Hg] 80 mm[Hg] Tiff Guaman [facility] 7 09:45:44 Date Recorded Body height Body weight Body mass index (BMI) Heart rate Systolic blood pressure Diastolic blood pressure Provider Name and Address Organization Details Last Updated DateTime 7 165.74 cm 93400.2 5 g 29.3 kg/m2 66 /min 114 mm[Hg] 68 mm[Hg] Sonia Cobb MA [facility] 7 08:18:37 Date Recorded Body height Body mass index (BMI) Body weight Heart rate Systolic blood pressure Diastolic blood pressure Provider Name and Address Organization Details Last Updated DateTime 165.74 cm 29.4 kg/m2 64876.4 4 g 80 /min 120 mm[Hg] 80 mm[Hg] Chery Pack LPN [facility] 7 15:44:35 Social History Question Answer Notes LastModified by Organizat ion Details LastModified Time Tobacco Smoking Status Former Smoker quit @ age 18 occasional smoker. 1 yr 3 JACK Neil, [facility] 01/15/2013 13:58:47 Do You Have An Advance [...] Information not available 10/02/2014 Marital Status Re- [facility] Informati n not available 09/24/2012 Mosquito [...] virus, trivalent, preservative 2 completed Not Available [facility] 12/13/2019 02:18:31 influenza, seasonal, intradermal, preservative free 2 completed Not Available [facility] 12/13/2019 02:28:17 influenza, unspecified formulation 0 completed Not Available [facility] 10/11/2011 05:22:41 Influenza, split virus, trivalent, PF 3 completed Not Available [facility] 12/13/2019 02:27:10 Influenza, split virus, trivalent, preservative 4 completed Not Available [facility] 12/13/2019 02:36:27 Influenza, split virus, quadrivalent, PF 5 completed Not Available [facility] 12/13/2019 02:19:48 Influenza, split virus, trivalent, preservative 0 completed Not Available [facility] 12/13/2019 02:17:42 Novel [id number] 0 completed Not Available [facility] 12/13/2019 02:32:30 Influenza, split virus, quadrivalent, PF 6 completed Not Available [facility] 12/13/2019 02:33:42 Influenza, split virus, quadrivalent, PF 7 completed Not Available [facility] 12/13/2019 02:22:02 Tdap 1 completed Not Available [facility] 12/13/2019 02:15:39 Past Encounters Encounter ID Performer Location Encounter Start Date Encounter Closed Date Diagnosis/Indication Diagnosis SNOMED-CT Code Diagnosis ICD10 Code Diagnosis Note [id number] [facility], OFFICE [address] [place] [address] 10/24/2007 15:38:04 12/16/2008 02:02:29 [id number] [facility], OFFICE [address] [place] [address] 12/26/2007 14:44:03 12/16/2008 02:02:29 [id number] LAB - [facility] [address] [place] [address] 12/26/2007 15:29:44 12/26/2007 15:29:51 [id number] Radiology , [facility] [address] [place] [address] 01/02/2008 10:54:15 01/03/2008 09:34:27 [id number] [facility], OFFICE [address] [facility] [place] [address] 04/30/2008 08:59:34 12/16/2008 02:02:29 [id number] Radiology , [facility] [address] [id number] 04/30/2008 13:24:49 05/01/2008 09:23:22 [id number] LAB - [facility] [address] [id number] 04/30/2008 09:44:23 04/30/2008 09:44:29 [id number] LAB - [facility] [address] [place] [address] 04/30/2008 00:00:00 12/16/2008 02:02:29 [id number] [facility], OFFICE [address] [facility] [place] [id number] 06/08/2008 11:42:37 12/16/2008 02:02:29 [id number] [facility], OFFICE [address] [facility] [place] [address] 09/07/2008 16:56:28 12/16/2008 02:02:29 [id number] LAB - [facility] [address] [facility] [place] [address] 09/08/2008 07:24:37 09/08/2008 07:24:44 [id number] [facility], OFFICE [address] [facility] [place] [address] 12/10/2008 08:55:51 12/16/2008 02:02:29 [id number] LAB - [facility] [address] [facility] [place] [address] 12/10/2008 09:28:55 12/10/2008 09:29:01 [id number] [facility], OFFICE [address] [facility] [place] [address] 01/08/2009 15:45:36 01/11/2009 11:31:48 [id number] [facility], OFFICE [address] [facility] [place] [address] 02/10/2009 14:10:43 02/12/2009 09:14:54 [id number] Radiology , [facility] [address] [place] [address] 02/19/2009 09:33:41 02/22/2009 15:31:21 [id number] [facility], OFFICE [address] [facility] [place] [address] 03/04/2009 14:20:11 03/09/2009 08:39:36 [id number] Radiology , [facility] J[id number] 03/04/2009 14:47:16 03/08/2009 14:42:30 [id number] Physical Therapy, [facility] J[place] [id number] 03/10/2009 08:59:23 03/11/2009 07:35:54 [id number] Physical Therapy, [address] [id number] 03/15/2009 13:48:50 03/17/2009 08:30:03 [id number] Physical Therapy, [address] [id number] 03/19/2009 10:55:16 03/19/2009 14:42:57 [id number] Physical [facility], [address] [id number] 03/26/2009 14:44:00 03/26/2009 16:03:19 [id number] Physical [facility], [address] [place] [address] 04/05/2009 12:51:55 04/05/2009 15:07:57 [id number] Physical [facility], [address] [place] [address] 04/21/2009 13:53:30 04/22/2009 08:42:55 [id number] , [facility], [address] [place] [address] 07/16/2009 16:35:23 07/21/2009 13:55:02 [id number] Physical [facility], [address] [place] [address] 07/26/2009 13:17:26 07/30/2009 09:10:41 [id number] Physical [facility], [address] [place] [address] 07/30/2009 10:50:58 08/03/2009 10:31:54 [id number] Physical [facility], [address] [address] 08/05/2009 10:52:14 08/06/2009 09:34:36 [id number] Radiology , [address] [address] 08/11/2009 11:29:04 08/16/2009 11:35:37 [id number] Physical [facility], [facility] [place] [address] 08/23/2009 12:49:34 08/23/2009 15:51:13 [id number] [facility], OFFICE [address] [facility] [place] [address] 09/17/2009 11:20:02 09/20/2009 10:25:51 [id number] Radiology , [facility] [address] [place] [address] 09/20/2009 10:08:11 09/22/2009 10:59:02 [id number] LAB - [facility] [place] [address] 02/10/2009 15:26:55 02/10/2009 15:27:26 [id number] LAB - [facility] [place] [place] [address] 09/09/2009 07:59:23 09/09/2009 08:00:02 [id number] LAB - [facility] [place] [place] [address] 09/17/2009 11:50:50 09/17/2009 11:51:11 [id number] [facility], OFFICE [address] [place] [address] 11/04/2009 11:24:54 11/05/2009 12:06:07 [id number] [facility], OFFICE [address] [place] [address] 11/22/2009 11:25:24 11/24/2009 14:08:20 [id number] [facility], OFFICE [address] [place] [address] 02/02/2010 10:46:29 02/04/2010 10:39:00 [id number] [facility], OFFICE [address] [place] [address] 07/28/2010 16:17:03 07/29/2010 10:10:58 [id number] [facility], OFFICE [address] [place] [address] 11/01/2010 16:15:36 11/02/2010 11:59:24 [id number] Physical [facility], [address] [address] 11/08/2010 13:53:01 11/08/2010 16:05:50 [id number] Physical [facility], [address] [address] 11/22/2010 15:43:19 11/23/2010 08:50:23 [id number] FP, [facility], OFFICE 70 [facility] J[place] [id number] 12/15/2010 14:28:26 12/16/2010 13:00:08 [id number] FP, [facility], OFFICE [address] [facility], JACK [id number] 02/09/2011 14:37:52 02/13/2011 14:42:40 [id number] FP, [facility], OFFICE [address] [facility], JACK [id number] 02/13/2011 10:36:53 02/13/2011 17:33:22 [id number] Radiology , [facility] [address] [facility] J[place] [id number] 02/16/2011 16:25:28 02/17/2011 13:30:35 [id number] FP, [facility], OFFICE 70 [facility] J[place] [id number] 6 03/21/2011 13:45:34 03/23/2011 08:42:24 [id number] FP, [facility], OFFICE 70 [facility] [place] JACK [id number] 04/04/2011 09:42:37 04/07/2011 08:35:46 [id number] FP, [facility], OFFICE 70 [facility] J[place] [id number] 6 04/12/2011 13:46:14 04/14/2011 11:10:28 [id number] FP, [facility], OFFICE 70 [facility] JACK [id number] 04/21/2011 10:47:16 04/25/2011 08:32:56 [id number] FP, [facility], OFFICE 70 [facility] JACK [id number] 06/27/2011 11:40:27 06/27/2011 16:23:49 [id number] Radiology , [facility] [address] [facility] J[place] [address] 06/30/2011 14:58:35 07/10/2011 14:00:07 [id number] FP, [facility], OFFICE [address] [facility] [place] J[place] [id number] 07/27/2011 13:18:23 07/27/2011 14:31:24 [id number] FP, [facility], OFFICE 70 [facility] JACK [id number] 01/23/2012 16:01:40 01/23/2012 16:41:49 [id number] Physical [facility], [address] [address] 01/30/2012 15:50:36 01/31/2012 07:53:16 [id number] Radiology , [facility] [address] [place] [address] 04/25/2012 13:00:54 04/26/2012 09:45:44 [id number] , [facility], OFFICE [address] [place] [id number] 06/07/2012 09:26:43 06/07/2012 10:51:43 [id number] , [facility], OFFICE [address] [place] [id number] 07/05/2012 11:15:57 07/05/2012 12:18:44 [id number] Amber Lou NP , [facility], OFFICE [address] [place] [id number] 08/12/2012 13:42:01 08/12/2012 14:21:43 [id number] [facility] , [facility], OFFICE [address] [place] [address] 09/03/2012 06:33:37 09/03/2012 16:06:16 [id number] Zafar Kelley MD , [facility], OFFICE [address] [place] [address] 10/04/2012 11:07:27 10/04/2012 12:14:27 [id number] Santhosh Copeland MD , [facility], OFFICE [address] [place] [address] 10/22/2012 14:51:43 10/22/2012 15:37:56 [id number] Julianna Panchal Physical Therapy, [address] [address] 10/29/2012 14:43:10 10/30/2012 12:26:47 [id number] Sue Fierro, OT Physical Therapy, [address] [address] 11/05/2012 16:01:44 11/06/2012 07:55:33 [id number] Sue Fierro, OT Physical Therapy, [address] [address] 12/10/2012 15:30:52 12/10/2012 16:14:57 [id number] Carla Chopra NP , [facility], OFFICE [address] [place] [address] 12/20/2012 11:50:24 12/20/2012 13:17:24 [id number] Imani Summer Holliday, PAYER SPECIALIST-BC FP, [facility], OFFICE [address] [place] [address] 01/06/2013 16:01:37 01/07/2013 10:46:30 [id number] Liliane Drummond , [facility], OFFICE [address] [place] [address] 01/15/2013 13:46:17 01/15/2013 14:11:50 [id number] ImaniZELDA Marie-BC , [facility], OFFICE [address] [place] [address] 03/24/2013 13:39:47 03/24/2013 14:25:20 [id number] Sofía Baker , PT Physical Therapy, [facility] [address] [place] [address] 03/26/2013 10:49:34 03/27/2013 15:19:00 [id number] Imani RosenthalBRANDON BirdP-BC , [facility], OFFICE [address] [place] [address] 04/08/2013 09:18:15 04/08/2013 14:15:03 [id number] Imani Wheelerkeisha Holliday PAYER SPECIALIST-BC PAR[facility], [facility], OFF[address] [place] [address] 05/06/2013 15:32:00 05/07/2013 10:24:47 [id number] Ruchi Cleveland Nutrition -[facility] [address] [place] [address] 06/24/2013 08:35:29 06/30/2013 12:09:37 [id number] Ruchi Cleveland Nutrition -[facility] [address] [place] [address] 08/05/2013 15:38:47 08/06/2013 15:45:58 Mixed hyperlipidemia [id number] Karena Pearson , [facility], [address] [place] [address] 08/06/2013 06:16:46 08/08/2013 12:08:54 Influenza vaccine needed [id number] [facility], [address] [place] [address] 09/03/2013 09:22:09 09/05/2013 13:23:35 Carpal tunnel syndrome 43419756 pt with known carpal tunnel and now upper extremity arm pain since starting work. no focal findings on exam. likely mild tendonitis . will refer to OT for assessment /exercised . pt reports pain relief with acetaminop hen. [id number] Carla Chopra NP , [facility], [address] [place] [address] 09/10/2013 11:45:26 09/10/2013 12:44:15 Acute low back pain 133270888 pt with musculoske letal strain in setting of new job and lifting. no red flags. medicaiton s rest and PT referral given. pt given note for work for the rest of the week. [id number] [facility], [address] [address] 09/15/2013 11:21:39 09/16/2013 09:36:44 Low back pain 737683530 [id number] Wander Hatch Physical [facility], [address] [address] 09/18/2013 11:58:59 09/19/2013 07:56:44 Low back pain 856265711 [id number] Wander Hatch , [facility], OFF[address] [place] [address] 09/19/2013 11:50:45 09/19/2013 13:09:36 Acute low back pain 381471619 pt with musculoske letal strain in setting of new job and lifting. no red flags. continue with pt. will await clearance from pt for return to work. [id number] [facility], [address] [address] 09/22/2013 10:29:53 09/22/2013 11:54:37 Low back pain 296589732 [id number] Wander Hatch Physical [facility], [address] [address] 10/01/2013 10:46:59 10/01/2013 11:54:18 Low back pain 047198317 [id number] Quita Dawson, Ms, Rdn, Ldn, CDE Nutrition -[address] [address] 10/08/2013 10:27:05 10/08/2013 11:13:23 Mixed hyperlipidemia 910801381 [id number] Wander Holden Physical [facility], [address] [address] 10/08/2013 17:24:33 10/09/2013 07:25:18 Low back pain 883453677 [id number] Wander Hatch Physical [facility], [address] [address] 10/17/2013 15:52:07 10/20/2013 08:24:58 Low back pain 237423995 [id number] [facility], [facility], OFFICE [address] [place] [address] 10/21/2013 10:39:31 10/21/2013 13:48:57 Benign essential hypertension 2972021 Blood pressure at goal with current regimen. Adult heal th examination 607460899 see Risk Assessment and Lifestyle Change Counseling section above. overall healthy 47 year old woman. hypertensi on at goal. Counseling 581020071 Hypertriglyceridemia 294008810 discussed calculated risk. 10.04% risk with framingham calculator , 8% risk with AHA calculator . pt is motivated to focus on diet and exercise. will recheck in 6 months. [id number] Wander Hatch Physical [address] [address] 11/04/2013 07:00:11 11/04/2013 09:35:34 Low back pain 399026752 [id number] Wander Hatch Physical [facility], [address] [address] 11/11/2013 10:21:21 11/11/2013 11:28:42 Low back pain 880092000 [id number] Ruchi Cleveland Nutrition -[address] [address] 11/12/2013 11:19:11 11/14/2013 15:14:18 Mixed hyperlipidemia 366494888 [id number] Karena Pearson Physical [facility], [address] [address] 11/25/2013 06:53:03 11/25/2013 09:26:11 Low back pain 188706974 [id number] Carla Chopra NP FP, [facility], [address] [place] [address] 12/02/2013 15:49:59 12/03/2013 08:50:23 Backache 732868337 tenderness right lower side. consistent with musclar spasm and sciatica. will trial muscle relaxor which pt has benefited from in the past. disucssed importance of continuing with PT. [id number] Sofía Baker PT Physical Therapy, [facility] [address] [place] [address] 12/12/2013 14:02:51 12/12/2013 15:26:12 Low back pain 718861993 [id number] Karena Pearson Physical [facility], [address] [address] 12/19/2013 13:20:11 12/22/2013 07:23:01 Low back pain 124741147 [id number] Sofía Baker PT Physical [facility], [address] [address] 12/30/2013 09:04:17 12/30/2013 10:39:29 Low back pain 143788338 [id number] Faye Perez MA , [facility], [address] [place] [address] 01/13/2014 10:27:45 01/13/2014 13:47:51 Benign essential hypertension 5321867 Blood pressure at goal . continue with current regimen. Hyperlipidemia 27339851 ASCVD risk < 5%. not in statin benefit group per guidelines . [id number] Sofía Baker PT Physical [facility], [address] [address] 02/02/2014 15:39:27 02/04/2014 09:10:11 Low back pain 881031185 [id number] Sofía Baker PT Physical [facility], [address] [address] 02/13/2014 12:25:36 02/13/2014 13:09:48 Low back pain 582426290 [id number] Sofía Baker PT Physical Therapy, [address] [address] 03/05/2014 07:59:45 03/06/2014 07:29:53 Low back pain 688622658 [id number] Nikole Akhtar MA , [facility], OFF[address] [place] [address] 03/24/2014 16:16:21 03/30/2014 14:42:30 Acute upper respiratory infection 50403107 Educated patient that URI is a viral [...] albuterol. rx for albuterol given for home. [id number] Aline Boyer , [facility], [address] [place] [address] 05/18/2014 10:43:41 05/19/2014 09:09:52 Suprapubic pain 723778930 Patient with mild suprapubic tenderness . No clinical evidence of acute abdomen. Urine dipstick negative other than microscopi c hematuria. Spun urine negative for casts. Ample hydration recommende d. Denies VB. Denies BRBPR/orestes na. Will monitor for any worsening symptoms. Microscopic hematuria 160548868 Microscopi c hematuria. States she was previously told to have microscopi c hematuria as well. Never followed up for this. No known history of nephrolith iasis. Intermitte nt periods since her IUD insertion. [id number] Sonia Cobb MA , [facility], [address] [place] [address] 06/01/2014 17:27:04 06/03/2014 11:37:33 Urinary tract infectious disease 48216831 Push fluids f/u if no improvemen t in 72 hours or for fever or back pain. discussed follow up with urology for persistent hematuria. pt verbalized willingnes s to follow up as instructed . Dysuria 55945503 Patient instructed to push fluids, follow-up for worsening symptoms, back pain or fever. Urine culture sent. [id number] JACK Narvaez, [facility], [address] [place] [address] 06/04/2014 08:43:49 06/04/2014 12:44:31 Acute urinary tract infection 641907712 cannot r/o pyelo although exam is reassuring . treat with 10d cipro, probiotics , fluids ,rest. urology apt tomorrow - to ER with inc pain, inability to pass urine. Senna for constipati on. note: ER note said urine culture showed Bactrim resistance and they advised Augmentin - pt advised to take the Cipro instead -likely better tolerated - probiotics , rtc prn [id number] JACK Narvaez, [facility], [address] [place] [address] 08/28/2014 07:58:31 08/28/2014 08:28:02 Influenza vaccine needed [id number] 106 Backache 425420005 Pt wi th flare of thoracic area back pain [id number] Nikole Akhtar MA , [facility], [address] [place] [address] 09/08/2014 07:57:24 09/08/2014 08:45:48 Vaginitis 02674524 sx care reviewed suggest avoiding scented products rtc prn [id number] Naeem More MD , [facility], [address] [place] [address] 10/02/2014 16:56:52 10/02/2014 17:32:57 Benign essential hypertension 0964281 [id number] Nikole Akhtar MA , [facility], [address] [place] [address] 10/16/2014 15:04:19 10/20/2014 09:05:14 Benign essential hypertension 1213387 Blood pressure NOT at goal. Med changes made RTC 1 month - sooner prn Gastroesop hageal reflux disease 981073906 stable with med [id number] Carla Chopra NP , [facility], [address] [place] [address] 11/27/2014 09:57:11 11/30/2014 12:20:49 Backache 192704614 Patient presents to Urgent Care with acute [...] hematuria likely due to her current period. [id number] Deborah Vallejo MA , [facility], [address] [place] [address] 12/15/2014 08:18:40 12/15/2014 09:35:08 Cough 18622230 viral illness work release note sx and supportive care reviewed rtc prn sx persist or increase [id number] Karena cervantes [facility], [address] [place] [address] 12/21/2014 07:40:38 12/23/2014 12:22:23 Cough 11129856 [id number] KATERYNA Martin , [facility], [address] [place] [address] 03/22/2015 14:32:48 03/22/2015 15:20:17 External hordeolum 4074884 without site of pointing. Encourage warm compresses qid or more today and tomorrow. Expect poss. of drainage. F/u if not continuing to improve, if redness extends beyond this current area. [id number] [facility], [address] [place] [address] 03/23/2015 14:32:41 03/23/2015 15:56:30 Adult health examination 085360662 see Risk Assessment and Lifestyle Change Counseling section above TC to twister operator group to see when IUD placed and date of last Pap Counseling [id number] Backache 908862269 ERGON OMICS , POSTURE, HEAT EXERCISES GIVEN [id number] Carla Lee MA , [facility], [address] [place] [address] 04/21/2015 13:58:19 04/22/2015 11:56:33 Urinary tract infectious disease 46710765 pt presents with inconclusi ve UA, but symptoms feel like previous UTIs, will treat pending culture, risks of abx overuse reviewed. Push fluids f/u if no improvemen t in 72 hours or for fever or back pain. [id number] Sonia Cobb MA , [facility], [address] [place] [address] 05/05/2015 08:09:09 05/06/2015 08:41:26 Urinary tract infectious disease 01274018 Urine dipstick findings suggestive of UTI. Will send out UCx. Antibiotic treatment. Strategies in preventing future UTI discussed including ample oral hydration, frequent voiding, post-coita l voiding and avoidance of douching. Patient with pain, not responding to Acetaminop hen. Requesting pain management . Will prescribe Oxycodone prn. Advised to use sparingly. Short-term use discussed. Advised to contact the clinic if worsening symptoms. [id number] Julia jaime MA , [facility], [address] [place] [address] 06/15/2015 15:27:02 06/15/2015 15:53:37 Toothache 20655611 saline mouth rinses, codeine, rest work release note f/u with dentist [id number] Hazel ALBA, [facility], [address] [place] [address] 08/18/2015 12:06:50 08/19/2015 09:49:15 Lifestyle 176488592 Screening mammography 72528529 Labile ess ential hypertension 486640167 when pt is stressed, endorses elevated blood pressure readings with associated headache. no other cardiac symptoms and the symptoms resolve when situation passes. situation is occurring rarely (<1 x monthly) and bp is generally at goal. will trial propranolo l when symptoms occur. follow up with pcp after usage. [id number] Amara ALBA, [facility], [address] [place] [address] 08/31/2015 12:15:05 09/01/2015 08:25:15 Influenza vaccine needed 2445875676 106 Z28.3 Backache 170195384 M54.9 tenderness right lower side. consistent with musclar spasm and sciatica. will trial muscle relaxer which pt has benefited from in the past. discussed importance of continuing with PT. [id number] KATERYNA Martin , [facility], [address] [place] [address] 11/01/2015 15:52:37 11/01/2015 17:06:20 Low back pain 325358535 M54.5 Screening for malignant neoplasm of breast 172303095 Z12.39 [id number] Sofía Baker , PT Physical Therapy, [facility] [address] [place] [address] 11/03/2015 12:19:15 11/03/2015 15:28:11 Low back pain 763099135 M54.5 [id number] Ronal Plasencia, OD Eye Care, [address] [address] 11/16/2015 14:10:37 11/16/2015 16:03:57 Ophthalmic examination and evaluation 30389482 Z01.00 Hypermetropia 83930252 H 52.03 Astigmatism 77669948 H52 .223 Presbyopia 06258063 H52. 4 [id number] Amara Pantoja , [facility], [address] [place] [address] 12/14/2015 11:51:01 12/15/2015 11:05:20 Right upper quadrant pain 521793557 R10.11 pt reports pain similar to gallstone pain previously , colicky, denies s/s of infection, denies urinary symptoms. pain persisting not worsening. labs and images as ordered below. [id number] Carla Chopra NP , [facility], [address] [place] [address] 03/24/2016 13:07:18 03/24/2016 14:01:29 Screening mammography 08590627 Z12.31 Mixed hyperlipidemia 267 829333 E78.2 due for labs-remin ded Benign ess ential hypertension 3902208 I10 Blood pressure at goal Backache 022306446 M54.9 ERGONOMICS , POSTURE, HEAT TRIAL OF MELOXICAM QD 2WK, CYCLOBENZA ELZBIETA PRN RTC PRN [id number] Naeem More MD , [facility], [address] [place] [address] 06/26/2016 14:59:02 06/26/2016 16:15:37 Nonulcer dyspepsia 7051318 K30 [id number] MELINA Bojorquez, [facility], [address] [place] [address] 07/26/2016 14:19:55 07/26/2016 15:25:14 Active or passive immunization 959157852 Z23 Benign ess ential hypertension 0728467 I10 Blood pressure at goalconsol idate med to single pill Gastroesop hageal reflux disease 577461659 K21.9 did not tolerate famotidine change to omeprazole , GERD precaution s Herpes simplex 79518311 B00.9 change to qd prophylaxi s dosing Migraine 65131018 G43.90 9 discussed optiosn for migraine prevention pt chooses to change propranolo l dosertc 2mos -call sooner with side effects or concerns [id number] MELINA Bojorquez, [facility], [address] [place] [address] 10/06/2016 10:37:09 10/10/2016 09:01:55 Benign essential hypertension 5428827 I10 Blood pressure at goal Adult heal th examination 083838373 Z00.00 see Risk Assessment and Lifestyle Change Counseling section above Counseling 836778419 Z71 .9 Gastroesop hageal reflux disease 244028853 K21.9 stable Screening for malignant neoplasm of cervix 745095299 Z12.4 Low back pain 489629674 M54.5 [id number] RAMO Miranda, [facility], [address] [place] [address] 10/18/2016 16:26:59 10/23/2016 11:40:37 Vaginitis 79804845 N76.0 per report pt was treated for vaginal infection in ER, notes not available for review. mirena was removed 2 months ago. symptoms improving, tolerating abx. no s/e. abdominal exam reassuring . continue treatment per ER visit. [id number] RAMO Miranda, [facility], [address] [place] [address] 11/10/2016 15:02:20 11/14/2016 10:35:06 Urinary tract infectious disease 85036939 N39.0 pt recently treated for pyelo diagnosed clinically at ER.reports compliance with abx, 2 days ago reoccurren ce of bladder discomfort , fullness, frequency and similar pain, UA inconclusi ve, treat with cipro while culture pending. [id number] RAMO Miranda , [facility], [address] [place] [address] 2016 13:27:43 11/30/2016 12:39:29 Increased blood pressure 78749490 R03.0 pt with multiple reading of BP above goal, associated headache. no underlying etiology to explain elevation. ekg reassuring , increase lisinopril , cont to monitor bp outside of office, labs as ordered below. [id number] RAMO Miranda, [facility], [address] [place] [address] 03/05/2017 15:30:46 03/05/2017 15:54:52 Diarrhea 35616630 R19.7 1 day of non bloody diarrhea.n o fever or painsuppor tive measures reviewed.c all for worsening symptoms or failure. to improve [id number] Karin Vela NP , [facility], [address] [place] [address] 03/15/2017 08:22:24 03/15/2017 09:06:35 Thoracic back pain 949535893 M54.6 Right sided for 4 days without trauma. Negative exam. Old MRI and xrays reviewed. Inst to apply heat or ice PRN. Continue with naprosyn BID. [id number] RAMO Miranda , [facility], [address] [place] [address] 03/19/2017 09:37:18 03/20/2017 09:51:41 Spasm of back muscles 142299216 M62.830 paraspinal spasm, advised massage, water, continue tylenol and alleve.enc ouraged ROM but not weight bearingupd ate if pain does not improvewor k note for today - wed given. 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 Aim for regular walks outside. PT if needed. [id number] Jennifer Alfonso CMA , [facility], [address] [place] [address] 08/20/2017 15:10:08 08/20/2017 16:25:02 Urinary tract infectious disease 90509829 N39.0 Patient instructed to push fluids, to follow up for persistent or worsening symptoms or fever or back pain. Active or passive immunization 813233889 Z23 [id number] Parker Luna OD Eye [facility], [facility] [address] [place] [address] 10/05/2017 13:08:20 10/05/2017 14:41:08 Regular astigmatism 52248396 H52.223 Presbyopia 64959069 H52. 4 Health Concerns Section Related Observation LastModified by Organization Detai ls LastModified Time None Recorded Concern Status LastModified by Organization Details LastModified Time None Recorded Advance Directives Directive N: Payers Encounter Date Sequence Insurance Name Policy Number Policy Spear Covered Member ID Spear Member ID Guarantor Name 03/15/2017 1 [place] Katherin Diallo [id number] Katherin Diallo 03/19/2017 1 [place] Katherin Diallo [id number] Katherin Diallo 04/12/2017 1 [place] Katherin Yoel [id number] Katherin Diallo 08/20/2017 1 [place] Katherin Diallo [id number] Katherin Diallo 10/05/2017 1 [place] Katherin Diallo [id number] Katherin Diallo Notes Date Note Type Note [...] a little bit of benefit.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 pt points to right side of shoulder, inbetween spineno unusual popping or clickingmassage helps. pt taking tylenol did not take alleve.still bothered pt. breath is painful. Imani Holliday, [facility] [address] [place], [address], [facility] 03/19/2017 10:03:34 04/12/2017 text/html Katherin reports ongoing back pain. WHen seen at [facility], it was recommended she have a BMD. SHe continues to work at strenuous job. Takes naproxen and flexeril as needed, not daily. No GI sx.BP in good control, nonsmoker. States takes meds as directed.Needs some med refills. Carla Chopra NP [address] [place], [address], [facility] 04/13/2017 07:30:47 08/20/2017 text/html a VMG Dysuria ur inary symptomsReported bypatient.Duration:Sy mptoms began 1 days ago Severity:Symptoms are moderate Associated Symptoms:Burning on urination;Urinary frequency; Chills, no fever, some mild nausea Context:Symptoms similar to previous UTI's TIFFANIE Maharaj, [facility] 08/22/2017 09:26:52 10/05/2017 text/html Comprehensive Ey e ExamReported bypatient.Quality:2 year exam;blurred vision near with glasses Location:bilateral Context:currently wears glasses Modifying factors:wears glasses for distance and near Associated Symptoms:no redness; no itching; no floaters; no dryness C/O Blurry near vision Parker Luna, OD [address] [place] [address], [phone], [facility] 10/05/2017 14:20:18 OBGyn Episode No OBEpisode recorded.
== END 2025-02-25 14:00 | disposition home or self-care (01) ==
LOC: HO.HMCC 12:47
PROVIDERS: PCP Internal Medicine; Visit Provider Internal Medicine
DX: S43.5 Sprain of acromioclavicular joint (principal); M53.3 Sacrococcygeal disorders, not elsewhere classified

== ENCOUNTER → 2025-02-25 12:46 | Outpatient (BNVA) | payer OTHER, SELFPAY | PROVIDERS: PCP Internal Medicine; Visit Provider Internal Medicine | DX: S43.5 Sprain of acromioclavicular joint (principal); M53.3 Sacrococcygeal disorders, not elsewhere classified | CPT/HCPCS: 96127; 99212 ==

== ENCOUNTER 2025-04-06 13:00 | Outpatient (RCR) | payer OTHER, SELFPAY ==
--- NOTE | 2025-03-02 13:55 | MHC.PT.EP ---
[facility] [place] Office [place] Office [place] Office [address] Deanna Koch [address] [phone] F: [phone] F: [phone] F: [phone] F: [phone] Physical Therapy Plan of Care Date of Evaluation: 03/02/25 Date of Surgery: Diagnosis: This is 59 yo female presenting to skilled PT with a script for sciatica. Assessment: This is 59 yo female presenting to skilled PT with a script for sciatica. Patient reporting this January she started to get some pain when she bent down to unplug something. She was unable to work, drive or walk after this. The pain is a little better since then and she has returned to work however it is still lingering. Her pain is now located R side low back and into the R buttock. Pain is described as electricity. Pain increases with sitting, lifting, sleeping on the R side. Pain improves when laying down and walking. She has been doing KTC and LTR exercises on her own which has been helping somewhat and using ice. She has had this pain before and has had PT in the past which was helpful. Assessment reveals pain that ranges from up to a 3/10 at the worst. Patient demos decreased lumbar and hip ROM, strength of B LE's, core and back, TTP at glut and lumbar soft tissue surroundings and impaired posture with forward head and rounded shoulders. Based on functional limitations, impaired QOL and pain tolerance patient is a good candidate for skilled PT 2x/wk for 4wks. Frequency and Duration: The patient will be seen 2x/wk for 4wks Short Term Goals: Pt will demonstrate improved postural awareness and understanding of core engagement with supine and standing tasks without cues throughout session to improve overall back safety in 2 weeks. Pt will demonstrate centralization of sx in 2 weeks. Pt will continue to reinforce precautions, sitting, standing and ADL modifications with proper body mechanics in 2 wks. Long-Term Goals: Pt will demonstrate improved outcome measure by 5 points in 4 weeks for improved functional mobility. Pt will demonstrate ability to bend and lift WNL min to no pain for household tasks in 4 wks. Pt will be I in HEP and compliant in 4wks Treatment Plan: Modalities to reduce pain, spasms and effusion. Manual therapy to restore motion and function. Therapeutic exercise to improve strength and flexibility. Neuromuscular re-education for posture and balance. Therapeutic activities to return to functional activities of daily living. Electronically signed by: Aleena Connolly PT Please sign and return to therapist. Thank you for your referral.
--- NOTE | 2025-05-06 08:17 | MHC.PT.DC ---
[facility] [place] [facility] [place] [facility] [place] [facility] [address] Deanna Koch [address] [phone] F: [phone] F: [phone] F: [phone] F: [phone] Physical Therapy Discharge Report Diagnosis: This is 59 yo female presenting to skilled PT with a script for sciatica. Date of Surgery: Date of Evaluation: 03/02/25 Date of Discharge: 05/06/25 Treatments to Date: 5 Cancellations to Date: 0 No Shows to Date: 0 Discharge Status: Achieved Goals Improved Function Independent with HEP Discharge Summary: 04/06: Patient with WFL lumbar ROM, B LE strength and pain management. She demos I with transfers. She was educated on and I in an HEP. At this time she does not require skilled PT any longer. She has met her goals and demos good understanding of how to manage her symptoms if they return. Educated her on a 30 days hold and chart DC after this unless something changes. Electronically signed by: Aleena Connolly, PT Please sign and return to therapist. Thank you for your referral.
== END 2025-05-06 08:18 | disposition home or self-care (01) ==
LOC: HO.PTCHIC 13:00
PROVIDERS: PCP Internal Medicine; Visit Provider Physician Assistant
DX: M54.30 Sciatica, unspecified side (principal)
CPT/HCPCS: 97110; 97162

== ENCOUNTER 2025-06-17 08:26 | Outpatient (REF) | payer OTHER, SELFPAY ==
[2025-06-17 14:01] LABS: Alanine Aminotransferase 33 U/L (0-31); Anion Gap 12 (12-20); Aspartate Amino Transferase 38 U/L (5-31); Blood Urea Nitrogen 14 mg/dL (9-16); Calcium 9.9 mg/dL (8.4-10.2); Carbon Dioxide 27 mmol/L (22-29); Chloride 105 mmol/L (96-108); Cholesterol 275 mg/dL (<200); Estimated Glomerular Filt Rate > 60; HDL Cholesterol 38 mg/dL (>40); Potassium 4.4 mmol/L (3.3-5.1); Sodium 140 mmol/L (135-145); Triglycerides 478 mg/dL (<150)
== END 2025-06-17 08:27 | disposition home or self-care (01) ==
LOC: HO.HMGCLDS 08:26
PROVIDERS: PCP Internal Medicine; Visit Provider Internal Medicine
DX: Z00.01 Encounter for general adult medical examination with abnormal findings (principal); I10 Essential (primary) hypertension; E78.2 Mixed hyperlipidemia; R30.0 Dysuria; R73.01 Impaired fasting glucose; M54.6 Pain in thoracic spine; G89.29 Other chronic pain; E55.9 Vitamin D deficiency, unspecified; Z13.31 Encounter for screening for depression
CPT/HCPCS: 36415; 80048; 80061; 81003; 82306; 84450; 84460; 96127; 99396

== ENCOUNTER 2025-06-17 08:26 | Outpatient (AMB) | payer OTHER, SELFPAY ==
[2025-06-17 08:34] VITALS: BP 130/82; PULSE 78; RESP 16; TEMP 36.9; O2SAT 99; BMI 29.8
--- NOTE | 2025-06-17 08:34 | MHC.PC.OV ---
Vital Signs 06/17/25 08:34 Height 5 ft 3 in Weight 168 lb BMI 29.8 BP 130/82 Blood Pressure Location Lt brachial Position Sitting Respiration 16 Pulse 78 Pulse Source Pulse Oximeter Temp 98.4 F Temp Source Oral Pulse Oximetry (%) 99 Oxygen Delivery Method Room Air Intake Visit Reasons: PE Intake Note: Pt is here for her Annual PE . Mammo done 10/07/2024, PAP 01/18/2022. 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 Required: No Accompanied by: Self / Same As Patient Allergies ibuprofen Adverse Reaction (Unknown, Verified 06/17/25 09:03) stomach upset Medication List - Last Reconciled 06/17/25 by Felicitas Burkett MD acetaminophen 1,000 mg (2 x 500 mg) PO Q6H PRN amlodipine 5 mg PO DAILY ascorbic acid (vitamin C) mg PO cetirizine 10 mg PO DAILY PRN cyclobenzaprine 10 mg PO TID lisinopril 40 mg PO DAILY naproxen 500 mg PO Q12H PRN omega-3 fatty acids (Fish Oil Concentrate) 1,000 mg PO DAILY rosuvastatin 5 mg PO DAILY valacyclovir 500 mg PO DAILY Tobacco use date assessed: 01/20/25 Dental Screening Dental Screen Date: 01/20/25 Did you have a dental visit in the last 12 months?: No Did you have a dental problem in the last 6 months where you did not have access to dental care?: No Was dental information given to patient?: Patient has dentist HPI PE HPI Details 59-year-old lady former cigarette smoker, with history of hypertension, dyslipidemia, and arthritis, here today for her physical exam. Still has not yet had her fasting labs done to check her lipids and sugar. Complaining of occasional burning on urination and pressure all over suprapubic area which has been present for the last several days. Denies any fever chills, no nausea. Has an appointment with urology in [facility] in June 2025, has been having occasional burning on urination, but no chills, no nausea. Urinalysis done today showed presence of blood and slight glucosuria. Has had workup for microhematuria done at Urology which came back negative. Former distant occasional smoker, stopped in her 20's - Up-to-date with her screening mammogram, last done September 2024 with benign findings, had a normal cervical cancer screening in 2021. Scheduled for a screening colonoscopy in [facility] in July 2025 - Has recurrent mid back pain, with thoracic spine x-ray done in 2022 showing degenerative disc disease. Patient works at [employer] and apartment in [facility] and does repetitive lifting of linens every day, which aggravates her symptoms. - Hypercholesterolemia: History of high cholesterol levels, with last blood work in October 2024 showing elevated levels. Currently taking rosuvastatin and fish oil. [facility] Medical History (Updated 06/17/25 @ 09:40 by Felicitas Burkett MD) Chronic thoracic back pain Recurrent cold sores Vitamin D deficiency Postprandial abdominal bloating Epigastric abdominal pain Cervical cancer screening Annual visit for general adult medical examination with abnormal findings Muscle strain of upper back Impaired fasting glucose GERD (gastroesophageal reflux disease) Normal Pap smear Stress incontinence of urine Essential hypertension Carpal tunnel syndrome Plantar fasciitis Migraine Mixed dyslipidemia Surgical History Hx of cholecystectomy Family History Father Bone cancer Mother History of hernia repair HTN (hypertension) Diabetes mellitus Brother Diabetes mellitus HTN (hypertension) Substance use disorder Maternal Grandfather Unknown family medical history Maternal Grandmother Unknown family medical history Paternal Grandfather Unknown family medical history Paternal Grandmother Unknown family medical history Sister No problems noted. Sister No problems noted. Daughter No problems noted. Daughter No problems noted. Son No problems noted. Brother No problems noted. Brother No problems noted. Brother No problems noted. Brother No problems noted. Social History Housing: Apartment Alcohol intake: current Alcohol intake frequency: does not drink Patient Tobacco Use Status: Former Tobacco user Years Smoked: 2 yrs e-Cigarette/Vaping Use: Never Used Second Hand Smoke Exposure: No service: No Current occupational status: employed Cognitive needs: No Hearing needs: No Vision needs: Yes (Glasses) Female Reproductive History Menstrual Menopause type: natural History of abnormal pap smear: No Questionnaire PHQ-9 Over the last 2 weeks, how often have you been bothered by any of the following problems? 1. Little interest or pleasure in doing things: not at all 2. Feeling down, depressed, or hopeless: not at all 3. Trouble falling or staying asleep, or sleeping too much: not at all 4. Feeling tired or having little energy: not at all 5. Poor appetite or overeating: not at all 6. Feeling bad about yourself - or that you are a failure or have let yourself or your family down: not at all 7. Trouble concentrating on things, such as reading the newspaper or watching television: not at all 8. Moving or speaking so slowly that other people could have noticed. Or the opposite - being so fidgety or restless that you have been moving around a lot more than usual: not at all 9. Thoughts that you would be better off or of hurting yourself in some way: not at all Total score: 0 Depression Screening Interpretation: Negative Depression Screening Done: Yes 13186 - PHQ-9 Billing: Yes Source: Developed by Drs. Luis Fung, Elen Menon, Conrado Iyer and colleagues, with an educational rao from [employer]. Thrive Questionnaire Date Thrive assessed: 01/13/25 I am a: Patient What is your living situation today?: I have a steady place to live Within the past 12 months, did the food you bought not last and you didn't have the money to get more?: Sometimes True Within the past 12 months, did you worry whether your food would run out before you got money to buy more?: Sometimes True Do you have trouble paying for medicines?: No Do you have trouble getting transportation to medical appointments?: No Do you have trouble paying your heating and electricity bill?: No Do you have trouble taking care of your child, family member or friend?: No Do you have trouble with day-to-day activities such as bathing, preparing meals, shopping, managing finances, etc.?: No Are you currently unemployed and looking for a job?: No Are you interested in more education?: No Currently or been in a relationship where the following occur: I choose not to answer THRIVE Score: 2 AUDIT C Alcohol Use Questionnaire (AUDIT-C) 1. How often do you have a drink containing alcohol?: Never Total Score: 0 DUY-7 AMB Questionnaire DUY-7 Date DUY - 7 assessed: 02/25/25 Feeling nervous, anxious, or on edge: 0 = Not at all Not being able to stop or control worryin = Not at all Worrying too much about different things: 0 = Not at all Trouble relaxin = Not at all Being so restless that it is hard to sit still: 0 = Not at all Becoming easily annoyed or irritable: 0 = Not at all Feeling afraid as if something awful might happen: 0 = Not at all Total DUY-7 score (0-4 normal; 5-9 mild; 10-14 moderate; 15-21 severe): 0 Source: Developed by Drs. Luis Fung, Elen Menon, Conrado Iyer and colleagues, with an educational rao from [employer]. DUY-7 Assessment Billing DUY-7 Assessment Tool: DUY-7 Assessment 70050 Review of Systems Const Reports as per HPI, Denies excessive sweating, Denies frequent falls and Denies headache(s) Eyes Details: Sees [facility] no glaucoma, no cataract no macular degeneration has myopia wears prescription glasses ENT Details: Gets dental prophylaxis every 6 months Denies headache(s) and Denies nasal congestion Card Denies chest pain, Denies lightheadedness and Denies dyspnea Resp Denies chest congestion, Denies cough, Denies dyspnea and Denies wheezing GI Denies abdominal pain, Denies hematochezia, Denies change in bowel habits, Denies dyspepsia and Denies heartburn Reports as per HPI, Denies urinary frequency and Denies urinary urgency Musc Reports as per HPI Skin/Breast Denies breast pain, Denies breast mass and Denies rash Neuro Reports no additional complaints, Denies frequent falls and Denies headache(s) Psych Reports no additional complaints Endo Reports no additional complaints and Denies excessive sweating Arben/Lymph Reports no additional complaints Aller/Immun Denies seasonal rhinorrhea and Denies wheezing Physical exam (Primary Care) Vital Signs: Last Vital Signs Temp 98.4 F 06/17/25 08:34 Pulse 78 06/17/25 08:34 Resp 16 06/17/25 08:34 BP 130/82 06/17/25 08:34 Pulse Ox 99 06/17/25 08:34 Oxygen Delivery Method Room Air 06/17/25 08:34 BMI result Body Mass Index 29.8 Tobacco/Smoking Status: Tobacco use Status Tobacco use date assessed 01/20/25 06/17/25 08:43 Patient Tobacco Use Status Former Tobacco user 06/17/25 08:43 e-Cigarette/Vaping Use Never Used 06/17/25 08:43 PHQ-9: PHQ-9 Score PHQ-9: Total score 0 06/17/25 08:43 Depression Screening Interpretation: Negative Thrive Assessment: Date of Thrive Assessment Date Thrive assessed 01/13/25 06/17/25 08:43 Currently or been in a relationship where the following occur: I choose not to answer Const Other: Alert oriented x3, no acute distress noted, slight antalgic gait favoring right leg Orientation/consciousness: patient oriented x3 HENMT Head: Yes normocephalic Ears: hearing grossly normal bilaterally, external ears normal, TM's normal bilaterally and EAC's normal Neck Neck: Yes full ROM, Yes no lymphadenopathy and Yes supple Chest Other: Slight tenderness and fullness overlying left AC joint Resp Auscultation: clear to auscultation bilaterally Cardio Other: S1-S2 present regular rate and rhythm GI Palpation (GI): Soft to palpation, nontender, no guarding and no masses Auscultation: normal bowel sounds General: Yes no CVA tenderness Back/Spine/Pelvis Back: no CVA tenderness Thoracic/Lumbar Spine: paraspinal muscle tenderness (Thoracic area) Skin General skin exam: no rashes or lesions noted Neuro General: patient oriented x3, gait normal, tone normal, moves all extremities, Normal light touch and pain sensation and no focal motor deficits Extrem General: Yes full ROM, Yes no joint enlargement, Yes no clubbing, cyanosis or edema, Yes no pedal edema and Yes normal gait Psych Appearance: grossly normal and well kempt Mental Status: mental status grossly normal Speech and movement: Normal speech and movement present Affect: normal affect Results AMB Urinalysis, Automated UA Leukoctes 0 Lisy/uL Last Edit by Reginaldo Mancilla CMA on 06/17/25 09:16 UA Nitrite Negative Last Edit by Reginaldo Mancilla CMA on 06/17/25 09:16 UA Urobilinogen 0.2 mg/dL Last Edit by Reginaldo Mancilla CMA on 06/17/25 09:16 UA Protein 0 mg/dL Last Edit by Reginaldo Mancilla CMA on 06/17/25 09:16 UA pH 6.0 Last Edit by Reginaldo Mancilla CMA on 06/17/25 09:16 UA Blood 80 Vinnie/uL Last Edit by Reginaldo Mancilla CMA on 06/17/25 09:16 UA Specific [place] 1.020 Last Edit by Reginaldo Mancilla CMA on 06/17/25 09:16 UA Ketone Negative Last Edit by Reginaldo Mancilla CMA on 06/17/25 09:16 UA Bilirubin 0 mg/dL Last Edit by Reginaldo Mancilla CMA on 06/17/25 09:16 UA Glucose 100 mg/dL Last Edit by Reginaldo Mancilla CMA on 06/17/25 09:16 Coding Level of Care Code Est Pt Prev Care 40-64y(94420) Diagnoses Annual visit for general adult medical examination with abnormal findings Z00.01 Essential hypertension I10 Mixed dyslipidemia E78.2 Dysuria R30.0 Impaired fasting glucose R73.01 Chronic midline thoracic back pain M54.6; G89.29 Back pain laterality: midline Screening for malignant neoplasm of cervix Z12.4 Additional Codes DUY-7 Assessment Billing - DUY-7 Assessment Tool: DUY-7 Assessment 15513 ([id number]) PHQ-9 - 52492 - PHQ-9 Billing: Yes ([id number]) Assessment & Plan Assessment & Plan (1) Annual visit for general adult medical examination with abnormal findings: Code(s): Z00.01 - Encounter for general adult medical examination with abnormal findings Plan: Reminded to get fasting labs done. Continue regular dental visit every 6 months and regular eye exams, at least every 2 years, sees [facility]. Take adequate calcium in diet and vitamin-D 3 at 2000 IU per cap once a day, in addition to weight-bearing exercises to help maintain good muscle tone and weight control. Instructed to do self-breast exam, and recommended to get yearly mammogram, currently up-to-date. Referred to OBGYN at [facility] for her routine Pap and pelvic exam. She sees a GI specialist in [place] and is scheduled for a screening colonoscopy this July 2025.. Reminded to get yearly flu shot, recommended to get vaccinated against herpes zoster, up-to-date with Tdap. No longer gets COVID vaccine boosters. (2) Essential hypertension: Code(s): I10 - Essential (primary) hypertension Category: Medical Plan: Blood pressure at goal of less than 130/80. Continue with amlodipine 5 mg daily in 40 mg lisinopril daily. Reinforced importance of following a low sodium diet, getting regular exercise, and lowering stress levels. (3) Mixed dyslipidemia: Code(s): E78.2 - Mixed hyperlipidemia Category: Medical Plan: Reminded patient to get her fasting labs done, currently on rosuvastatin 5 mg daily and [place] 3 fatty acid supplements daily (4) Dysuria: Code(s): R30.0 - Dysuria Category: Medical Plan: Urinalysis did not show any evidence of infection but did show presence of microhematuria and mild glucosuria. Has an appointment with Urology in [place] scheduled for next month. Patient had cystoscopy and workup for microhematuria in the past which came back with negative findings (5) Impaired fasting glucose: Code(s): R73.01 - Impaired fasting glucose Category: Medical Plan: Your previous fasting blood sugars were elevated above 100 mg/dL. Impaired glucose metabolism increases the risk for developing diabetes mellitus type 2, as well as heart attack and stroke later on. 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 May take naproxen only as needed, alternate with Tylenol arthritis. 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
--- OUTSIDE RECORDS SUMMARY | 2025-06-17 08:41 | XMS_ITS | Clinical Summary ---
Author Organization [facility] Address [address] [facility] [address] [place] [phone] Phone Care Team Providers Care Choir Accompanist Name Role Phone Felicitas Burkett MD Primary Care Provider Allergies Active Allergy Reactions Criticality Noted Date Comments Other Unknown 08/10/2014 Fragrances Medications acyclovir (ZOVIRAX) 200 MG capsule 1 capsule Active hydroCHLOROthia zide (HYDRODIURIL) 25 MG tablet Take 25 mg by mouth daily. Active famotidine (PEPCID) 20 MG tablet Take 20 mg by mouth 2 (two) times a day. Active oxyBUTYnin (DITROPAN-XL) 5 MG 24 hr tablet 06/25/2024 Act judah amLODIPine (NORVASC) 5 MG tablet Take 1 tablet by mouth every evening. 01/15/2025 Active lisinopril (PRINIVIL,ZESTR IL) 40 MG tablet Take 1 tablet by mouth every morning. 02/02/2025 Active naproxen (NAPROSYN) 500 MG tablet Take 500 mg by mouth 2 (two) times a day as needed. 01/28/2025 Active rosuvastatin (CRESTOR) 5 MG tablet Take 1 tablet by mouth every morning. 01/20/2025 Active Active Problems Problem Noted Date Diagnosed Date Hypertension 03/20/2025 Hyperlipidemia 03/20/2025 PONV (postoperative nausea and vomiting) 025 GERD (gastroesophageal reflux disease) Atrophic vaginitis 04/10/2018 Assessment & Plan (04/10/2018 3:31 PM EDT): Offered vaginal estrogen, would like to try estrace cream. Pelvic pressure in female 04/10/2018 Assessment & Plan (04/10/2018 3:32 PM EDT): Urine sent to r/o UTI. Increased fluids in interim, call with worsening of symptoms Encounters Date Type Department Care Team Description 04/01/2025 1:50 PM EDT Office Visit [facility] at [address] [address] Anitra Land PA-C Vickers, Cara C, PA-C Acute diffuse otitis externa of left ear (Primary Dx) 03/23/2025 Procedure Pass [facility] Admitting Dept Virtual Department [address] [place] [address] 03/20/2025 11:59 PM EDT Anesthesia Event [facility] [address] [place] [address] Parker Martines MD 03/18/2025 12:45 PM EDT Pre-Admission Testing Pre Procedure Evaluation [address] [place] [address] Naeem Pritchett MD from Last 3 Months Immunizations Immunization Administration Dates Next Due COVID-19 (Pre-09/17) Pfizer Vaccine, mRNA, PF 01/23/2022,01/23/2022,12/09/2020,2019 Influenza Quadrivalent Prese rvative Free IM 08/30/2023,08/31/2022,08/25/2021 Influenza Trivalent Preserva tive Free IM 08/29/2024 Family History Medical History Relation Comments Bone cancer Father Diabetes Mother Hypertension Mother Relation Status Comments Brother 1 Alive Brother 2 Alive Brother 3 Alive Brother 4 Alive Father Maternal Grandfather Maternal Grandmother Mother Paternal Grandfather Paternal Grandmother Sister 1 Alive Sister 2 Alive Sister 3 Alive Social History Tobacco Use Types Packs/Day Years Used Date Smoking Tobacco: Former Cigarettes Q uit: 1984 Passive Smoke Exposure: Never Smokeless Tobacco: Never Tobacco Cessation:Counseling Given: Not Answered Alcohol Use Standard Drinks/Week Comments Not Currently 0 (1 standard drink = 0.6 oz pur e alcohol) monthly Education Answer Date Recorded Are you interested in more education? Not on harshal e 03/23/2023 Are you concerned about learning? Not on file 03/23/2023 No 03/23/2023 No 03/23/2023 Digital Access Answer Date Recorded No 04/21/2023 No 04/21/2023 Reliable internet access at home? Not on file 04/21/2023 Device with a working camera? Not on file Intimate Partner Violence Answer Date R ecorded Are you denied basic needs s uch as food, clothing, or medical care? No 03/20/2025 In the past 12 months have y ou been in a relationship with a person who hurts, threatens, or tries to control you? No 03/20/2025 Are you denied basic needs s uch as food, clothing, or medical care? No 03/20/2025 In the past 12 months have y ou been in a relationship with a person who hurts, threatens, or tries to control you? 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 Not on file Not on file Not on file Last Filed Vital Signs Vital Sign Reading Time Taken Comments Blood Pressure 144/80 04/01/2025 1:34 PM EDT Pulse 70 04/01/2025 1:34 PM EDT Temperature 36.3 C (97.4 F) 04/01/2025 1:34 PM EDT Respiratory Rate 12 04/01/2025 1:34 PM EDT Oxygen Saturation 99% 04/01/2025 1:34 PM EDT Inhaled Oxygen Concentration - - Weight 77.1 kg (170 lb) 04/01/2025 1:34 PM EDT Height 160 cm (5' 3 ) 04/01/2025 1:34 PM EDT Body Mass Index 30.11 04/01/2025 1:34 PM EDT Plan of Treatment Upcoming Encounters Date Type Department Care Team (Late st Contact Info) Description 08/03/2025 Procedure Pass [facility] Admitting Dept Virtual Department [address] [place] [address] 08/03/2025 9:30 AM EDT Hospital Encounter [facility] Virtual Department [address] [place] [address] Naeem Pritchett MD [address] [place] [address] 08/03/2025 9:30 AM EDT - 08/03/2025 10:00 AM EDT Surgery [facility] Admitting Dept Virtual Department [address] [place] [address] Naeem Pritchett MD [address] [place] [address] [email or web address] COLONOSCOPY Scheduled Procedures Name Priority Associated Diagnoses Date/Ti me COLONOSCOPY colon 08/03/2025 9:30 AM EDT Health Maintenance Due Date Last Done Comments CREATININE LEVEL 1965 LIPID PANEL 1965 POTASSIUM LEVEL 1965 DEPRESSION SCREENING 1976 HEPATITIS C SCREENING 1982 HIV ONE-TIME SCREENING (18-65 YEARS) 1982 SCREENING FOR DIABETES 1999 MAMMOGRAM 2004 COLOGUARD 2009 COLONOSCOPY 2009 COLORECTAL CANCER SCREENING 2009 FIT TEST 2009 FOBT 2009 SIGMOIDOSCOPY 2009 VIRTUAL COLONOSCOPY 2009 PNEUMOCOCCAL VACCINES (50+ years) (1 of 1 - PCV) 2014 ZOSTER VACCINES (1 of 2) 2014 PAP SMEAR 04/10/2021 04/10/2018, 04/10/2018 COVID-19 VACCINE ( season) 2024 01/23/2022, 01/23/2022, 01/23/2022, Additional history exists BLOOD PRESSURE 10/02/2025 04/01/2025 SMOKING Hx and SMOKELESS TOBACCO SCREENING 04/01/2026 04/01/2025 Adult Td,Tdap Booster 01/15/2030 01/15/2020, 011 RSV VACCINE (1 - 1-dose 75+ series) 2039 HEPATITIS A VACCINES Aged Out No long er eligible based on patient's age to complete this topic HIB VACCINES Aged Out No longer eligi ble based on patient's age to complete this topic MENINGOCOCCAL VACCINES (ACWY) Aged Out No longer eligible based on patient's age to complete this topic MENINGOCOCCAL VACCINES (B) Aged Out N o longer eligible based on patient's age to complete this topic Medical Devices Not on file Procedures Procedure Name Priority Date/Time Associated Diagnosis Comments PAP TEST Routine 04/10/2018 12:00 AM EDT from Last 3 Months or Most Recently Relevant to Health Maintenance Results * Pap Smear (04/10/2018 12:00 AM EDT) 04/10/2018 04/11/2018 11: 17 AM EDT Narrative SEE NARRATIVE - 04/18/2018 1:44 [place] [address] Agricultural Economist: Nila Euceda MD BRAND MGR Cytology Report FINAL DIAGNOSIS A. PAP SMEAR (SUREPATH) CE: SPECIMEN ADEQUACY: Satisfactory for evaluation; transformation zone present. INTERPRETATION: NEGATIVE FOR INTRAEPITHELIAL LESION OR MALIGNANCY. Electronically Signed Out By: Alena PAYTON(ASCP) The Pap test is a screening test primarily for squamous cancers and precursors and has associated false-negative and false-positive results. New technologies such as liquid-based preparations may decrease but will not eliminate all false-negative results. Regular sampling and follow-up of unexplained clinical signs and symptoms are recommended to minimize false negative results. PROCEDURES/ADDENDA HPV Testing (Requested) Ordered Date: 04/11/2018 HPV Test Negative for high risk human papillomavirus types 16, 18 and the Other high risk probe set (Includes 31, 33, 35, 39, 45, 51, 52, 56, 58, 59, 66, 68) by Divya cobase 4800 HR-HPV analysis. Clinical correlation is advised. This HPV test was performed at [facility], [address] [place] [address]. The accuracy and precision of this test has been verified in the Cytopathology laboratory of the [facility]. This test has not been cleared or approved by the U.S. Food and Drug Administration (FDA). CLINICAL HISTORY Date of Last Menstrual Period: Not Provided Menstrual History: Post Menopausal Other Clinical Conditions: Screening Pap SPECIMEN SOURCE A: PAP SMEAR (SUREPATH) CE Patient Name: KATHERIN WHITTEN : 1965 (Age: 52) Sex: F Institution: [facility] Location: [facility] Date of Collection: 04/10/2018 Date of Reported: 04/18/2018 13:44 Results to: Betsy Eastman NP Betsy Eastman NP CYTOLOGY ORDERABLES Final Result SEE NARRATIVE from Last 3 Months or Most Recently Relevant to Health Maintenance Insurance [facility] NON NSPG PCP [facility]VER 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 NON NSPG PCP 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 [employer] NON NSPG PCP SILVER CLARITY 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 [facility] NON NSPG PCP 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 It is not the complete legal health record.[facility]
--- OUTSIDE RECORDS SUMMARY | 2025-06-17 08:41 | XMS_ITS | Data Portability ---
Author Organization [facility] [address] Address [address] [place] [address] Assessment No assessment recorded. Plan of Treatment Reminders Order Date Submit Date Provider Last Modified By Organization Details Last Modified Time Details Appointments None recorded. Lab None recorded. Referral None recorded. Procedures None recorded. Surgeries None recorded. Imaging None recorded. Medication Orders prednisone 10 mg tablet 2022 023 [id number], [address] [facility], [place], [address], 19:46:29 Patient TargetsNo targets recorded. Patient Instructions Encounter Date Encounter Id Patient Instructions Last Modified By Organization Details Last Modified Time 12/28/2022 [id number] meralgia paresthetica: care instructions Not available 12/28/2022 19:46:26 hip flexor strai n: rehab exercises [email or web address] Not available 12/28/2022 19:46:26 You have been [...] Fever or vomiting. Thank you for using [facility], please call if you have any questions or concerns. [email or web address] Not available 12/28/2022 19:46:25 Reason for Referral None Reported. Problems Name Problem SNOMED Code Status Onset Date Resolution Date Notes Provider Name and Address Organization Details Recorded Time Essential hypertension 93924672 Active 2022 KATERYNA Butts [facility] 3 18:57:27 Problem Notes None recorded. [...] in Arterial blood by Pulse oximetry Systolic And Diastolic Provider Name and Address Organization Details Last Updated DateTime 3 162.56 cm 30.2 kg/m2 01078.2 6 g 97.6 [degF] 18 /min 74 /min 97 % 97 % 148/88 mm[Hg] DALE Foreman [facility] 3 18:59:22 Social History Question Answer Notes LastModified by Organizat ion Details LastModified Time Tobacco Smoking Status Never Smoker [facility] Casanova [facility] 12/28/2022 18:58:00 What Is Your Water Source? City Information not available 12/28/2022 What Is Your Heat Source? Gas Information not available 12/28/2022 Have You Had Direct Contact, Or Contact During Intimacy, With Monkeypox Rash, Scabs, Or Body Fluids From A Person With Monkeypox? No Information not available 12/28/2022 Have You Recently Traveled Abroad? No Information not available 12/28/2022 Sex: Unknown Functional Status Question Answer Note LastModified by Organizat ion Details LastModified Time Do you use any illicit or recreational drugs? No Information not available 12/28/2022 Do you or have you ever used any other forms of tobacco or nicotine? No Information not available 12/28/2022 What is your level of alcohol consumption? None Information not available 12/28/2022 Mental Status None recorded. Family History Relationship [...] SNOMED-CT Code Diagnosis ICD10 Code Diagnosis Note [id number] [address] [facility] [place] [address] 03/29/2021 08:07:49 03/29/2021 09:01:21 [id number] [address] [place] [address] 11/02/2019 14:08:05 11/02/2019 15:06:01 [id number] [facility]ATERYNA MOY [address] [place] [address] 12/28/2022 17:09:20 12/28/2022 19:48:45 Essential hypertension [id number] I10 Blood pressure was mildly elevated- most likely due to the pain. follow up with your PCP if still elevated. Meralgia p aresthetica of right leg [id number] 12016 G57.11 Physical Therapy Advised - Script Written Health Concerns Section Related Observation LastModified by Organization Detai ls LastModified Time None Recorded Concern Status LastModified by Organization Details LastModified Time None Recorded Advance Directives Directive None Recorded Payers Insurance Date Sequence Insurance Name Policy Number Policy Spear Covered Member ID Spear Member ID Guarantor Name 12/29/2022 1 [facility] (MEDICAID HMO) BETZY Pandey Diallo [id number] Katherin Diaz 12/29/2022 1 [facility] (HMO) REYESABDIBassem Pandey Yoel [id number] Katherin Yoel Notes Date Note Type Note [...] incontinance. KATERYNA MOY [address] [place], [address], [place] - [facility] 12/28/2022 23:04:28 OBGyn Episode No OBEpisode recorded.
== END 2025-06-17 09:39 | disposition home or self-care (01) ==
LOC: HO.HMCC 08:27
PROVIDERS: PCP Internal Medicine; Visit Provider Internal Medicine
DX: Z00.01 Encounter for general adult medical examination with abnormal findings (principal); I10 Essential (primary) hypertension; E78.2 Mixed hyperlipidemia; R30.0 Dysuria; R73.01 Impaired fasting glucose; M54.6 Pain in thoracic spine; G89.29 Other chronic pain; Z12.4 Encounter for screening for malignant neoplasm of cervix; Z13.9 Encounter for screening, unspecified

== ENCOUNTER 2025-10-13 09:44 | Outpatient (REF) | payer OTHER, SELFPAY | END 2025-10-13 09:45 | disposition home or self-care (01) | LOC: HO.MAMMO 09:44 | PROVIDERS: PCP Internal Medicine; Visit Provider Internal Medicine | DX: Z12.31 Encounter for screening mammogram for malignant neoplasm of breast (principal) | CPT/HCPCS: 77063; 77067 ==

== ENCOUNTER → 2025-10-13 10:15 | Outpatient (BNV) | payer OTHER, SELFPAY | PROVIDERS: PCP Internal Medicine; Visit Provider Internal Medicine | DX: Z12.31 Encounter for screening mammogram for malignant neoplasm of breast (principal) | CPT/HCPCS: 77063; 77067 ==